=== PATIENT | female | born 1960 | race Native Hawaiian/Other Pacific Islander ===

== ENCOUNTER 2016-10-08 09:12 | Inpatient (IN) | payer MEDICAID, MEDICARE ==
[~2016-10-08] VITALS: Ht 154.9 cm; Wt 65.2 kg
[2016-10-08] VITALS (10 sets, daily range): BP systolic 143–167; BP diastolic 66–91; PULSE 74–91; RESP 18–36; O2SAT 96–99
[~2016-10-08 09:12] MED LIST: ASPI-973 PO; ATOR80TA PO; BIMA2.5D5 RIGHT_EYE; BISM262T15 PO; BRIM5DRO RIGHT_EYE; CARV25TA2 PO; CLOP75TA3 PO; DOCU-41 PO; FLUO20CA25 PO; GLPZ5T PO; INSU100V7 SUBQ; LISI-571 PO; ONDA-53 PO; POLY17PO6 PO; TIMO5DRO26 RIGHT_EYE; TRAM50TA2 PO
--- NOTE | 2016-10-08 09:32 | ED.REPORT ---
HPI-Dyspnea / Wheezing Date of Service Oct 08, 2016 ED Provider: Jean Paul Silveira MD 56 year old female with a history of KS, CAD with stents, CHF, ESRD on dialysis , and IDDM presents to the ER accompanied by her sister complaining of a month of acute on chronic shortness of breath, worsening markedly today. Associated symptoms include a sensation of "fluid in her lungs", "bloating", swelling, and cough. Patient denies fever, chills, or sense of infection. Last dialysis appointment was four days ago, and she is scheduled for dialysis today but states that she feels too ill to tolerate outpatient dialysis at this time. Nursing Notes Stated Complaint: DIFFICULTY BREATHING Chief Complaint: Respiratory Distress Nursing Notes Reviewed: Yes Allergies: Coded Allergies: No Known Allergies (Unverified Allergy, Unknown, 07/06/16) Scheduled Aspirin (Aspirin) 81 Mg Tablet 81 MG PO DAILY Atorvastatin (Lipitor) 80 Mg Tablet 80 MG PO DAILY Bimatoprost (Lumigan) 45 Drop/2.5 Ml Ophsoln 1 DROP RIGHT_EYE BID Brimonidine Tartrate/Timolol (Combigan Eye Drops) 5 Ml Drops 1 DROP RIGHT_EYE BID Carvedilol (Carvedilol) 25 Mg Tablet 25 MG PO BID Clopidogrel Bisulfate (Plavix) 75 Mg Tablet 75 MG PO DAILY Fluoxetine (Fluoxetine) 20 Mg Capsule 20 MG PO DAILY Glipizide (Glipizide) 5 Mg Tablet 2.5 MG PO DAILY Insulin Glargine (Lantus U100 Insulin Vial) 100 Unit/Ml Vial 15 UNIT SUBQ BID Lisinopril (Lisinopril) 5 Mg Tablet 5 MG PO BID Polyethylene Glycol 3350 (Miralax) 17 Gm Powd.pack 17 GM PO DAILY Hold if having loose stools or diarrhea Timolol (Betimol) 5 Ml Drops 1 DROP RIGHT_EYE BID Tramadol (Tramadol) 50 Mg Tablet 50 MG PO HS Scheduled PRN Bismuth Subsalicylate (Pepto-Bismol) 262 Mg Tab.chew 262 MG PO PRN PRN PRN For Indigestion Docusate Sodium (Colace) 100 Mg Capsule 100 MG PO DAILY PRN PRN For Constipation Ondansetron (Ondansetron) 4 Mg Tablet 4 MG PO Q 6 hours PRN PRN For Nausea General Time Seen by MD: 09:31 Chief Complaint Shortness of breath Hx Obtained From: Patient Arrived By: Walk-in Sudden in Onset?: No Onset Occurred: More than a week ago... (1 month) Symptom Duration: Constant Associated with: Reports: Leg swelling, Denies: Fever Context Related History: Reports: Congestive heart failure, Coronary artery disease Recent Healthcare: Recent doctor visit Similar Sx Previous: Yes Past Medical History Past Medical History Diabetes mellitus End-stage renal disease Hypertension CAD with cardiac stenting Congestive heart failure Cardiomyopathy Hyperlipidemia Hx of CVA Past Surgical History Cardiac stents x2 Family History Noncontributory Smoking History Never Smoker Social History Other Social History: Good social support, Local resident Ambulatory Status Independent Review of Systems Review of Systems Note: +Bloating Constitutional: Denies: Chills, Fever Respiratory: Reports: Dyspnea on exertion, Non-productive cough, Shortness of breath, Denies: Hemoptysis Musculoskeletal: Reports: Extremity swelling Complete sys rev & neg: except as marked. GI: Denies: Nausea, Vomiting Physical Exam Initial Vital Signs Vital Signs (First) Date Time Temp Pulse Resp B/P Pulse Ox O2 Delivery O2 Flow Rate FiO2 10/08/16 09:17 36.0 91 36 148/86 98 Room Air Initial VS: Reviewed Head / Eyes: Atraumatic, Normocephalic Extremities: Vascular intact, Neuro intact, No swelling, No tenderness Skin: Warm, Dry, No cyanosis Neurologic: Alert, Oriented, Nonfocal General/Constitutional: Awake, Alert, Well developed, Well nourished Neck: Atraumatic, Supple, No meningismus, Full range of motion, No swelling, Non-tender, No masses Respiratory / Chest: No rales, No rhonchi, No retractions Diminished Breath Sounds: Positive: Decreased bilateral Cardiovascular: Heart rate NL, Regular rhythm Heart Sounds / Murmur: Positive: Systolic murmur present.. (II/) Lower extremity edema to mid thighs, bilaterally. Interpretation & Diagnostics Lab Results Interpretation Result Diagram: 10/08/16 0945 10/08/16 0945 Test 10/08/16 09:45 White Blood Count 6.3th/mm3 (3.8-10.1) Red Blood Count 4.30mil/mm3 (3.90-5.20) Hemoglobin 12.0g/dL (12.0-15.6) Hematocrit 37.6% (35.0-46.0) Mean Corpuscular Volume 87.4fL (81-100) Mean Corpuscular Hemoglobin 27.9pg (27.0-35.0) Mean Corpuscular Hemoglobin Concent 31.9% (32.0-37.0) Red Cell Distribution Width 17.2% (12.3-15.4) Platelet Count 157bil/L (150-400) Neutrophils (%) (Auto) 78.6% (40-74) Lymphocytes (%) (Auto) 6.5% (14-46) Monocytes (%) (Auto) 10.9% (4-12) Eosinophils (%) (Auto) 3.5% (0-5) Basophils (%) (Auto) 0.3% (0-3) Prothrombin Time 10.9sec (8.1-12.5) Prothromb Time International Ratio 1.02ratio Sodium Level 139mEq/L (134-144) Potassium Level 5.2mEq/L (3.5-5.2) Chloride Level 105mEq/L (97-108) Carbon Dioxide Level 16mmol/L (18-29) Blood Urea Nitrogen 72mg/dL (6-24) Creatinine 5.37mg/dL (0.57-1.00) Estimat Glomerular Filtration Rate 12mL/min (>59) Glucose Level 91mg/dL (60-99) Calcium Level 7.9mg/dL (8.5-10.1) Total Bilirubin 1.1mg/dL (0.0-1.2) Aspartate Amino Transf (AST/SGOT) 43U/L (0-50) Alanine Aminotransferase (ALT/SGPT) 23U/L (0-32) Alkaline Phosphatase 583U/L (25-150) Troponin T 0.182ug/L (0.0-0.011) Pro-B-Type Natriuretic Peptide 10641sz/mL (0-287) Total Protein 7.4g/dL (6.4-8.4) Albumin 2.9g/dL (3.4-5.0) Hold Hartman Top Tube Received (Received) ECG Interpretation ECG Interpretation: Sinus rhythm, rate 87 Nonspecific intraventricular conduction delay Time: 10:20 Interpreted by: ED physician X-Ray Chest Interpretation Chest Xray Interpretation: IMPRESSION: Chronic retrocardiac and right medial lung base are unchanged, most likely atelectasis or pleural-parenchymal scarring. Superimposed acute process can be obscured. Dictated by: Oswaldo Mares M.D. on 10/08/2016 at 10:12 Approved by: Oswaldo Mares M.D. on 10/08/2016 at 10:17 View: Portable, 1 view Interpretation / Wet Read by: Interpret - Radiologist Re-Eval/Medical Decision Source of Hx: Old records Re-Evaluation/Progress : Time of Eval: 11:03 Re-Evaluation/Progress Note: Updated patien on the plan of care. Patient would like to be admitted to the hospital while she waits for her dialysis appointment. Consultation #1: Referral / Consult Name: Frank Julien MD Consulted With: Nephrology Call Returned at: 11:08 Note: Agrees to consult. Consultation #2: Referral / Consult Name: Lázaro Styles DO Consulted With: Hospitalist Call Returned at: 11:53 Noodle Catalyst Maker: Agrees with eval, Agrees with plan, Accepts admit Counseled Regarding: Diagnosis, Lab results, Need for admission Discharge & Departure Impression: Primary Impression: Fluid overload Hypervolemia type: unspecified Qualified Code: E87.70 - Fluid overload, unspecified Additional Impressions: Chronic renal disease, stage V Ascites Ascites type: other type Qualified Code: R18.8 - Other ascites Disposition: ADMITTED TO HOSPITAL Discharge Condition All VS Reviewed: Yes Condition: Stable Referrals: OTHER,PHYSICIAN (PCP) Mayito Gaines MD Attestation Portions of this note were transcribed by rEica Cordova. I, Dr. Silveira, personally performed the history, physical exam and medical decision-making; I reviewed and confirmed the accuracy of the information in the transcribed note. Signed by: Nay Rich, 10/08/2016 and 11:54 copies to: Mayito Gaines MD, Kirk H MD Oct 08, 2016 09:32 ERICA CORDOVA Oct 08, 2016 09:40
[2016-10-08 09:55] LABS: BASOPHILS % (AUTO) 0.3 % (0-3); EOSINOPHILS % (AUTO) 3.5 % (0-5); MONOCYTES % (AUTO) 10.9 % (4-12); Mean Corpuscular Hemoglobin 27.9 pg (27.0-35.0); Mean Corpuscular Volume 87.4 fL (81-100); NEUTROPHILS % (AUTO) 78.6 % (40-74); Platelet Count 157 bil/L (150-400)
[2016-10-08 10:08] LABS: INR 1.02 ratio
--- NOTE | 2016-10-08 10:18 | DRSVH ---
PROCEDURE: X-RAY CHEST ONE VIEW, PORTABLE ([id number]) INDICATIONS: dyspnea TECHNIQUE: One view of the chest was acquired. COMPARISON: [facility], CR, CHEST 1 VIEW, 11/10/2015, 14:59. [facility], CR, XR SAMANTHA ST 2VW, 07/07/2016, 8:20. [facility], CT, CT ABD PELVIS W CON, 07/10/2016, 17:14. [facility], CR, XR CHEST 1VW (PORTABLE), 07/10/2016, 12:16. FINDINGS: Surgical changes and devices: None. Lungs and pleura: Elevation of right hemidiaphragm. Chronic opacities in the retrocardiac region and right medial lung base are unchanged. Possible small right pleural effusion. No pneumothorax. Mediastinum: Mediastinal contours appear normal. Heart size is normal. Bones and chest wall: No suspicious bony lesions. Overlying soft tissues appear unremarkable. IMPRESSION: Chronic retrocardiac and right medial lung base are unchanged, most likely atelectasis or pleural-parenchymal scarring. Superimposed acute process can be obscured. Dictated by: Oswaldo Mares M.D. on 10/08/2016 at 10:12 Approved by: Oswaldo Mares M.D. on 10/08/2016 at 10:17
[2016-10-08 10:50] LABS: TROPONIN T 0.182 ug/L (0.0-0.011)
[2016-10-08] MEDS ORDERED: Alum-Mag Hydrox-Simeth 30 mL Suspension PO PRN (11:55)
[2016-10-08] MEDS ORDERED: Polyethylene Glycol (PEG) 17 Gm Powder PO PRN (11:55)
[2016-10-08] MEDS ORDERED: Ondansetron 2 mg/mL 2 mL Inj IVPUSH PRN (11:55)
--- NOTE | 2016-10-08 13:08 | DRSVH ---
PROCEDURE: US ABDOMEN INDICATIONS: abdominal distention TECHNIQUE: Real-time scanning was performed of the abdominal and retroperitoneal organs, with image documentatio n. COMPARISON: [facility], CT, CT ABD PELVIS W CON, 07/10/2016, 17:14. [facility], US, US ABDOMEN, 07/07/2016, 7:51. FINDINGS: Liver length: 17.09 cm Gallbladder Wall Thickness: n.a. CHD: 2.40 mm CBD: 6.70 mm Spleen length: 10.01 cm Right kidney length: 9.42 cm Left kidney length: 9.89 cm Aorta(Proximal): 1.64 cm Aorta(Mid): 1.18 cm Aorta(Distal): - RCIA: - LCIA: - Liver: Liver is normal in size and homogeneous in echotexture. Gallbladder: Surgically absent Biliary ducts: Intrahepatic bile ducts are non-dilated. Extrahepatic bile duct caliber is normal. Normal is 6-7 mm or less in diameter, or 10 mm or less post-cholecystectomy. Pancreas: Obscured by overlying bowel gas. Spleen: Spleen is normal in size and homogeneous in echotexture. Kidneys: Kidneys are normal in size and echotexture. No hydronephrosis or nephrolithiasis. No mendez d masses. Aorta: Visualized aorta is normal in caliber at less than 3 cm. Iliacs: Proximal common iliac arteries are obscured by overlying bowel gas. IVC: Intrahepatic inferior vena cava is patent. Miscellaneous: There is a small to moderate amount of free abdominal fluid in all 4 quadrants. IMPRESSION: 1. A small to moderate amount of free fluid in all 4 quadrants of the abdominal cavity. A cause for a scites is not identified. 2. Pancreas and iliac arteries not visualized due to overlying bowel gas. Dictated by: Oswaldo Mares M.D. on 10/08/2016 at 13:03 Approved by: Oswaldo Mares M.D. on 10/08/2016 at 13:07
[2016-10-08] MEDS ORDERED: FRSM80T PO (13:42)
--- NOTE | 2016-10-08 15:53 | PCM.HPMED ---
Subjective Date of Service Oct 08, 2016 Primary Provider: Admitting Physician: Lázaro Styles DO Primary Care Physician: Other,Physician Attending Physician: Lázaro Styles DO Chief Complaint: shortness of breath History of Present Illness: Tess is a pleasant 56-year-old female with history of CAD status post PCI, ischemic cardiomyopathy with EF of 40%, CHF, severe mitral regurg, type II diabetes, and end-stage renal disease on HD who presented to the ED for complaints of shortness of breath slowly worsening in the past 4 days. She is generally on a Saturday, Saturday, Saturday dialysis schedule but missed her dialysis on Saturday due to an outpatient surgical procedure for her diabetic retinopathy. She reports feeling increasingly short of breath and and states that her lungs are full water. She also complains of abdominal bloating and swelling, along with increasing pedal edema. She endorses a chronic cough which has not been any more productive for worse. She denies any chest pain, fevers, chills, headache, or dizziness. She reports that she does make urine and has not noticed any dysuria or urgency. She did not take her medications this morning. In the ED she was noted to be tachypneic but afebrile and saturating well on room air. She had a portable chest x-ray and EKG that did not show any acute changes. Her troponins were elevated at 0.182, but is comparable to previous troponins measured. Her creatinine was noted to be 5.37 with a BUN of 72. Her proBNP was 29,343. Her alkaline phosphatase was also elevated at 583. Review of Systems: 12 point review of systems negative except as stated in history of present illness Allergies Coded Allergies: No Known Allergies (Unverified Allergy, Unknown, 07/06/16) Home Medications Aspirin 81 mg Atorvastatin 80 mg Lumigan Pepto-Bismol when necessary Combigan Carvedilol 25 mg by mouth twice a day Plavix 75 mg by mouth daily Colace when necessary Fluoxetine 20 mg daily Furosemide 80 mg twice a day Glipizide 2-1/2 mg daily Lantus 15 units subcutaneous twice a day Lisinopril 5 mg by mouth twice a day Zofran when necessary Timolol drops Tramadol 50 mg daily at bedtime PMH 1. End-stage renal disease, on hemodialysis. Noncompliance. 2. 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 Hypertension with hypertensive nephrosclerosis. 4. Coronary artery disease s/p 2 drug eluting stents 5. Ischemic cardiomyopathy. Ejection fraction 40%. 6. Dyslipidemia. 7. CVA. 8. Depression. Surgical History 1. Status post left AV graft placement. 2. Status post cholecystectomy. 3. S/p balloon angioplasty for stenosis of AV fistula Family History Parents with cancer in later years, uncertain of which kind. Social History Hx Alcohol Use: No Hx Substance Use: No Hx Tobacco Use: No Smoking Status: Never Smoker Living Arrangement: with Family Exam Vital Signs Vital Sign - Last Date Time Temp Pulse Resp B/P Pulse Ox O2 Delivery O2 Flow Rate FiO2 10/08/16 14:22 77 10/08/16 13:06 36.7 22 152/89 99 Room Air Exam General: Well-developed female who appears in mild respiratory distress while lying at 30, speaking full sentences HEENT: Normocephalic, atraumatic, right pupil not reactive to light and chronically more dilated left, oropharynx nonerythematous, mucosa is mildly edematous Neck: Soft, nontender, trachea midline, JVD noted to angle of jaw CV: Regular rate and rhythm with rumbling systolic murmur noted on left lateral chest. Peripheral pulses intact and equal, thrill noted on left radial pulse Respiratory: Coarse breath sounds, moderate diffuse bilateral wheezing, crackles noted up to half of chest bilaterally, mild increase in respiratory effort Abdomen: Soft, mildly distended, nontender, no guarding, no rashes noted. fluid wave present, dullness to percussion, normoactive bowel sounds present MSK: Muscle strength grossly intact and equal, no swollen or tender joints Extremities: Severe pitting edema noted up to bilateral hips, no clubbing or cyanosis noted Neuro: Alert and oriented 3, grossly intact, no focal deficits, asymmetric Psych: Mildly flat affect, linear thought process, cooperative Lab and Diagnostics Result Diagram: 10/08/16 0945 10/08/16 0945 X-Rays, CTs and MRIs CXR 1view IMPRESSION: Chronic retrocardiac and right medial lung base are unchanged, most likely atelectasis or pleural-parenchymal scarring. Superimposed acute process can be obscured. 12-lead ECG NSR rates in thes 80s with nonspecific IVCD Additional Diagnostics: Abdominal U/S IMPRESSION: 1. A small to moderate amount of free fluid in all 4 quadrants of the abdominal cavity. A cause for ascites is not identified. 2. Pancreas and iliac arteries not visualized due to overlying bowel gas. Assessment & Plan 56-year-old female with history of CAD s/p PCI, ischemic cardiomyopathy with EF of 40%, CHF, severe mitral regurg, type II diabetes, and end-stage renal disease on HD who presented to the ED for complaints of shortness of breath slowly worsening in the past 4 days. #Likely acute on chronic CHF exacerbation, present on admission Patient has a history of CAD, cardiomyopathy with reduced ejection fraction, and also severe mitral regurg. Missing the episode of dialysis on Saturday is likely the cause for this acute exacerbation. There has been note of lack of compliance in the past also. Patient is scheduled for dialysis today We will plan to supplement diuresis with IV furosemide 80 mg twice a day We will continue to monitor I/Os and electrolytes closely. Replenish as needed Obtain daily standing weights Physical therapy for conditioning #Ischemic cardiomyopathy and CAD status post PCI, POA Patient's last echocardiogram was in April 2016. She reports that she has seen a improvement specialist down in [place] for possible replacement of her valve, which presumably is the mitral valve due to her severe regurg. She has not had any chest pain and reports that she has been compliant on her medications. We will plan to resume her home medications. We will place on telemetry for CV monitoring Plan to keep potassium above 4 and magnesium above 2 Elevated Troponin is likely due to poor clearance, will trend for further evaluation. Will obtain echocardiogram for evaluation #Ascites, POA Patient was noted to have ascites on physical examination. She had an abdominal ultrasound in the ED that did not show any obstruction and only a small to moderate amount of free fluid in all 4 quadrants. Of note the pancreas and iliac arteries were not visualized LFTs were within normal limits This may be due to her CHF and excess fluid state #End stage renal disease on hemodialysis, POA Patient reports dialysis on ,,. Nephrology is consulted and will be dialyzing patient today Continue patient's home medications, further management per nephrology #Type II diabetes with multiple complications, POA Patient has had long-standing diabetes with resultant neuropathy, retinopathy, renal, and cardiovascular disease We will hold home glipizide We will continue home Lantus and place on high-dose lispro correctional scale Hemoglobin A1c pending #Depression, POA We will continue home medications Tylenol prn pain/fever Zofran prn nausesa Restoril prn insomnia Ativan prn anxiety Bowel Regimen prn constipation CODE STATUS: Full code Admission status: Due to patient's medical complexity, risk of adverse effects, and decompensation, she will require at least 2 midnights for evaluation, treatment and stabilization. Pain Evaluation: Adequate Pain Control VTE Prophylaxis: Sub-Q Heparin (Unfractionated) Resuscitation Status: CPR: Attempt Resuscitation Time spent 55 minutes Attending Statement I have seen and evaluated patient in addition to directly supervising care provided by resident physician. I agree with above documentation. Elevated troponins in the setting of ESRD and CHF exacerbation without acute EKG changes much more likely representing cardiac strain and impaired clearance rather than ACS. Dialysis is paramount, FU study, echocardiogram to evaluate for possible underlying etiology contributing to this exacerbation also pending , though pt may have more simply have developed CHF given missed dialysis treatment and poor baseline cardiac function. Jace Russ DO Oct 08, 2016 15:05 Lázaro Styles DO Oct 09, 2016 06:08
[2016-10-08 16:43] LABS: Magnesium 2.4 mg/dL (1.6-2.6)
--- NOTE | 2016-10-08 17:29 | NUR ---
Admission Patient admitted to the floor from the ED at 1256. Admission questions and Med list accomplished. Vitals - t-36.7, bp-152/89, p-77, rr-22, 02-99 RA. Oriented patient to the room, place bed in lowest position and call light with in reach.
--- NOTE | 2016-10-08 17:32 | NUR ---
Transferred to dialysis. Patient transferred to dialysis at approx. 1400.
--- NOTE | 2016-10-08 17:33 | NUR ---
Med List Discrepancy Admit nurse discovered Med list from Sep. slightly different from meds presented to the primary RN to put in the med rec. Notified provider of the discrepancy and provider said he will look into next gen to try to reconcile the differences.
[2016-10-08] MEDS ORDERED: Glucose 40% Oral Gel 15 Gm Tube PO PRN (18:05)
--- NOTE | 2016-10-08 19:29 | NUR ---
Dialysis note: 2 1/2 hr tx. Net UF 2500. Accessed left looped graft with 15 g needles without difficulty, lidocaine used. Pt resting or sleeping throughout tx. RN held and then clamped for a total of 13 min. Secured with SS gauze and tape. Report given to floor RN Camille; pt returned to floor stable. Please see DTR for complete record of VS.
--- NOTE | 2016-10-08 19:54 | CONS ---
[address] [address] CONSULTATION REPORT PATIENT: DOMENICO CASTANEDA : 1960 MR#: [id number] ADMIT: 10/08/2016 JOB ID: [id number] DATE OF SERVICE: 10/08/2016 REQUESTING PHYSICIAN: Jean Paul Silveira MD REASON FOR CONSULTATION: Management of end-stage renal disease. CHIEF COMPLAINT: Shortness of breath and lower extremity swelling. PRESENT ILLNESS: This is a very pleasant, 75-year-old, Marshallese lady with significant past medical history of end-stage renal disease, on hemodialysis under the care of Dr. Gaines, type 2 diabetes with diabetic nephropathy, hypertension, ischemic cardiomyopathy, coronary artery disease status post stent placement x2, presented to the hospital due to shortness of breath and lower extremity swelling. The patient was recently admitted in June 2016 due to acute on chronic heart failure. She did have history of noncompliance. After she was discharged, she has been on hemodialysis on a regular basis every Saturday, Saturday and Saturday. Her last dialysis was on Saturday, October 05, 2016. She endorsed she has had worsening fluid retention over the past one month. She is complaining of lower extremity swelling, abdominal distention, facial swelling. She started having productive cough and chest congestion four days prior to the admission. She also has shortness of breath again over the past month also and got worse over the weekend. She decided to come to the hospital for further investigation. She stated that she was evaluated by a regional hr manager in one of the hospitals in [place]. She is not certain regarding further investigation. PAST MEDICAL HISTORY: 1. End-stage renal disease, on hemodialysis every Saturday, Saturday and Saturday. 2. Type 2 diabetes with diabetic nephropathy. 3. Hypertension with hypertensive nephrosclerosis. 4. Coronary artery disease status post stenting. 5. Ischemic cardiomyopathy. 6. History of CVA. 7. Dyslipidemia. 8. Depression. 9. Diabetic retinopathy. PAST SURGICAL HISTORY: 1. Status post cholecystectomy. 2. Status post left AV graft placement. 3. Focal high-grade stenosis at the graft anastomosis status post balloon angiography. SOCIAL HISTORY: Denies current use of alcohol, tobacco, or illicit drugs. FAMILY HISTORY: Noncontributory. ALLERGIES: No known drug allergies. REVIEW OF SYSTEMS: A 14 point review of system was performed. MEDICATIONS: 1. Aspirin. 2. Lipitor. 3. Carvedilol. 4. Plavix. 5. Colace. 6. Fluoxetine. 7. Glipizide. 8. Insulin glargine. 9. Lisinopril. 10. Zofran. 11. Tramadol. PHYSICAL EXAMINATION: Vitals: Temperature 36.7, pulse 76, respiratory rate 22, blood pressure 152/89, O2 sat 99% on room air. General appearance: Chronically ill-looking, in no acute distress. HEENT: No pallor. No icteric sclerae. Positive for JVD, puffy eyelids and face. No lymphadenopathy. No thyroid enlargement. Heart: Regular rhythm. Normal S1, S2. Systolic murmur noted. Lungs: Rales at the bases. Positive for expiratory wheezing. Occasional rhonchi noted. Abdomen: Soft. Moderate distention. Nontender. Fluid wave positive. No hepatosplenomegaly. Extremities: 2+ edema on the lower extremity. Abdominal sonogram showed [id number] amount of abdominal fluid in all four quadrants, liver is normal in size and homogeneous in echotexture status post cholecystectomy. Chest x-ray showed chronic retrocardiac and right media lung base unchanged, most likely atelectasis or pleural parenchymal scarring. Superimposed acute process can be obscured. LABORATORY: WBC 6.3, hemoglobin 12.0, platelets 157. Sodium 139, potassium 5.2, chloride 105, bicarb 16, BUN 72, creatinine 5.37, calcium 7.9, alkaline phos 583, troponin 0.182, ProBNP 29,343, albumin 2.9. Last cardiac cath done in April 2016 showed patent left anterior descending artery stent, diffuse coronary artery disease. Echocardiogram done in April 2016 showed ejection fraction 40%, severe hypokinesis of basal inferior wall, left atrium is severely dilated, severe mitral regurgitation, moderate tricuspid regurgitation. ASSESSMENT: 1. Severe fluid overload. 2. Acute on chronic systolic heart failure, ejection fraction 40%. 3. End-stage renal disease, on hemodialysis every Saturday, Saturday, and Saturday. 4. Severe mitral regurgitation and moderate tricuspid regurgitation. 5. Type 2 diabetes with diabetic nephropathy. 6. Hypertension with hypertensive nephrosclerosis. 7. Coronary artery disease status post stenting. 8. Dyslipidemia. 9. Cerebrovascular accident. 10. Renal osteodystrophy. Will resume dialysis today. Will start treatment for 4 hours, ultrafiltration as tolerated. Recommend abdominal paracentesis. Recommend to repeat echocardiogram. I will provided daily hemodialysis while she is in the hospital. Thank you for the consultation. We will monitor along with you. STEVEND
[2016-10-08] MEDS: Insulin LISPRO 300 Unit/3 mL Inj SUBQ SCH (22:00)
[2016-10-08] MEDS: Heparin 5,000 Unit/mL Inj SUBQ SCH ×2 (22:02→23:11)
[2016-10-08] MEDS: Brimonidine-Timolol 5 mL Ophthalmic Solution RIGHT_EYE SCH (22:03)
[2016-10-08] MEDS: Timolol 0.5% 5 mL Ophthalmic Solution RIGHT_EYE SCH (22:03)
[2016-10-08] MEDS: Furosemide 10 mg/mL 10 mL Inj IVPUSH SCH (22:03)
[2016-10-08] MEDS: Insulin GLARgine 100 Unit/mL Syringe SUBQ SCH (22:04)
[2016-10-09] VITALS (7 sets, daily range): BP systolic 135–152; BP diastolic 73–82; PULSE 70–80; RESP 16–18; O2SAT 96–98
--- NOTE | 2016-10-09 06:40 | NUR ---
Uneventful Night: Pt had an uneventful night, no c/o pain, ches tpain or SOB. Pt slept most of the night, pleasant and cooperative with care.
[2016-10-09 06:52] LABS: BASOPHILS % (AUTO) 0.4 % (0-3); EOSINOPHILS % (AUTO) 3.4 % (0-5); MONOCYTES % (AUTO) 13.8 % (4-12); Mean Corpuscular Hemoglobin 27.2 pg (27.0-35.0); Mean Corpuscular Volume 85.8 fL (81-100); NEUTROPHILS % (AUTO) 70.9 % (40-74); Platelet Count 152 bil/L (150-400)
[2016-10-09 07:27] LABS: Phosphorus 5.6 mg/dL (2.5-4.9)
--- NOTE | 2016-10-09 07:45 | NUR ---
Hypoglycemia Pts BG was 46. Pt c/o of light headedness. Notified charge nurse. Gave glass of juice and rechecked BG 10 minutes later and BG was 83. Held correctional coverage and ordered pts breakfast.
[2016-10-09] MEDS: Heparin 5,000 Unit/mL Inj SUBQ SCH ×2 (07:54→17:11)
[2016-10-09] MEDS: Insulin LISPRO 300 Unit/3 mL Inj SUBQ SCH ×4 (07:56→21:15)
[2016-10-09] MEDS: Insulin GLARgine 100 Unit/mL Syringe SUBQ SCH (07:56)
--- NOTE | 2016-10-09 08:48 | NUR ---
Evaluation completed. Please go to "Notes" then click on "Assessments and Notes" (bottom left corner of screen). Then select appropriate discipline tab on top of screen.
--- NOTE | 2016-10-09 09:00 | NUR ---
dialysis pt went to dialysis. All meds given accept lasix. pt left unit to MOC with no s/s of distress. 1230 pt returned to unit. No s/s of distress. Eating lunch
--- NOTE | 2016-10-09 09:42 | NUR ---
[facility] for dialysis: Patient arrived via bed to [facility] room 243-1 for ordered dialysis per electrical journeyman Becca. Patient on room air. Report received from primary RN. nuclear worker technician called and notified of patient's location.
--- NOTE | 2016-10-09 10:31 | PCM.PNMED ---
Subjective Date of Service Oct 09, 2016 Subjective Uneventful overnight, tolerated dialysis well yesterday. Had 2500ml ultrafiltrate removed. Patient was sleepy this morning but reports she slept well overnight. Still complaining of abd distension and some SOB. Denies any fevers, CP, or diarrhea. Exam Vital Signs Vital Sign - Last Date Time Temp Pulse Resp B/P Pulse Ox O2 Delivery O2 Flow Rate FiO2 10/09/16 05:02 37.0 74 16 135/73 98 Room Air Intake and Output 10/08/16 10/08/16 10/09/16 Cumulative From/Thru 15:00 23:00 07:00 10/08/16 09:17 - 10/09/16 05:46 Intake Total 375 ml 375 ml 750 ml Output Total 2500 ml 2500 ml Balance -2125 ml 375 ml -1750 ml Intake Oral 375 ml 375 ml 750 ml Output Urine Total 0 ml 0 ml Ultrafiltrate 2500 ml 2500 ml # Voids 1 1 # Bowel Movements 0 0 0 Exam General: Well-developed female who appears in mild respiratory distress while lying at 30, speaking full sentences HEENT: Normocephalic, atraumatic, right pupil not reactive to light and chronically more dilated left, oropharynx nonerythematous, mucosa is mildly edematous Neck: Soft, nontender, trachea midline, JVD noted to angle of jaw CV: Regular rate and rhythm with rumbling systolic murmur noted on left lateral chest. Peripheral pulses intact and equal, thrill noted on left radial pulse Respiratory: Coarse breath sounds, moderate diffuse bilateral wheezing, crackles noted up to half of chest bilaterally, mild increase in respiratory effort Abdomen: Soft, mildly distended, nontender, no guarding, no rashes noted. fluid wave present, dullness to percussion, normoactive bowel sounds present MSK: Muscle strength grossly intact and equal, no swollen or tender joints Extremities: Severe pitting edema noted up to bilateral hips, no clubbing or cyanosis noted Neuro: Alert and oriented 3, grossly intact, no focal deficits, asymmetric Psych: Mildly flat affect, linear thought process, cooperative IVs and Medications Medications Reviewed: Medications were reviewed in detail Lab and Diagnostics Result Diagram: 10/09/16 0620 10/09/16 0620 X-Rays, CTs and MRIs CXR 1view IMPRESSION: Chronic retrocardiac and right medial lung base are unchanged, most likely atelectasis or pleural-parenchymal scarring. Superimposed acute process can be obscured. 12-lead ECG NSR rates in thes 80s with nonspecific IVCD Additional Diagnostics Abdominal U/S IMPRESSION: 1. A small to moderate amount of free fluid in all 4 quadrants of the abdominal cavity. A cause for ascites is not identified. 2. Pancreas and iliac arteries not visualized due to overlying bowel gas. Assessment & Plan 56-year-old female with history of CAD s/p PCI, ischemic cardiomyopathy with EF of 40%, CHF, severe mitral regurg, type II diabetes, and end-stage renal disease on HD who presented to the ED for complaints of shortness of breath slowly worsening in the past 4 days. #Likely acute on chronic CHF exacerbation, present on admission Patient has a history of CAD, cardiomyopathy with reduced ejection fraction, and also severe mitral regurg. Missing the episode of dialysis on Saturday is likely the cause for this acute exacerbation. There has been note of lack of compliance in the past also. Patient is scheduled for dialysis today We will plan to supplement diuresis with IV furosemide 80 mg twice a day We will continue to monitor I/Os and electrolytes closely. Replenish as needed Obtain daily standing weights Physical therapy for conditioning #Ischemic cardiomyopathy and CAD status post PCI, POA Patient's last echocardiogram was in April 2016. She reports that she has seen a configuration specialist down in [place] for possible replacement of her valve, which presumably is the mitral valve due to her severe regurg. She has not had any chest pain and reports that she has been compliant on her medications. We will plan to resume her home medications. We will place on telemetry for CV monitoring Plan to keep potassium above 4 and magnesium above 2 Elevated Troponin is likely due to poor clearance, has been similar to previous values. Will obtain echocardiogram for evaluation of heart health. #Ascites, POA Patient was noted to have ascites on physical examination. She had an abdominal ultrasound in the ED that did not show any obstruction and only a small to moderate amount of free fluid in all 4 quadrants. Of note the pancreas and iliac arteries were not visualized LFTs were within normal limits Will obtain US Paracentesis today #End stage renal disease on hemodialysis, POA Patient reports dialysis on M,W,F. Nephrology is consulted and will be dialyzing patient today Continue patient's home medications, further management per nephrology -Daily dialysis while inpatient #Type II diabetes with multiple complications, POA Patient has had long-standing diabetes with resultant neuropathy, retinopathy, renal, and cardiovascular disease We will hold home glipizide We will continue home Lantus and place on high-dose lispro correctional scale Hemoglobin A1c 8.2 - likely high due to noncompliance. Was mildly hypoglycemic this morning, will plan to decrease Lantus. #Depression, POA We will continue home medications Tylenol prn pain/fever Zofran prn nausesa Restoril prn insomnia Ativan prn anxiety Bowel Regimen prn constipation Dispo: Will likely require 2-3 more days for dialysis and diuresis. Pain Evaluation: Adequate Pain Control VTE Prophylaxis: Sub-Q Heparin (Unfractionated) Resuscitation Status: CPR: Attempt Resuscitation Attending Statement The patient was seen and examined together with Dr. Russ on 10/09/2016 and I agree with the history, exam and plan as outlined in the note above. Jace Russ DO Oct 09, 2016 08:09 Yousuf Cortes MD Oct 10, 2016 09:03
--- NOTE | 2016-10-09 11:15 | PCM.PNNEPH ---
Subjective Date of Service Oct 09, 2016 Subjective Patient was seen during dialysis. She remains having shortness of breath, lower extremity swelling, increased abdominal girth. Dialysis was done yesterday, 2.5 L fluid removal. She reported that she missed dialysis on Saturday. Exam Vital Signs Vital Sign - Last Date Time Temp Pulse Resp B/P Pulse Ox O2 Delivery O2 Flow Rate FiO2 10/09/16 10:44 73 10/09/16 05:02 37.0 16 135/73 98 Room Air Intake and Output 10/08/16 10/08/16 10/09/16 Cumulative From/Thru 15:00 23:00 07:00 10/08/16 09:17 - 10/09/16 05:46 Intake Total 375 ml 375 ml 750 ml Output Total 2500 ml 2500 ml Balance -2125 ml 375 ml -1750 ml Intake Oral 375 ml 375 ml 750 ml Output Urine Total 0 ml 0 ml Ultrafiltrate 2500 ml 2500 ml # Voids 1 1 # Bowel Movements 0 0 0 Exam General appearance: Chronically ill-looking, in no acute distress. HEENT: No pallor. No icteric sclerae. Positive for JVD, puffy eyelids and face. No lymphadenopathy. No thyroid enlargement. Heart: Regular rhythm. Normal S1, S2. Systolic murmur noted. Lungs: Rales at the bases. No wheezing or rhonchi. Abdomen: Soft. Moderate distention. Nontender. Fluid wave positive. No hepatosplenomegaly. Extremities: 2+ edema on the lower extremity. Lab and Diagnostics Result Diagram: 10/09/16 0620 10/09/16 0620 X-Rays, CTs and MRIs CXR 1view IMPRESSION: Chronic retrocardiac and right medial lung base are unchanged, most likely atelectasis or pleural-parenchymal scarring. Superimposed acute process can be obscured. 12-lead ECG NSR rates in thes 80s with nonspecific IVCD Additional Diagnostics Abdominal U/S IMPRESSION: 1. A small to moderate amount of free fluid in all 4 quadrants of the abdominal cavity. A cause for ascites is not identified. 2. Pancreas and iliac arteries not visualized due to overlying bowel gas. Plan Impression ASSESSMENT: 1. Severe fluid overload Moderate ascites noted 2. Acute on chronic systolic heart failure, ejection fraction 40%. 3. End-stage renal disease, on hemodialysis every Saturday, Saturday, and Vikas. 4. Severe mitral regurgitation and moderate tricuspid regurgitation. 5. Type 2 diabetes with diabetic nephropathy. 6. Hypertension with hypertensive nephrosclerosis. 7. Coronary artery disease status post stenting. 8. Dyslipidemia. 9. Cerebrovascular accident. 10. Renal osteodystrophy Plan Recommend abdominal paracentesis. Recommend repeat 2-D echo. Patient will have another dialysis session in the morning. Frank Julien MD Oct 09, 2016 11:15
--- NOTE | 2016-10-09 12:37 | NUR ---
Dialysis note 3.5 hr HD tx. 3000ml net UF removed. 2 15 g needles to LL graft (arterial pinky). QB 400 per MD order. See DTR for complete vital sign data. Pt ate breakfast then slept comfortably thru tx without complaints/problems. Sureseals/clamps X 15 mins post tx. Report given and pt returned to floor stable.
[2016-10-09] MEDS: Brimonidine-Timolol 5 mL Ophthalmic Solution RIGHT_EYE SCH ×2 (13:28→21:04)
[2016-10-09] MEDS: Timolol 0.5% 5 mL Ophthalmic Solution RIGHT_EYE SCH ×2 (13:28→21:04)
[2016-10-09] MEDS: Furosemide 10 mg/mL 10 mL Inj IVPUSH SCH (13:29)
--- NOTE | 2016-10-09 15:54 | NUR ---
Social Work - Attempted Initial Assessment Data: Pt is a 56 y/o female who was admitted on 10/08/16 for volume overload and chronic kidney disease per H&P. Pt's insurance is Medicare and [facility] supplemental. Primary physician is out of area. EMR reviewed. Pt's readmission risk score is 5 - high. SW attempted initial assessment and the pt declined and said she needed to rest. Per PT note pt lives in a single story home with her daughter and currently ambulates with a 4WW and requires assistance with ADL's. PT is recommending HH at discharge if daughter is able to assist with mobility. If daughter is unable to assist they recommend SNF. SW will reattempt initial assessment tomorrow. SW will continue to follow. Assessment: Pt who resides at home with daughter and would benefit from HH or SNF. Plan: SW will reattempt initial assessment tomorrow. R/O HH or SNF. SW will continue to follow. CHRISSIE Beltrán
--- NOTE | 2016-10-09 16:36 | NUR ---
spiritual care: pt request introductory visit. pt very sleepy, introduced myself; will plan to follow
--- NOTE | 2016-10-09 16:58 | DRSVH ---
[facility] [address] [place] [address] Echocardiogram Report Name: DOMENICO CASTANEDA te: 10/09/2016 Height: 61 in Hospital Exam Location: [facility] Weight: 164 lb Gender: Female BSA: 1.7 m2 : 1960 Age: 56 yrs BP: 135/73 mmHg Reason For Study: Congestive Heart Failure Ordering Physician: Performed By: Lelia LEMAIST [facility] Interpretation Summary The left ventricle is mild-moderately dilated. Left ventricular systolic function is mild to moderately reduced. The ejection fraction is estimated to be 40-45%. There has been no significant change since the previous study. There is basal inferior and inferolaterl wall hypokinesis. Assessment of diastolic parameters suggests a pseudonormalization pattern, consistent with elevated filling pressures. The right ventricle is mildly dilated. The right ventricular systolic function is normal. The right ventricular systolic pressure is estimated at 50 mmHg assuming a right atrial pressure of 15 mm Hg. There is moderate to severe mitral regurgitation. There has been no significant change since the previous study. There is mild to moderate aortic regurgitation. Compared to the prior echo study, there has been an increase in the severity of aortic regurgitation. There is severe tricuspid regurgitation. Compared to the prior echo exam, there has been an increase in TR severity. Procedure: A two-dimensional transthoracic echocardiogram with color flow and Doppler was performed. The study quality was technically adequate. Comparison is made with the echocardiogram of 05/11/2016. The patient was in normal sinus rhythm during the exam. Left Ventricle: Left ventricular wall thickness is mildly increased. The left ventricle is mild-moderately dilated. Left ventricular systolic function is mild to moderately reduced. The ejection fraction is estimated to be 40- 45%. There has been no significant change since the previous study. There is basal inferior and inferolaterl wall hypokinesis. Assessment of diastolic parameters suggests a pseudonormalization pattern, consistent with elevated filling pressures. Right Ventricle: The right ventricle is mildly dilated. The right ventricular systolic function is normal. Atria: There is moderate biatrial enlargement. There is no Doppler evidence for an interatrial shunt. Mitral Valve: The mitral valve leaflets are moderately calcified. The anterior mitral leaflet tip is tethered. The mitral valve mean gradient is 2.8 mmHg. Flow reversal noted in pulmonary veins consistent with significant mitral regurgitation. There is moderate to severe mitral regurgitation. There has been no significant change since the previous study. Aortic Valve: The aortic valve is trileaflet. The aortic valve is moderately calcified. Leaflet mobility is minimally reduced. There is mild to moderate aortic regurgitation. Compared to the prior echo study, there has been an increase in the severity of aortic regurgitation. Tricuspid Valve: The tricuspid valve leaflets are thin and pliable. There is severe tricuspid regurgitation. Compared to the prior echo exam, there has been an increase in TR severity. Systolic flow reversal noted in hepatic vein. The right ventricular systolic pressure is estimated at 50 mmHg assuming a right atrial pressure of 15 mm Hg. Pulmonic Valve: The pulmonic valve is not well visualized. There is mild to moderate pulmonic regurgitation. Great Vessels: The aortic root is normal size. The ascending aorta is at the upper limits of normal in size. The aortic arch could not be visualized. The IVC is of normal diameter and collapses less than 50% with a sniff. This suggests a right atrial pressure of 8 mm Hg. Pericardium/ Pleura There is a trivial pericardial effusion noted. MMode/2D Measurements & Calculations LVIDd: 5.7 cm LA dimension: 3.9 cm RA long axis LVOT diam LVIDs: 4.3 cm FS: 24.1 % LA A2 area: 25.5 cm RA area AoV Opening EPSS: 0.96 cm LA A4 area: 25.6 cm IVSd: 1.1 cm LA length (vol): 6.7 cm: 23.4 cm Ao root diam LVPWd: 1.0 cm LA vol: 82.9 ml RA vol LA vol index : 75.4 ml Aortic Jxn RA : 43.4 mm2 asc Aorta IVC diam: 2.1 cm Diam: 3.3 cm LV colon. diameter/BSA LV sys. diameter/BSA RVD1 (basal) TAPSE: 2.0 cm (cm/m^2): 3.3 (cm/m^2): 2.5 Doppler Measurements & Calculations Ao V2 max MV E max alfa MV E/A: 1.1 TR max alfa : 164.7 cm/sec : 121.3 cm/sec Med Peak E' Alfa : 296.2 cm/sec Ao max PG MV A max alfa TR max PG : 10.8 mmHg : 113.5 cm/sec E/E' med: 25.1 : 35.3 mmHg Ao mean PG MV P1/2t: 66.5 msecLat Peak E' Alfa PA V2 max : 74.0 cm/sec LVOT Max Alfa MVA(VTI): 1.7 cm E/E' lat: 14.7 PA mean PG : 70.1 cm/sec MVA(traced) E/e' average: 19.9 MV A dur: 0.11 sec PA Accel Time TRIPP(I,D): 1.3 cm MR ERO: 0.13 cm2 : 0.10 sec sev ratio AI P1/2t : 396.4 msec AI dec slope : 280.2 cm/s2c MV V2 mean MV P1/2t max alfa Ao V2 mean LV V1 max PG : 79.5 cm/sec : 122.5 cm/sec MV mean PG MVA(P1/2t): 3.3 cm2Ao V2 VTI: 34.0 cm LV V1 VTI TRIPP(V,D): 1.4 cm2 : 13.4 cm MV V2 VTI: 26.5 cm MV dec time : 0.23 sec MR flow rate PA V2 mean TRIPP indexed to BSA : 69.1 cm3/sec : 48.6 cm/sec (cm^2/m^2): 0.76 MR PISA radius Reading Physician:ULICES
--- NOTE | 2016-10-09 17:04 | NUR ---
Spoke with primary RN to ask the Dr at rounds if CHF teaching is still appropriate for pt given she is on dialysis.
--- NOTE | 2016-10-09 17:50 | NUR ---
hold evening lantus 10/09/16 Pts BG has been up and down throughout shift 40s-80s. Per Dr Russ hold evening lantus. Pharmacy notified too
[2016-10-09] MEDS: Benzocaine-Menthol Lozenge 2/Pkg PO PRN (18:19)
[2016-10-09] MEDS: Furosemide 10 mg/mL 4 mL Inj IVPUSH SCH (21:05)
[2016-10-09] MEDS: guaiFENesin DM 100-10 mg/5 mL 118 mL Syrup PO PRN (21:37)
[2016-10-10] VITALS (8 sets, daily range): BP systolic 130–146; BP diastolic 70–80; PULSE 72–81; RESP 18–24; O2SAT 93–99
[2016-10-10] MEDS: Heparin 5,000 Unit/mL Inj SUBQ SCH ×3 (01:25→16:30)
--- NOTE | 2016-10-10 03:23 | NUR ---
Hypoglycemic: Pt BG at HS 107, no coverage given. At 0130 BG 48; pt appeared asymptomatic lying in bed, no complaints. RN gave pt snack of apple juice, gram crackers with peanut butter and pudding. Rechecked BG at 0205, 79. Rechecked again at 0310 BG 103. Pt may benefit from snack at HS. Pt had no complaints during the night, slept most of the night, pleasant and cooperative with care.
[2016-10-10 06:36] LABS: BASOPHILS % (AUTO) 0.2 % (0-3); EOSINOPHILS % (AUTO) 4.3 % (0-5); MONOCYTES % (AUTO) 13.5 % (4-12); Mean Corpuscular Hemoglobin 28.2 pg (27.0-35.0); Mean Corpuscular Volume 85.9 fL (81-100); Platelet Count 154 bil/L (150-400)
[2016-10-10 06:58] LABS: Magnesium 1.8 mg/dL (1.6-2.6); Phosphorus 4.6 mg/dL (2.5-4.9)
[2016-10-10] MEDS: Insulin LISPRO 300 Unit/3 mL Inj SUBQ SCH ×4 (08:00→20:23)
[2016-10-10] MEDS: Timolol 0.5% 5 mL Ophthalmic Solution RIGHT_EYE SCH ×2 (08:54→20:52)
[2016-10-10] MEDS: Pantoprazole 20 mg ER24 Tablet PO SCH (08:57)
[2016-10-10] MEDS: Furosemide 10 mg/mL 4 mL Inj IVPUSH SCH (08:59)
[2016-10-10] MEDS: Brimonidine-Timolol 5 mL Ophthalmic Solution RIGHT_EYE SCH ×2 (09:03→20:49)
--- NOTE | 2016-10-10 09:05 | NUR ---
RAMA signed CHRISSIE Adam
[2016-10-10] MEDS ORDERED: Albuterol-Ipratropium 3 mL Inhalation Solution NEB PRN (09:15)
--- NOTE | 2016-10-10 09:52 | NUR ---
DC from PT; ambulate w/Nsg Pt is discharged from further PT at this time and is encouraged to ambulate w/nsg w/FWW SBA/CGA prn 2-3x/day as pt tolerates.
--- NOTE | 2016-10-10 10:39 | NUR ---
Dialysis patient transferred to [facility] rm 244 for dialysis this am, report called to covering RN. patient denies pain/discomfort before transfer.
--- NOTE | 2016-10-10 10:56 | NUR ---
Social Work: Initial Assessment / Readiness for d/c Data: Pt is a 56 y/o female admitted for volume overload, chronic kidney disease. Pt's PCP is other physician, pt's insurance is Medicare with [facility] supp. EMR reviewed. Pt readmit score is 5. SOCIAL SERVICES DIRECTOR met with pt at bedside, role explained. Pt states that she lives in [place] with her daughter and niece. Her sister is available to help if needed after d/c. Pt states there are no stairs and she uses a cane or walker regularly. Pt states she does not drive, has has HH in the past but is unsure of which company, has hx at [facility] in [place] and has no LTC or VA benefits and is not a caregiver. Pt has dialysis every M//. SOCIAL SERVICES DIRECTOR explained PT recommendations for home with HH. HH choice list given. Pt states no preference. SOCIAL SERVICES DIRECTOR referred to vendor calendar, referred pt to [facility] for RN/PT/OT. Spoke with Emmanuel Ji, access given. stated in rounds pt possibly ready for d/c today after dialysis pending nephrology. SOCIAL SERVICES DIRECTOR will continue to follow. Assessment: Pt who is independent at baseline. Plan: Pt will d/c home via POV with family when medically stable, likely today or tomorrow. [facility] RN/PT/OT set up. SOCIAL SERVICES DIRECTOR will continue to follow. CHRISSIE Adam Addendum: 10/10/16 at 1101 by ROXANA LALA SS Amended: Links added.
--- NOTE | 2016-10-10 11:16 | PCM.PNNEPH ---
Subjective Date of Service Oct 10, 2016 Subjective She reported that she is doing a little bit better today. She still has some chest congestion. Persistent lower extremity swelling noted. Echocardiogram demonstrates worsening TR. Exam Vital Signs Vital Sign - Last Date Time Temp Pulse Resp B/P Pulse Ox O2 Delivery O2 Flow Rate FiO2 10/10/16 11:05 73 10/10/16 09:57 37.0 20 137/72 97 Room Air Intake and Output 10/09/16 10/09/16 10/10/16 Cumulative From/Thru 15:00 23:00 07:00 10/08/16 09:17 - 10/10/16 06:37 Intake Total 400 ml 450 ml 1600 ml Output Total 3000 ml 200 ml 5700 ml Balance -3000 ml 200 ml 450 ml -4100 ml Intake Oral 400 ml 450 ml 1600 ml Output Urine Total 200 ml 200 ml Ultrafiltrate 3000 ml 5500 ml # Voids 1 2 # Bowel Movements 1 1 2 Exam General appearance: Chronically ill-looking, in no acute distress. HEENT: No pallor. No icteric sclerae. Positive for JVD, puffy eyelids and face. No lymphadenopathy. No thyroid enlargement. Heart: Regular rhythm. Normal S1, S2. Systolic murmur noted. Lungs: Rales at the bases. No wheezing or rhonchi. Abdomen: Soft. Moderate distention. Nontender. Extremities: 2+ edema on the lower extremity. Lab and Diagnostics Result Diagram: 10/10/1661610/10/16616 X-Rays, CTs and MRIs CXR 1view IMPRESSION: Chronic retrocardiac and right medial lung base are unchanged, most likely atelectasis or pleural-parenchymal scarring. Superimposed acute process can be obscured. 12-lead ECG NSR rates in thes 80s with nonspecific IVCD Additional Diagnostics Abdominal U/S IMPRESSION: 1. A small to moderate amount of free fluid in all 4 quadrants of the abdominal cavity. A cause for ascites is not identified. 2. Pancreas and iliac arteries not visualized due to overlying bowel gas. Plan Impression 1. Severe fluid overload - Right-sided heart failure. moderate ascites noted 2. Acute on chronic systolic heart failure, ejection fraction 40%. 3. End-stage renal disease, on hemodialysis every Saturday, Saturday, and Saturday. 4. Mod-severe mitral regurgitation, severe tricuspid regurgitation, mild to mod aortic regurgitation.. 5. Type 2 diabetes with diabetic nephropathy. 6. Hypertension with hypertensive nephrosclerosis. 7. Coronary artery disease status post stenting. 8. Dyslipidemia. 9. Cerebrovascular accident. 10. Renal osteodystrophy Plan Patient will have ultrafiltration today. We will plan to remove fluid approximately 3 L. Next dialysis in the morning. Disposition: Within 24 hours. Frank Julien MD Oct 10, 2016 11:16
--- NOTE | 2016-10-10 13:30 | NUR ---
Dialysis note: 2 hrs PUF. 3000 ml net UF. Left lower arm graft. Pls see DTR for VS details. Qb 300. No heparin given. O2 @ 2L via NC on. Tolerated tx, slept at intervals. Graft needle sites clotted w/in 10 min. Report given to Cecy Max RN. Stable at time of transfer.
--- NOTE | 2016-10-10 13:40 | NUR ---
returned from HD received report post HD, pulled 3 liters off. patient returned to room 3014. denies pain or discomfort. BS was 97 at [facility] [place] [place]. heated up lunch for patient.
--- NOTE | 2016-10-10 14:11 | PCM.PNMED ---
Subjective Date of Service Oct 10, 2016 Subjective Slept through most of the night, did have low blood sugars yesterday afternoon, so HS Lantus dose was held. Still had low BG at night and was given snacks to bring up her BG. Was asymptomatic throughout. Had a planned paracentesis, but did not have enough fluid to tap. Doing slightly better this morning. Reports she still feels tired, but her breathing is somewhat improving. Has not noticed any fevers, CP, or PERKINS Exam Vital Signs Vital Sign - Last Date Time Temp Pulse Resp B/P Pulse Ox O2 Delivery O2 Flow Rate FiO2 10/10/16 04:12 36.8 75 18 137/78 94 Room Air Intake and Output 10/09/16 10/09/16 10/10/16 Cumulative From/Thru 14:59 22:59 06:59 10/08/16 09:17 - 10/10/16 06:37 Intake Total 400 ml 450 ml 1600 ml Output Total 3000 ml 200 ml 5700 ml Balance -3000 ml 200 ml 450 ml -4100 ml Intake Oral 400 ml 450 ml 1600 ml Output Urine Total 200 ml 200 ml Ultrafiltrate 3000 ml 5500 ml # Voids 1 2 # Bowel Movements 1 1 2 Exam General: Well-developed female who appears mildly lethargic while sitting upright in chair. HEENT: right pupil not reactive to light and chronically more dilated left, oropharynx nonerythematous CV: Regular rate and rhythm with rumbling systolic murmur noted on left lateral chest. Peripheral pulses intact and equal, thrill noted on left radial pulse Respiratory: Coarse breath sounds, mild end expiratory wheezing, mild bibasilar rales noted, normal resp effort Abdomen: Soft, mildly distended, nontender, no guarding, no rashes noted. normoactive bowel sounds. Decreased ascites compared to yesterday MSK: Muscle strength grossly intact and equal, no swollen or tender joints Extremities: Moderate pitting edema noted up to bilateral knees, no clubbing or cyanosis noted Neuro: Alert and oriented 3, grossly intact, no focal deficits, asymmetric Psych: Mildly flat affect, linear thought process, cooperative IVs and Medications Medications Reviewed: Medications were reviewed in detail Lab and Diagnostics Result Diagram: 10/10/1661610/10/16616 X-Rays, CTs and MRIs CXR 1view IMPRESSION: Chronic retrocardiac and right medial lung base are unchanged, most likely atelectasis or pleural-parenchymal scarring. Superimposed acute process can be obscured. 12-lead ECG NSR rates in thes 80s with nonspecific IVCD Additional Diagnostics Abdominal U/S IMPRESSION: 1. A small to moderate amount of free fluid in all 4 quadrants of the abdominal cavity. A cause for ascites is not identified. 2. Pancreas and iliac arteries not visualized due to overlying bowel gas. Assessment & Plan 56-year-old female with history of CAD s/p PCI, ischemic cardiomyopathy with EF of 40%, CHF, severe mitral regurg, type II diabetes, and end-stage renal disease on HD who presented to the ED for complaints of shortness of breath slowly worsening in the past 4 days. #Likely acute on chronic CHF exacerbation, present on admission Patient has a history of CAD, cardiomyopathy with reduced ejection fraction, and also severe mitral regurg. Missing the episode of dialysis on Saturday is likely the cause for this acute exacerbation. There has been note of lack of compliance in the past also. We will plan to supplement diuresis with IV furosemide 80 mg twice a day We will continue to monitor I/Os and electrolytes closely. Replenish as needed Obtain daily standing weights Physical therapy for conditioning -Continuing to improve with dialysis daily. Duoneb prn ordered for SOB and wheezing. #Ischemic cardiomyopathy and CAD status post PCI, POA Patient's last echocardiogram was in April 2016. She reports that she has seen a outbound sales specialist down in [place] for possible replacement of her valve, which presumably is the mitral valve due to her severe regurg. She has not had any chest pain and reports that she has been compliant on her medications. We will plan to resume her home medications. We will place on telemetry for CV monitoring Plan to keep potassium above 4 and magnesium above 2 Elevated Troponin is likely due to poor clearance, has been similar to previous values. Echocardiogram showed worsening regurg as noted above. #Ascites, POA Patient was noted to have ascites on physical examination. She had an abdominal ultrasound in the ED that did not show any obstruction and only a small to moderate amount of free fluid in all 4 quadrants. Of note the pancreas and iliac arteries were not visualized LFTs were within normal limits Not enough fluid for paracentesis. Continue to monitor. #End stage renal disease on hemodialysis, POA Patient reports dialysis on ,,. Nephrology is consulted and will be dialyzing patient today Continue patient's home medications, further management per nephrology -Daily dialysis while inpatient #Type II diabetes with multiple complications, POA Patient has had long-standing diabetes with resultant neuropathy, retinopathy, renal, and cardiovascular disease We will hold home glipizide We will continue home Lantus and place on high-dose lispro correctional scale Hemoglobin A1c 8.2 - likely high due to noncompliance. Was mildly hypoglycemic this morning, will plan to decrease Lantus. #Depression, POA We will continue home medications Tylenol prn pain/fever Zofran prn nausesa Restoril prn insomnia Ativan prn anxiety Bowel Regimen prn constipation Dispo: Will likely discharge tomorrow afternoon after dialysis if continues to improve Pain Evaluation: Adequate Pain Control VTE Prophylaxis: Sub-Q Heparin (Unfractionated) Resuscitation Status: CPR: Attempt Resuscitation Attending Statement The patient was seen and examined together with Dr. Russ on 10/10/2016 and I agree with the history, exam and plan as outlined in the note above. Jace Russ DO Oct 10, 2016 08:03 Yousuf Cortes MD Oct 11, 2016 09:17
[2016-10-10] MEDS: Benzocaine-Menthol Lozenge 2/Pkg PO PRN ×2 (14:56→20:52)
--- NOTE | 2016-10-10 18:08 | NUR ---
blood sugars patient's blood sugars have been stable today. 93 at breakfast, 97 at lunch, and 163 at dinner. long acting insulin has been discontinues. last night, per reports patient BS dropped into 40's. recommend evening snack to help with late night BS drop. patient denies any pain/discomfort today. does report feeling bloated. ate will with each meal. denies any other complaint during shift. continue to monitor.
[2016-10-10] MEDS: guaiFENesin DM 100-10 mg/5 mL 118 mL Syrup PO PRN (20:48)
[2016-10-10] MEDS ORDERED: Insulin GLARgine 100 Unit/mL Syringe SUBQ SCH (21:00)
[2016-10-11 00:26] VITALS: BP 126/69; PULSE 71; RESP 20; O2SAT 97
[2016-10-11] MEDS: Heparin 5,000 Unit/mL Inj SUBQ SCH ×3 (00:54→17:38)
[2016-10-11 04:46] VITALS: BP 137/76; PULSE 71; RESP 20; O2SAT 98
[2016-10-11 06:19] LABS: BASOPHILS % (AUTO) 0.7 % (0-3); EOSINOPHILS % (AUTO) 5.2 % (0-5); MONOCYTES % (AUTO) 14.8 % (4-12); Mean Corpuscular Hemoglobin 27.8 pg (27.0-35.0); Mean Corpuscular Volume 86.2 fL (81-100); NEUTROPHILS % (AUTO) 65.8 % (40-74); Platelet Count 166 bil/L (150-400)
[2016-10-11 06:43] LABS: Phosphorus 5.7 mg/dL (2.5-4.9)
[2016-10-11] MEDS: Insulin LISPRO 300 Unit/3 mL Inj SUBQ SCH ×4 (08:00→21:25)
[2016-10-11] MEDS: Timolol 0.5% 5 mL Ophthalmic Solution RIGHT_EYE SCH ×2 (08:02→20:29)
[2016-10-11] MEDS: Pantoprazole 20 mg ER24 Tablet PO SCH (08:03)
[2016-10-11] MEDS: Brimonidine-Timolol 5 mL Ophthalmic Solution RIGHT_EYE SCH ×2 (08:03→20:28)
[2016-10-11] MEDS: Benzocaine-Menthol Lozenge 2/Pkg PO PRN (08:10)
[2016-10-11 09:11] VITALS: BP 135/73; PULSE 75; RESP 18; O2SAT 95
--- NOTE | 2016-10-11 09:45 | NUR ---
Off unit-Dialysis Pt off unit for dialysis, transferred on stretcher by 2 aides. Pt denied pain. VSS. report given to [facility] Will reassess upon return to unit. Addendum: 10/11/16 at 1451 by RAMÓN HOPKINS RN Pt returned to unit around 1310. Denied pain. AM to be given now.
--- NOTE | 2016-10-11 09:53 | NUR ---
Pt arrived to [facility]: Pt arrived to [facility] for dialysis treatment. Report obtained form primary nurse. Pt appears stable at time of arrival. Addendum: 10/11/16 at 1328 by KENNY MANE RN Pt returned to unit after dialysis completed. Pt appears stable at time of transfer. Report given to primary nurse Radha Gomes RN.
[2016-10-11 09:58] VITALS: BP 123/73; PULSE 74
--- NOTE | 2016-10-11 10:59 | PCM.PNNEPH ---
Subjective Date of Service Oct 11, 2016 Subjective Patient is seen during hemodialysis. Her blood pressure is stable. She is feeling weak. Appetite is fair. Still complaining of chest congestion but slightly improved. Lower extremity swelling has gradually improved. Exam Vital Signs Vital Sign - Last Date Time Temp Pulse Resp B/P Pulse Ox O2 Delivery O2 Flow Rate FiO2 10/11/16 09:58 74 10/11/16 09:11 37.2 18 135/73 95 Room Air Intake and Output 10/10/16 10/10/16 10/11/16 Cumulative From/Thru 15:00 23:00 07:00 10/08/16 09:17 - 10/11/16 00:30 Intake Total 500 ml 2100 ml Output Total 3000 ml 475 ml 9175 ml Balance -3000 ml 25 ml -7075 ml Intake Oral 500 ml 2100 ml Output Urine Total 475 ml 675 ml Ultrafiltrate 3000 ml 8500 ml # Voids 2 # Bowel Movements 1 3 Exam General appearance: Chronically ill-looking, in no acute distress. HEENT: No pallor. No icteric sclerae. Positive for JVD, puffy eyelids and face. No lymphadenopathy. No thyroid enlargement. Heart: Regular rhythm. Normal S1, S2. Systolic murmur noted. Lungs: Rales at the bases. No wheezing or rhonchi. Abdomen: Soft. Moderate distention. Nontender. Extremities: 1+ edema on the lower extremity. Left AV graft with thrill. Lab and Diagnostics Result Diagram: 10/11/16 0550 10/11/16 0550 X-Rays, CTs and MRIs CXR 1view IMPRESSION: Chronic retrocardiac and right medial lung base are unchanged, most likely atelectasis or pleural-parenchymal scarring. Superimposed acute process can be obscured. 12-lead ECG NSR rates in thes 80s with nonspecific IVCD Additional Diagnostics Abdominal U/S IMPRESSION: 1. A small to moderate amount of free fluid in all 4 quadrants of the abdominal cavity. A cause for ascites is not identified. 2. Pancreas and iliac arteries not visualized due to overlying bowel gas. Plan Impression 1. Anasarca. 2. Acute on chronic systolic heart failure, ejection fraction 40%. 3. End-stage renal disease, on hemodialysis every Saturday, Saturday, and Saturday. 4. Mod-severe mitral regurgitation, severe tricuspid regurgitation, mild to mod aortic regurgitation.. 5. Type 2 diabetes with diabetic nephropathy. 6. Hypertension with hypertensive nephrosclerosis. 7. Coronary artery disease status post stenting. 8. Dyslipidemia. 9. Cerebrovascular accident. 10. Renal osteodystrophy Plan Per renal standpoint patient can be discharged home after hemodialysis today. Her next dialysis will be performed again tomorrow at her dialysis unit. Frank Julien MD Oct 11, 2016 10:59
--- NOTE | 2016-10-11 13:20 | NUR ---
Dialysis note: 3 hrs tx. 3000 ml net UF. Left lower arm graft. Pls see DTR for VS details. Qb 400. No heparin given. O2 @ 2L via NC on. Tolerated tx, slept at intervals. Graft needle sites clotted w/in 10 min. Report given to Sowmya Arias RN. Stable at time of transfer.
--- NOTE | 2016-10-11 15:17 | PCM.PNMED ---
Subjective Date of Service Oct 11, 2016 Subjective Tess Peterson is a 56-year-old female with history of CAD s/p PCI, ischemic cardiomyopathy with EF of 40%, CHF, severe mitral regurg, type II diabetes, and end-stage renal disease on HD who presented to the ED for complaints of shortness of breath slowly worsening in the past 4 days. Now under treatment for CHF exacerbation. Hospital day #4 Overnight: No acute events. Today: The patient states she feels back to her normal self and her breathing is back to baseline. She denies any discomfort, shortness of breath, nausea, vomiting or diarrhea. The remainder of the review of systems is negative except as noted above. Exam Vital Signs Vital Sign - Last Date Time Temp Pulse Resp B/P Pulse Ox O2 Delivery O2 Flow Rate FiO2 10/11/16 09:58 74 10/11/16 09:11 37.2 18 135/73 95 Room Air Intake and Output 10/10/16 10/10/16 10/11/16 Cumulative From/Thru 15:00 23:00 07:00 10/08/16 09:17 - 10/11/16 00:30 Intake Total 500 ml 2100 ml Output Total 3000 ml 475 ml 9175 ml Balance -3000 ml 25 ml -7075 ml Intake Oral 500 ml 2100 ml Output Urine Total 475 ml 675 ml Ultrafiltrate 3000 ml 8500 ml # Voids 2 # Bowel Movements 1 3 Exam General: Well-developed female in a hospital bed currently undergoing dialysis HEENT: right pupil not reactive to light and chronically more dilated left, oropharynx nonerythematous CV: Regular rate and rhythm with rumbling systolic murmur noted on left lateral chest. Peripheral pulses intact and equal, thrill noted on left radial pulse Respiratory: Coarse breath sounds, mild end expiratory wheezing, mild bibasilar rales noted, normal resp effort Abdomen: Soft, mildly distended, nontender, no guarding, no rashes noted. normoactive bowel sounds. Decreased ascites compared to yesterday MSK: Muscle strength grossly intact and equal, no swollen or tender joints Extremities: Moderate pitting edema noted up to bilateral knees, no clubbing or cyanosis noted Neuro: Alert and oriented 3, grossly intact, no focal deficits, asymmetric Psych: Mildly flat affect, linear thought process, cooperative IVs and Medications Medications Reviewed: Medications were reviewed in detail Lab and Diagnostics Result Diagram: 10/11/16 0550 10/11/16 0550 X-Rays, CTs and MRIs X-RAY CHEST ONE VIEW, PORTABLE IMPRESSION: Chronic retrocardiac and right medial lung base are unchanged, most likely atelectasis or pleural-parenchymal scarring. Superimposed acute process can be obscured. Dictated by: Oswaldo Mares M.D. on 10/08/2016 at 10:12 US ABDOMEN IMPRESSION: 1. A small to moderate amount of free fluid in all 4 quadrants of the abdominal cavity. A cause for ascites is not identified. 2. Pancreas and iliac arteries not visualized due to overlying bowel gas. Dictated by: Oswaldo Mares M.D. on 10/08/2016 at 13:03 12-lead ECG NSR rates in thes 80s with nonspecific IVCD Assessment & Plan Tess Peterson is a 56-year-old female with history of CAD s/p PCI, ischemic cardiomyopathy with EF of 40%, CHF, severe mitral regurg, type II diabetes, and end-stage renal disease on HD who presented to the ED for complaints of shortness of breath slowly worsening in the past 4 days. Now under treatment for CHF exacerbation. Hospital day #4 1. Acute on chronic CHF exacerbation, present on admission -Patient has a history of CAD, cardiomyopathy with reduced ejection fraction, and also severe mitral regurg. Missing the episode of dialysis on Saturday is likely the cause for this acute exacerbation. There has been note of lack of compliance in the past also. -We will plan to supplement diuresis with IV furosemide 80 mg twice a day -We will continue to monitor I/Os and electrolytes closely. Replenish as needed -Obtain daily standing weights -Physical therapy for conditioning -Continuing to improve with dialysis daily. Duoneb prn ordered for SOB and wheezing. -HD today as well 2. Ischemic cardiomyopathy and CAD status post PCI, present on admission -Patient's last echocardiogram was in April 2016. She reports that she has seen a desktop support specialist down in [place] for possible replacement of her valve, which presumably is the mitral valve due to her severe regurg. -She has not had any chest pain and reports that she has been compliant on her medications. -Resume her home medications. -We will place on telemetry for CV monitoring -Plan to keep potassium above 4 and magnesium above 2 -Elevated Troponin is likely due to poor clearance, has been similar to previous values. -Echocardiogram showed worsening regurg as noted above. 3. Ascites, present on admission -Patient was noted to have ascites on physical examination. -She had an abdominal ultrasound in the ED that did not show any obstruction and only a small to moderate amount of free fluid in all 4 quadrants. Of note the pancreas and iliac arteries were not visualized -LFTs were within normal limits -Not enough fluid for paracentesis. Continue to monitor. 4. End stage renal disease on hemodialysis, present on admission -Patient reports dialysis on ,,. -Nephrology is consulted and will be dialyzing patient today -Continue patient's home medications, further management per nephrology -Daily dialysis while inpatient 5. Type II diabetes with multiple complications, present on admission -Patient has had long-standing diabetes with resultant neuropathy, retinopathy, renal, and cardiovascular disease -We will hold home glipizide -We will continue home Lantus and place on high-dose lispro correctional scale -Hemoglobin A1c 8.2 - likely high due to noncompliance. -Was mildly hypoglycemic this morning, will plan to decrease Lantus. 6. Depression, present on admission -We will continue home medications Tylenol prn pain/fever Zofran prn nausesa Restoril prn insomnia Ativan prn anxiety Bowel Regimen prn constipation Dispo: Will likely discharge tomorrow. VTE Prophylaxis: Sub-Q Heparin (Unfractionated) VTE Mechanical Devices: Venous Foot Pump Resuscitation Status: CPR: Attempt Resuscitation Attending Statement The patient was seen and examined together with Dr. Chua on 10/11/2016 and I agree with the history, exam and plan as outlined in the note above. Tiffany Chua DO Oct 11, 2016 15:17 Yousuf Cortes MD Oct 12, 2016 11:26
[2016-10-11 15:33] VITALS: BP 153/78; PULSE 77; O2SAT 97
[2016-10-11 21:55] VITALS: BP 134/64; PULSE 77; RESP 18; O2SAT 94
[2016-10-12] MEDS: Heparin 5,000 Unit/mL Inj SUBQ SCH ×2 (02:09→07:45)
--- NOTE | 2016-10-12 03:55 | NUR ---
Uneventful night Patient denied pain with assessments. Slept through most of the night. Bed alarm on for safety, intentional rounding in place.
[2016-10-12 04:35] VITALS: PULSE 77; RESP 20; O2SAT 97
[2016-10-12 05:02] VITALS: BP 137/82; PULSE 71; RESP 18; O2SAT 96
[2016-10-12] MEDS: Insulin LISPRO 300 Unit/3 mL Inj SUBQ SCH (07:44)
[2016-10-12] MEDS: Benzocaine-Menthol Lozenge 2/Pkg PO PRN (07:45)
[2016-10-12] MEDS: Pantoprazole 20 mg ER24 Tablet PO SCH (07:49)
[2016-10-12] MEDS: Brimonidine-Timolol 5 mL Ophthalmic Solution RIGHT_EYE SCH (09:49)
[2016-10-12] MEDS: Timolol 0.5% 5 mL Ophthalmic Solution RIGHT_EYE SCH (09:49)
--- NOTE | 2016-10-12 09:57 | PCM.DIMED ---
Jace Russ DO 10/12/16 0957: Discharge Instructions Date of Service Oct 12, 2016 Dates of Hospitalization Oct 08, 2016 at 12:09 Discharge Diagnosis Discharge Diagnosis 1. Acute on chronic CHF exacerbation, improved 2. Ischemic cardiomyopathy and CAD status post PCI, stable 3. Ascites, present on admission- improved 4. End stage renal disease on hemodialysis, stable 5. Type II diabetes with multiple complications, uncontrolled 6. Depression, stable Medication Instructions Please continue taking your medications as instructed. Please decrease your Lantus as instructed. Please monitor your blood sugars 3 times per day Diet Low fat, Low Sodium Activity No restrictions Call your provider Fever or Chills, Shortness of breath, Chest pain, Vomitting, Excessive diarrhea , Weakness (unilateral) Patient Instructions You are being discharged home with home health services today. Please follow up with your primary care doctor within 1 week. [place] follow up with your director of strategy & mobile within 1 week. Please go to dialysis every week on Saturday, , and Sat. You cannot miss dialysis. Follow-up Provider: Tashia Leon PA-C Follow-up with PCP in: 1 week Yousuf Cortes MD 10/12/16 1127: Jace Russ DO Oct 12, 2016 09:57 Yousuf Cortes MD Oct 12, 2016 11:27
[2016-10-12] MEDS ORDERED: IPRA3AMP NEB (09:58)
--- NOTE | 2016-10-12 10:09 | NUR ---
Social Work: Readiness for d/c Data: Pt is on day 4 of hospitalization. EMR reviewed, states pt will d/c after dialysis today. F2F ready for [facility] to nut picker, access given. HAND FINISHER will continue to follow. Assessment: Pt who is independent at baseline, on dialysis. Plan: Pt will d/c home via POV today after dialysis with [facility], RN/PT/OT and dialysis. HAND FINISHER will notify [facility] when d/c orders are in and will continue to follow. CHRISSIE Adam
[2016-10-12 10:28] VITALS: BP 127/63; PULSE 72; RESP 18; O2SAT 95
[2016-10-12] MEDS ORDERED: BENZ-12 PO (10:36)
[2016-10-12] MEDS ORDERED: INSU100V7 SUBQ (10:36)
--- NOTE | 2016-10-12 10:57 | NUR ---
Social Work: Discharge Data: Pt is on day 4 of hospitalization. EMR reviewed, states pt will d/c after dialysis today. F2F ready for [facility] to vegetable picker, access given. [facility] informed. JEWEL HOLE CORNERER will continue to follow. Assessment: Pt who is independent at baseline, on dialysis. Plan: Pt will d/c home via POV today after dialysis with [facility], RN/PT/OT and dialysis. [facility] notified. No further d/c planning needs. CHRISSIE Adam
--- NOTE | 2016-10-12 11:20 | NUR ---
Discharge-after dialysis Pt transported to [facility] for dialysis at 1120 on stretcher by primary RN. Pt clothed in personal clothes. Report called to Maggi. Pt d/c from [facility] prior to leaving, IV d/c, teaching provided. 1 Rx sent to pts pharmacy. All personal belongings left with pt. Pt denied having questions. VSS.
--- NOTE | 2016-10-12 11:22 | PCM.PNNEPH ---
Subjective Date of Service Oct 12, 2016 Subjective There was no acute issues overnight. Patient has done hemodialysis for 4 consecutive days. Total output 13,100 ml. Total balance - 9,910 ml. Exam Vital Signs Vital Sign - Last Date Time Temp Pulse Resp B/P Pulse Ox O2 Delivery O2 Flow Rate FiO2 10/12/16 10:28 36.7 72 18 127/63 95 Room Air Intake and Output 10/11/16 10/11/16 10/12/16 Cumulative From/Thru 15:00 23:00 07:00 10/08/16 09:17 - 10/12/16 06:46 Intake Total 300 ml 240 ml 550 ml 3190 ml Output Total 3200 ml 200 ml 525 ml 37852 ml Balance -2900 ml 40 ml 25 ml -9910 ml Intake Oral 300 ml 240 ml 550 ml 3190 ml Output Urine Total 200 ml 200 ml 525 ml 1600 ml Ultrafiltrate 3000 ml 07747 ml # Voids 2 # Bowel Movements 2 0 5 Exam General appearance: Chronically ill-looking, in no acute distress. HEENT: No pallor. No icteric sclerae. Positive for JVD, No lymphadenopathy. No thyroid enlargement. Heart: Regular rhythm. Normal S1, S2. Systolic murmur noted. Lungs: Rales at the bases. Expiratory wheezing noted. Abdomen: Soft. mild distention. Nontender. Extremities: 1+ edema on the lower extremity. Left AV graft with thrill. Lab and Diagnostics Result Diagram: 10/11/16 0550 10/11/16 0550 X-Rays, CTs and MRIs X-RAY CHEST ONE VIEW, PORTABLE IMPRESSION: Chronic retrocardiac and right medial lung base are unchanged, most likely atelectasis or pleural-parenchymal scarring. Superimposed acute process can be obscured. Dictated by: Oswaldo Mares M.D. on 10/08/2016 at 10:12 US ABDOMEN IMPRESSION: 1. A small to moderate amount of free fluid in all 4 quadrants of the abdominal cavity. A cause for ascites is not identified. 2. Pancreas and iliac arteries not visualized due to overlying bowel gas. Dictated by: Oswaldo Mares M.D. on 10/08/2016 at 13:03 12-lead ECG NSR rates in thes 80s with nonspecific IVCD Plan Impression 1. Anasarca. Improving HD x 4. Total output 13,100 ml. Total balance - 9,910 ml. 2. Acute on chronic systolic heart failure, ejection fraction 40%. 3. End-stage renal disease, on hemodialysis every Saturday, Saturday, and Saturday. 4. Mod-severe mitral regurgitation, severe tricuspid regurgitation, mild to mod aortic regurgitation.. 5. Type 2 diabetes with diabetic nephropathy. 6. Hypertension with hypertensive nephrosclerosis. 7. Coronary artery disease status post stenting. 8. Dyslipidemia. 9. Cerebrovascular accident. 10. Renal osteodystrophy Plan Patient will receive hemodialysis again today for 3 hours, ultrafiltration 2-3 L as tolerated. Per renal standpoint patient can be discharged home after hemodialysis today. Frank Julien MD Oct 12, 2016 11:22
--- NOTE | 2016-10-12 11:24 | NUR ---
Pt arrived to [facility]: Pt arrived to [facility] for dialysis treatment. Report obtained form primary nurse Radha Gomes RN. Pt appears stable at time of arrival. Pt will be discharged from [facility] after dialysis completed. All discharge instructions and teaching completed from primary nurse. Pt has all of her personal belongings from unit. Pt's sister will berry picker pt at 1430. Addendum: 10/12/16 at 1513 by KENNY MANE RN Pt completed treatment and is waiting for sister to berry picker at ER entry. Pt appears stable at time of discharge.
[2016-10-12 11:37] VITALS: BP 135/73; PULSE 71
--- NOTE | 2016-10-12 15:10 | NUR ---
Dialysis note: 3 hrs tx. 3000 ml net UF. Left lower arm graft. Pls see DTR for VS details. Qb 400. No heparin given. O2 @ 2L via NC on. Tolerated tx, slept at intervals. Graft needle sites clotted w/in 10 min. Report given to Sowmya Arias RN.
--- NOTE | 2016-10-12 16:32 | PCM.DC.MED ---
Discharge Summary Date of Service Oct 12, 2016 Dates of Hospitalization Date of Hospital Admission Oct 08, 2016 at 12:09 Date of Discharge: Oct 12, 2016 Providers: Admitting Physician: Lázaro Styles DO Primary Care Physician: Other,Physician Attending Physician: Lázaro Styles DO Diagnosis at Time of Discharge Diagnosis at Time of Discharge 1. Acute on chronic CHF exacerbation, improved discharge weight 65.2 kg 2. Ischemic cardiomyopathy and CAD status post PCI, stable 3. Ascites, present on admission- improved 4. End stage renal disease on hemodialysis, stable 5. Type II diabetes with multiple complications, uncontrolled 6. Depression, stable Consultations Nephrology Procedures XRay, CTs & MRIs X-RAY CHEST ONE VIEW, PORTABLE IMPRESSION: Chronic retrocardiac and right medial lung base are unchanged, most likely atelectasis or pleural-parenchymal scarring. Superimposed acute process can be obscured. Dictated by: Oswaldo Mares M.D. on 10/08/2016 at 10:12 US ABDOMEN IMPRESSION: 1. A small to moderate amount of free fluid in all 4 quadrants of the abdominal cavity. A cause for ascites is not identified. 2. Pancreas and iliac arteries not visualized due to overlying bowel gas. Dictated by: Oswaldo Mares M.D. on 10/08/2016 at 13:03 ECG 12 Lead NSR rates in thes 80s with nonspecific IVCD Cardiac Echo Impression Interpretation Summary The left ventricle is mild-moderately dilated. Left ventricular systolic function is mild to moderately reduced. The ejection fraction is estimated to be 40-45%. There has been no significant change since the previous study. There is basal inferior and inferolaterl wall hypokinesis. Assessment of diastolic parameters suggests a pseudonormalization pattern, consistent with elevated filling pressures. The right ventricle is mildly dilated. The right ventricular systolic function is normal. The right ventricular systolic pressure is estimated at 50 mmHg assuming a right atrial pressure of 15 mm Hg. There is moderate to severe mitral regurgitation. There has been no significant change since the previous study. There is mild to moderate aortic regurgitation. Compared to the prior echo study, there has been an increase in the severity of aortic regurgitation. There is severe tricuspid regurgitation. Compared to the prior echo exam, there has been an increase in TR severity. Brief History Tess is a pleasant 56-year-old female with history of CAD status post PCI, ischemic cardiomyopathy with EF of 40%, CHF, severe mitral regurg, type II diabetes, and end-stage renal disease on HD who presented to the ED for complaints of shortness of breath slowly worsening in the past 4 days. She is generally on a Saturday, Saturday, Saturday dialysis schedule but missed her dialysis on Saturday due to an outpatient surgical procedure for her diabetic retinopathy. She reports feeling increasingly short of breath and and states that her lungs are full water. She also complains of abdominal bloating and swelling, along with increasing pedal edema. She endorses a chronic cough which has not been any more productive for worse. She denies any chest pain, fevers, chills, headache, or dizziness. She reports that she does make urine and has not noticed any dysuria or urgency. She did not take her medications this morning. In the ED she was noted to be tachypneic but afebrile and saturating well on room air. She had a portable chest x-ray and EKG that did not show any acute changes. Her troponins were elevated at 0.182, but is comparable to previous troponins measured. Her creatinine was noted to be 5.37 with a BUN of 72. Her proBNP was 29,343. Her alkaline phosphatase was also elevated at 583. Hospital Course Tess Peterson is a 56-year-old female with history of CAD s/p PCI, ischemic cardiomyopathy with EF of 40%, CHF, severe mitral regurg, type II diabetes, and end-stage renal disease on HD who presented to the ED for complaints of shortness of breath slowly worsening in the past 4 days. Patient was admitted for CHF treatment and hemodialysis. 1. Acute on chronic CHF exacerbation, present on admission - Improved -Patient has a history of CAD, cardiomyopathy with reduced ejection fraction, and also severe mitral regurg. There has been note of lack of compliance in the past. Her dialysis unit reports she has only gone once in the past two weeks. -She was diuresed with IV furosemide 80 mg twice a day -She had daily HD while inpatient to help remove extra fluids also. 2. Ischemic cardiomyopathy and CAD status post PCI, present on admission, stable -Patient's last echocardiogram was in April 2016. She reports that she has seen a branch service specialist down in [place] for possible replacement of her valve, which presumably is the mitral valve due to her severe regurg. -She has not had any chest pain and reports that she has been compliant on her medications. -Placed on telemetry for CV monitoring - stable throughout admission -Plan to keep potassium above 4 and magnesium above 2 -Elevated Troponin is likely due to poor clearance, has been similar to previous values. -Echocardiogram showed worsening regurg as noted above. 3. Ascites, present on admission, improved -Patient was noted to have ascites on physical examination. -She had an abdominal ultrasound in the ED that did not show any obstruction and only a small to moderate amount of free fluid in all 4 quadrants. Of note the pancreas and iliac arteries were not visualized -LFTs were within normal limits -Not enough fluid for paracentesis, but her ascites did improve with HD. 4. End stage renal disease on hemodialysis, present on admission, stable -Patient reports dialysis on ,,. -Nephrology was consulted -Daily dialysis while inpatient -Discharge weight was 65.2 kg 5. Type II diabetes with multiple complications, present on admission, uncontrolled -Patient has had long-standing diabetes with resultant neuropathy, retinopathy, renal, and cardiovascular disease -Held home glipizide and placed on 15 units of Lantus HS and placed on high- dose lispro correctional scale -Hemoglobin A1c 8.2 - likely high due to noncompliance. -Was mildly hypoglycemic multiple times during hospital stay. Lantus was decreased to just HS dosing on discharge. 6. Depression, present on admission -We will continue home medications Exam Vital Signs (Last) Date Time Temp Pulse Resp B/P Pulse Ox O2 Delivery O2 Flow Rate FiO2 10/12/16 11:37 71 10/12/16 10:28 36.7 18 127/63 95 Room Air Exam General: Well-developed female in a hospital bed currently undergoing dialysis HEENT: right pupil not reactive to light and chronically more dilated left, oropharynx nonerythematous CV: Regular rate and rhythm with rumbling systolic murmur noted on left lateral chest. Peripheral pulses intact and equal, thrill noted on left radial pulse Respiratory: Coarse breath sounds, mild end expiratory wheezing, mild bibasilar rales noted, normal resp effort Abdomen: Soft, mildly distended, nontender, no guarding, no rashes noted. normoactive bowel sounds. Decreased ascites compared to yesterday MSK: Muscle strength grossly intact and equal, no swollen or tender joints Extremities: Moderate pitting edema noted up to bilateral knees, no clubbing or cyanosis noted Neuro: Alert and oriented 3, grossly intact, no focal deficits, asymmetric Psych: Mildly flat affect, linear thought process, cooperative Test 10/08/16 09:45 10/10/16 06:17 10/11/16 05:50 Prothrombin Time 10.9sec (8.1-12.5) Prothromb Time International Ratio 1.02ratio Estimat Glomerular Filtration Rate 12mL/min (>59) Hemoglobin A1c 8.2% (4.8-5.6) Total Bilirubin 1.1mg/dL (0.0-1.2) Aspartate Amino Transf (AST/SGOT) 43U/L (0-50) Alanine Aminotransferase (ALT/SGPT) 23U/L (0-32) Alkaline Phosphatase 583U/L (25-150) Troponin T 0.182ug/L (0.0-0.011) Pro-B-Type Natriuretic Peptide 67343pn/mL (0-287) Total Protein 7.4g/dL (6.4-8.4) Thyroid Stimulating Hormone (TSH) 7.830uIU/mL (0.450-4.500) Free Thyroxine 1.09ng/dL (0.82-1.77) Hold Hartman Top Tube Received (Received) Magnesium Level 1.8mg/dL (1.6-2.6) White Blood Count 4.6th/mm3 (3.8-10.1) Red Blood Count 3.78mil/mm3 (3.90-5.20) Hemoglobin 10.5g/dL (12.0-15.6) Hematocrit 32.6% (35.0-46.0) Mean Corpuscular Volume 86.2fL (81-100) Mean Corpuscular Hemoglobin 27.8pg (27.0-35.0) Mean Corpuscular Hemoglobin Concent 32.2% (32.0-37.0) Red Cell Distribution Width 17.1% (12.3-15.4) Platelet Count 166bil/L (150-400) Neutrophils (%) (Auto) 65.8% (40-74) Lymphocytes (%) (Auto) 13.3% (14-46) Monocytes (%) (Auto) 14.8% (4-12) Eosinophils (%) (Auto) 5.2% (0-5) Basophils (%) (Auto) 0.7% (0-3) Sodium Level 137mEq/L (134-144) Potassium Level 5.0mEq/L (3.5-5.2) Chloride Level 98mEq/L (97-108) Carbon Dioxide Level 25mmol/L (18-29) Blood Urea Nitrogen 44mg/dL (6-24) Creatinine 4.41mg/dL (0.57-1.00) Glucose Level 100mg/dL (60-99) Calcium Level 7.5mg/dL (8.5-10.1) Phosphorus Level 5.7mg/dL (2.5-4.9) Albumin 2.5g/dL (3.4-5.0) Discharge Medications Discharge Medications Aspirin (Aspirin) 81 Mg Tablet 81 MG PO DAILY (Reported) Atorvastatin (Lipitor) 80 Mg Tablet 80 MG PO DAILY (Reported) Bimatoprost (Lumigan) 45 Drop/2.5 Ml Ophsoln 1 DROP RIGHT_EYE BID (Reported) Brimonidine Tartrate/Timolol (Combigan Eye Drops) 5 Ml Drops 1 DROP RIGHT_EYE BID (Reported) Carvedilol (Carvedilol) 25 Mg Tablet 25 MG PO BID Prescribed by: CHAD AMOS MD Clopidogrel Bisulfate (Plavix) 75 Mg Tablet 75 MG PO DAILY (Reported) Fluoxetine (Fluoxetine) 20 Mg Capsule 20 MG PO DAILY (Reported) Furosemide (Furosemide) 80 Mg Tab 80 MG PO BID (Reported) Glipizide (Glipizide) 5 Mg Tablet 2.5 MG PO DAILY (Reported) Insulin Glargine (Lantus U100 Insulin Vial) 100 Unit/Ml Vial 15 UNIT SUBQ HS Prescribed by: MALIK RUSS DO Lisinopril (Lisinopril) 5 Mg Tablet 5 MG PO BID Prescribed by: CHAD AMOS MD Polyethylene Glycol 3350 (Miralax) 17 Gm Powd.pack 17 GM PO DAILY Hold if having loose stools or diarrhea Prescribed by: CHAD AMOS MD Timolol (Betimol) 5 Ml Drops 1 DROP RIGHT_EYE BID (Reported) Tramadol (Tramadol) 50 Mg Tablet 50 MG PO HS (Reported) As needed Benzonatate (Tessalon Perle) 100 Mg Capsule 100 MG PO TID PRN PRN For Cough Prescribed by: MALIK RUSS DO Bismuth Subsalicylate (Pepto-Bismol) 262 Mg Tab.chew 262 MG PO PRN PRN PRN For Indigestion (Reported) Docusate Sodium (Colace) 100 Mg Capsule 100 MG PO DAILY PRN PRN For Constipation (Reported) Ipratropium/Albuterol Sulfate (Iprat-Albut 0.5-3(2.5) mg/3 mL Inhalant Soln) 3 Ml Ampul.neb 3 ML NEB Q6H PRN PRN For Shortness of Breath Prescribed by: MALIK RUSS DO Ondansetron (Ondansetron) 4 Mg Tablet 4 MG PO Q 6 hours PRN PRN For Nausea ( Reported) Additional med instructions Please continue taking your medications as instructed. Please decrease your Lantus as instructed. Please monitor your blood sugars 3 times per day Followup Plan Disposition: Home Discharge Diet: Low fat, Low Sodium Discharge Activity: No restrictions Patient Instructions You are being discharged home with home health services today. Please follow up with your primary care doctor within 1 week. Pleaidan follow up with your teasel setter within 1 week. Please go to dialysis every week on Saturday, , and Sat. You cannot miss dialysis. Follow-up Provider: Tashia Leon PA-C Follow-up with PCP in: 1 week Time spent 35 minutes Attending Statement The patient was seen and examined together with Dr. Russ on 10/12/2016 and I agree with the history, exam and plan as outlined in the note above. copies to: Tashia Leon PA-C, Hong D DO Oct 12, 2016 16:32 Yousuf Cortes MD Oct 13, 2016 11:46
--- NOTE | 2016-10-13 10:03 | NUR ---
CHF follow-up pt declines/refuses CHF follow-up call per CM note, DCD home with HH services; is not eligible for outpt chf clinic at this time nor is she interested
== END 2016-10-12 15:30 | disposition home or self-care (01) | DRG 291 ==
LOC: SED 09:12 → MPC 12:09 → MOC 10-12 13:39
PROVIDERS: ADMIT Family Medicine; ATTEND Family Medicine
PROC: 5A1D60Z (ICD-10-PCS; principal; 2016-10-08)
DX: I50.23 Acute on chronic systolic (congestive) heart failure (principal); N18.6 End stage renal disease; R18.8 Other ascites; I34.0 Nonrheumatic mitral (valve) insufficiency; I25.5 Ischemic cardiomyopathy; I25.10 Atherosclerotic heart disease of native coronary artery without angina pectoris; E11.40 Type 2 diabetes mellitus with diabetic neuropathy, unspecified; E11.65 Type 2 diabetes mellitus with hyperglycemia; E78.5 Hyperlipidemia, unspecified; E11.319 Type 2 diabetes mellitus with unspecified diabetic retinopathy without macular edema; I35.1 Nonrheumatic aortic (valve) insufficiency; E11.22 Type 2 diabetes mellitus with diabetic chronic kidney disease; Z95.5 Presence of coronary angioplasty implant and graft; Z86.73 Personal history of transient ischemic attack (TIA), and cerebral infarction without residual deficits; Z79.82 Long term (current) use of aspirin; Z99.2 Dependence on renal dialysis; Z91.14 Patient's other noncompliance with medication regimen; Z79.4 Long term (current) use of insulin

== ENCOUNTER 2016-11-06 00:13 | Day surgery (SDC) | payer MEDICAID, MEDICARE ==
[2016-11-06] VITALS (13 sets, daily range): BP systolic 127–166; BP diastolic 63–89; PULSE 76–88; RESP 16–27; O2SAT 93–99
[~2016-11-06] VITALS: Ht 154.9 cm; Wt 64.0 kg
[~2016-11-06 00:13] MED LIST changes: +BENZ-12 PO; +FRSM80T PO; +IPRA3AMP NEB
[2016-11-06 07:26] LABS: BASOPHILS % (AUTO) 0.5 % (0-3); EOSINOPHILS % (AUTO) 3.8 % (0-5); MONOCYTES % (AUTO) 10.7 % (4-12); Mean Corpuscular Hemoglobin 28.2 pg (27.0-35.0); Mean Corpuscular Volume 88.4 fL (81-100); NEUTROPHILS % (AUTO) 73.9 % (40-74); Platelet Count 165 bil/L (150-400)
[2016-11-06 07:40] LABS: INR 0.99 ratio
[2016-11-06] MEDS ORDERED: Heparin 5,000 Units/500 mL NS Premix IV ONE ×2 (07:59→08:40)
[2016-11-06] MEDS ORDERED: Heparin 1,000 Unit/mL 10 mL Inj ONE (07:59)
[2016-11-06] MEDS ORDERED: CeFAZolin 1 Gm/50 mL D5W Duplex Bag IV ONE (08:21)
[2016-11-06] MEDS ORDERED: CeFAZolin Inj 2 GM in IV Premix 1 EACH IV SCH (08:37)
[2016-11-06] MEDS ORDERED: fentaNYL-PF 50 mCg/mL 2 mL Inj ONE (08:40)
--- NOTE | 2016-11-06 11:40 | NUR ---
Dr Cervantes notified that I attempted to remove pursestring with profuse bleeding noted. Pursestring re engaged with cessation of bleeding.Fistula with positive bruit and thrill.Will reattempt at 12:30.
--- NOTE | 2016-11-06 13:20 | NUR ---
Left fistula without bleeding or hematoma.Discharge instructions reviewed with patient and sister. pt discharged ambulatory with her sister.
--- NOTE | 2016-11-06 13:51 | DRSVH ---
PROCEDURE: AV FISTULA INDICATIONS: ESRD COMPARISON: None. Technique: Fluoroscopy time: 2.1 minutes 1. Antegrade access of the venous outflow of the left upper extremity dialysis graft. 2. Fistulogram performed in stations the level of the SVC. 3. Balloon angioplasty of a focal high-grade stenosis at the graft/venous anastomosis. 4. Completion fistulogram. The indications, alternatives, benefits, risks, and complications of the procedure were explained to the patient.. Informed written consent was obtained and placed in the chart. The patient was jim t to the angiography suite, and conscious sedation was administered intravenously by correction staff, while continuous cardiorespiratory monitoring was performed. Maximum sterile barrier technique was employed per standard protocol, including hand hygiene, cap, ma sk, sterile gown and gloves, and 2% chlorhexidine. One percent lidocaine was used in the skin over th e area of interest. Using a micropuncture kit, the venous outflow was accessed in antegrade fashion. An 035 wire was advanced to the micropuncture sheath and the micropuncture sheath was exchanged for a short 6 Amharic sheath. Balloon angioplasty was performed for a focal high-grade stenosis at the dayne t/resighini vein anastomosis. This was first performed with a 4 mm x 16 mm high-pressure balloon and sub sequently with a 5 mm x 40 mm high-pressure balloon. Completion fistulogram was performed. Fistulogra m was also performed to the level of the SVC. Reflux fistulogram at the arteriovenous anastomosis was also performed. FINDINGS: Initial fistulogram demonstrates a focal high-grade stenosis at the anastomosis between th e dialysis graft and the resighini vein. Completion fistulogram demonstrates near-complete resolution of this narrowing. There are no other stenoses within the venous outflow or at the resighini artery/graft anastomosis. The graft itself is widely patent. IMPRESSION: 1. Balloon angioplasty of a focal high-grade stenosis at the anastomosis of the dialysis graft and na tive vein as described above. Dictated by: Dorita Cervantes M.D. on 11/06/2016 at 13:45 Approved by: Dorita Cervantes M.D. on 11/06/2016 at 13:50
== END 2016-11-06 23:59 | disposition home or self-care (01) ==
LOC: SOUO 00:13
PROVIDERS: ATTEND Radiology Vascular & Interventional Radiology
DX: T82.858A Stenosis of other vascular prosthetic devices, implants and grafts, initial encounter (principal); E11.22 Type 2 diabetes mellitus with diabetic chronic kidney disease; N18.6 End stage renal disease; N25.0 Renal osteodystrophy; Z99.2 Dependence on renal dialysis; D63.1 Anemia in chronic kidney disease; I25.10 Atherosclerotic heart disease of native coronary artery without angina pectoris; N18.9 Chronic kidney disease, unspecified; Z79.84 Long term (current) use of oral hypoglycemic drugs; Z79.4 Long term (current) use of insulin
CPT/HCPCS: 36415; 36902; 80048; 85025; 85610; 99152; 99153; C1725; C1769; C1894; J1644; J2250; J3010; Q9967

== ENCOUNTER 2016-12-09 20:21 | Inpatient (IN) | payer MEDICARE ==
[~2016-12-09] VITALS: Ht 154.9 cm; Wt 68.2 kg
[~2016-12-09 20:21] MED LIST changes: -BENZ-12 PO; -BIMA2.5D5 RIGHT_EYE; -BISM262T15 PO; -BRIM5DRO RIGHT_EYE; -DOCU-41 PO; -FLUO20CA25 PO; -IPRA3AMP NEB; -ONDA-53 PO; -POLY17PO6 PO; -TIMO5DRO26 RIGHT_EYE; -TRAM50TA2 PO
[2016-12-09 20:25] VITALS: BP 170/81; PULSE 87; RESP 20; O2SAT 100
--- NOTE | 2016-12-09 21:07 | ED.REPORT ---
HPI-Abd Pain F 40 and Over Date of Service December 09, 2016 ED Provider: Dr. Enriquez Pt is a 56 year old female with a history of kidney failure being treated with dialysis who presents to the ED with concerns for generalized weakness, lower extremity swelling and bloating. She reports that she was having diarrhea last week and so she missed her last dialysis appointment. She is now complaining of generalized weakness and over all not feeling well. She denies any chest pain, shortness of breath or any other complaints. Nursing Notes Stated Complaint: STOMACH BLOATED,SHORT OF BREATH Chief Complaint: Female Abdominal Pain Nursing Notes Reviewed: Yes Allergies: Coded Allergies: No Known Allergies (Unverified Allergy, Unknown, 12/09/16) Scheduled Aspirin (Aspirin) 81 Mg Tablet 81 MG PO DAILY Atorvastatin (Lipitor) 80 Mg Tablet 80 MG PO DAILY Carvedilol (Carvedilol) 25 Mg Tablet 25 MG PO BID Clopidogrel Bisulfate (Plavix) 75 Mg Tablet 75 MG PO DAILY Furosemide (Furosemide) 80 Mg Tab 80 MG PO BID Glipizide (Glipizide) 5 Mg Tablet 2.5 MG PO DAILY Insulin Glargine (Lantus U100 Insulin Vial) 100 Unit/Ml Vial 15 UNIT SUBQ HS Lisinopril (Lisinopril) 5 Mg Tablet 5 MG PO BID General Time Seen by MD: 21:06 Chief Complaint Abdominal pain Hx Obtained From: Patient Arrived By: Walk-in Sudden in Onset?: Yes Onset Occurred: 3 days ago Symptom Duration: Since onset Location: : Diffuse Quality: Painful Severity: Current: Mild Severity: Maximum: Moderate Similar Sx Previous: Yes Past Medical History Past Medical History Diabetes mellitus End-stage renal disease Hypertension CAD with cardiac stenting Congestive heart failure Cardiomyopathy Hyperlipidemia Hx of CVA Past Surgical History Cardiac stents x2 Family History Noncontributory Smoking History Never Smoker Social History Other Social History: Good social support, Local resident Ambulatory Status Independent Review of Systems Constitutional: Reports: Malaise, Weakness - generalized, Denies: Chills, Fever Respiratory: Denies: Non-productive cough, Shortness of breath, Wheezing Cardiovascular: Denies: Chest pain, Syncope GI: Reports: Abdominal pain, Diarrhea, Nausea, Denies: Constipation, Vomiting Female: Denies: Dysuria, Flank pain, Urinary frequency, Urinary urgency Musculoskeletal: Denies: Back pain, Neck pain Complete sys rev & neg: except as marked. Physical Exam Vital Signs Vital Signs (First) Date Time Temp Pulse Resp B/P Pulse Ox O2 Delivery O2 Flow Rate FiO2 12/09/16 20:25 36.7 87 20 170/81 100 Room Air Initial VS: Reviewed Head / Eyes: Atraumatic, Normocephalic, PERRL ENT: Mucous membranes moist, Conjunctiva normal, No scleral icterus Skin: Warm, Dry, No cyanosis Neurologic: Alert, Oriented, Nonfocal General/Constitutional: Awake, Alert Appearance / Presentation: Positive: Obese, Uncomfortable Globally weak Anasarca from below her breasts down to her feet Respiratory / Chest: Atraumatic, No respiratory distress Diffuse crackles heard throughout Cardiovascular: Heart rate NL, No gallop, No murmurs, No rubs Distant heart sounds Abdomen: Atraumatic, Non-tender Back: Atraumatic, Inspection NL Interpretation & Diagnostics Lab Results Interpretation Result Diagram: 12/09/16213412/09/162134 Test 12/09/16 21:35 12/09/16 22:19 White Blood Count 10.4th/mm3 (3.8-10.1) Red Blood Count 3.46mil/mm3 (3.90-5.20) Hemoglobin 10.0g/dL (12.0-15.6) Hematocrit 30.5% (35.0-46.0) Mean Corpuscular Volume 88fL (81-100) Mean Corpuscular Hemoglobin 28.9pg (27.0-35.0) Mean Corpuscular Hemoglobin Concent 32.8% (32.0-37.0) Red Cell Distribution Width 17.5% (12.3-15.4) Platelet Count 265bil/L (150-400) Neutrophils (%) (Auto) 83.4% (40-74) Lymphocytes (%) (Auto) 4.8% (14-46) Monocytes (%) (Auto) 10.1% (4-12) Eosinophils (%) (Auto) 1.5% (0-5) Basophils (%) (Auto) 0.2% (0-3) Sodium Level 137mEq/L (134-144) Potassium Level 5.2mEq/L (3.5-5.2) Chloride Level 99mEq/L (97-108) Carbon Dioxide Level 15mmol/L (18-29) Blood Urea Nitrogen 96mg/dL (6-24) Creatinine 6.90mg/dL (0.57-1.00) Estimat Glomerular Filtration Rate 9mL/min (>59) Glucose Level 23mg/dL (60-99) Calcium Level 7.4mg/dL (8.5-10.1) Total Bilirubin 0.5mg/dL (0.0-1.2) Aspartate Amino Transf (AST/SGOT) 79U/L (0-50) Alanine Aminotransferase (ALT/SGPT) 55U/L (0-32) Alkaline Phosphatase 527U/L (25-150) Troponin T 0.184ug/L (0.0-0.011) Pro-B-Type Natriuretic Peptide 73913nb/mL (0-287) Total Protein 7.8g/dL (6.4-8.4) Albumin 2.8g/dL (3.4-5.0) Hold Hartman Top Tube Received (Received) Lactic Acid Level 1.7mmol/L (0.4-2.0) Procalcitonin 0.12ng/mL (0.00-0.08) ECG Interpretation ECG Interpretation: SR - 87 Probably left atrial enlargemnt LVH Time: 21:17 Interpreted by: ED physician X-Ray Chest Interpretation Chest Xray Interpretation: IMPRESSION: 1. Bibasilar lung opacities which could represent scarring process versus recurrent pneumonia or atelectasis. Please correlate with clinical and laboratory data. 2. Cardiomegaly. Dictated by: Brenda Narayan MD, PhD on 12/09/2016 at 21:42 Interpretation / Wet Read by: Interpret - Radiologist Re-Eval/Medical Decision Med Decision/Clinical Course Patient presents with dyspnea, global weakness and anasarca. She skipped dialysis for about a week. She is also not been taking her insulin. She is found to have severe hypoglycemia which was treated with aliquots of IV dextrose. She has obvious anasarca. She has a litany of metabolic abnormalities. She also is developing pneumonia. She was resuscitated with careful IV fluids with dextrose. Broad spectrum antibiotics. She will be admitted to the PCU and have nephrology dialyzer. She will be admitted to the hospitalist service. Source of Hx: Old records Re-Evaluation/Progress : Time of Eval: 22:17 Re-Evaluation/Progress Note: Pt is rechecked and informed of her labs and imaging results and the plan to admit her at this time. She understands and agrees, all questions are addressed. Consultation #1: Referral / Consult Name: Tashia Ghosh Consulted With: Hospitalist Call Returned at: 22:52 Ship Fitter: Will see patient, Agrees with plan, Accepts admit Consultation #2: Referral / Consult Name: Frank Julien MD Consulted With: Nephrology Call Returned at: 22:44 Ship Fitter: Will see patient, Agrees with eval, Agrees with plan Counseled Regarding: Diagnosis, Lab results, Need for admission Discharge & Departure Primary Impression: Chronic renal disease, stage V Additional Impressions: Anasarca Hypoglycemia Pneumonia Pneumonia type: due to unspecified organism Laterality: bilateral Lung location: lower lobe of lung Qualified Code: J18.9 - Pneumonia, unspecified organism Disposition: ADMITTED TO HOSPITAL Discharge Condition All VS Reviewed: Yes Condition: Stable Referrals: OTHER,PHYSICIAN (PCP) Crit Care Except Billable Proc Time Spent: 30-74 minutes (60 minutes) Nay Attestation Portions of this note were transcribed by Zamzam Carrillo. I, Dr. Enriquez personally performed the history, physical exam and medical decision-making; I reviewed and confirmed the accuracy of the information in the transcribed note. Signed by: Nay Ruiz, 12/09/2016 [Time]. Neto Enriquez DO December 09, 2016 21:07 KATIE CARRILLO December 09, 2016 21:50
[2016-12-09] MEDS ORDERED: Dextrose 10% 250 ML in IV Bag 1 EACH IV ONE (21:45)
[2016-12-09] MEDS: Sodium Chloride LOK Flush 10 mL Syringe IVFLUSH SCH (21:45)
--- NOTE | 2016-12-09 21:45 | DRSVH ---
PROCEDURE: X-RAY CHEST ONE VIEW, PORTABLE ([id number]) INDICATIONS: dyspnea TECHNIQUE: One view of the chest was acquired. COMPARISON: [facility], CR, XR CHEST 1VW (PORTABLE), 10/08/2016, 9:49. FINDINGS: Surgical changes and devices: None. Lungs and pleura: No pleural effusions or pneumothorax. Opacities in the lung base stable compared t o prior examination. Elevated right hemidiaphragm is stable. Mediastinum: Mediastinal contours appear normal. Heart size is enlarged. Bones and chest wall: No suspicious bony lesions. Overlying soft tissues appear unremarkable. IMPRESSION: 1. Bibasilar lung opacities which could represent scarring process versus recurrent pneumonia or ate lectasis. Please correlate with clinical and laboratory data. 2. Cardiomegaly. Dictated by: Brenda Narayan MD, PhD on 12/09/2016 at 21:42 Approved by: Brenda Narayan MD, PhD on 12/09/2016 at 21:43
[2016-12-09 21:53] LABS: Mean Corpuscular Hemoglobin 28.9 pg (27.0-35.0); Mean Corpuscular Volume 88 fL (81-100); Platelet Count 265 bil/L (150-400)
[2016-12-09 21:54] LABS: BASOPHILS % (AUTO) 0.2 % (0-3); EOSINOPHILS % (AUTO) 1.5 % (0-5); MONOCYTES % (AUTO) 10.1 % (4-12); NEUTROPHILS % (AUTO) 83.4 % (40-74)
[2016-12-09 22:33] LABS: TROPONIN T 0.184 ug/L (0.0-0.011)
[2016-12-09 23:20] VITALS: BP 156/65; PULSE 86; RESP 18; O2SAT 98
[2016-12-09 23:45] VITALS: BP 156/65; PULSE 86; RESP 18; O2SAT 98
[2016-12-10] VITALS (12 sets, daily range): BP systolic 142–167; BP diastolic 53–100; PULSE 77–86; RESP 16–28; O2SAT 96–100
[2016-12-10] MEDS ORDERED: Polyethylene Glycol (PEG) 17 Gm Powder PO PRN (00:30)
[2016-12-10] MEDS ORDERED: Alum-Mag Hydrox-Simeth 30 mL Suspension PO PRN (00:30)
[2016-12-10] MEDS ORDERED: Ondansetron 2 mg/mL 2 mL Inj IVPUSH PRN (00:30)
[2016-12-10] MEDS ORDERED: Dextrose 10% 250 ML IV ONE ×2 (01:00→08:10)
[2016-12-10] MEDS: Heparin 5,000 Unit/mL Inj SUBQ SCH ×3 (01:32→17:33)
[2016-12-10] MEDS: Sodium Chloride LOK Flush 10 mL Syringe IVFLUSH SCH ×5 (01:33→16:29)
--- NOTE | 2016-12-10 02:01 | PCM.HPMED ---
Subjective Date of Service December 10, 2016 Primary Provider: Admitting Physician: Tashia Ghosh DO Primary Care Physician: Bryan Attending Physician: Tashia Ghosh DO Admit Status: From the Emergency Department, Remote Telemetry Chief Complaint: Abdominal pain with SOB History of Present Illness: Pt is a 56 year old female with a history significant for diabetes mellitus, CAD , CHF, ESRD on dialysis(M/W/F), who presents to the ED with concerns for generalized weakness, lower extremity swelling and bloating x3 days. She reports that she was having diarrhea all last week and missed all 3 of her dialysis appointment last week. Patient states the lower extremity swelling has significantly worsened in the past week. She is now complaining of generalized weakness and over all not feeling well. She endorses mild shortness of breath. Patient's nephrology is Dr. Gaines. She denies any chest pain, fevers, chills or any other complaints. Patient states the diarrhea has now resolved. Patient states she does not check her glucose blood glucose at home, and that her insulin was discontinued 1 month ago by her PCP, but continued to take her daily glipizide. Has only been taking her am meds. She has been having occasional nausea and shaking episodes since about 3 weeks ago, which patient attributes to episodes of hypoglycemia. In the ED vitals temperature 36.7 pulse 87 respiratory 20 blood pressure 170/81 O2 100% on room air. Labs significant for WBC 10.4, H&H 10.0/30.5, bicarbonate 15, BU and 96, creatinine 6.90, glucose 23. D10 was given in the ED. Dr. Joseph at nephrology was consulted. Patient to receive dialyses tomorrow. Patient admitted for further treatment and management. Review of Systems: Constitutional: Generalized weakness and swelling, denies fevers or chills Respiratory: Denies cough Cardiovascular: Denies chest pain GI: Endorses abdominal pain, Diarrhea, Nausea, Female: Denies: Dysuria, Flank pain, Urinary frequency, Urinary urgency Musculoskeletal: Denies: Back pain, Neck pain Complete sys rev & neg: except as marked. Comprehensive review of systems completed and negative otherwise stated above or in HPI. Allergies Coded Allergies: No Known Allergies (Unverified Allergy, Unknown, 12/09/16) Home Medications Aspirin (Aspirin) 81 Mg Tablet 81 MG PO DAILY Atorvastatin (Lipitor) 80 Mg Tablet 80 MG PO DAILY Carvedilol (Carvedilol) 25 Mg Tablet 25 MG PO BID Clopidogrel Bisulfate (Plavix) 75 Mg Tablet 75 MG PO DAILY Furosemide (Furosemide) 80 Mg Tab 80 MG PO BID Glipizide (Glipizide) 5 Mg Tablet 2.5 MG PO DAILY Insulin Glargine (Lantus U100 Insulin Vial) 100 Unit/Ml Vial 15 UNIT SUBQ HS Lisinopril (Lisinopril) 5 Mg Tablet 5 MG PO BID PMH Diabetes mellitus Diabetic retinopathy with blind right eye End-stage renal disease Hypertension CAD with cardiac stenting Congestive heart failure Cardiomyopathy Hyperlipidemia Hx of CVA Surgical History Cardiac stents x2 Family History Mother and father with diabetes type II both of heart attacks in their late 70s to early 80s Sister in the [facility] with diabetes Social History Hx Alcohol Use: No Hx Substance Use: No Hx Tobacco Use: No Smoking Status: Never Smoker Living Arrangement: with Family (lives sister in [place]) Exam Vital Signs Vital Sign - Last Date Time Temp Pulse Resp B/P Pulse Ox O2 Delivery O2 Flow Rate FiO2 12/10/16 00:06 82 12/09/16 23:45 36.9 18 156/65 98 Room Air Intake and Output 12/09/16 12/09/16 12/10/16 Cumulative From/Thru 15:00 23:00 07:00 12/09/16 20:25 - 12/09/16 21:45 Intake Total 250 ml 250 ml Balance 250 ml 250 ml Intake IV Total 250 ml 250 ml Exam GEN: Obese female lying in bed, alert, awake and oriented, in no acute distress , appears tired but cooperative HEENT: NC/AT, Right pupil not reactive to light, EOMI, sclera icteric, moist mucous membranes Neck: Supple, Non-tender, Full range of motion CV: Regular rhythm, distant heart sounds, radial and dorsal pulses intact and normal Resp: Diffuse crackles bilaterally, breath sounds equal bilaterally, diminished breath sounds, no respiratory distress Abd: distended, non-tender, no guarding or rebound, swollen Ext: 3+/moderate pitting edema to below knees, with mild swelling extending to lower hips, fistula on lower left arm Skin: Dusky skin, warm, dry and intact, no cyanosis, poor skin turgor Neuro: Alert and oriented 3, nonfocal Psych: normal mood and affect Lab and Diagnostics Result Diagram: 12/09/16213412/09/162134 X-Rays, CTs and MRIs Chest Xray Interpretation: IMPRESSION: 1. Bibasilar lung opacities which could represent scarring process versus recurrent pneumonia or atelectasis. Please correlate with clinical and laboratory data. 2. Cardiomegaly. Dictated by: Brenda Narayan MD, PhD on 12/09/2016 at 21:42 Interpretation / Wet Read by: Interpret - Radiologist 12-lead ECG ECG Interpretation: SR - 87 Probably left atrial enlargemnt LVH Time: :17 Interpreted by: ED physician Assessment & Plan Pt is a 56 year old female with a history significant for DM2, CAD, CHF, ESRD on dialysis, who presents to the ED with concerns for generalized weakness and swelling. She reports that she was having diarrhea last week and so she missed her last dialysis appointment. Patient was found to be severely hypoglycemic with glucose of 23, patient given D10 for this. Metabolic acidosis, present on admission. Severe. - Bicarbonate of 15, Anion gap of 26 corrected for albumin, Delta ratio 1.2 suggesting pure anionic gap acidosis, lactic acid 1.7, most likely due to chronic kidney failure - Patient missed her dialysis due to diarrhea, patient did have dialysis tomorrow Anasarca, present on admission. Acute. - Dialysis in a.m. Hypoglycemia, present on admission. Acute, now resolved - D10W given in ED 167 at recheck - Glipizide discontinued - Placed on low-dose correctional insulin protocol Elevated troponin, present on admission. - most likely due to ESRD, patient not complaining of any chest pain at this time, no acute ECG findings - will continue to trend Normocytic anemia, present on admission. - most likely due to anemia of chronic disease secondary to ESRD Pneumonia, present on admission. Acute. - CXR showed "Bibasilar lung opacities which could represent scarring process versus recurrent pneumonia or atelectasis.", Patient afebrile with only minimal elevation of WBC, will hold off antibiotics - Procalcitonin pending Chronic conditions: End-stage regional disease on dialysis (M/W/F) - Dialysis in a.m. as above - Renal diet Diabetes mellitus type II - Low-dose correctional insulin protocol - Continue home medications glipizide CAD with stent - Continue home dose carvedilol twice daily CHF BNP 30945 - Standing daily weights with strict I&O's - furosemide held Cardiomyopathy Hypertension - Continue home medication lisinopril Hyperlipidemia - Continue home med atorvastatin Hx of CVA - Continue Plavix and aspirin Acetaminophen-fever/headache/mild/moderate pain Antiemetics, as needed Bowel regimen, as needed. Patient status: Patient was admitted under inpatient status with expected length of stay greater than two midnights due to severity of presenting symptoms , risk of adverse event, and complexity of treatment plan. Pain Evaluation: Adequate Pain Control GI Prophylaxis: Not indicated VTE Prophylaxis: Sub-Q Heparin (Unfractionated) Resuscitation Status: CPR: Attempt Resuscitation Attending Statement The patient was seen and examined together with house staff on 12/09/2016 and I agree with the history, exam and plan as outlined in the note above. Fabi Martin DO December 10, 2016 00:30 Tashia Ghosh DO December 10, 2016 06:48
[2016-12-10] MEDS: Insulin LISPRO 300 Unit/3 mL Inj SUBQ SCH ×4 (07:51→22:00)
[2016-12-10] MEDS: Glucose 40% Oral Gel 15 Gm Tube PO PRN ×6 (07:56→14:39)
[2016-12-10 15:49] LABS: BASOPHILS % (AUTO) 0.2 % (0-3); EOSINOPHILS % (AUTO) 2.5 % (0-5); MONOCYTES % (AUTO) 10.5 % (4-12); Mean Corpuscular Hemoglobin 28.8 pg (27.0-35.0); Platelet Count 253 bil/L (150-400)
--- NOTE | 2016-12-10 17:41 | PCM.PNMED ---
Subjective Date of Service December 10, 2016 Subjective Tess Peterson is a 56 year old woman with a history significant for DM2, CAD, CHF, ESRD on dialysis, who presents to the ED with concerns for generalized weakness and swelling. She reports that she was having diarrhea last week and so she missed her last dialysis appointment. Patient was found to be severely hypoglycemic with glucose of 23, patient given D10 for this. Hospital day #1 Exam Vital Signs Vital Sign - Last Date Time Temp Pulse Resp B/P Pulse Ox O2 Delivery O2 Flow Rate FiO2 12/10/16 12:23 36.6 78 26 143/84 100 Room Air Intake and Output 12/09/16 12/09/16 12/10/16 Cumulative From/Thru 15:00 23:00 07:00 12/09/16 20:25 - 12/10/16 06:19 Intake Total 250 ml 441 ml 691 ml Output Total 75 ml 75 ml Balance 250 ml 366 ml 616 ml Intake Oral 200 ml 200 ml IV Total 250 ml 241 ml 491 ml Output Urine Total 75 ml 75 ml # Voids 1 1 Lab and Diagnostics Result Diagram: 12/09/16 2135 12/10/16 0235 X-Rays, CTs and MRIs Chest Xray Interpretation: IMPRESSION: 1. Bibasilar lung opacities which could represent scarring process versus recurrent pneumonia or atelectasis. Please correlate with clinical and laboratory data. 2. Cardiomegaly. Dictated by: Brenda Narayan MD, PhD on 12/09/2016 at 21:42 Interpretation / Wet Read by: Interpret - Radiologist 12-lead ECG ECG Interpretation: SR - 87 Probably left atrial enlargemnt LVH Time: 21:17 Interpreted by: ED physician Assessment & Plan Pt is a 56 year old female with a history significant for DM2, CAD, CHF, ESRD on dialysis, who presents to the ED with concerns for generalized weakness and swelling. She reports that she was having diarrhea last week and so she missed her last dialysis appointment. Patient was found to be severely hypoglycemic with glucose of 23, patient given D10 for this. Metabolic acidosis, present on admission. Severe. - Bicarbonate of 15, Anion gap of 26 corrected for albumin, Delta ratio 1.2 suggesting pure anionic gap acidosis, lactic acid 1.7, most likely due to chronic kidney failure - Patient missed her dialysis due to diarrhea, patient did have dialysis tomorrow Anasarca, present on admission. Acute. - Dialysis in a.m. Hypoglycemia, present on admission. Acute, now resolved - D10W given in ED 167 at recheck - Glipizide discontinued - Placed on low-dose correctional insulin protocol Elevated troponin, present on admission. - most likely due to ESRD, patient not complaining of any chest pain at this time, no acute ECG findings - will continue to trend Normocytic anemia, present on admission. - most likely due to anemia of chronic disease secondary to ESRD Pneumonia, present on admission. Acute. - CXR showed "Bibasilar lung opacities which could represent scarring process versus recurrent pneumonia or atelectasis.", Patient afebrile with only minimal elevation of WBC, will hold off antibiotics - Procalcitonin pending Chronic conditions: End-stage regional disease on dialysis (M/W/F) - Dialysis in a.m. as above - Renal diet Diabetes mellitus type II - Low-dose correctional insulin protocol - Continue home medications glipizide CAD with stent - Continue home dose carvedilol twice daily CHF BNP 72528 - Standing daily weights with strict I&O's - furosemide held Cardiomyopathy Hypertension - Continue home medication lisinopril Hyperlipidemia - Continue home med atorvastatin Hx of CVA - Continue Plavix and aspirin Acetaminophen-fever/headache/mild/moderate pain Antiemetics, as needed Bowel regimen, as needed. Patient status: Patient was admitted under inpatient status with expected length of stay greater than two midnights due to severity of presenting symptoms , risk of adverse event, and complexity of treatment plan. GI Prophylaxis: Not indicated VTE Prophylaxis: Sub-Q Heparin (Unfractionated) Resuscitation Status: CPR: Attempt Resuscitation Time spent 35 minutes Attending Statement I interviewed and examined the patient on rounds today. I agree with the assessment and plan as stated above. Tiffany Chua DO December 10, 2016 15:43 Cole Saba MD December 10, 2016 17:41
--- NOTE | 2016-12-10 18:57 | CONS ---
[address] [address] CONSULTATION REPORT PATIENT: DOMENICO CASTANEDA : 1960 MR#: [id number] ADMIT: 12/09/2016 JOB ID: [id number] DATE OF SERVICE: 12/10/2016 RENAL CONSULTATION: HISTORY: The patient is a very pleasant, 56-year-old, female who was admitted to [facility] for acute decompensated congestive heart failure, shortness of breath, and anasarca. She has a history of end-stage renal disease and renal consultation is being sought for further evaluation and management of her end-stage renal disease. She has a history of end-stage renal disease secondary to diabetes dating back to the summer. She normally dialyzes three days a week on Saturday, Saturday, and Saturday but only dialyzes for 3 hours at a time. She also has a history of intermittent compliance with treatments and with her medication. There is also a history of what sounds like tricuspid regurgitation or other valvular disease. She has been gaining fluid weight not only in her extremities but increasing abdominal girth. She missed an entire week of dialysis prior to coming into the hospital. She has been having some generalized weakness, nausea, vomiting, lethargy, orthopnea, cough which has not been productive of any sputum. She has not had any fever or chills. In the emergency department, she was stable and subsequently admitted for further evaluation. PAST MEDICAL HISTORY: Significant for end-stage renal disease secondary to diabetic renal disease, hypertension with hypertensive heart disease and hypertensive nephrosclerosis, coronary artery disease with cardiac stenting, congestive heart failure, ischemic cardiomyopathy, hyperlipidemia, stroke, and diabetic retinopathy with blindness in her right eye. There is also a strong history of noncompliance with medication, diet, and dialysis treatments. PAST SURGICAL HISTORY: Significant for placement of an AV graft in her left forearm and several cardiac stents. ALLERGIES: She is not allergic to any food or any medication. SOCIAL HISTORY: She denies use of alcohol, tobacco, or illicit drugs. She lives with her sister and dialyzes in [facility] dialysis unit. She is followed by an outside job placement counselor. FAMILY HISTORY: Strongly positive for diabetes in both parents and in a sister and a strong history of coronary artery disease in both her parents. MEDICATIONS: At time of admission include: 1. Atorvastatin. 2. Carvedilol. 3. Clopidogrel. 4. Insulin. 5. Zestril. REVIEW OF SYSTEMS: Is detailed above. Otherwise is negative for headache, visual problems, wheezing, nausea, vomiting, diarrhea, constipation, or skin rashes. PHYSICAL EXAMINATION: Revealed an obese, 56-year-old, female who was somewhat lethargic at time of my evaluation. Her blood pressure was 143/84 with a pulse rate of 66. HEENT examination is remarkable for pale sclerae. Neck is supple without adenopathy or thyromegaly, however, she did have considerable jugular venous distention at 90 degrees. Pulmonary examination was remarkable for diminished breath sounds and rales in both bases approximately [address] Heart was regular and rhythmical with a systolic ejection murmur. There was no S3 or S4 noted. Abdomen was distended and semi-tense. There was a distinct fluid wave noted and there were diminished bowel sounds noted. There was no tenderness, rebound or guarding. However, she did have evidence of hepatomegaly. Extremities showed moderate pitting edema up through her mid thigh region. Otherwise, there was no clubbing, cyanosis or half and half nails noted. Skin turgor was good and there was no evidence of any rashes. Chest x-ray showed cardiomegaly and some mild CHF. LABORATORY EXAMINATION: This morning, her white count was 10.4, hemoglobin was 10.0, hematocrit 30.5. Red cell indices, platelet count and differential were normal. Sodium is 136, potassium 5.4, chloride 101, bicarbonate 12, BUN and creatinine were 96 and 6.7. Her glucose this morning was 27 and this was addressed. Her AST is elevated at 89, ALT is elevated at 54, and alkaline phosphatase is markedly elevated at 474. Her albumin is low at 2.3. IMPRESSION: 1. Acute decompensated congestive heart failure with predominantly right-sided features. 2. Anasarca. 3. End-stage renal disease. 4. Diabetic nephropathy. 5. Hypertension with hypertensive heart disease and hypertensive nephrosclerosis and congestive heart failure. 6. Chronic noncompliance. 7. Metabolic acidosis. RECOMMENDATION: The patient is to be dialyzed today for 4 hours on a 2 potassium bath, 1200 of heparin at 500 an hour to be given. I will also run her on a 38 bicarb bath and try to take 2-4 kg as tolerated. I will also make arrangements for her to have an ultrafiltration treatment tomorrow and will probably dialyze her aggressively for the next several days. I would also like to get a large-volume paracentesis done. Most likely, she needs to have her dialysis time up to at least 4 hours. I have had long discussion with both the patient, her sister, and her [id number] about the risks of chronic noncompliance including . Total time was 1 hour and 10 minutes. Once again, I would like to thank you for allowing me to participate in the care of this most pleasant and challenging patient. I will be following her closely with you.
[2016-12-11] VITALS (8 sets, daily range): BP systolic 125–160; BP diastolic 65–79; PULSE 77–89; RESP 16–20; O2SAT 97–98
[2016-12-11] MEDS: Sodium Chloride LOK Flush 10 mL Syringe IVFLUSH SCH ×8 (00:30→19:55)
[2016-12-11] MEDS: Heparin 5,000 Unit/mL Inj SUBQ SCH ×4 (01:02→23:35)
[2016-12-11 07:39] LABS: BASOPHILS % (AUTO) 0.7 % (0-3); EOSINOPHILS % (AUTO) 3.7 % (0-5); MONOCYTES % (AUTO) 12.4 % (4-12); Mean Corpuscular Hemoglobin 28.8 pg (27.0-35.0); Mean Corpuscular Volume 89.2 fL (81-100); NEUTROPHILS % (AUTO) 70.1 % (40-74); Platelet Count 224 bil/L (150-400)
[2016-12-11] MEDS: Insulin LISPRO 300 Unit/3 mL Inj SUBQ SCH ×2 (08:00→12:00)
--- NOTE | 2016-12-11 13:32 | PCM.PNNEPH ---
Subjective Date of Service December 11, 2016 Subjective Patient is breathing a bit better today. He denies any headache, chest pain, or shortness of breath. Systolic blood pressure has ranged 130 170. Following her dialysis treatment today she is to have a large volume paracentesis done. Exam Vital Signs Vital Sign - Last Date Time Temp Pulse Resp B/P Pulse Ox O2 Delivery O2 Flow Rate FiO2 12/11/16 13:01 37.3 83 18 152/75 98 Room Air Intake and Output 12/10/16 12/10/16 12/11/16 Cumulative From/Thru 15:00 23:00 07:00 12/09/16 20:25 - 12/11/16 05:37 Intake Total 800 ml 400 ml 1891 ml Output Total 4000 ml 325 ml 450 ml 4850 ml Balance -4000 ml 475 ml -50 ml -2959 ml Intake Oral 800 ml 400 ml 1400 ml IV Total 491 ml Output Urine Total 325 ml 150 ml 550 ml Urine/Stool Mix 300 ml 300 ml Ultrafiltrate 4000 ml 4000 ml # Voids 1 # Bowel Movements 2 2 Exam Neck is supple without adenopathy or thyromegaly. She still has some jugular venous distention at about 60 elevation. Lungs show some bibasilar rales. Heart is regular and rhythmical with a soft systolic murmur. Abdomen is distended with a distinct fluid wave and is semi-formed. She continues to demonstrate hepatomegaly and hepatojugular reflux. Extremities show some mild pitting edema. Lab and Diagnostics Result Diagram: 12/11/16 0725 12/11/16 0725 X-Rays, CTs and MRIs Chest Xray Interpretation: IMPRESSION: 1. Bibasilar lung opacities which could represent scarring process versus recurrent pneumonia or atelectasis. Please correlate with clinical and laboratory data. 2. Cardiomegaly. Dictated by: Brenda Narayan MD, PhD on 12/09/2016 at 21:42 Interpretation / Wet Read by: Interpret - Radiologist 12-lead ECG ECG Interpretation: SR - 87 Probably left atrial enlargemnt LVH Time: 21:17 Interpreted by: ED physician Plan Impression Impression #1 acute decompensated congestive heart failure #2 end-stage renal disease #3 anasarca number for diabetic nephropathy #5 hypertension with hypertensive heart disease and hypertensive nephrosclerosis #6 noncompliance. Recommendation 1 patient is ultrafiltrating for 3 hours on a max dialyzer. We will go ahead and try to take 2-3 L of fluid off and she will undergo large volume paracentesis following dialysis. I will also make arrangements for her to have another treatment tomorrow. Andrew Stevens DO December 11, 2016 13:32
--- NOTE | 2016-12-11 16:13 | DRSVH ---
PROCEDURE: US ABDOMEN LIMITED WITH DOPPLER INDICATIONS: CHECK PORTAL VEIN FLOW/DIRECTION TECHNIQUE: Real-time focused scanning was performed of the abdomen, with image documentation. Color and pulse D oppler interrogation was also performed on the area of interest. COMPARISON: [facility], CT, CT ABD PELVIS W CON, 07/10/2016, 17:14. FINDINGS: The liver demonstrates coarse echotexture. Portal vein is patent and demonstrates hepatop edal flow. Hepatic veins also patent. IMPRESSION: 1. Hepatopedal flow for portal vein. 2. Coarse echotexture of liver. Dictated by: Oswaldo Mares M.D. on 12/11/2016 at 16:11 Approved by: Oswaldo Mares M.D. on 12/11/2016 at 16:12
--- NOTE | 2016-12-11 16:17 | DRSVH ---
PROCEDURE: US GUIDED PARACENTESIS, PRIMARY ([id number]) INDICATIONS: Acsites/CHF TECHNIQUE: The indications, alternatives, benefits, risks, and complications of the procedure were explained to the patient. Written informed consent was obtained and placed in the chart. The abdomen and pelvis were examined sonographically, and an appropriate site was chosen for paracentesis. The skin was pre pared and draped in the usual sterile fashion, and 1% lidocaine was infiltrated from the skin down th rough the peritoneal surface. A 19-gauge catheter-covered needle was then introduced into the perito torres space, the catheter was advanced and the needle was withdrawn, and thereafter peritoneal fluid w as withdrawn. The catheter was then removed and a dressing was applied. The fluid was discarded if the clinician did not order diagnostic testing of the fluid. The attending physician was present, an d personally performed the procedure. COMPARISON: None. FINDINGS: Access site: Midline pelvis Needle: One-Step centesis catheter with introducer needle. Fluid volume and description: 3.1 L of clear peritoneal fluid. Fluid sent for diagnostic testing: Therapeutic drainage. Medications: 1% lidocaine for local anaesthesia. Complications: None. IMPRESSION: Successful ultrasound-guided paracentesis. Dictated by: Puma MORENO Interpreted: Oswaldo Mares MD on 12/11/2016 at 16:16 Transcribed by: THAIS on 12/11/2016 at 16:17 Approved by: Oswaldo Mares M.D. on 12/11/2016 at 17:19
--- NOTE | 2016-12-11 17:13 | PCM.PNMED ---
Subjective Date of Service December 11, 2016 Subjective Tess Peterson is a 56 year old woman with past medical history significant for DM2 , CAD, CHF, ESRD on dialysis, who presented to the ED with concerns for generalized weakness and swelling. She reports that she was having diarrhea last week and so she missed her last dialysis appointment. Patient was found to be severely hypoglycemic with glucose of 23, patient given D10 for this. Plan her treatment for fluid overload. Hospital day #2 Overnight: No acute events noted Today: The patient appears in good spirits and is stating that she feels much better after her dialysis and her paracentesis today. She states that her breathing is significantly improved now that she has some fluid off. She denies any fevers, cough, nausea. The remainder review of systems is negative except as noted above. Exam Vital Signs Vital Sign - Last Date Time Temp Pulse Resp B/P Pulse Ox O2 Delivery O2 Flow Rate FiO2 12/11/16 13:01 37.3 83 18 152/75 98 Room Air Intake and Output 12/10/16 12/10/16 12/11/16 Cumulative From/Thru 15:00 23:00 07:00 12/09/16 20:25 - 12/11/16 05:37 Intake Total 800 ml 400 ml 1891 ml Output Total 4000 ml 325 ml 450 ml 4850 ml Balance -4000 ml 475 ml -50 ml -2959 ml Intake Oral 800 ml 400 ml 1400 ml IV Total 491 ml Output Urine Total 325 ml 150 ml 550 ml Urine/Stool Mix 300 ml 300 ml Ultrafiltrate 4000 ml 4000 ml # Voids 1 # Bowel Movements 2 2 Exam GEN: Obese female lying in bed, alert, awake and oriented, in no acute distress , in good spirits HEENT: NC/AT, PERRLA, EOMI, sclera icteric, moist mucous membranes Neck: Supple, Non-tender, Full range of motion CV: Regular rhythm, distant heart sounds, radial and dorsal pulses intact and normal. A grade 3 out of 5 holosystolic murmur appreciated Resp: Diffuse crackles bilaterally, diminished breath sounds, no respiratory distress Abd: Less distended than yesterday after the paracentesis, non-tender, no guarding or rebound, swollen Ext: 3+/moderate pitting edema to below knees, with mild swelling extending to lower hips, fistula on lower left arm Skin: Dusky skin, warm, dry and intact, no cyanosis, poor skin turgor Neuro: Alert and oriented 3, nonfocal Psych: normal mood and affect IVs and Medications Medications Reviewed: Medications were reviewed in detail Lab and Diagnostics Result Diagram: 12/11/1672412/11/16724 X-Rays, CTs and MRIs PROCEDURE: X-RAY CHEST ONE VIEW, PORTABLE IMPRESSION: 1. Bibasilar lung opacities which could represent scarring process versus recurrent pneumonia or atelectasis. Please correlate with clinical and laboratory data. 2. Cardiomegaly. Dictated by: Brenda Narayan MD, PhD on 12/09/2016 at 21:42 Assessment & Plan Tess Peterson is a 56 year old woman with past medical history significant for DM2 , CAD, CHF, ESRD on dialysis, who presented to the ED with concerns for generalized weakness and swelling. She reports that she was having diarrhea last week and so she missed her last dialysis appointment. Patient was found to be severely hypoglycemic with glucose of 23, patient given D10 for this. Plan her treatment for fluid overload. Hospital day #2 End-stage renal disease on hemodialysis M/W/F presenting with fluid overload secondary to missed dialysis -Nephrology consulted, to arrange dialysis. -Patient status post paracentesis with 3 L drained. -Metabolic acidosis secondary to ESRD. Elevated alkaline phosphatase present admission, active -Differential diagnosis includes biliary tree dysfunction or secondary or tertiary hyperparathyroidism -Will check phosphate level, PTH, D3 level, and GGT. Hypoglycemia in the setting of diabetes mellitus type II, present on admission. Resolved - Patient is on glipizide outpatient and continue to take it despite missing dialysis. Glipizide is known to have renal metabolites. - Hypoglycemia resolved after dialysis. - Continue to monitor Elevated troponin of uncertain significance, present on admission. -most likely due to ESRD, patient not complaining of any chest pain at this time , no acute ECG findings Normocytic anemia, likely multifactorial, present on admission, able -most likely due to anemia of chronic disease secondary to ESRD, however elevated RDW suggestive of iron deficiency component Pneumonia ruled out. -Chest x-ray concerning for atelectasis versus pneumonia. Patient has been afebrile with no medical WBCs. Procalcitonin was negative Chronic conditions: Coronary artery disease status post stent - Continue home dose carvedilol twice daily, Plavix, aspirin Heart failure with reduced EF, EF 40% - Standing daily weights with strict I&O's - Continue furosemide. HD per nephrology. Hypertension - Continue home medication lisinopril Hyperlipidemia - Continue home med atorvastatin Acetaminophen-fever/headache/mild/moderate pain Antiemetics, as needed Bowel regimen, as needed. Disposition: The patient will be in the hospital for 1-2 more days as she is evaluated and treated for the above conditions GI Prophylaxis: Not indicated VTE Prophylaxis: Sub-Q Heparin (Unfractionated) Resuscitation Status: CPR: Attempt Resuscitation Attending Statement I interviewed and examined the patient on rounds today. I agree with the assessment and plan as stated above. Patient needs further management of metabolic bone disease. Tiffany Chua DO December 11, 2016 15:14 Cole Saba MD December 11, 2016 17:15
[2016-12-12] VITALS (7 sets, daily range): BP systolic 129–165; BP diastolic 72–83; PULSE 73–83; RESP 16–18; O2SAT 94–98
[2016-12-12 03:42] LABS: BASOPHILS % (AUTO) 0.5 % (0-3); EOSINOPHILS % (AUTO) 3.8 % (0-5); MONOCYTES % (AUTO) 11.7 % (4-12); Mean Corpuscular Hemoglobin 29.4 pg (27.0-35.0); Mean Corpuscular Volume 90.4 fL (81-100); NEUTROPHILS % (AUTO) 67.2 % (40-74); Platelet Count 207 bil/L (150-400)
[2016-12-12] MEDS: Sodium Chloride LOK Flush 10 mL Syringe IVFLUSH SCH ×6 (08:30→20:02)
--- NOTE | 2016-12-12 10:13 | PCM.CHPCAR ---
Consult Subjective Date of service December 12, 2016 Date of admit December 09, 2016 at 23:36 Provider Requesting Consult Requesting Provider: Cole Saba MD Primary Care Physician Primary Care Physician: Nopcp Chief Complaint Shortness of breath, edema History of Present Illness 56yo Togol[place] female hx DM2, CAD, CHF, HTN, HLD, ESRD on dialysis, who presented with shortness of breath, generalized weakness and swelling. She had missed her last 3 dialysis appointments due to diarrhea. Admitted for acute on chronic systolic heart failure and severe hypoglycemia. She had initially complained of generalized weakness, nausea, vomiting, lethargy, orthopnea, and nonproductive cough. She denied fever or chills, syncope, palpitations, chest pain or discomfort. Today, she reports her shortness of breath and edema have mostly improved. She reports some continuing lightheadedness, orthopnea and fatigue with exertion, but reports these are improved since admission. She denies chest pain, palpitations, syncope, N/V/D, fevers, chills, or cough at this time. PROBLEM LIST # Acute on chronic systolic CHF exacerbation # Coronary artery disease s/p 2 drug eluting stents to the LAD on 10/03/15 # Type 2 Diabetes mellitus # ESRD on dialysis # Hypertension # Hyperlipidemia Review of Systems Review of Systems 10 - point review of systems was conductive and found to be negative except as described above. PMH Past Medical History Diabetes mellitus Diabetic retinopathy with blind right eye End-stage renal disease Hypertension CAD with cardiac stenting Congestive heart failure Cardiomyopathy Hyperlipidemia Hx of CVA Past Surgical History Cardiac stents x2 Bedside Blood Glucose: 112 Scheduled Atorvastatin (Lipitor) 80 Mg Tablet 80 MG PO DAILY (Reported) Carvedilol (Carvedilol) 25 Mg Tablet 25 MG PO BID Clopidogrel Bisulfate (Plavix) 75 Mg Tablet 75 MG PO DAILY (Reported) Furosemide (Furosemide) 80 Mg Tab 80 MG PO BID (Reported) Lisinopril (Lisinopril) 5 Mg Tablet 5 MG PO BID Discontinued Medications Aspirin (Aspirin) 81 Mg Tablet 81 MG PO DAILY (Reported) Glipizide (Glipizide) 5 Mg Tablet 2.5 MG PO DAILY (Reported) Insulin Glargine (Lantus U100 Insulin Vial) 100 Unit/Ml Vial 15 UNIT SUBQ HS Current Inpatient Medications Current Medications Atorvastatin Calcium 80 mg HS PO Last administered on 12/11/16t 19:53; Admin Dose 80 MG; Start 12/10/16 at 21:00 Allergies: Coded Allergies: No Known Allergies (Unverified Allergy, Unknown, 12/09/16) Family History Family History Mother and father with diabetes type II both of heart attacks in their late 70s to early 80s Sister in the [facility] with diabetes Social History Hx Alcohol Use: NoHx Substance Use: NoHx Tobacco Use: No Smoking Status: Never Smoker Living Arrangement: with Family (lives sister in [place]) Exam Vital Signs Vital Sign - Last Date Time Temp Pulse Resp B/P Pulse Ox O2 Delivery O2 Flow Rate FiO2 12/12/16 07:54 37.1 73 16 132/72 94 Room Air Intake and Output 12/11/16 12/11/16 12/12/16 Cumulative From/Thru 15:00 23:00 07:00 12/09/16 20:25 - 12/12/16 06:12 Intake Total 500 ml 600 ml 2991 ml Output Total 2000 ml 200 ml 100 ml 7150 ml Balance -2000 ml 300 ml 500 ml -4159 ml Intake Oral 500 ml 600 ml 2500 ml IV Total 491 ml Output Urine Total 200 ml 100 ml 850 ml Urine/Stool Mix 300 ml Ultrafiltrate 2000 ml 6000 ml # Voids 1 # Bowel Movements 1 3 Objective General appearance: No apparent distress, thin-appearing, pleasant, cooperative HEET: Normocephalic, atraumatic, no scleral icterus, mucous membranes moist Neck: Carotid murmur heard bilaterally. Supple, nontender. No JVD. Cardiovascular: RRR, normal S1 and normal S2, holosystolic 3/6 murmur heart at left sternal border, PMI nondisplaced, no JVD, minimal edema noted. Pulses normal in all extremities. Respiratory: Clear to auscultation bilaterally Abdomen: Soft, nontender, nondistended, + bowel sounds Neuro: Alert, no facial droop, tongue midline Psych: Appropriate affect Skin: No rashes on face, neck, and lower extremities Lab and Diagnostics Result Diagram: 12/12/16 0330 12/12/16 0330 X-Rays, CTs and MRIs CXR 12/09/16 1. Bibasilar lung opacities which could represent scarring process versus recurrent pneumonia or atelectasis. 2. Cardiomegaly. Additional Diagnostics: Echo 10/09/16: The left ventricle is mild-moderately dilated. Left ventricular systolic function is mild to moderately reduced. The ejection fraction is estimated to be 40-45%. There has been no significant change since the previous study. There is basal inferior and inferolateral wall hypokinesis. Assessment of diastolic parameters suggests a pseudonormalization pattern, consistent with elevated filling pressures. The right ventricle is mildly dilated. The right ventricular systolic function is normal. The right ventricular systolic pressure is estimated at 50 mmHg assuming a right atrial pressure of 15 mm Hg. There is moderate to severe mitral regurgitation. There has been no significant change since the previous study. There is mild to moderate aortic regurgitation. Compared to the prior echo study , there has been an increase in the severity of aortic regurgitation. There is severe tricuspid regurgitation. Compared to the prior echo exam, there has been an increase in TR severity. Cardiac cath 05/14/16 1. Patent left anterior descending artery stents. 2. Diffuse coronary artery disease, compatible with diabetes. These lesions are not amenable to percutaneous coronary intervention due to small vessel size. 3. LVEDP is 28 mmHg. Cardiac cath 10/03/15 LAD was diffusely diseased. Distal lesion and mid LAD lesion dilated with balloon. Distal and proximal lesions stented with Xience drug-coated stents (2 total). RCA noted to have <50% stenosis; no stent placed. Assessment & Plan Assessment 56yo [place]og[place] female hx DM2, CAD, CHF, HTN, HLD, ESRD on dialysis, who presented with shortness of breath, generalized weakness and swelling. Admitted for acute on chronic systolic heart failure secondary to missed dialysis and severe hypoglycemia. # Acute on chronic systolic CHF exacerbation: EF 40-45% on echo on 10/09/16, unchanged from Apr 2016. Likely secondary to severe mitral regurgitation vs cardiomyopathy from HTN or DM vs. ischemic cardiomyopathy. Her change in symptoms are likely secondary to missing dialysis. Her symptoms appear to be resolving at this time and her fluid status has mostly normalized. Recommend continuing current therapy at this time. - Daily standing weights, I/Os - Sodium restricted diet - Continue carvedilol 6.25 mg PO BID - Continue lisinopril 5 mg PO BID - Continue dialysis - F/U with Dr. Valdez (her normal civil estimator) and cardiology. # Coronary artery disease s/p 2 drug eluting stents to the LAD on 10/03/15 - Continue atorvastatin 80 mg daily - Continue clopidogrel 75 mg daily # Type 2 Diabetes mellitus: Pt presented initially with severe hypoglycemia, presumably related to glipizide. Resolved after treatment with D10 and dialysis. - Continue to monitor #Anemia: Appears to be normocytic anemia, likely related to ESRD. Possibly trending down. Recommend transfusing at Hb <8 given her symptomatic CHF. - Monitor CBC daily - Transfuse at Hb <8 # ESRD on dialysis: Pt currently receiving dialysis. - Continue dialysis per Nephrology. # Hypertension: Well controlled with lisinopril and carvedilol. BP 120s-130s. - Continue lisinopril and carvedilol # Hyperlipidemia - Continue atorvastatin 80 mg daily Thank you for the interesting consultation. Cardiology will sign off at this time. Patient should f/u with Dr. Valdez and cardiology for valvular disease. Pain Evaluation: Adequate Pain Control VTE Prophylaxis: Sub-Q Heparin (Unfractionated) Resuscitation Status: CPR: Attempt Resuscitation Attending Statement I saw, examined, and evaluated the patient with Dr. Nate Gonzales on 2016 and agree with the note as above along with my edits. Nate Gonzales December 12, 2016 10:13 Diane Woodall MD December 12, 2016 15:04 Hyperlipidemia - Continue home med atorvastatin Acetaminophen-fever/headache/mild/moderate pain Antiemetics, as needed Bowel regimen, as needed. Pain Evaluation: Adequate Pain Control VTE Prophylaxis: Sub-Q Heparin (Unfractionated) Resuscitation Status: CPR: Attempt Resuscitation Nate Gonzales December 12, 2016 10:13 Cardiac cath 10/03/15 LAD was diffusely diseased. Distal lesion and mid LAD lesion dilated with balloon. Distal and proximal lesions stented with Xience drug-coated stents (2 total). RCA noted to have <50% stenosis; no stent placed. Assessment & Plan Pain Evaluation: Adequate Pain Control VTE Prophylaxis: Sub-Q Heparin (Unfractionated) Resuscitation Status: CPR: Attempt Resuscitation Nate Gonzales December 12, 2016 10:13
--- NOTE | 2016-12-12 12:28 | PCM.PNMED ---
Subjective Date of Service December 12, 2016 Subjective Tess Peterson is a 56 year old woman with past medical history significant for DM2 , CAD, CHF, ESRD on dialysis, who presented to the ED with concerns for generalized weakness and swelling. She reports that she was having diarrhea last week and so she missed her last dialysis appointment. Patient was found to be severely hypoglycemic with glucose of 23, patient given D10 for this. Plan her treatment for fluid overload. Hospital day #3 Overnight: No acute events noted Today: The patient states that she feels well and her shortness of breath is significantly improved. She denies any abdominal pain but notes that her abdomen is mildly bloated. She denies any fevers, cough, nausea. The remainder review of systems is negative except as noted above. Exam Vital Signs Vital Sign - Last Date Time Temp Pulse Resp B/P Pulse Ox O2 Delivery O2 Flow Rate FiO2 12/12/16 07:54 37.1 73 16 132/72 94 Room Air Intake and Output 12/11/16 12/11/16 12/12/16 Cumulative From/Thru 15:00 23:00 07:00 12/09/16 20:25 - 12/12/16 06:12 Intake Total 500 ml 600 ml 2991 ml Output Total 2000 ml 200 ml 100 ml 7150 ml Balance -2000 ml 300 ml 500 ml -4159 ml Intake Oral 500 ml 600 ml 2500 ml IV Total 491 ml Output Urine Total 200 ml 100 ml 850 ml Urine/Stool Mix 300 ml Ultrafiltrate 2000 ml 6000 ml # Voids 1 # Bowel Movements 1 3 Exam GEN: Obese female lying in bed, alert, awake and oriented, in no acute distress , in good spirits HEENT: NC/AT, PERRLA, EOMI, sclera icteric, moist mucous membranes Neck: Supple, Non-tender, Full range of motion CV: Regular rhythm, distant heart sounds, radial and dorsal pulses intact and normal. A grade 3 out of 5 holosystolic murmur appreciated Resp: Diffuse crackles bilaterally, diminished breath sounds, no respiratory distress Abd: Less distended than yesterday after the paracentesis, non-tender, no guarding or rebound, swollen Ext: mild pitting edema to below knees, with mild swelling extending to lower hips, fistula on lower left arm Skin: Dusky skin, warm, dry and intact, no cyanosis, poor skin turgor Neuro: Alert and oriented 3, nonfocal Psych: normal mood and affect IVs and Medications Medications Reviewed: Medications were reviewed in detail Lab and Diagnostics Result Diagram: 12/12/1632912/12/16329 X-Rays, CTs and MRIs PROCEDURE: X-RAY CHEST ONE VIEW, PORTABLE IMPRESSION: 1. Bibasilar lung opacities which could represent scarring process versus recurrent pneumonia or atelectasis. Please correlate with clinical and laboratory data. 2. Cardiomegaly. Dictated by: Brenda Narayan MD, PhD on 12/09/2016 at 21:42 US ABDOMEN LIMITED WITH DOPPLER IMPRESSION: 1. Hepatopedal flow for portal vein. 2. Coarse echotexture of liver. Dictated by: Oswaldo Mares M.D. on 12/11/2016 at 16:11 Assessment & Plan Tess Peterson is a 56 year old woman with past medical history significant for DM2 , CAD, CHF, ESRD on dialysis, who presented to the ED with concerns for generalized weakness and swelling. She reports that she was having diarrhea last week and so she missed her last dialysis appointment. Patient was found to be severely hypoglycemic with glucose of 23, patient given D10 for this. Plan her treatment for fluid overload. Hospital day #2 End-stage renal disease on hemodialysis M/W/F presenting with fluid overload secondary to missed dialysis, present on admission, stable -Nephrology consulted, to arrange dialysis. -Patient status post paracentesis with 3 L drained. -Metabolic acidosis secondary to ESRD. Elevated LFTs in the setting of fatty liver, present on admission, improving -Abdominal Doppler showing hepatopedal flow, which indicates the patient does not have portal hypertension. Patient did have a CT in 2016 that noted fatty liver. -GGT is elevated suggesting liver pathology. Upon review of her chart she has never had any elevation of her bilirubin and she is status post cholecystectomy. -Query if this is an unusual presentation of fatty liver disease or even KABA. -Will order AMA and REBECCA with reflex. -The patient will likely benefit from outpatient liver work up. Hypoglycemia in the setting of diabetes mellitus type II, present on admission. Resolved - Patient is on glipizide outpatient and continue to take it despite missing dialysis. Glipizide is known to have renal metabolites. - Hypoglycemia resolved after dialysis. - Continue to monitor Elevated troponin of uncertain significance, present on admission. -most likely due to ESRD, patient not complaining of any chest pain at this time , no acute ECG findings Normocytic anemia, likely multifactorial, present on admission, able -most likely due to anemia of chronic disease secondary to ESRD, however elevated RDW suggestive of iron deficiency component Pneumonia ruled out. -Chest x-ray concerning for atelectasis versus pneumonia. Patient has been afebrile with no medical WBCs. Procalcitonin was negative Chronic conditions: Coronary artery disease status post stent - Continue home dose carvedilol twice daily, Plavix, aspirin Heart failure with reduced EF, EF 40% - Standing daily weights with strict I&O's - Continue furosemide. HD per nephrology. - Cardiology consultation Hypertension - Continue home medication lisinopril Hyperlipidemia - Continue home med atorvastatin Acetaminophen-fever/headache/mild/moderate pain Antiemetics, as needed Bowel regimen, as needed. Disposition: The patient will be in the hospital for 1-2 more days as she is evaluated and treated for the above conditions GI Prophylaxis: Not indicated VTE Prophylaxis: Sub-Q Heparin (Unfractionated) Resuscitation Status: CPR: Attempt Resuscitation Attending Statement I interviewed and examined the patient on rounds today. I agree with the assessment and plan as stated above. Tiffany Chua DO December 12, 2016 11:06 Cole Saba MD December 12, 2016 16:07
--- NOTE | 2016-12-12 14:14 | PCM.PNNEPH ---
Subjective Date of Service December 12, 2016 Subjective The patient's breathing is considerably better. A paracentesis was done yesterday and 3.1 L of fluid was obtained. Her ultrasound showed diffuse granular appearance of the liver which is most likely due to cardiac cirrhosis with secondary portal hypertension from this. Her GGT is markedly elevated at 523. Awaiting further cardiology evaluation. Otherwise she is breathing considerably easier. There is no headache, chest pain, orthopnea. Exam Vital Signs Vital Sign - Last Date Time Temp Pulse Resp B/P Pulse Ox O2 Delivery O2 Flow Rate FiO2 12/12/16 14:03 36.9 83 18 156/74 96 Room Air Intake and Output 12/11/16 12/11/16 12/12/16 Cumulative From/Thru 15:00 23:00 07:00 12/09/16 20:25 - 12/12/16 06:12 Intake Total 500 ml 600 ml 2991 ml Output Total 2000 ml 200 ml 100 ml 7150 ml Balance -2000 ml 300 ml 500 ml -4159 ml Intake Oral 500 ml 600 ml 2500 ml IV Total 491 ml Output Urine Total 200 ml 100 ml 850 ml Urine/Stool Mix 300 ml Ultrafiltrate 2000 ml 6000 ml # Voids 1 # Bowel Movements 1 3 Exam HEENT examination is remarkable for pale sclera. Neck is supple without adenopathy, thyromegaly, however she still has jugular venous distention. Lungs are clear to auscultation. Heart is regular with systolic ejection murmur noted. Abdomen is soft and persist however her abdomen is much less tense.There is still evidence of significant hepatomegaly and hepatojugular reflux once again is noted. Extremities and 20 evidence of any clubbing, cyanosis, or edema. Skin turgor is good. Lab and Diagnostics Result Diagram: 12/12/16 0330 12/12/16 0330 X-Rays, CTs and MRIs PROCEDURE: X-RAY CHEST ONE VIEW, PORTABLE IMPRESSION: 1. Bibasilar lung opacities which could represent scarring process versus recurrent pneumonia or atelectasis. Please correlate with clinical and laboratory data. 2. Cardiomegaly. Dictated by: Brenda Narayan MD, PhD on 12/09/2016 at 21:42 US ABDOMEN LIMITED WITH DOPPLER IMPRESSION: 1. Hepatopedal flow for portal vein. 2. Coarse echotexture of liver. Dictated by: Oswaldo Mares M.D. on 12/11/2016 at 16:11 Plan Impression Impression #1 end-stage renal disease #2 acute decompensated right-sided congestive heart failure #3 multi-cardiac valvular dysfunction with significant mitral and tricuspid regurgitation. #4 cardiac cirrhosis Recommendations #1 patient's patient is to be dialyzed today for 4 hours on a 2 potassium bath, heparin 500 will try to take 1-2 L of fluid off. I would also strongly suggested further evaluation of her elevated GGT and recommend a & microsomia and anti-mitochondrial antibodies. Also noted to be cardiac evaluation for possibly valvular surgery. Andrew Stevens DO December 12, 2016 14:13
[2016-12-12] MEDS: Heparin 5,000 Unit/mL Inj SUBQ SCH ×3 (15:05→23:35)
[2016-12-13] VITALS (9 sets, daily range): BP systolic 121–160; BP diastolic 60–90; PULSE 74–80; RESP 14–18; O2SAT 95–99
[2016-12-13 05:28] LABS: BASOPHILS % (AUTO) 0.5 % (0-3); EOSINOPHILS % (AUTO) 3.5 % (0-5); MONOCYTES % (AUTO) 9.5 % (4-12); Mean Corpuscular Hemoglobin 28.8 pg (27.0-35.0); Mean Corpuscular Volume 87.3 fL (81-100); NEUTROPHILS % (AUTO) 70.1 % (40-74); Platelet Count 213 bil/L (150-400)
[2016-12-13] MEDS: Sodium Chloride LOK Flush 10 mL Syringe IVFLUSH SCH ×4 (08:30→16:38)
[2016-12-13] MEDS: Heparin 5,000 Unit/mL Inj SUBQ SCH ×2 (08:30→16:30)
--- NOTE | 2016-12-13 12:00 | PCM.CHPMED ---
Subjective Date of Service: December 13, 2016 Provider requesting consult: Tiffany Chua DO Primary Physician: Admitting Physician: Tashia Ghosh DO Primary Care Physician: Nopcp Attending Physician: Tashia Ghosh DO Chief Complaint: Chief Complaint: Abdominal pain and shortness of breath History of Present Illness: 56 year old female history of diabetes, CAD, CHF, ESRD on dialysis, who presented to the emergency department due to weakness and increase in abdominal girth and lower extremity swelling. Patient states that last week she had diarrhea and was unable to attend dialysis throughout the entire week with resultant lower externally swelling of the development of generalized weakness. She also states that this time she developed shortness of breath likely related to the increase in ascitic fluid. She denies ongoing right upper quadrant abdominal pain, chest pain, dizziness, diarrhea, trouble urinating, fever, or chills. Patient states that she was recently seen at [facility] with cardiology who said that her ascites was due to cardiac failure. She states that she has never had such significant ascites has never had a paracentesis. Patient presented with an initial leukocytosis has resolved as well as labs consistent with CHF and ESRD. Patient also had mild elevation transaminases as well as a very elevated alkaline phosphatase 527. Follow-up GGT was also very elevated at 523. Abdominal ultrasound showed appropriate hepatopedal flow of the portal vein without thrombosis, coarse echotexture of the liver. GI was consulted for the elevated ALP and elevated GGT. The only records available from Dr. Mcgee who performed an EGD on the patient in June 2016. At this time the patient's had mildly elevated alkaline phosphatase and on EGD there is no evidence/etiology for this elevation. Recommendations were made at that time that the patient undergo a CT scan of the abdomen and pelvis with contrast as well as an MRCP, even though she did not have noticeable ductal dilation on ultrasound. Additional recommendations included mesenteric Doppler as well as there. Proton pump inhibitors. Review of Systems: See history of present illness PMH Past Medical History Diabetes mellitus Diabetic retinopathy with blind right eye End-stage renal disease Hypertension CAD with cardiac stenting Congestive heart failure Cardiomyopathy Hyperlipidemia Hx of CVA Bedside Blood Glucose: 122 Surgical History Cardiac stents x2 Home Medications Aspirin (Aspirin) 81 Mg Tablet 81 MG PO DAILY Atorvastatin (Lipitor) 80 Mg Tablet 80 MG PO DAILY Carvedilol (Carvedilol) 25 Mg Tablet 25 MG PO BID Clopidogrel Bisulfate (Plavix) 75 Mg Tablet 75 MG PO DAILY Furosemide (Furosemide) 80 Mg Tab 80 MG PO BID Glipizide (Glipizide) 5 Mg Tablet 2.5 MG PO DAILY Insulin Glargine (Lantus U100 Insulin Vial) 100 Unit/Ml Vial 15 UNIT SUBQ HS Lisinopril (Lisinopril) 5 Mg Tablet 5 MG PO BID Allergies: Coded Allergies: No Known Allergies (Unverified Allergy, Unknown, 12/09/16) Family History Family History No history of colon, gastric, esophageal, or pancreatic cancer Social History Hx Alcohol Use: NoHx Substance Use: NoHx Tobacco Use: No Smoking Status: Never Smoker Living Arrangement: with Family (lives sister in [place]) Exam Vital Signs Vital Sign - Last Date Time Temp Pulse Resp B/P Pulse Ox O2 Delivery O2 Flow Rate FiO2 12/13/16 07:44 36.8 75 14 133/71 97 Room Air Intake and Output 12/12/16 12/12/16 12/13/16 Cumulative From/Thru 15:00 23:00 07:00 12/09/16 20:25 - 12/13/16 05:58 Intake Total 337 ml 500 ml 3828 ml Output Total 2000 ml 600 ml 9750 ml Balance -2000 ml -263 ml 500 ml -5922 ml Intake Oral 337 ml 500 ml 3337 ml IV Total 491 ml Output Urine Total 600 ml 1450 ml Urine/Stool Mix 300 ml Ultrafiltrate 2000 ml 8000 ml # Voids 4 5 # Bowel Movements 0 3 General: Alert, Oriented X3, Cooperative, No Acute Distress Mouth: Mucous Membr Moist/[place] Chest & Lungs: Chest Wall Normal, Clear to auscultation & percussion Cardiovascular: Exam Unremarkable, Regular Rate/Rhythm Abdomen: Non-tender, Distended, Normoactive bowel tones, Other (fluid wave present, moderate to large amount of ascites) Extremities: No cyanosis/clubbing/edma bilat Skin: Other (no rashes) Neurological: Grossly Neurologically Intact Lab and Diagnostics Result Diagram: 12/13/16 0500 12/13/16 0500 Assessment & Plan Assessment Assessment 56-year-old female with numerous comorbidities including diabetes and end-stage renal disease on HD who presented due to acute onset of increased abdominal girth related to ascites. Patient underwent paracentesis but does not appear that labs were obtained and is being reported that there is no additional fluid for evaluation. However this did provide relief to the patient. This ascites is likely multifactorial - cardiac and renal. Failure to have recent hemodialysis and possibly has some component of CHF as well. Several liver showed a coarse texture that questionable for cirrhosis with hepatopedal flow and no mention of portal hypertension is unlikely appendicitis is caused by liver congestion. The patient's GGT and chronic alkaline phosphatase elevations extremely interesting. Without a history of biliary obstruction, cholelithiasis or choledocholithiasis, cholecystitis, or pancreatitis is worrisome that this patient was an unidentified hepatic infiltrative disease versus PBC as these levels are both too high to be adequately explained by renal failure or hyperparathyroidism alone. It is noted that this patient has not undergone MRCP and currently currently do not see any viral hepatitis antibodies or celiac antibodies return from lab. Plan -Repeat diagnostic paracentesis with full laboratory workup; will need SAAG to categorize etiology of ascites -Viral hepatitis panel -Celiac antibodies including IgA TTGA -REBECCA negative; await antimitochondrial antibodies, anti-raul ab -MRCP -Avoid hepatotoxic medications -Highly recommend transjugular liver biopsy by interventional radiology; will need to stop heparin -Thank you for allowing us to participate the care of this most interesting patient; we will continue to follow along with you. Problems: Pain Evaluation: Adequate Pain Control GI Prophylaxis: Not indicated VTE Prophylaxis: Sub-Q Heparin (Unfractionated) Resuscitation Status: CPR: Attempt Resuscitation Attending Statement agree with assessment and plan above All Ashley DO December 13, 2016 12:00 Michael Barrera MD December 13, 2016 12:26
[2016-12-13 12:35] LABS: INR 0.98 ratio
--- NOTE | 2016-12-13 12:49 | PCM.PNMED ---
Subjective Date of Service December 13, 2016 Subjective Tess Peterson is a 56 year old woman with past medical history significant for DM2 , CAD, CHF, ESRD on dialysis, who presented to the ED with concerns for generalized weakness and swelling due to several metastatic dialysis appointments. Currently under treatment for fluid overload and ascites and elevated alkaline phosphatase. Hospital day #4 Overnight: No acute events noted Today: The patient states that she is feeling well. She does not have any concerns at this time. She has noted that her abdomen is a little bit more distended than yesterday. She denies any fevers, cough, nausea. The remainder review of systems is negative except as noted above. Exam Vital Signs Vital Sign - Last Date Time Temp Pulse Resp B/P Pulse Ox O2 Delivery O2 Flow Rate FiO2 12/13/16 11:57 36.8 75 16 157/76 97 Room Air Intake and Output 12/12/16 12/12/16 12/13/16 Cumulative From/Thru 15:00 23:00 07:00 12/09/16 20:25 - 12/13/16 05:58 Intake Total 337 ml 500 ml 3828 ml Output Total 2000 ml 600 ml 9750 ml Balance -2000 ml -263 ml 500 ml -5922 ml Intake Oral 337 ml 500 ml 3337 ml IV Total 491 ml Output Urine Total 600 ml 1450 ml Urine/Stool Mix 300 ml Ultrafiltrate 2000 ml 8000 ml # Voids 4 5 # Bowel Movements 0 3 Exam GEN: Obese female lying in bed, alert, awake and oriented, in no acute distress , in good spirits HEENT: NC/AT, PERRLA, EOMI, sclera icteric, moist mucous membranes Neck: Supple, Non-tender, Full range of motion CV: Regular rhythm, distant heart sounds, radial and dorsal pulses intact and normal. A grade 3 out of 5 holosystolic murmur appreciated Resp: Diffuse crackles bilaterally, diminished breath sounds, no respiratory distress Abd: distended, non-tender, no guarding or rebound, swollen Ext: mild pitting edema to below knees, with mild swelling extending to lower hips, fistula on lower left arm Skin: Dusky skin, warm, dry and intact, no cyanosis, poor skin turgor Neuro: Alert and oriented 3, nonfocal Psych: normal mood and affect Lab and Diagnostics Result Diagram: 12/13/16 0500 12/13/16 0500 X-Rays, CTs and MRIs PROCEDURE: X-RAY CHEST ONE VIEW, PORTABLE IMPRESSION: 1. Bibasilar lung opacities which could represent scarring process versus recurrent pneumonia or atelectasis. Please correlate with clinical and laboratory data. 2. Cardiomegaly. Dictated by: Brenda Narayan MD, PhD on 12/09/2016 at 21:42 US ABDOMEN LIMITED WITH DOPPLER IMPRESSION: 1. Hepatopedal flow for portal vein. 2. Coarse echotexture of liver. Dictated by: Oswaldo Mares M.D. on 12/11/2016 at 16:11 Assessment & Plan Tess Peterson is a 56 year old woman with past medical history significant for DM2 , CAD, CHF, ESRD on dialysis, who presented to the ED with concerns for generalized weakness and swelling due to several metastatic dialysis appointments. Vision is currently under treatment for fluid overload and ascites and elevated alkaline phosphatase. Hospital day #4 Elevated LFTs in the setting of fatty liver with recurrent multifactorial ascites, present on admission, improving -Patient's ascites can be due to her renal disease, cardiac disease or possibly liver disease. Or more likely combination of all 3. -Abdominal Doppler showing hepatopedal flow, which suggests the patient does not have portal hypertension. Patient did have a CT in 2016 that noted fatty liver. -GGT is elevated suggesting liver pathology. Upon review of her chart she has never had any elevation of her bilirubin and she is status post cholecystectomy. -Query if this is an unusual presentation of fatty liver disease or even KABA. -REBECCA negative -AMA pending -Gastroenterology service is consulted. We appreciate their time and expertise. -GI recommendations include: MRCP, diagnostic paracentesis, hepatitis panel, celiac antibodies, transjugular liver biopsy End-stage renal disease on hemodialysis M/W/F presenting with fluid overload secondary to missed dialysis, present on admission, stable -Nephrology consulted, to arrange dialysis. -Patient status post paracentesis with 3 L drained. -Metabolic acidosis secondary to ESRD. Hypoglycemia in the setting of diabetes mellitus type II, present on admission. Resolved - Patient is on glipizide outpatient and continue to take it despite missing dialysis. Glipizide is known to have renal metabolites. - Hypoglycemia resolved after dialysis. - Continue to monitor Elevated troponin of uncertain significance, present on admission. -most likely due to ESRD, patient not complaining of any chest pain at this time , no acute ECG findings Normocytic anemia, likely multifactorial, present on admission, able -most likely due to anemia of chronic disease secondary to ESRD, however elevated RDW suggestive of iron deficiency component Pneumonia ruled out. -Chest x-ray concerning for atelectasis versus pneumonia. Patient has been afebrile with no medical WBCs. Procalcitonin was negative Chronic conditions: Coronary artery disease status post stent - Continue home dose carvedilol twice daily, Plavix, aspirin Heart failure with reduced EF, EF 40% - Standing daily weights with strict I&O's - Continue furosemide. HD per nephrology. - Cardiology consultation Hypertension - Continue home medication lisinopril Hyperlipidemia - Continue home med atorvastatin Acetaminophen-fever/headache/mild/moderate pain Antiemetics, as needed Bowel regimen, as needed. Disposition: The patient will be in the hospital for 1-2 more days as she is evaluated and treated for the above conditions GI Prophylaxis: Not indicated VTE Prophylaxis: Sub-Q Heparin (Unfractionated) Resuscitation Status: CPR: Attempt Resuscitation Attending Statement I interviewed and examined the patient on rounds today. I agree with the assessment and plan as stated above. Tiffany Chua DO December 13, 2016 12:34 Cole Saba MD December 14, 2016 18:06
--- NOTE | 2016-12-13 13:54 | DRSVH ---
PROCEDURE: MR ABDOMEN MRCP INDICATIONS: PBC/obstruction TECHNIQUE: Coronal HASTE through the abdomen, axial 2-D FLASH in- and [id number], and breath-hold T2 FSE with fat saturation through the biliary system and pancreas. Oblique coronal and axial thin-slice HASTE, radial thick-slab HASTE centered on the extrahepatic bile ducts. Intravenous secretin: Not requested. COMPARISON: [facility], CT, CT ABD PELVIS W CON, 07/10/2016, 17:14. [facility], US, US ABD LTD DOPPLER, 12/11/2016, 15:07. FINDINGS: Image quality: There is motion artifact limiting evaluation. Pancreas and biliary system: The gallbladder surgically absent. The common bile duct is at the upper limits of normal in caliber measuring up to 7 mm distally, likely related to prior cholecystectomy. No discrete filling defects identified to suggest common duct stones. Pancreatic duct is normal in caliber. There are 2 small cystic foci within the pancreatic body and tail measuring up to 6 mm like ly representing small side branch IPMNs. Other solid organs: There is diffuse signal dropout in the liver on in-phase images as well as hypoi ntense signal on T2. Findings are suggestive of a diffuse infiltrative process such as hemosiderosis . No adrenal nodules. The spleen is normal in size. There is heterogeneous signal in the spleen on T1 and diffuse hypointense signal on T2. Findings may reflect secondary hemochromatosis. Kidneys d emonstrate no hydronephrosis. Nodes and vessels: No retroperitoneal or mesenteric adenopathy by size criteria. Aorta and inferior vena cava are normal in size. Bowel and peritoneum: Visualized bowel loops are normal in caliber. There is a vzhjo-ml-auaduyqg miguel ángel unt of ascites within the abdomen. Lung bases: There is a small size right pleural effusion. Heart size is enlarged. Bones and soft tissues: No ventral hernias. Bone marrow is of normal overall signal. IMPRESSION: 1. No definite biliary ductal dilatation or filling defects to suggest choledocholithiasis. 2. 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 3. Small to moderate amount of ascites and small right pleural effusion. 4. Diffuse hypointense signal in the liver and spleen suggesting possible secondary hemochromatosis. Recommend correlation with clinical history for possible prior transfusions. Dictated by: Sathish Graahm M.D. on 12/13/2016 at 12:28 Approved by: Sathihs Graham M.D. on 12/13/2016 at 12:53
--- NOTE | 2016-12-13 15:21 | PCM.PNNEPH ---
Subjective Date of Service December 13, 2016 Subjective Patient appears to be reaccumulating fluid in her abdomen. She was seen by cardiology. She denies any headache, chest pain, or resting dyspnea. There is no nausea or vomiting. This morning her hemoglobin is 8.6, sodium 136, potassium 4.2, chloride 98, bicarbonate 25, BUN and creatinine are 29 and 2.93 respectively. Exam Vital Signs Vital Sign - Last Date Time Temp Pulse Resp B/P Pulse Ox O2 Delivery O2 Flow Rate FiO2 12/13/16 11:57 36.8 75 16 157/76 97 Room Air Intake and Output 12/12/16 12/12/16 12/13/16 Cumulative From/Thru 15:00 23:00 07:00 12/09/16 20:25 - 12/13/16 05:58 Intake Total 337 ml 500 ml 3828 ml Output Total 2000 ml 600 ml 9750 ml Balance -2000 ml -263 ml 500 ml -5922 ml Intake Oral 337 ml 500 ml 3337 ml IV Total 491 ml Output Urine Total 600 ml 1450 ml Urine/Stool Mix 300 ml Ultrafiltrate 2000 ml 8000 ml # Voids 4 5 # Bowel Movements 0 3 Exam HEENT examination is remarkable for pale sclera. Heart was regular and rhythmical with a soft systolic murmur. Abdomen soft with a moderate amount fluid noted. Abdomen is nontender sports or any tenderness, rebound, or guarding. She still has persistent hepatomegaly. She is not sure evidence of any clubbing, cyanosis, or edema. Skin turgor is good. Lab and Diagnostics Result Diagram: 12/13/16 0500 12/13/16 0500 X-Rays, CTs and MRIs PROCEDURE: X-RAY CHEST ONE VIEW, PORTABLE IMPRESSION: 1. Bibasilar lung opacities which could represent scarring process versus recurrent pneumonia or atelectasis. Please correlate with clinical and laboratory data. 2. Cardiomegaly. Dictated by: Brenda Narayan MD, PhD on 12/09/2016 at 21:42 US ABDOMEN LIMITED WITH DOPPLER IMPRESSION: 1. Hepatopedal flow for portal vein. 2. Coarse echotexture of liver. Dictated by: Oswaldo Mares M.D. on 12/11/2016 at 16:11 Plan Impression Impression #1 end-stage renal disease dialysis dependent #2 acute decompensated congestive heart failure secondary to multi-valvular cardiac disease number cardiac cirrhosis number for recurrent ascites Recommendation #1 I discussed the case with the hospitalist and there is plan to repeat a paracentesis only for therapeutic and also diagnostic. Recommendations for her dialysis in the morning. Andrew Stevens DO December 13, 2016 15:21
--- NOTE | 2016-12-13 16:10 | DRSVH ---
PROCEDURE: US GUIDED PARACENTESIS, PRIMARY ([id number]) INDICATIONS: diagnostic TECHNIQUE: The indications, alternatives, benefits, risks, and complications of the procedure were explained to the patient. Written informed consent was obtained and placed in the chart. The abdomen and pelvis were examined sonographically, and an appropriate site was chosen for paracentesis. The skin was pre pared and draped in the usual sterile fashion, and 1% lidocaine was infiltrated from the skin down th rough the peritoneal surface. A 19-gauge catheter-covered needle was then introduced into the perito torres space, the catheter was advanced and the needle was withdrawn, and thereafter peritoneal fluid w as withdrawn. The catheter was then removed and a dressing was applied. The fluid was discarded if the clinician did not order diagnostic testing of the fluid. COMPARISON: [facility], , US GUIDED PARACENTESIS, 12/11/2016, 8:25. FINDINGS: Access site: Midline pelvis Needle: One-Step centesis catheter with introducer needle. Fluid volume and description: 180 cc of bloody tinged cloudy peritoneal fluid. Fluid sent for diagnostic testing: Fluid sent for cytology, multiple chemistry panels and therapeuti c drainage. Medications: 1% lidocaine for local anaesthesia. Complications: None. IMPRESSION: Successful ultrasound-guided paracentesis. Dictated by: Puma MORENO Interpreted: Adriano Bryan MD on 12/13/2016 at 16:09 Transcribed by: HIGINIO on 12/13/2016 at 16:10 Approved by: Gibson Bryan M.D. on 12/13/2016 at 17:06
[2016-12-13 19:59] LABS: BFWBC 1370 /mm3
[2016-12-13 20:00] LABS: MONOCYTES,BODY FLUID 36 %; OTHER CELLS,BODY FLUID 10
[2016-12-14] MEDS: Sodium Chloride LOK Flush 10 mL Syringe IVFLUSH SCH ×6 (00:30→15:53)
[2016-12-14] MEDS: Heparin 5,000 Unit/mL Inj SUBQ SCH ×3 (01:50→15:53)
[2016-12-14 03:28] VITALS: BP 136/76; PULSE 81; RESP 18; O2SAT 96
[2016-12-14 05:29] VITALS: PULSE 76
[2016-12-14 07:12] LABS: Hepatitis A Antibody IgM Negative (Negative); Hepatitis B Core Antibody IgM Negative (Negative)
[2016-12-14 08:00] VITALS: PULSE 77
[2016-12-14 08:32] VITALS: BP 134/84; PULSE 78; RESP 16; O2SAT 100
[2016-12-14 09:22] VITALS: BP 155/84; PULSE 80
--- NOTE | 2016-12-14 10:42 | PCM.PNNEPH ---
Subjective Date of Service December 14, 2016 Subjective Patient underwent a second paracentesis yesterday and appears consolable blood salts and the peritoneal fluid. She also underwent an MRCP this morning and those results of also been reviewed. Her REBECCA and height anti-smooth muscle and antimitochondrial antibodies were all negative. Exam Vital Signs Vital Sign - Last Date Time Temp Pulse Resp B/P Pulse Ox O2 Delivery O2 Flow Rate FiO2 12/14/16 08:32 36.9 78 16 134/84 100 Room Air Intake and Output 12/13/16 12/13/16 12/14/16 Cumulative From/Thru 15:00 23:00 07:00 12/09/16 20:25 - 12/14/16 05:58 Intake Total 420 ml 200 ml 4448 ml Output Total 350 ml 500 ml 67986 ml Balance 70 ml -300 ml -6152 ml Intake Oral 420 ml 200 ml 3957 ml IV Total 491 ml Output Urine Total 350 ml 500 ml 2300 ml Urine/Stool Mix 300 ml Ultrafiltrate 8000 ml # Voids 1 6 # Bowel Movements 1 4 Exam Neck is supple without adenopathy, thyromegaly, or jugular venous distention. Lungs are clear to auscultation. Heart is regular and rhythmical with a soft systolic murmur. Abdomen is soft with some fluid noted however this is considerably loss and is non-tense. Extremities do not show any evidence of any clubbing, cyanosis, or edema. Skin turgor is good. Lab and Diagnostics Result Diagram: 12/13/16 0500 12/13/16 0500 X-Rays, CTs and MRIs PROCEDURE: X-RAY CHEST ONE VIEW, PORTABLE IMPRESSION: 1. Bibasilar lung opacities which could represent scarring process versus recurrent pneumonia or atelectasis. Please correlate with clinical and laboratory data. 2. Cardiomegaly. Dictated by: Brenda Narayan MD, PhD on 12/09/2016 at 21:42 US ABDOMEN LIMITED WITH DOPPLER IMPRESSION: 1. Hepatopedal flow for portal vein. 2. Coarse echotexture of liver. Dictated by: Oswaldo Mares M.D. on 12/11/2016 at 16:11 Plan Impression Impression #1 end-stage renal disease dialysis dependent #2 acute decompensated congestive heart failure which is improved #3 anasarca which is resolved number for diabetic nephropathy #5 hypertension with hypertensive heart disease and hypertensive nephrosclerosis Recommendations #1 the patient dialyzed today for cough for A MAX dialyzer, 3 potassium bath, 450 blood flow, heparin bolus and 500/h and we will attempt to take 1-2.5 L of fluid as tolerated. Andrew Stevens DO December 14, 2016 10:42
--- NOTE | 2016-12-14 13:28 | PCM.PNMED ---
Subjective Date of Service December 14, 2016 Subjective GI progress note Yesterday , patient underwent MRCP which infiltrative processes in the liver consistent with hemachromatosis, as well as identification of 2 small cystic lesions in the pancreas. Paracentesis was also performed with a SAAG less than 1.1. Exam Vital Signs Vital Sign - Last Date Time Temp Pulse Resp B/P Pulse Ox O2 Delivery O2 Flow Rate FiO2 12/14/16 08:32 36.9 78 16 134/84 100 Room Air Intake and Output 12/13/16 12/13/16 12/14/16 Cumulative From/Thru 15:00 23:00 07:00 12/09/16 20:25 - 12/14/16 05:58 Intake Total 420 ml 200 ml 4448 ml Output Total 350 ml 500 ml 69838 ml Balance 70 ml -300 ml -6152 ml Intake Oral 420 ml 200 ml 3957 ml IV Total 491 ml Output Urine Total 350 ml 500 ml 2300 ml Urine/Stool Mix 300 ml Ultrafiltrate 8000 ml # Voids 1 6 # Bowel Movements 1 4 Exam General: Alert, Oriented X3, Cooperative, No Acute Distress Mouth: Mucous Membr Moist/[place] Chest & Lungs: Chest Wall Normal, Clear to auscultation & percussion Cardiovascular: Exam Unremarkable, Regular Rate/Rhythm Abdomen: Non-tender, Distended, Normoactive bowel tones, ascites decreased from yesterday Extremities: No cyanosis/clubbing/edma bilat Neurological: Grossly Neurologically Intact IVs and Medications Medications Reviewed: Medications were reviewed in detail Lab and Diagnostics Result Diagram: 12/13/16 0500 12/13/16 0500 X-Rays, CTs and MRIs PROCEDURE: X-RAY CHEST ONE VIEW, PORTABLE IMPRESSION: 1. Bibasilar lung opacities which could represent scarring process versus recurrent pneumonia or atelectasis. Please correlate with clinical and laboratory data. 2. Cardiomegaly. Dictated by: Brenda Narayan MD, PhD on 12/09/2016 at 21:42 US ABDOMEN LIMITED WITH DOPPLER IMPRESSION: 1. Hepatopedal flow for portal vein. 2. Coarse echotexture of liver. Dictated by: Oswaldo Mares M.D. on 12/11/2016 at 16:11 Assessment & Plan Assessment 56-year-old female with numerous comorbidities including diabetes and end-stage renal disease on HD who presented due to acute onset of increased abdominal girth related to ascites. Patient's paracentesis yesterday revealed an SAAG of less than 1.1, consistent with a renal cause for the patient's ascites. The paracentesis also showed quite a bit of blood. Await afb from ascites fluid. MRCP yesterday was very suggestive of hemachromatosis, oriented very recent infiltrative hepatic disease. Discussed this case with interventional radiology and they prefer to do a transcutaneous biopsy and would require that the heparin would need to be turned off for at least a half hour prior to the procedure. Of note patient is also on Plavix which she would need to continue to take. As this is not an emergency, they stated that the patient could have this done as an outpatient as well. The rest of the workup from yesterday is still pending or has come back negative and is in the chart. Plan -Recommend patient have liver biopsy as outpatient -Avoid hepatotoxic medications - await celiac panel - await afp and cytology from ascites. - outpatient mrcp in 1 year to f/u side branch IPMN - follow up in gi clinic in 2-4 weeks for additional evaluation in the GI clinic. we will sign off GI Prophylaxis: Not indicated VTE Prophylaxis: Sub-Q Heparin (Unfractionated) Resuscitation Status: CPR: Attempt Resuscitation All Ashley DO December 14, 2016 10:54 Michael Barrera MD December 14, 2016 14:22
[2016-12-14] MEDS ORDERED: CARV6.252 PO (13:44)
--- NOTE | 2016-12-14 13:51 | PCM.DIMED ---
Tiffany Chua DO 12/14/16 1351: Discharge Instructions Date of Service December 14, 2016 Dates of Hospitalization December 09, 2016 at 23:36 Discharge Diagnosis Discharge Diagnosis Elevated LFTs in the setting of fatty liver with recurrent multifactorial ascites, present on admission, improving End-stage renal disease on hemodialysis M/W/F presenting with fluid overload secondary to missed dialysis, present on admission, stable Hypoglycemia in the setting of diabetes mellitus type II, present on admission. Resolved Elevated troponin of uncertain significance, present on admission. Normocytic anemia, likely multifactorial, present on admission, able Pneumonia ruled out. Chronic conditions: Coronary artery disease status post stent Heart failure with reduced EF, EF 40% Hypertension Hyperlipidemia Medication Instructions Additional med instructions Your carvedilol dose was reduced. Diet Discharge Diet: Renal Diet Activity Discharge Activity: Limited until seen by PCP Call your provider Call your provider for: Shortness of breath, Bleeding Patient Instructions Patient Instructions Please follow up with your PCP in about one week. Please follow up with the real estate asset manager in 2-4 weeks. You will need a transjugular liver biopsy done. Please follow up with your consulting software engineer, Dr. Valdez regarding your heart disease and regarding your heart valve problems. Follow-up Provider: Tashia Leon PA-C Follow-up with PCP in: 1 week Provider: Michael Barrera MD Follow-up in: 3 weeks Additional Information Patient is stable for discharge due to stable vital signs and improved fluid status. Cole Saba MD 12/14/16 1807: Discharge Instructions Attending's Statement I interviewed and examined the patient on rounds today. I agree with the assessment and plan as stated above. Tiffany Chua DO December 14, 2016 13:51 Cole Saba MD December 14, 2016 18:07
[2016-12-14 15:48] VITALS: BP 160/81; PULSE 82; RESP 18; O2SAT 100
--- NOTE | 2016-12-14 18:18 | PCM.DC.MED ---
Discharge Summary Date of Service December 14, 2016 Dates of Hospitalization Date of Hospital Admission December 09, 2016 at 23:36 Date of Discharge: December 14, 2016 Providers: Admitting Physician: Tashia Ghosh DO Primary Care Physician: Nopcp Attending Physician: Tashia Ghosh DO Diagnosis at Time of Discharge Diagnosis at Time of Discharge Elevated LFTs in the setting of fatty liver with recurrent multifactorial ascites, present on admission, improving End-stage renal disease on hemodialysis M/W/F presenting with fluid overload secondary to missed dialysis, present on admission, stable Hypoglycemia in the setting of diabetes mellitus type II, present on admission. Resolved Elevated troponin of uncertain significance, present on admission. Normocytic anemia, likely multifactorial, present on admission, able Pneumonia ruled out. Chronic conditions: Coronary artery disease status post stent Heart failure with reduced EF, EF 40% Hypertension Hyperlipidemia Consultations Nephrology Gastroenterology Cardiology Procedures XRay, CTs & MRIs PROCEDURE: X-RAY CHEST ONE VIEW, PORTABLE IMPRESSION: 1. Bibasilar lung opacities which could represent scarring process versus recurrent pneumonia or atelectasis. Please correlate with clinical and laboratory data. 2. Cardiomegaly. Dictated by: Brenda Narayan MD, PhD on 12/09/2016 at 21:42 US ABDOMEN LIMITED WITH DOPPLER IMPRESSION: 1. Hepatopedal flow for portal vein. 2. Coarse echotexture of liver. Dictated by: Oswaldo Mares M.D. on 12/11/2016 at 16:11 MR ABDOMEN MRCP IMPRESSION: 1. No definite biliary ductal dilatation or filling defects to suggest choledocholithiasis. 2. 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 3. Small to moderate amount of ascites and small right pleural effusion. 4. Diffuse hypointense signal in the liver and spleen suggesting possible secondary hemochromatosis. Recommend correlation with clinical history for possible prior transfusions. Dictated by: Sathish Graham M.D. on 12/13/2016 at 12:[address] Martin's H&P: "56 year old female history of diabetes, CAD, CHF, ESRD on dialysis, who presented to the emergency department due to weakness and increase in abdominal girth and lower extremity swelling. Patient states that last week she had diarrhea and was unable to attend dialysis throughout the entire week with resultant lower externally swelling of the development of generalized weakness. She also states that this time she developed shortness of breath likely related to the increase in ascitic fluid. She denies ongoing right upper quadrant abdominal pain, chest pain, dizziness, diarrhea, trouble urinating, fever, or chills. Patient states that she was recently seen at [facility] with cardiology who said that her ascites was due to cardiac failure. She states that she has never had such significant ascites has never had a paracentesis. Patient presented with an initial leukocytosis has resolved as well as labs consistent with CHF and ESRD. Patient also had mild elevation transaminases as well as a very elevated alkaline phosphatase 527. Follow-up GGT was also very elevated at 523. Abdominal ultrasound showed appropriate hepatopedal flow of the portal vein without thrombosis, coarse echotexture of the liver. GI was consulted for the elevated ALP and elevated GGT. The only records available from Dr. Mcgee who performed an EGD on the patient in June 2016. At this time the patient's had mildly elevated alkaline phosphatase and on EGD there is no evidence/etiology for this elevation. Recommendations were made at that time that the patient undergo a CT scan of the abdomen and pelvis with contrast as well as an MRCP, even though she did not have noticeable ductal dilation on ultrasound. Additional recommendations included mesenteric Doppler as well as there. Proton pump inhibitors. " Hospital Course Tess Peterson is a 56 year old woman with past medical history significant for DM2 , CAD, CHF, ESRD on dialysis, who presented to the ED with concerns for generalized weakness and swelling due to several metastatic dialysis appointments. Vision is currently under treatment for fluid overload and ascites and elevated alkaline phosphatase. Hospital day #4 Elevated LFTs in the setting of fatty liver with recurrent multifactorial ascites, present on admission, improving -Patient's ascites is likely due to renal disease given the SAAG -Abdominal Doppler showing hepatopedal flow, which suggests the patient does not have portal hypertension. Patient did have a CT in 2016 that noted fatty liver. -GGT is elevated suggesting liver pathology. Upon review of her chart she has never had any elevation of her bilirubin and she is status post cholecystectomy. -MRCP reveals questionable hemochromatosis -REBECCA negative -AMA negative -Gastroenterology service consulted. Patient will need to follow-up outpatient to review complete results of testing and for transjugular liver biopsy End-stage renal disease on hemodialysis M/W/F presenting with fluid overload secondary to missed dialysis, present on admission, stable -Nephrology consulted -Patient status post paracentesis with 3 L drained. -Metabolic acidosis secondary to ESRD. Hypoglycemia in the setting of diabetes mellitus type II, present on admission. Resolved - Patient is on glipizide outpatient and continue to take it despite missing dialysis. Glipizide is known to have renal metabolites. - Hypoglycemia resolved after dialysis. - Continued to monitor Elevated troponin of uncertain significance, present on admission. -most likely due to ESRD, patient not complaining of any chest pain at this time , no acute ECG findings Normocytic anemia, likely multifactorial, present on admission, able -most likely due to anemia of chronic disease secondary to ESRD, however elevated RDW suggestive of iron deficiency component Pneumonia ruled out. -Chest x-ray concerning for atelectasis versus pneumonia. Patient has been afebrile with no medical WBCs. Procalcitonin was negative Chronic conditions: Coronary artery disease status post stent - Continued home dose carvedilol twice daily, Plavix, aspirin Heart failure with reduced EF, EF 40% - Standing daily weights with strict I&O's - Continued furosemide. HD per nephrology. - Cardiology consulted. No changes made. Patient will need to follow-up with her outpatient pattern illustrator Hypertension - Continued home medication lisinopril Hyperlipidemia - Continued home med atorvastatin The patient was deemed stable for discharge due to stable vital signs, resolution of fluid overload, and evaluation by multiple specialty services which did not feel that the patient needed to be worked up on an inpatient basis for her lab abnormalities. She will however need to have good outpatient follow-up this was leading to her and she expressed understanding. Exam Vital Signs (Last) Date Time Temp Pulse Resp B/P Pulse Ox O2 Delivery O2 Flow Rate FiO2 12/14/16 15:48 36.9 82 18 160/81 100 Room Air Exam GEN: Obese female lying in bed, alert, awake and oriented, in no acute distress , in good spirits HEENT: NC/AT, PERRLA, EOMI, sclera icteric, moist mucous membranes Neck: Supple, Non-tender, Full range of motion CV: Regular rhythm, distant heart sounds, radial and dorsal pulses intact and normal. A grade 3 out of 5 holosystolic murmur appreciated Resp: Diffuse crackles bilaterally, diminished breath sounds, no respiratory distress Abd: distended, non-tender, no guarding or rebound, swollen Ext: mild pitting edema to below knees, with mild swelling extending to lower hips, fistula on lower left arm Skin: Dusky skin, warm, dry and intact, no cyanosis, poor skin turgor Neuro: Alert and oriented 3, nonfocal Psych: normal mood and affect Test 12/09/16 21:35 12/09/16 22:19 12/10/16 02:35 12/10/16 12:03 Pro-B-Type Natriuretic Peptide 56943ej/mL (0-287) Hold Hartman Top Tube Received (Received) Lactic Acid Level 1.7mmol/L (0.4-2.0) Procalcitonin 0.12ng/mL (0.00-0.08) Troponin T 0.153ug/L (0.0-0.011) Activated Partial Thromboplast Time 35.9sec (22.8-33.0) Test 12/11/16 07:25 12/11/16 15:42 12/12/16 03:30 12/13/16 05:00 Parathyroid Hormone (Intact) 281pg/mL (15-65) Gamma Glutamyl Transpeptidase 523IU/L (0-60) Phosphorus Level 7.0mg/dL (2.5-4.9) Magnesium Level 2.0mg/dL (1.6-2.6) Anti-Nuclear Antibody Screen Negative (Negative) Mitochondrial/Smooth Musc Ab Titer 9.1Units (0.0-20.0) White Blood Count 7.5th/mm3 (3.8-10.1) Red Blood Count 2.99mil/mm3 (3.90-5.20) Hemoglobin 8.6g/dL (12.0-15.6) Hematocrit 26.1% (35.0-46.0) Mean Corpuscular Volume 87.3fL (81-100) Mean Corpuscular Hemoglobin 28.8pg (27.0-35.0) Mean Corpuscular Hemoglobin Concent 33.0% (32.0-37.0) Red Cell Distribution Width 17.2% (12.3-15.4) Platelet Count 213bil/L (150-400) Neutrophils (%) (Auto) 70.1% (40-74) Lymphocytes (%) (Auto) 16.3% (14-46) Monocytes (%) (Auto) 9.5% (4-12) Eosinophils (%) (Auto) 3.5% (0-5) Basophils (%) (Auto) 0.5% (0-3) Sodium Level 136mEq/L (134-144) Potassium Level 4.2mEq/L (3.5-5.2) Chloride Level 98mEq/L (97-108) Carbon Dioxide Level 25mmol/L (18-29) Blood Urea Nitrogen 29mg/dL (6-24) Creatinine 2.93mg/dL (0.57-1.00) Estimat Glomerular Filtration Rate 24mL/min (>59) Glucose Level 163mg/dL (60-99) Calcium Level 7.7mg/dL (8.5-10.1) Total Bilirubin 0.7mg/dL (0.0-1.2) Aspartate Amino Transf (AST/SGOT) 44U/L (0-50) Alanine Aminotransferase (ALT/SGPT) 49U/L (0-32) Alkaline Phosphatase 460U/L (25-150) Total Protein 6.5g/dL (6.4-8.4) Albumin 2.3g/dL (3.4-5.0) Test 12/13/16 12:15 12/13/16 12:32 12/13/16 16:01 Prothrombin Time 10.5sec (8.1-12.5) Prothromb Time International Ratio 0.98ratio Hepatitis A IgM Antibody Negative (Negative) Hepatitis B Surface Antigen Negative (Negative) Hepatitis B Core IgM Antibody Negative (Negative) Hepatitis C Antibody 0.1s/co ratio (0.0-0.9) Hepatitis C Comment Comment (.) Body Fluid Source Peritoneal fluid Body Fluid Color Red (Clear) Body Fluid Appearance Cloudy Body Fluid WBC 1370/mm3 Body Fluid RBC 165594/mm3 Body Fluid Polynuclear WBCs 38% Body Fluid Lymphocytes 27% Body Fluid Monocytes 36% Body Fluid Eosinophils 0% Body Fluid Basophils 0% Body Fluid Albumin 1.9g/dL (.) Body Fluid Total Bilirubin 0.6mg/dL Body Fluid Lactate Dehydrogenase 208U/L Body Fluid Amylase 164U/L Peritoneal Fluid Glucose 225mg/dL Discharge Medications Discharge Medications Atorvastatin (Lipitor) 80 Mg Tablet 80 MG PO DAILY (Reported) Carvedilol (Carvedilol) 6.25 Mg Tablet 6.25 MG PO BID Prescribed by: CATHRYN CHUA DO Clopidogrel Bisulfate (Plavix) 75 Mg Tablet 75 MG PO DAILY (Reported) Furosemide (Furosemide) 80 Mg Tab 80 MG PO BID (Reported) Lisinopril (Lisinopril) 5 Mg Tablet 5 MG PO BID Prescribed by: CHAD AMOS MD Additional med instructions Your carvedilol dose was reduced. Followup Plan Discharge Diet: Renal Diet Discharge Activity: Limited until seen by PCP Patient Instructions Please follow up with your PCP in about one week. Please follow up with the storage architect in 2-4 weeks. You will need a transjugular liver biopsy done. Please follow up with your pattern illustrator, Dr. Valdez regarding your heart disease and regarding your heart valve problems. Follow-up Provider: Tashia Leon PA-C Follow-up with PCP in: 1 week Provider: Michael Barrera MD Follow-up in: 3 weeks Time spent 45 minutes Attending Statement I interviewed and examined the patient on rounds today. I agree with the assessment and plan as stated above. Cathryn Chua DO December 14, 2016 18:18 Cole Saba MD December 15, 2016 07:21
--- NOTE | 2016-12-18 15:14 | PATH ---
SURGICAL PATHOLOGY Attending Physician:See Additional MD CASE STATUS: Signed Out PATIENT NAME: DOMENICO CASTANEDA PID: [id number] : 1960 DATE COLLECTED:12/13/2016 00:00 SPECIMEN: Paracentesis CLINICAL HISTORY: Paracentesis No ICD-10 code given FINAL DIAGNOSIS: ASCITES FLUID: NEGATIVE FOR MALIGNANT CELLS. MESOTHELIAL CELLS, LYMPHOCYTES, AND NEUTROPHILS ARE PRESENT. ICD10 R18.8 GROSS DESCRIPTION: Received fresh on 12/14/2016 is approximately 90 cc of cloudy hemorrhagic fluid. Prepared are one cell block, one cytospin, and one ThinPrep slides. hk MICRO DESCRIPTION: See diagnosis. ICD-9 CODES: CPT CODES: 1: 15918, 32467, 06584 Electronically Signed Out Marco A Ramsay MD [facility] [address], [place] [address] Technical component performed at [facility], [facility] [address], [place], [address]
== END 2016-12-14 19:06 | disposition home or self-care (01) | DRG 291 ==
LOC: SED 20:21 → PCC 23:36
PROVIDERS: ADMIT Internal Medicine; ATTEND Internal Medicine
PROC: 5A1D60Z (ICD-10-PCS; 2016-12-10)
PROC: 0W9G3ZZ Drainage of Peritoneal Cavity, Percutaneous Approach (ICD-10-PCS; principal; 2016-12-11)
PROC: 0W9G3ZX Drainage of Peritoneal Cavity, Percutaneous Approach, Diagnostic (ICD-10-PCS; 2016-12-13)
DX: I13.2 Hypertensive heart and chronic kidney disease with heart failure and with stage 5 chronic kidney disease, or end stage renal disease (principal); N18.6 End stage renal disease; I50.23 Acute on chronic systolic (congestive) heart failure; R18.8 Other ascites; E87.2 Acidosis; K76.0 Fatty (change of) liver, not elsewhere classified; E11.649 Type 2 diabetes mellitus with hypoglycemia without coma; D63.1 Anemia in chronic kidney disease; I25.10 Atherosclerotic heart disease of native coronary artery without angina pectoris; E78.5 Hyperlipidemia, unspecified; Z99.2 Dependence on renal dialysis; E11.319 Type 2 diabetes mellitus with unspecified diabetic retinopathy without macular edema; Z86.73 Personal history of transient ischemic attack (TIA), and cerebral infarction without residual deficits; E11.22 Type 2 diabetes mellitus with diabetic chronic kidney disease

== ENCOUNTER 2017-02-07 00:10 | Inpatient (IN) | payer MEDICARE ==
[~2017-02-07] VITALS: Ht 154.9 cm; Wt 64.0 kg
[2017-02-07] VITALS (19 sets, daily range): BP systolic 130–170; BP diastolic 60–87; PULSE 69–79; RESP 12–28; O2SAT 95–100
[~2017-02-07 00:10] MED LIST changes: +CARV12.52 PO; -CARV25TA2 PO; +DOCU-41 PO; +FLUO20CA25 PO; +HYDR-3939 PO; +ISOS30TA4 PO
[2017-02-07 08:35] LABS: BASOPHILS % (AUTO) 0.6 % (0-3); EOSINOPHILS % (AUTO) 3.3 % (0-5); INR 1.01 ratio; MONOCYTES % (AUTO) 9.5 % (4-12); Mean Corpuscular Hemoglobin 30.3 pg (27.0-35.0); Mean Corpuscular Volume 94.5 fL (81-100); NEUTROPHILS % (AUTO) 73.4 % (40-74); Platelet Count 219 bil/L (150-400)
[2017-02-07] MEDS ORDERED: Heparin 10,000 Unit/1,000 mL NS Premix IV ONE (11:37)
[2017-02-07] MEDS ORDERED: fentaNYL-PF 50 mCg/mL 2 mL Inj ONE (11:50)
--- NOTE | 2017-02-07 12:40 | NUR ---
POST PROCEDURE NOTE RETURNED FROM RESEARCH CHEF. SEE FLOW SHEET
--- NOTE | 2017-02-07 14:06 | NUR ---
Liver tissue obtained in lab rep and there is no requistion order for specifically what kind of tests are to be obtained on this sample.After many conversations with Joslyn and Celeste at Dr Barrera's/Renetta Li's office about this I was told that these kind of samples are sent to pathology and that is what I should do.There was great confusion as to what kind of procedure was done today.Dr barrera's office staff seemed to be under the impression that a paracentesis was done today.I restated that patient's percutaneous liver biopsy was cancelled 2 weeks ago because of moderate ascites and that in the interim patient has more pronounced ascites, she is uncomfortable and will need to be drained soon, concerned for her that she does not see Dr Barrera until Saturday. I told them that we have liver tissue from biopsy done via jugular vein.Dr Barrera will now try to order a paracentesis for today.
--- NOTE | 2017-02-07 15:25 | DRSVH ---
PROCEDURE: 1. Transjugular liver biopsy. 2. Conscious sedation x48 minutes. INDICATIONS: Elevated liver function tests. Ascites. COMPARISON: Located Within [facility], MR, MR ABD WO CON, 01/04/2017, 7:15. TECHNIQUE: Informed, written consent from the patient was obtained prior to the procedure. Patient wa s brought to the angiography suite, and conscious sedation was administered intravenously by detention staff, while continuous cardiorespiratory monitoring was performed. Maximal sterile barrier t echnique, hand hygiene, skin preparation, and sterile ultrasound technique (if ultrasound was utilize d) was followed. A mask, sterile gown, sterile gloves, a large sterile sheet, hand hygiene, and 2% ch lorhexidine or iodine was utilized for skin antisepsis. The right neck was prepped and draped sterile ly, and the skin and subcutaneous tissues overlying the right internal jugular vein were infused with lidocaine. The right internal jugular vein was accessed antegrade with a micropuncture set. A 5 Fren ch angled catheter was used to select the right hepatic vein, which was injected for selective right hepatic venography. The transjugular liver biopsy set was advanced into the right hepatic vein, was d irected anteriorly, and 2 biopsy specimens were obtained. Biopsy set was then removed and pressure wa s applied for hemostasis. FLUOROSCOPY TIME: 10.8 minutes FINDINGS: Prior to biopsy specimen acquisition, the biopsy set is within the right hepatic vein. IMPRESSION: 1. Transjugular biopsy of the liver as described above. Dictated by: Ramiro Rodríguez M.D. on 02/07/2017 at 15:20 Approved by: Ramiro Rodríguez M.D. on 02/07/2017 at 15:23
--- NOTE | 2017-02-07 16:10 | NUR ---
Dr Rodríguez informed of patient's decrease in hct from this am, drop of 4.[address]/KUB ordered.
--- NOTE | 2017-02-07 16:36 | NUR ---
Returned from CT, Dr Rodríguez informed.Dr Adan who will be doing paracentesis, spokw ith Dr Rodríguez briefly and aware that Ct neede to be completed prior to proceeding with paracentesis.
--- NOTE | 2017-02-07 16:45 | DRSVH ---
PROCEDURE: CT KUB ([id number]) INDICATIONS: POST LIVER BIOPSY TECHNIQUE: Noncontrast 5 mm thick sections acquired from the diaphragms to the symphysis. 5 mm thick coronal an d sagittal reformats were then performed. For radiation dose reduction, the following was used: aut omated exposure control, adjustment of mA and/or kV according to patient size. COMPARISON: [facility], CT, CT ABD PELVIS W CON, 07/10/2016, 17:14. FINDINGS: Image quality: Excellent. Lung bases: Moderate right pleural effusion. Mild bibasilar atelectasis. Heart size is normal. Urinary system: Both kidneys are normal in size. No kidney stones. No hydronephrosis or perinephri c fat stranding. Both ureters appear non-dilated throughout their expected courses. Bladder wall th ickness is normal; no calcified bladder stones. Other solid organs: Liver and spleen are normal in size. Gallbladder is surgically absent. Pancrea s is normal in contours. No adrenal nodules. Peritoneum and bowel: Unenhanced bowel loops demonstrate normal wall thickness and caliber. There is a small to moderate amount of ascites, with Hounsfield units similar to the ascites seen on the exam ination dated 07.10.16. Nodes and vessels: No retroperitoneal or mesenteric adenopathy by size criteria. Aorta and inferior vena cava are normal in caliber. Abdominal wall: No ventral hernias. Pelvis: No free pelvic fluid. No inguinal hernias or adenopathy. Bones: No suspicious bony lesions. No vertebral body compression fractures. IMPRESSION: 1. Ascites. No evidence of acute hemorrhage. 2. Right pleural effusion. Dictated by: Ramiro Rodríguez M.D. on 02/07/2017 at 16:36 Approved by: Ramiro Rodríguez M.D. on 02/07/2017 at 16:43
[2017-02-07] MEDS ORDERED: Ondansetron 2 mg/mL 2 mL Inj IVPUSH PRN (17:50)
[2017-02-07] MEDS ORDERED: Alum-Mag Hydrox-Simeth 30 mL Suspension PO PRN (17:50)
[2017-02-07] MEDS ORDERED: Polyethylene Glycol (PEG) 17 Gm Powder PO PRN (17:50)
--- NOTE | 2017-02-07 18:37 | NUR ---
LILY ASSUMED CARE OF PT AT 1645. DR PATIÑO EVALUATED PT AND CALLED HOSPITALIST FOR ADMISSION. ULTRASOUND HERE AND PARACENTESIS WAS ACCOMPLISHED. 1900ML WAS OBTAINED AND DR SU REMOVED CATHETER AND BAND AID APPLIED TO ABDOMEN. RIGHT IJ BAND AID DRY AND INTACT FROM LIVER BX EARLIER TODAY REPORT CALLED TO FABIOLA Max RN AND PT AND HER NURSING CARE WERE TRANSFERRED TO ROOM 1006 AT 1820.
--- NOTE | 2017-02-07 18:43 | PCM.HPMED ---
Subjective Date of Service Feb 07, 2017 Primary Provider: Admitting Physician: Primary Care Physician: Nopcp Attending Physician: Renetta Li PA-C Chief Complaint: Decreased hematocrit status post liver biopsy History of Present Illness: Tess Peterson is a 56-year-old woman with past medical history significant for diabetes mellitus, coronary artery disease, systolic congestive heart failure, ESRD on hemodialysis Saturday, who presented to [facility] today for a scheduled transjugular liver biopsy. Patient has a history with recurrent multi-factorial ascites, fatty liver disease, who was noted to have elevated LFTs specifically alkaline phosphatase. During her prior hospitalization patient had an MRI of her abdomen to evaluate her liver which showed 2 small cystic lesions in the pancreas and diffuse hypodense signal in the liver and the spleen suggestive of secondary hemachromatosis. Patient's alkaline phosphatase was very elevated at 527. GGT was also elevated at 523. Abdominal ultrasound with Doppler showed normal hepatopedal flow without thrombosis hepatitis A, B, and C were all normal. The patient underwent a liver biopsy today and was noted to have a mild decrease in her hematocrit. Patient was somewhat symptomatic in that she felt some abdominal distention and discomfort and thus was asked to be admitted for observation. The patient is well known to this provider and she does usually complain of some abdominal distention and discomfort due to ascites. When I asked the patient states that this is quite similar to her usual discomfort. She denies any fevers, chills, palpitations, shortness of breath. Her vital signs in LILY were stable. Patient also underwent an ultrasound- guided paracentesis to alleviate the discomfort and had about 2 L drained. Review of Systems: A comprehensive review of systems was performed and is negative except as noted above in history of present illness Allergies Coded Allergies: No Known Allergies (Unverified Allergy, Unknown, 12/09/16) Home Medications Atorvastatin (Lipitor) 80 Mg Tablet 80 MG PO DAILY (Reported) Carvedilol (Carvedilol) 6.25 Mg Tablet 6.25 MG PO BID Clopidogrel Bisulfate (Plavix) 75 Mg Tablet 75 MG PO DAILY (Reported) Furosemide (Furosemide) 80 Mg Tab 80 MG PO BID (Reported) Lisinopril (Lisinopril) 5 Mg Tablet 5 MG PO BID PMH Diabetes mellitus Diabetic retinopathy with blind right eye End-stage renal disease Hypertension CAD with cardiac stenting Congestive heart failure Cardiomyopathy Hyperlipidemia Hx of CVA Surgical History Cardiac stents x2 Family History Mother and father with diabetes type II both of heart attacks in their late 70s to early 80s Sister in the [facility] with diabetes Social History Hx Alcohol Use: No Hx Substance Use: No Hx Tobacco Use: No Smoking Status: Never Smoker Exam Vital Signs Vital Sign - Last Date Time Temp Pulse Resp B/P Pulse Ox O2 Delivery O2 Flow Rate FiO2 02/07/17 16:47 73 24 153/74 100 Room Air 02/07/17 08:09 36.9 Exam General: No acute distress, well-developed, well-nourished, appropriately interactive. Chronically ill-appearing. HEENT: Normocephalic, atraumatic. External ears without defect. Pupils equal, round, and reactive to light and accommodation. Anicteric sclerae, moist conjunctivae, and no lid lag. Oropharynx free of erythema and cobble stoning with moist mucosa. Neck: Supple with full range of motion. No jugular venous distension. No lymphadenopathy or thyromegaly. Dressing on right IJ which appears clean, dry, intact and without any blood. Cardiovascular: Regular rate and rhythm with no murmurs, rubs, or gallops appreciated Pulmonary: Clear to auscultation bilaterally with no crackles, wheezes, or rhonchi. Normal respiratory effort with no use of accessory muscles. Abdomen: Bowel tones present. Soft, nontender, moderately distended. No hepatosplenomegaly or masses appreciated. Extremities: No clubbing, cyanosis, or lymphadenopathy appreciated. Mild bilateral nonpitting ankle edema. Skin: Normal temperature, turgor, and texture; no rash, ulcers, or subcutaneous nodules appreciated. Neurological: Cranial nerves grossly intact. Normal muscle strength, tone, and bulk. Reflexes, coordination, and sensory function within normal limits. No known gait impairment. Psychiatric: Normal mood and affect. Alert and oriented to person, place, and time. Lab and Diagnostics Result Diagram: 02/07/17 1538 02/07/17 0800 X-Rays, CTs and MRIs PROCEDURE: 1. Transjugular liver biopsy. TECHNIQUE: Informed, written consent from the patient was obtained prior to the procedure. Patient was brought to the angiography suite, and conscious sedation was administered intravenously by long term staff, while continuous cardiorespiratory monitoring was performed. Maximal sterile barrier technique, hand hygiene, skin preparation, and sterile ultrasound technique (if ultrasound was utilized) was followed. A mask, sterile gown, sterile gloves, a large sterile sheet, hand hygiene, and 2% chlorhexidine or iodine was utilized for skin antisepsis. The right neck was prepped and draped sterilely, and the skin and subcutaneous tissues overlying the right internal jugular vein were infused with lidocaine. The right internal jugular vein was accessed antegrade with a micropuncture set. A 5 Rwandan angled catheter was used to select the right hepatic vein, which was injected for selective right hepatic venography. The transjugular liver biopsy set was advanced into the right hepatic vein, was directed anteriorly, and 2 biopsy specimens were obtained. Biopsy set was then removed and pressure was applied for hemostasis. Dictated by: Ramiro Rodríguez M.D. on 02/07/2017 at 15:20 CT KUB IMPRESSION: 1. Ascites. No evidence of acute hemorrhage. 2. Right pleural effusion. Dictated by: Ramiro Rodríguez M.D. on 02/07/2017 at 16:36 Assessment & Plan Tess Peterson is a 56-year-old woman with past medical history significant for diabetes mellitus, coronary artery disease, systolic congestive heart failure, ESRD on hemodialysis Saturday, who presented to [facility] today for a scheduled transjugular liver biopsy. Patient has a history with recurrent multi-factorial ascites, fatty liver disease, who was noted to have elevated LFTs specifically alkaline phosphatase. Elevated LFTs in the setting of fatty liver with recurrent multifactorial ascites with MRI appearance suggestive of secondary hemochromatosis status post transjugular liver biopsy with associated decreased hematocrit, present on admission, active -Patient will be observed until tomorrow -We will monitor her H&H End-stage renal disease on hemodialysis M/W/F, present on admission, stable -Nephrology consulted and will arrange dialysis on her normal day. Normocytic anemia, likely multifactorial, present on admission, active -most likely due to anemia of chronic disease secondary to ESRD, however elevated RDW suggestive of iron deficiency component -Concern for possible decrease due to bleeding from biopsy although this is unlikely, will monitor H&H as above. Chronic conditions: Coronary artery disease status post stent - Continued home dose carvedilol twice daily, aspirin -Patient's Plavix has been held due to liver biopsy. We will continue to hold today. Heart failure with reduced EF, EF 40% - Standing daily weights with strict I&O's - Continued furosemide. HD per nephrology. Hypertension - Continued home medication lisinopril Hyperlipidemia - Continued home med atorvastatin CODE STATUS: Full code Patient is admitted under observation status with expected length of stay less than 2 midnights due to severity of presenting symptoms, risk of adverse event, and complexity of treatment plan. VTE Prophylaxis: Sub-Q Heparin (Unfractionated) Resuscitation Status: CPR: Attempt Resuscitation Attending Statement Plan discussed. Agree with the assessment and plan. Tiffany Chua DO Feb 07, 2017 17:58 Roman Aj MD Feb 08, 2017 07:09
[2017-02-08] VITALS: BP 142/74; PULSE 72; RESP 17; O2SAT 94
[2017-02-08 05:51] LABS: BASOPHILS % (AUTO) 0.3 % (0-3); EOSINOPHILS % (AUTO) 3.3 % (0-5); MONOCYTES % (AUTO) 9.6 % (4-12); Mean Corpuscular Volume 93.6 fL (81-100); NEUTROPHILS % (AUTO) 74.6 % (40-74); Platelet Count 189 bil/L (150-400)
[2017-02-08 06:30] VITALS: BP 131/72; PULSE 66; RESP 16; O2SAT 98
--- NOTE | 2017-02-08 07:41 | PCM.PNMED ---
Subjective Date of Service Feb 08, 2017 Subjective Patient seen and examined. Just woke up, no complaints at this point. Vitals stable. Exam Vital Signs Vital Sign - Last Date Time Temp Pulse Resp B/P Pulse Ox O2 Delivery O2 Flow Rate FiO2 02/08/17 06:30 36.4 66 16 131/72 98 Room Air Intake and Output 02/07/17 02/07/17 02/08/17 Cumulative From/Thru 15:00 23:00 07:00 02/07/17 08:09 - 02/08/17 06:30 Intake Total 270 ml 1320 ml 1590 ml Output Total 150 ml 150 ml Balance 270 ml 1170 ml 1440 ml Intake Oral 120 ml 1320 ml 1440 ml IV Total 150 ml 150 ml Output Urine Total 150 ml 150 ml # Voids 1 1 # Bowel Movements 0 0 Exam General: No acute distress, well-developed, well-nourished, appropriately interactive. Chronically ill-appearing. Neck: Supple with full range of motion. No jugular venous distension. No lymphadenopathy or thyromegaly. Dressing on right IJ which appears clean, dry, intact and without any blood. Cardiovascular: Regular rate and rhythm with no murmurs, rubs, or gallops appreciated Pulmonary: Clear to auscultation bilaterally with no crackles, wheezes, or rhonchi. Normal respiratory effort with no use of accessory muscles. Abdomen: Bowel tones present. Soft, nontender, moderately distended. No hepatosplenomegaly or masses appreciated. Extremities: No clubbing, cyanosis, or lymphadenopathy appreciated. Mild bilateral nonpitting ankle edema. Lab and Diagnostics Result Diagram: 02/08/1729 02/08/1729 X-Rays, CTs and MRIs PROCEDURE: 1. Transjugular liver biopsy. TECHNIQUE: Informed, written consent from the patient was obtained prior to the procedure. Patient was brought to the angiography suite, and conscious sedation was administered intravenously by [facility] staff, while continuous cardiorespiratory monitoring was performed. Maximal sterile barrier technique, hand hygiene, skin preparation, and sterile ultrasound technique (if ultrasound was utilized) was followed. A mask, sterile gown, sterile gloves, a large sterile sheet, hand hygiene, and 2% chlorhexidine or iodine was utilized for skin antisepsis. The right neck was prepped and draped sterilely, and the skin and subcutaneous tissues overlying the right internal jugular vein were infused with lidocaine. The right internal jugular vein was accessed antegrade with a micropuncture set. A 5 Welsh angled catheter was used to select the right hepatic vein, which was injected for selective right hepatic venography. The transjugular liver biopsy set was advanced into the right hepatic vein, was directed anteriorly, and 2 biopsy specimens were obtained. Biopsy set was then removed and pressure was applied for hemostasis. Dictated by: Ramiro Rodríguez M.D. on 02/07/2017 at 15:20 CT KUB IMPRESSION: 1. Ascites. No evidence of acute hemorrhage. 2. Right pleural effusion. Dictated by: Ramiro Rodríguez M.D. on 02/07/2017 at 16:36 Assessment & Plan Tess Peterson is a 56-year-old woman with past medical history significant for diabetes mellitus, coronary artery disease, systolic congestive heart failure, ESRD on hemodialysis Saturday, who presented to [facility] today for a scheduled transjugular liver biopsy. Patient has a history with recurrent multi-factorial ascites, fatty liver disease, who was noted to have elevated LFTs specifically alkaline phosphatase. Elevated LFTs in the setting of fatty liver with recurrent multifactorial ascites with MRI appearance suggestive of secondary hemochromatosis status post transjugular liver biopsy with associated decreased hematocrit, present on admission, active -Hgb 9.6 today, basline hgb based on past records seem to range from 8 to 10, likely 2/2 ESRD - No signs of active bleeding - will monitor H&H End-stage renal disease on hemodialysis M/W/F, present on admission, stable -Nephrology consulted and will arrange dialysis on her normal day. Normocytic anemia, likely multifactorial, present on admission, active -most likely due to anemia of chronic disease secondary to ESRD, however elevated RDW suggestive of iron deficiency component Chronic conditions: Coronary artery disease status post stent - Continued home dose carvedilol twice daily, aspirin -Patient's Plavix has been held due to liver biopsy. We will continue to hold today. Heart failure with reduced EF, EF 40% - Standing daily weights with strict I&O's - Continued furosemide. HD per nephrology. Hypertension - Continued home medication lisinopril Hyperlipidemia - Continued home med atorvastatin CODE STATUS: Full code Patient is admitted under observation status with expected length of stay less than 2 midnights due to severity of presenting symptoms, risk of adverse event, and complexity of treatment plan. VTE Prophylaxis: SCDs VTE Mechanical Devices: Intermittant Pneumatic CD Resuscitation Status: CPR: Attempt Resuscitation Time spent 35 mins Roman Aj MD Feb 08, 2017 07:41
--- NOTE | 2017-02-08 07:43 | NUR ---
Observation Patient has been resting most of shift. Patient had a critical creatinine of 6.57 this morning. Patient has no complaints of pain. A&Ox3. Patient has fistula on left side, so BP should be taken on left. Care continues
[2017-02-08 09:26] VITALS: BP 152/76; PULSE 80
[2017-02-08 09:54] VITALS: BP 150/76; PULSE 70; RESP 18; O2SAT 97
[2017-02-08] MEDS ORDERED: Glucose 40% Oral Gel 15 Gm Tube PO PRN (10:05)
[2017-02-08] MEDS ORDERED: Dextrose 10% 250 ML IV PRN (10:15)
--- NOTE | 2017-02-08 10:52 | DRSVH ---
PROCEDURE: US GUIDED PARACENTESIS, PRIMARY ([id number]) INDICATIONS: ASCITES OF LIVER TECHNIQUE: The indications, alternatives, benefits, risks, and complications of the procedure were explained to the patient. Written informed consent was obtained and placed in the chart. The abdomen and pelvis were examined sonographically, and an appropriate site was chosen for paracentesis. The skin was pre pared and draped in the usual sterile fashion, and 1% lidocaine was infiltrated from the skin down th rough the peritoneal surface. A 19-gauge catheter-covered needle was then introduced into the perito torres space, the catheter was advanced and the needle was withdrawn, and thereafter peritoneal fluid w as withdrawn. The catheter was then removed and a dressing was applied. The fluid was discarded if the clinician did not order diagnostic testing of the fluid. COMPARISON: [facility], [place], 01/25/2017, 8:37. FINDINGS: Access site: Right lower quadrant Needle: One-Step centesis catheter with introducer needle. Fluid volume and description: 1900 cc of dark yellow fluid. Fluid sent for diagnostic testing: No Medications: 1% lidocaine for local anaesthesia. Complications: None. IMPRESSION: Successful ultrasound-guided paracentesis. Dictated by: Willian Adan M.D. on 02/08/2017 at 10:49 Approved by: Willian Adan M.D. on 02/08/2017 at 10:50
--- NOTE | 2017-02-08 11:49 | NUR ---
Case Management- IMM explained and signed by patient. Copy given to patient. Original placed in chart. Kalpana MARCOS/ JAGDEEP
--- NOTE | 2017-02-08 14:38 | NUR ---
Off unit Pt off unit to dialysis in bed. No c/o pain, only abdominal distention. VSS, DANA, A&O x 3. Report to Sofy in MOC.
[2017-02-08 14:41] VITALS: BP 153/79; PULSE 67
--- NOTE | 2017-02-08 15:01 | NUR ---
Social Work: Attempted Initial Assessment/Multi-Disciplinary Rounds DAP: SW attempted to see pt for initial assessment - pt not in room - getting dialyzed at [facility] at this time. Per rounds, states that pt received a biopsy yesterday and hemoglobin is stable. Blood sugar reported to be 261. Pt likely to discharge tomorrow pending blood sugar and biopsy results. does not anticipate any discharge needs. KUSHAL will continue to follow. CHRISSIE Rubin
--- NOTE | 2017-02-08 15:17 | NUR ---
pt arrived to [facility] for DIALYSIS at 1430 via bed report received from primary RN ([facility]) pt alert, oriented, denies complaints at this time call light in reach; slice plug cutter operator at bedside; will cont to monitor Addendum: 02/08/17 at 1856 by KENNY MANE RN Pt completed treatment and may return to [facility] room 1016. Report given to Santosh Hinton RN. Pt stable at time of transfer back to [facility].
--- NOTE | 2017-02-08 15:28 | CONS ---
[address] [address] CONSULTATION REPORT PATIENT: DOMENICO CASTANEDA : 1960 MR#: [id number] ADMIT: 02/07/2017 JOB ID: [id number] DATE OF SERVICE: 02/08/2017 NEPHROLOGY CONSULTATION: REQUESTING PHYSICIAN: Dr. Aj. REASON FOR CONSULTATION: Management of end-stage renal disease. CHIEF COMPLAINT: Observation after liver biopsy. PRESENT ILLNESS: This is a 56-year-old, Pakistani lady with significant past medical history of end-stage renal disease, on hemodialysis every Saturday, Saturday and Saturday, longstanding type 2 diabetes, hypertension, coronary artery disease and systolic heart failure who presented to the hospital for observation after liver biopsy. The patient underwent a liver biopsy yesterday, as well as abdominal paracentesis with 1.9 L of fluid removed. Her hematocrit slightly decreased after the biopsy from 35.8 to 31.3. Today, her hemoglobin was 9.4 and hematocrit was 29.3. The patient reports no history of chest pain. No shortness of breath. She has some abdominal discomfort but no obvious abdominal pain. Renal was consulted to continue dialysis while she was in the hospital. She is the patient of Dr. Flynn Gaines. She is being dialyzed every Saturday, Saturday and Saturday. PAST MEDICAL HISTORY: 1. End-stage renal disease, on hemodialysis every Saturday, Saturday and Saturday. 2. Recurrent ascites. 3. Fatty liver. 4. 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 5. 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 6. Hypertension. 7. Coronary artery disease, status post stenting. 8. Heart failure with reduced ejection fraction. 9. Dyslipidemia. 10. CVA. 11. Anemia of chronic kidney disease. 12. Renal osteodystrophy. PAST SURGICAL HISTORY: 1. Status post cholecystectomy. 2. Status post left AV graft placement. 3. Focal high-grade stenosis at the graft anastomosis, status post balloon angiography. 4. Status post abdominal paracentesis. SOCIAL HISTORY: Denies current use of alcohol, tobacco, or illicit drugs. FAMILY: Noncontributory. ALLERGIES: No known drug allergies. REVIEW OF SYSTEMS: A 14-point review of systems was performed. MEDICATIONS: Aspirin, Lipitor, carvedilol, Plavix, Colace, furosemide, hydralazine, lisinopril. PHYSICAL EXAMINATION: Vitals: Temperature 36.7, pulse 70, respiratory rate 18, blood pressure 150/76. General appearance: Awake, alert, oriented x3, in no acute distress. HEENT: No pallor. No jaundice. No JVD. No lymphadenopathy. No thyroid enlargement. Heart: Regular rhythm. Normal S1, S2. Soft systolic murmur noted. Lungs: Clear to auscultation bilaterally. No wheezing. No rhonchi. No crackles. Abdomen: Soft. Mild distention. Nontender, nondistended. Extremities: No significant edema. Skin: Darkened brown-colored skin. LABORATORY: WBC 6.1, hemoglobin 9.4, platelets 189. Sodium 135, potassium 6.0, chloride 100, bicarb 18, BUN 77, creatinine 6.57. ASSESSMENT: 1. End-stage renal disease, on hemodialysis every Saturday, Saturday and Saturday. 2. Underlying disease of fatty liver disease complicated by ascites, being ruled out secondary hemochromatosis, status post liver biopsy. 3. Type 2 diabetes with renal manifestation. 4. Hypertension with hypertensive nephrosclerosis. 5. Heart failure with reduced ejection fraction. 6. Coronary artery disease, status post stenting. PLAN: 1. Per renal standpoint, the patient will receive dialysis today 4 hours with a 2 potassium bath. Ultrafiltration 1-2 L as tolerated. The patient will continue on her current antihypertensive medications. Disposition as per Primary team. 2. Repeat hemoglobin after hemodialysis.
--- NOTE | 2017-02-08 17:39 | NUR ---
spiritual care: routine prayer with pt as she expressed overwhelm. pt agreeable for eucharistic visitors from [facility]
--- NOTE | 2017-02-08 19:00 | NUR ---
Dialysis note: 4 hrs tx 3000 ml net UF LLA graft, accessed w/ no problems Pls see DTR for VS details Qb 390-400 Heparin prime given O2 @ 2L via NC on during tx Tolerated tx, slept at intervals Graft needle sites clotted w/in 10 min Stable condition at end of tx Report given to Sowmya GANNON
[2017-02-08 19:19] VITALS: BP 168/73; PULSE 77; RESP 16; O2SAT 94
--- NOTE | 2017-02-08 19:20 | NUR ---
Back on unit Pt back from dialysis at 191. Report from el teacher. Pt BP elevated at 168/73, hx of hypertension. Pt tucked into bed, given dinner and new water. No c/o pain, only abdominal distention. Bed in low, call light in reach.
[2017-02-09 06:00] VITALS: BP 143/81; PULSE 70; RESP 16; O2SAT 98
--- NOTE | 2017-02-09 06:15 | NUR ---
Pain/Activity Pt c/o general pain 8/10 and requested PRN morphine. 1mg given. Pt sleeping. Up to BR independently. Biopsy site at neck has bandaid applied, CDI. Bandaid applied to paracentesis site is CDI. Pt had dialysis and VSS upon return. Bruit/thrill present to fistula in left FA. Pt given dose of morphine early this AM for c/o pain 8/10, on reassessment Pt states feeling much better. Call light in reach. Care continues.
[2017-02-09 06:25] LABS: BASOPHILS % (AUTO) 0.5 % (0-3); EOSINOPHILS % (AUTO) 3.5 % (0-5); MONOCYTES % (AUTO) 10.5 % (4-12); Mean Corpuscular Hemoglobin 29.8 pg (27.0-35.0); Mean Corpuscular Volume 93.2 fL (81-100); NEUTROPHILS % (AUTO) 74.3 % (40-74); Platelet Count 188 bil/L (150-400)
[2017-02-09] MEDS ORDERED: Simethicone 40 mg/0.6 mL 30 mL Oral Solution PO PRN (08:05)
--- NOTE | 2017-02-09 08:06 | PCM.PNMED ---
Subjective Date of Service Feb 09, 2017 Subjective Patient seen and examined today. No complaints. Vitals stable. Exam Vital Signs Vital Sign - Last Date Time Temp Pulse Resp B/P Pulse Ox O2 Delivery O2 Flow Rate FiO2 02/09/17 06:00 36.3 70 16 143/81 98 Room Air Intake and Output 02/08/17 02/08/17 02/09/17 Cumulative From/Thru 15:00 23:00 07:00 02/07/17 08:09 - 02/09/17 06:00 Intake Total 1200 ml 2790 ml Output Total 3000 ml 470 ml 750 ml 4370 ml Balance -3000 ml -470 ml 450 ml -1580 ml Intake Oral 1200 ml 2640 ml IV Total 150 ml Output Urine Total 470 ml 750 ml 1370 ml Ultrafiltrate 3000 ml 3000 ml # Voids 3 4 # Bowel Movements 0 0 Exam General: No acute distress, well-developed, well-nourished, appropriately interactive. Chronically ill-appearing. Neck: Supple with full range of motion. No jugular venous distension. No lymphadenopathy or thyromegaly. Dressing on right IJ which appears clean, dry, intact and without any blood. Cardiovascular: Regular rate and rhythm with no murmurs, rubs, or gallops appreciated Pulmonary: Clear to auscultation bilaterally with no crackles, wheezes, or rhonchi. Normal respiratory effort with no use of accessory muscles. Abdomen: Bowel tones present. Soft, nontender, moderately distended. No hepatosplenomegaly or masses appreciated. Extremities: No clubbing, cyanosis, or lymphadenopathy appreciated. Mild bilateral nonpitting ankle edema. Lab and Diagnostics Result Diagram: 02/09/17 0533 02/08/17 0529 X-Rays, CTs and MRIs PROCEDURE: 1. Transjugular liver biopsy. TECHNIQUE: Informed, written consent from the patient was obtained prior to the procedure. Patient was brought to the angiography suite, and conscious sedation was administered intravenously by intermediate staff, while continuous cardiorespiratory monitoring was performed. Maximal sterile barrier technique, hand hygiene, skin preparation, and sterile ultrasound technique (if ultrasound was utilized) was followed. A mask, sterile gown, sterile gloves, a large sterile sheet, hand hygiene, and 2% chlorhexidine or iodine was utilized for skin antisepsis. The right neck was prepped and draped sterilely, and the skin and subcutaneous tissues overlying the right internal jugular vein were infused with lidocaine. The right internal jugular vein was accessed antegrade with a micropuncture set. A 5 Azeri angled catheter was used to select the right hepatic vein, which was injected for selective right hepatic venography. The transjugular liver biopsy set was advanced into the right hepatic vein, was directed anteriorly, and 2 biopsy specimens were obtained. Biopsy set was then removed and pressure was applied for hemostasis. Dictated by: Ramiro Rodríguez M.D. on 02/07/2017 at 15:20 CT KUB IMPRESSION: 1. Ascites. No evidence of acute hemorrhage. 2. Right pleural effusion. Dictated by: Ramiro Rodríguez M.D. on 02/07/2017 at 16:36 Assessment & Plan Tess Peterson is a 56-year-old woman with past medical history significant for diabetes mellitus, coronary artery disease, systolic congestive heart failure, ESRD on hemodialysis Saturday, who presented to [facility] today for a scheduled transjugular liver biopsy. Patient has a history with recurrent multi-factorial ascites, fatty liver disease, who was noted to have elevated LFTs specifically alkaline phosphatase. Elevated LFTs in the setting of fatty liver with recurrent multifactorial ascites with MRI appearance suggestive of secondary hemochromatosis status post transjugular liver biopsy with associated decreased hematocrit, present on admission, active -Hgb 9.2 today, basline hgb based on past records seem to range from 8 to 10, likely 2/2 ESRD - No signs of active bleeding End-stage renal disease on hemodialysis M/W/F, present on admission, stable -Nephrology consulted and will arrange dialysis on her normal day. Normocytic anemia, likely multifactorial, present on admission, active -most likely due to anemia of chronic disease secondary to ESRD, however elevated RDW suggestive of iron deficiency component Chronic conditions: Coronary artery disease status post stent - Continued home dose carvedilol twice daily, aspirin -Patient's Plavix has been held due to liver biopsy. We will continue to hold today. Heart failure with reduced EF, EF 40% - Standing daily weights with strict I&O's - Continued furosemide. HD per nephrology. Hypertension - Continued home medication lisinopril Hyperlipidemia - Continued home med atorvastatin CODE STATUS: Full code Patient is admitted under observation status with expected length of stay less than 2 midnights due to severity of presenting symptoms, risk of adverse event, and complexity of treatment plan. VTE Prophylaxis: SCDs VTE Mechanical Devices: Intermittant Pneumatic CD Resuscitation Status: CPR: Attempt Resuscitation Time spent 35 mins Roman Aj MD Feb 09, 2017 08:06
[2017-02-09 09:00] VITALS: BP 141/65; PULSE 72; RESP 18; O2SAT 94
--- NOTE | 2017-02-09 11:44 | NUR ---
Social Work- Initial Assessment/Readiness for Discharge/Multidisciplinary Rounds Data: See attached initial assessment for additional information. Pt is a 56 year old female admitted for perihepatic fluid per H&P. Pt discussed in rounds, pt is likely to discharge today. Pt's PCP is All Mueller MD (not Sabrina). Pt's insurance is [employer]. Pt's NOK is sister Becca Koroma, . Pt's readmit risk score is 4. SW met with pt at bedside regarding discharge plan, SW role explained. Pt alert and oriented x3. Pt's capacity for self care assessed. Pt resides in [place] with her sister where she is independent [facility] ADLs and self-care. Pt has HH and SNF history but could not recall the names. Pt receives dialysis M// at [facility]. [place] and [place] not drive. Pt confirmed that she will discharge home with her sister to transport via POV. Requested the RN contact her sister when she is ready for D/C. RN notified. Pt has no DPOA and declined paperwork but requested that her sister be the DPOA if needed. Pt provided with phone number and plan on whiteboard, also the discharge planning checklist given at bedside. No discharge needs identified. SW will continue to follow. Assessment: Pt who is independent at baseline. Plan: Pt confirmed that she will discharge home with her sister to transport via POV. No discharge needs identified. SW will continue to follow. CHRISSIE aRmos Addendum: 02/09/17 at 1148 by DELANO CHAN Amended: Links added.
[2017-02-09 13:41] VITALS: BP 160/74; PULSE 76; RESP 16; O2SAT 98
--- NOTE | 2017-02-09 14:34 | PCM.PNNEPH ---
Subjective Date of Service Feb 09, 2017 Subjective c/o abd girth. Hb 11.5 > 9.2 today. Repeat Hb pending. HD yesterday without complication. Exam Vital Signs Vital Sign - Last Date Time Temp Pulse Resp B/P Pulse Ox O2 Delivery O2 Flow Rate FiO2 02/09/17 13:41 36.8 76 16 160/74 98 Room Air Intake and Output 02/08/17 02/08/17 02/09/17 Cumulative From/Thru 15:00 23:00 07:00 02/07/17 08:09 - 02/09/17 06:00 Intake Total 1200 ml 2790 ml Output Total 3000 ml 470 ml 750 ml 4370 ml Balance -3000 ml -470 ml 450 ml -1580 ml Intake Oral 1200 ml 2640 ml IV Total 150 ml Output Urine Total 470 ml 750 ml 1370 ml Ultrafiltrate 3000 ml 3000 ml # Voids 3 4 # Bowel Movements 0 0 Exam General appearance: Awake, alert, oriented x3, in no acute distress. HEENT: No pallor. No jaundice. No JVD. No lymphadenopathy. No thyroid enlargement. Heart: Regular rhythm. Normal S1, S2. Soft systolic murmur noted. Lungs: Clear to auscultation bilaterally. No wheezing. No rhonchi. No crackles. Abdomen: Soft. Mild distention. Nontender, nondistended. Extremities: No significant edema. Skin: Darkened brown-colored skin. AVF with good thrill and bruits. Lab and Diagnostics Result Diagram: 02/09/17 0533 02/08/17 0529 X-Rays, CTs and MRIs PROCEDURE: 1. Transjugular liver biopsy. TECHNIQUE: Informed, written consent from the patient was obtained prior to the procedure. Patient was brought to the angiography suite, and conscious sedation was administered intravenously by intermediate staff, while continuous cardiorespiratory monitoring was performed. Maximal sterile barrier technique, hand hygiene, skin preparation, and sterile ultrasound technique (if ultrasound was utilized) was followed. A mask, sterile gown, sterile gloves, a large sterile sheet, hand hygiene, and 2% chlorhexidine or iodine was utilized for skin antisepsis. The right neck was prepped and draped sterilely, and the skin and subcutaneous tissues overlying the right internal jugular vein were infused with lidocaine. The right internal jugular vein was accessed antegrade with a micropuncture set. A 5 Swedish angled catheter was used to select the right hepatic vein, which was injected for selective right hepatic venography. The transjugular liver biopsy set was advanced into the right hepatic vein, was directed anteriorly, and 2 biopsy specimens were obtained. Biopsy set was then removed and pressure was applied for hemostasis. Dictated by: Ramiro Rodríguez M.D. on 02/07/2017 at 15:20 CT KUB IMPRESSION: 1. Ascites. No evidence of acute hemorrhage. 2. Right pleural effusion. Dictated by: Ramiro Rodríguez M.D. on 02/07/2017 at 16:36 Plan Impression 1. End-stage renal disease, on hemodialysis every Saturday, Saturday and Saturday. 2. Underlying disease of fatty liver disease complicated by ascites, being ruled out secondary hemochromatosis, status post liver biopsy. 3. Type 2 diabetes with renal manifestation. 4. Hypertension with hypertensive nephrosclerosis. 5. Heart failure with reduced ejection fraction. 6. Coronary artery disease, status post stenting. PLAN: 1. Next HD on Saturday. 2. If Hb stable, can be d/c'd home. Frank Julien MD Feb 09, 2017 14:34
--- NOTE | 2017-02-09 14:55 | PCM.DIMED ---
Discharge Instructions Date of Service Feb 09, 2017 Dates of Hospitalization Feb 07, 2017 at 17:18 Discharge Diagnosis Discharge Diagnosis Anemia post procedure Diet Discharge Diet: Renal Diet Call your provider Call your provider for: Fever or Chills, Shortness of breath, Weakness ( unilateral) Patient Instructions Follow-up plan Please follow up as scheduled last time at discharge Please follow up with your engraver letter, Dr. Valdez regarding your heart disease and regarding your heart valve problems.. Follow-up Provider: Tashia Leon PA-C Follow-up with PCP in: 1 week Provider: Michael Barrera MD Follow-up in: 1 week Roman Aj MD Feb 09, 2017 14:55
--- NOTE | 2017-02-09 14:58 | PCM.DC.MED ---
Discharge Summary Date of Service Feb 09, 2017 Dates of Hospitalization Date of Hospital Admission Feb 07, 2017 at 17:18 Date of Discharge: Feb 09, 2017 Providers: Admitting Physician: Roman Aj MD Primary Care Physician: Bryan Attending Physician: Roman Aj MD Diagnosis at Time of Discharge Diagnosis at Time of Discharge Anemia post procedure Procedures XRay, CTs & MRIs PROCEDURE: 1. Transjugular liver biopsy. TECHNIQUE: Informed, written consent from the patient was obtained prior to the procedure. Patient was brought to the angiography suite, and conscious sedation was administered intravenously by longterm staff, while continuous cardiorespiratory monitoring was performed. Maximal sterile barrier technique, hand hygiene, skin preparation, and sterile ultrasound technique (if ultrasound was utilized) was followed. A mask, sterile gown, sterile gloves, a large sterile sheet, hand hygiene, and 2% chlorhexidine or iodine was utilized for skin antisepsis. The right neck was prepped and draped sterilely, and the skin and subcutaneous tissues overlying the right internal jugular vein were infused with lidocaine. The right internal jugular vein was accessed antegrade with a micropuncture set. A 5 [place] Islander angled catheter was used to select the right hepatic vein, which was injected for selective right hepatic venography. The transjugular liver biopsy set was advanced into the right hepatic vein, was directed anteriorly, and 2 biopsy specimens were obtained. Biopsy set was then removed and pressure was applied for hemostasis. Dictated by: Ramiro Rodríguez M.D. on 02/07/2017 at 15:20 CT KUB IMPRESSION: 1. Ascites. No evidence of acute hemorrhage. 2. Right pleural effusion. Dictated by: Ramiro Rodríguez M.D. on 02/07/2017 at 16:36 Brief History Tess Peterson is a 56-year-old woman with past medical history significant for diabetes mellitus, coronary artery disease, systolic congestive heart failure, ESRD on hemodialysis Saturday, who presented to [facility] today for a scheduled transjugular liver biopsy. Patient has a history with recurrent multi-factorial ascites, fatty liver disease, who was noted to have elevated LFTs specifically alkaline phosphatase. During her prior hospitalization patient had an MRI of her abdomen to evaluate her liver which showed 2 small cystic lesions in the pancreas and diffuse hypodense signal in the liver and the spleen suggestive of secondary hemachromatosis. Patient's alkaline phosphatase was very elevated at 527. GGT was also elevated at 523. Abdominal ultrasound with Doppler showed normal hepatopedal flow without thrombosis hepatitis A, B, and C were all normal. The patient underwent a liver biopsy today and was noted to have a mild decrease in her hematocrit. Patient was somewhat symptomatic in that she felt some abdominal distention and discomfort and thus was asked to be admitted for observation. The patient is well known to this provider and she does usually complain of some abdominal distention and discomfort due to ascites. When I asked the patient states that this is quite similar to her usual discomfort. She denies any fevers, chills, palpitations, shortness of breath. Her vital signs in LILY were stable. Patient also underwent an ultrasound- guided paracentesis to alleviate the discomfort and had about 2 L drained. Hospital Course Tess Peterson is a 56-year-old woman with past medical history significant for diabetes mellitus, coronary artery disease, systolic congestive heart failure, ESRD on hemodialysis Saturday, who presented to [facility] today for a scheduled transjugular liver biopsy. Patient has a history with recurrent multi-factorial ascites, fatty liver disease, who was noted to have elevated LFTs specifically alkaline phosphatase. Elevated LFTs in the setting of fatty liver with recurrent multifactorial ascites with MRI appearance suggestive of secondary hemochromatosis status post transjugular liver biopsy with associated decreased hematocrit, present on admission, active -Hgb 9.2>10.1 today, basline hgb based on past records seem to range from 8 to 10, likely 2/2 ESRD - No signs of active bleeding End-stage renal disease on hemodialysis M/W/F, present on admission, stable -Nephrology consulted and will arrange dialysis on her normal day. Normocytic anemia, likely multifactorial, present on admission, active -most likely due to anemia of chronic disease secondary to ESRD, however elevated RDW suggestive of iron deficiency component Chronic conditions: Coronary artery disease status post stent - Continued home dose carvedilol twice daily, aspirin -Patient's Plavix has been held due to liver biopsy. - will continue outpatient, no signs of bleeding Heart failure with reduced EF, EF 40% - Standing daily weights with strict I&O's - Continued furosemide. HD per nephrology. Hypertension - Continued home medication lisinopril Hyperlipidemia - Continued home med atorvastatin CODE STATUS: Full code Exam Vital Signs (Last) Date Time Temp Pulse Resp B/P Pulse Ox O2 Delivery O2 Flow Rate FiO2 02/09/17 13:41 36.8 76 16 160/74 98 Room Air Test 02/07/17 08:00 02/08/17 05:29 02/09/17 05:33 02/09/17 14:16 Prothrombin Time 10.8sec (8.1-12.5) Prothromb Time International Ratio 1.01ratio Sodium Level 135mEq/L (134-144) Potassium Level 6.0mEq/L (3.5-5.2) Chloride Level 100mEq/L (97-108) Carbon Dioxide Level 18mmol/L (18-29) Blood Urea Nitrogen 77mg/dL (6-24) Creatinine 6.57mg/dL (0.57-1.00) Estimat Glomerular Filtration Rate 9mL/min (>59) Glucose Level 261mg/dL (60-99) Calcium Level 8.0mg/dL (8.5-10.1) White Blood Count 6.3th/mm3 (3.8-10.1) Red Blood Count 3.09mil/mm3 (3.90-5.20) Mean Corpuscular Volume 93.2fL (81-100) Mean Corpuscular Hemoglobin 29.8pg (27.0-35.0) Mean Corpuscular Hemoglobin Concent 31.9% (32.0-37.0) Red Cell Distribution Width 15.2% (12.3-15.4) Platelet Count 188bil/L (150-400) Neutrophils (%) (Auto) 74.3% (40-74) Lymphocytes (%) (Auto) 10.9% (14-46) Monocytes (%) (Auto) 10.5% (4-12) Eosinophils (%) (Auto) 3.5% (0-5) Basophils (%) (Auto) 0.5% (0-3) Hemoglobin 10.1g/dL (12.0-15.6) Hematocrit 31.7% (35.0-46.0) Discharge Medications Discharge Medications Aspirin (Aspirin) 81 Mg Tablet 81 MG PO DAILY (Reported) Atorvastatin (Lipitor) 80 Mg Tablet 80 MG PO DAILY (Reported) Carvedilol (Carvedilol) 12.5 Mg Tablet 18.75 MG PO BID (Reported) Clopidogrel Bisulfate (Plavix) 75 Mg Tablet 75 MG PO DAILY (Reported) Furosemide (Furosemide) 80 Mg Tab 80 MG PO BID (Reported) Hydralazine (Hydralazine) 25 Mg Tablet 25 MG PO BID (Reported) Lisinopril (Lisinopril) 5 Mg Tablet 5 MG PO BID Prescribed by: CHAD AMOS MD As needed Docusate Sodium (Colace) 100 Mg Capsule 100 MG PO DAILY PRN PRN For Constipation (Reported) Followup Plan Follow-up plan Please follow up as scheduled last time at discharge Please follow up with your shoulder pad molder, Dr. Valdez regarding your heart disease and regarding your heart valve problems.. Discharge Diet: Renal Diet Follow-up Provider: Tashia Leon PA-C Follow-up with PCP in: 1 week Provider: Michael Barrera MD Follow-up in: 1 week Time spent 35 mins Roman Aj MD Feb 09, 2017 14:58
--- NOTE | 2017-02-09 15:57 | NUR ---
Blood glucose Spoke with hospitalist prior to pt's discharge regarding her elevated BG. BG was 261 on 02/08. Today after pt ate lunch, she asked me to check her BG, as she was feeling hot and "sweaty." BG was 221. No orders for insulin, glipizide, and no sliding scale on pt's EMAR. Informed hospitalist and he will order insulin. He told me to check pt's BG and hour later and hold pt's discharge to make sure her BG is okay.
[2017-02-09] MEDS ORDERED: Glucose 40% Oral Gel 15 Gm Tube PO PRN (16:00)
[2017-02-09] MEDS ORDERED: Insulin LISPRO 300 Unit/3 mL Inj SUBQ SCH (17:30)
--- NOTE | 2017-02-09 17:56 | NUR ---
Discharge Pt discharged to home with family via private vehicle at 1750 hrs. PIV removed intact. Pain controlled although pt c/o headache just before leaving and asked for morphine. Advised pt that the morphine was ordered IV and she no longer had IV access, so I could not give her that. Advised pt that I did not have orders for any oral pain medication. Pt acknowledged that it was okay. Instructed pt on discharge and follow up. Pt's sister said an appointment was already set up for next week. No new medications were ordered. Pt did not have any further questions.
--- NOTE | 2017-02-11 14:34 | PATH ---
SURGICAL PATHOLOGY Attending Physician:Michael Barrera MD CASE STATUS: Signed Out PATIENT NAME: DOMENICO CASTANEDA PID: [id number] : 1960 DATE COLLECTED:02/07/2017 22:51 SPECIMEN: Liver, Needle Biopsy CLINICAL HISTORY: 1). LIVER JOSTIN FINAL DIAGNOSIS: 1.LIVER, TRANSJUGULAR NEEDLE CORE BIOPSY: LIVER PARENCHYMA WITH PERICENTRAL SINUSOIDAL DILATATION; SEE COMMENT. 3+/4 IRON DEPOSITION, PREDOMINATELY WITHIN KUPFFER CELLS, ON IRON STAIN. ICD10 R18.8 NOTE: Sections are of liver parenchyma with focal mild lymphocyte predominant portal inflammation. There is no significant bile duct injury. The lobular parenchyma shows pericentral sinusoidal dilatation. There is no significant steatosis or lobular inflammation. There is no significant fibrosis on trichrome stain. There are no large intrahepatocytic globules of alpha-1 anti-trypsin deficiency on a PAS stain with diastase. Overall, these findings are suggestive of venous outflow obstruction consistent with the clinical history of heart failure. The finding of increased Kupffer cell iron is consistent with transfusion-related iron overload in the appropriate clinical setting. GROSS DESCRIPTION: Received in formalin, labeled with the patient's name and "liver towel" are three fragments of cylindrical tissue, each with a diameter of 0.1 cm and ranging from 0.3 cm to 1.2 cm at the longest and 1.5 cm at the greatest. All fragments are totally submitted in one cassette. ([id number]) MICRO DESCRIPTION: See diagnosis. ICD-9 CODES: CPT CODES: 1: 34415, 21042, 16700, 78527 Electronically Signed Out Humza Lozano MD, Ph.D. [facility] [address], [place] [address] Technical component performed at [facility], [address], [place], [address]
== END 2017-02-09 17:50 | disposition home or self-care (01) | DRG 420 ==
LOC: SOUO 00:10 → OSC 17:18 → SOUO 17:18 → OBSVTOIN 17:18
PROVIDERS: ADMIT Internal Medicine; ATTEND Internal Medicine
PROC: 0FB04ZX Excision of Liver, Percutaneous Endoscopic Approach, Diagnostic (ICD-10-PCS; principal; 2017-02-07)
PROC: 0W9G3ZX Drainage of Peritoneal Cavity, Percutaneous Approach, Diagnostic (ICD-10-PCS; 2017-02-08)
PROC: 5A1D00Z (ICD-10-PCS; 2017-02-08)
DX: K76.0 Fatty (change of) liver, not elsewhere classified (principal); N18.6 End stage renal disease; R18.8 Other ascites; I50.22 Chronic systolic (congestive) heart failure; I12.0 Hypertensive chronic kidney disease with stage 5 chronic kidney disease or end stage renal disease; E83.118 Other hemochromatosis; D63.1 Anemia in chronic kidney disease; I25.10 Atherosclerotic heart disease of native coronary artery without angina pectoris; E78.5 Hyperlipidemia, unspecified; E83.119 Hemochromatosis, unspecified; E11.319 Type 2 diabetes mellitus with unspecified diabetic retinopathy without macular edema; E11.21 Type 2 diabetes mellitus with diabetic nephropathy; E11.40 Type 2 diabetes mellitus with diabetic neuropathy, unspecified; Z90.49 Acquired absence of other specified parts of digestive tract; Z86.73 Personal history of transient ischemic attack (TIA), and cerebral infarction without residual deficits; Z99.2 Dependence on renal dialysis; Z79.82 Long term (current) use of aspirin

== ENCOUNTER 2017-02-19 11:33 | Inpatient (IN) | payer MEDICARE, MEDICAID ==
[~2017-02-19] VITALS: Ht 154.9 cm; Wt 55.9 kg
[2017-02-19] VITALS (10 sets, daily range): BP systolic 113–159; BP diastolic 52–71; PULSE 53–79; RESP 16–29; O2SAT 94–100
[~2017-02-19 11:33] MED LIST changes: -FLUO20CA25 PO; -GLPZ5T PO; -INSU100V7 SUBQ; -ISOS30TA4 PO
[2017-02-19] MEDS ORDERED: SPIR100T3 PO (12:22)
--- NOTE | 2017-02-19 12:28 | ED.REPORT ---
HPI-Abd Pain F 40 and Over Date of Service Feb 19, 2017 ED Provider: Rita Bernard MD Pt is a 56 year old female with a hx of kidney and liver issues, CHF, CAD, HTN, and DM presenting to the ED complaining of SOB secondary to abdominal swelling. She last saw her geophysical party chief last month and had a paracentesis 3 weeks ago. Denies any pain, nausea, vomiting or fever. She states that she missed dialysis yesterday. Nursing Notes Stated Complaint: WEAK,SHORT OF BREATH Chief Complaint: Female Abdominal Pain Nursing Notes Reviewed: Yes Allergies: Coded Allergies: No Known Allergies (Verified Allergy, Unknown, 02/19/17) Scheduled Carvedilol (Carvedilol) 12.5 Mg Tablet 18.75 MG PO BID Furosemide (Furosemide) 80 Mg Tab 80 MG PO BID Lisinopril (Lisinopril) 5 Mg Tablet 5 MG PO BID Miscellaneous Medications Spironolactone (Spironolactone) 100 Mg Tablet General Time Seen by MD: 12:24 Chief Complaint Other (Abdominal distention) Hx Obtained From: Patient Arrived By: Walk-in Sudden in Onset?: No Onset Occurred: Onset unknown Symptom Duration: Since onset Severity: Current: No pain currently Severity: Maximum: No pain Recent Healthcare: No recent hospitalization, Recent doctor visit, Previous surgery Similar Sx Previous: Yes Past Medical History Past Medical History Diabetes mellitus End-stage renal disease Hypertension CAD with cardiac stenting Congestive heart failure Cardiomyopathy Hyperlipidemia Hx of CVA Past Surgical History Cardiac stents x2 Family History Noncontributory Smoking History Never Smoker Social History Other Social History: Good social support, Local resident Ambulatory Status Independent Review of Systems Reports abdominal pain Constitutional: Denies: Fever Respiratory: Reports: Shortness of breath Cardiovascular: Denies: Chest pain GI: Denies: Abdominal pain, Nausea, Vomiting Female: Denies: Dysuria Complete sys rev & neg: except as marked. Physical Exam Vital Signs Vital Signs (First) Date Time Temp Pulse Resp B/P Pulse Ox O2 Delivery O2 Flow Rate FiO2 02/19/17 11:38 36.6 64 16 132/71 100 Room Air 02/19/17 14:44 2 Initial VS: Reviewed, Vital signs normal Head / Eyes: Atraumatic, Normocephalic, PERRL Skin: Warm, Dry, No cyanosis Neurologic: Alert, Oriented, Nonfocal Psychiatric: Mood/affect normal, Behavior normal, Normal thought content General/Constitutional: Awake, Alert Respiratory / Chest: Breath sounds NL, Breath sounds = bilat, No respiratory distress, No rales, No rhonchi, No wheezing, No stridor Cardiovascular: Heart rate NL, Regular rhythm, Heart sounds NL, Peripheral circulation NL Abdomen: Atraumatic, Non-tender Ascites Back: Atraumatic, Inspection NL ENT: Atraumatic, Airway patent Tongue dry Lower Extremity / Pelvis / MS: Atraumatic, Neurologic intact, Vascular intact Trace edema Interpretation & Diagnostics Lab Results Interpretation Result Diagram: 02/19/17 1305 02/19/17 1305 Test 02/19/17 13:05 White Blood Count 7.8th/mm3 (3.8-10.1) Red Blood Count 3.32mil/mm3 (3.90-5.20) Hemoglobin 9.9g/dL (12.0-15.6) Hematocrit 30.0% (35.0-46.0) Mean Corpuscular Volume 90.4fL (81-100) Mean Corpuscular Hemoglobin 29.8pg (27.0-35.0) Mean Corpuscular Hemoglobin Concent 33.0% (32.0-37.0) Red Cell Distribution Width 15.2% (12.3-15.4) Platelet Count 254bil/L (150-400) Neutrophils (%) (Auto) 83.7% (40-74) Lymphocytes (%) (Auto) 6.4% (14-46) Monocytes (%) (Auto) 8.0% (4-12) Eosinophils (%) (Auto) 1.3% (0-5) Basophils (%) (Auto) 0.3% (0-3) Prothrombin Time 11.2sec (8.1-12.5) Prothromb Time International Ratio 1.05ratio Activated Partial Thromboplast Time 30.1sec (22.8-33.0) Sodium Level 134mEq/L (134-144) Potassium Level 7.7mEq/L (3.5-5.2) Chloride Level 96mEq/L (97-108) Carbon Dioxide Level 17mmol/L (18-29) Blood Urea Nitrogen 101mg/dL (6-24) Creatinine 8.73mg/dL (0.57-1.00) Estimat Glomerular Filtration Rate 7mL/min (>59) Glucose Level 128mg/dL (60-99) Calcium Level 7.8mg/dL (8.5-10.1) Magnesium Level 2.5mg/dL (1.6-2.6) Total Bilirubin 1.0mg/dL (0.0-1.2) Aspartate Amino Transf (AST/SGOT) 24U/L (0-50) Alanine Aminotransferase (ALT/SGPT) 34U/L (0-32) Alkaline Phosphatase 343U/L (25-150) Total Protein 7.0g/dL (6.4-8.4) Albumin 3.0g/dL (3.4-5.0) ECG Interpretation ECG Interpretation: Sinus arrhythmia. Probable left atrial enlargement. Nonspecific IVCD with LAD. Time: 14:12 Interpreted by: ED physician Abnormal Rate: 50 (55) X-Ray Chest Interpretation Chest Xray Interpretation: IMPRESSION: Left lower lobe consolidative opacity and possible small left pleural effusion which appears to be new since the prior CT dated 02/07/17. Small right pleural effusion with adjacent atelectasis, grossly unchanged. Dictated by: Ranjith Fox M.D. on 02/19/2017 at 13:56 View: Portable, 1 view Interpretation / Wet Read by: Interpret - Radiologist Re-Eval/Medical Decision Med Decision/Clinical Course The patient claims of the abdominal distention and shortness of breath she missed her dialysis yesterday. She does have some ascites but she may have her symptoms related congestive heart failure. The patient has hyperkalemia needs dialysis. I spoke with Dr. Stevens who saw the patient and they will dialyze her as soon as she gets up to the floor. The patient did not have concerning EKG changes. Once IV access was obtained she received insulin and D50, we did not have sodium bicarbonate to give her. The patient had paracentesis and approximately a liter was removed. Re-Evaluation/Progress : Time of Eval: 15:32 Patient Status: Condition improved Re-Evaluation/Progress Note: Discussed plan for admission. Pt understands and agrees. Consultation #1: Referral / Consult Name: Andrew Stevens DO Consulted With: Nephrology Call Returned at: 14:11 Note: We will admit her and he will arrange for her dialysis. Consultation #2: Referral / Consult Name: Stan Rangel MD Consulted With: Hospitalist Call Returned at: 15:30 Motor Carrier Inspector: Will see patient, Agrees with plan, Accepts admit Counseled Regarding: Diagnosis, Lab results, Need for admission Discharge & Departure Primary Impression: Ascites Ascites type: other type Qualified Code: R18.8 - Other ascites Disposition: ADMITTED TO HOSPITAL Discharge Condition All VS Reviewed: Yes Condition: Improved Referrals: NOPCP (PCP) Scribe Attestation Portions of this note were transcribed by Justina Connors. I, Dr. Bernard personally performed the history, physical exam and medical decision-making; I reviewed and confirmed the accuracy of the information in the transcribed note. Signed by : Nay Fernandez, 02/19/2017. Rita Bernard MD Feb 19, 2017 12:28 JUSTINA CONNORS Feb 19, 2017 12:33
[2017-02-19 13:14] LABS: BASOPHILS % (AUTO) 0.3 % (0-3); EOSINOPHILS % (AUTO) 1.3 % (0-5); Mean Corpuscular Hemoglobin 29.8 pg (27.0-35.0); Mean Corpuscular Volume 90.4 fL (81-100); NEUTROPHILS % (AUTO) 83.7 % (40-74); Platelet Count 254 bil/L (150-400)
[2017-02-19 13:35] LABS: INR 1.05 ratio
[2017-02-19 13:44] LABS: Magnesium 2.5 mg/dL (1.6-2.6)
--- NOTE | 2017-02-19 14:03 | DRSVH ---
PROCEDURE: X-RAY CHEST ONE VIEW, PORTABLE ([id number]) INDICATIONS: sob TECHNIQUE: One view of the chest was acquired. COMPARISON: [facility], CT, CT KUB, 02/07/2017, 16:08. [facility], CR, XR CH EST 1VW (PORTABLE), 12/09/2016, 21:14. FINDINGS: Surgical changes and devices: None. Lungs and pleura: Small right pleural effusion which is probably unchanged since prior CT dated . There is small left pleural effusion with adjacent consolidated opacity in the left lower lobe wh ich is probably new since the prior CT. No pneumothorax. Mediastinum: Mediastinal contours appear normal. Heart size is normal. Bones and chest wall: No suspicious bony lesions. Overlying soft tissues appear unremarkable. IMPRESSION: Left lower lobe consolidative opacity and possible small left pleural effusion which appears to be ne w since the prior CT dated 02/07/17. Small right pleural effusion with adjacent atelectasis, grossly unchanged. Dictated by: Ranjith Fox M.D. on 02/19/2017 at 13:56 Approved by: Ranjith Fox M.D. on 02/19/2017 at 14:01
[2017-02-19] MEDS ORDERED: Albuterol 2.5 mg/3 mL Inhalation Solution NEB ONE (14:20)
--- NOTE | 2017-02-19 15:21 | CONS ---
[address] [address] CONSULTATION REPORT PATIENT: DOMENICO CASTANEDA : 1960 MR#: [id number] ADMIT: 02/19/2017 JOB ID: [id number] DATE OF SERVICE: HISTORY: The patient is a 56-year-old, [place] female, who was admitted to [facility] for acute shortness of breath, weakness, and increasing abdominal girth. She has a history of end-stage renal disease, and renal consultation is sought for further evaluation and management of her chronic kidney disease and dialysis. She is well known to our service from multiple previous consultations. She has a history of end-stage renal disease and has been on dialysis for about a year. She normally dialyzes three days a week on Saturday, Saturday, and Saturday but has a history of chronic noncompliance. She states she missed her treatment yesterday because she was not feeling well and because of increasing abdominal girth today and shortness of breath she came to the emergency department. In the emergency department, her BUN was well over 100 and her potassium was 7.7. She has a history of valvular heart disease, and according to the patient, is scheduled to have valve surgery tomorrow at the [facility]. Obviously, in light of her current emergent medical condition, this will not be able to be completed. She states that she has had increasing abdominal girth, shortness of breath, dyspnea at rest with minimal exertion, increasing lower extremity edema, orthopnea, but no chest pain. She also has had an intermittent cough and nausea and decreased oral intake. She denies any fever, chills, difficulty with urination or rashes. PAST MEDICAL HISTORY: Significant for end-stage renal disease secondary to diabetic renal disease along with hypertension and hypertensive heart disease and hypertensive nephrosclerosis. There is also a history of valvular heart disease and chronic biventricular congestive heart failure. She also has a history of ischemic cardiomyopathy, diabetic retinopathy, stroke, hyperlipidemia, and as noted above, a longstanding history of noncompliance with diet, medication, and dialysis. PAST SURGICAL HISTORY: Significant for several cardiac stents and a left forearm AV fistula. She is not allergic to any food or any medication. SOCIAL HISTORY: She denies use of alcohol, tobacco, or illicit drugs. She lives and dialyzes in [place] and is followed by an outside merchandise displayer. FAMILY HISTORY: Remarkable for diabetes and coronary artery disease in both her parents. MEDICATIONS: At time of admission includes carvedilol, clopidogrel, atorvastatin, insulin, and Zestril. REVIEW OF SYSTEMS: Detailed above. Otherwise, it is noncontributory. PHYSICAL EXAMINATION: Revealed a mildly obese, 56-year-old, white female, who was alert and oriented x3, with some mild to moderate respiratory distress. She had evidence of conversational dyspnea and was using accessory muscles of respiration. Her blood pressure was 118/52 with a pulse of 56. HEENT examination is remarkable for pale sclerae. Cornea, conjunctivae, pupils, and extraocular muscles were unremarkable. Neck is supple without adenopathy or thyromegaly. However, there was moderate jugular venous distention at 90 degrees elevation. Lungs showed bibasilar rales about penitentiary up. Heart sounds were somewhat distant but a murmur was noted. I did not appreciate an extra sound. Abdomen is markedly distended and tense with diminished bowel sounds. There was a free fluid wave noted; however, no caput medusa was noted. There was no tenderness, rebound, guarding, masses. I could not assess hepatomegaly due to the fluid. Extremities showed some mild pitting edema in both distal lower extremities. Half and half nails were noted. Skin turgor was good and there is no evidence of any rashes. LABORATORY EXAMINATION: Her hemoglobin was 9.9, hematocrit 30.0. Red cell indices, platelet count were normal. Differential showed 84 segs. Her PT is 11.2, INR is 105. Her sodium is 134, potassium 7.7, chloride of 97, bicarbonate 17, BUN and creatinine were 101 and 8.73. Her alkaline phosphatase is elevated at 343 and albumin is 3.0. IMPRESSION: 1. Acute decompensated biventricular congestive heart failure. 2. End-stage renal disease. 3. Diabetic nephropathy. 4. Hypertension with hypertensive heart disease and hypertensive nephrosclerosis with congestive heart failure. 5. Noncompliance. RECOMMENDATION: She is to be dialyzed today for 4 hours on a standard dialyzer, 2 potassium bath, 1000 of heparin and 400 per hour, 450 blood flow and 600 dialysate flow, and we will take 3-4 L of fluid off. Most likely, will arrange for her to be dialyzed once again tomorrow Once again, I would like to thank you for allowing me to participate in the care of this most pleasant and interesting patient. I will be following her closely with you.
[2017-02-19] MEDS ORDERED: Polyethylene Glycol (PEG) 17 Gm Powder PO PRN (15:35)
[2017-02-19] MEDS ORDERED: Ondansetron 2 mg/mL 2 mL Inj IVPUSH PRN (15:35)
[2017-02-19] MEDS ORDERED: Alum-Mag Hydrox-Simeth 30 mL Suspension PO PRN (15:35)
[2017-02-19] MEDS ORDERED: Insulin Human REGular-Omnicell 100 Unit/mL SUBQ ONE (15:40)
[2017-02-19] MEDS ORDERED: Sodium Bicarb 8.4% (10 mEq) 1 mEq/mL 10 mL Syringe IVPUSH ONE (15:40)
--- NOTE | 2017-02-19 16:20 | NUR ---
Arrived to room 238-1. Pt arrived via stretcher, transferred to bed and directly taken to room 244-1 for dialysis. New orders for D50/regular insulin, spoke to day habilitation specialist who was in process of accessing and stated not to give. Will review with .
--- NOTE | 2017-02-19 16:56 | PCM.HPMED ---
Subjective Date of Service Feb 19, 2017 Primary Provider: Admitting Physician: Stan Rangel MD Primary Care Physician: All Mueller MD Attending Physician: Stan Rangel MD Admit Status: From the Emergency Department, Full Admit, Admit to Red Team Chief Complaint: Diarrhea/2 days Generalized weakness/1 day History of Present Illness: 56-year-old lady with past medical history of ESRD on HD ,CHF, CAD, HTN, DM, chronic liver disease status post biopsy 3 weeks ago presented to ED with dyspnea,generalized weakness and diarrhea of 2 days. she states she had watery diarrhea which started 3 days ago and resolving now. She felt generalized weakness and thoght she may be dehydrated and did not need dialysis and missed regular HD yesterday .She continued to have generalized weakness and dyspnea which prompted ED visit. She has been on HD for the last 1 year,ESRD due to DM She has been having abdominal swelling/ascites and underwent liver biopsy . She doesnot know about results yet and not available on [facility] ED course : HR 53,tachypnea RR 26,otherwise vitals unremarkable labs no leukocytosis,K 7.7,BUN 101,Cr 8.73,AP 343 EKG no peaked t wave CXR Left lower lobe consolidative opacity and possible new small left pleural effusion,right small effusion unchanged regular insulin ,dextrose and calcium gluconate given,patient went for emergency dialysis therapeutic paracentesis of 1.2 L done in ED Review of Systems: Comprehensive review of systems performed, pertinent positives and negatives included in history of present illness Allergies Coded Allergies: No Known Allergies (Verified Allergy, Unknown, 02/19/17) Home Medications Carvedilol (Carvedilol) 6.25 Mg PO BID Furosemide (Furosemide) 80 Mg Tab 80 MG PO BID Lisinopril (Lisinopril) 5 Mg Tablet 5 MG PO BID Spironolactone (Spironolactone) 100 Mg Tablet in am PMH Diabetes mellitus Diabetic retinopathy with blind right eye End-stage renal disease Hypertension CAD with cardiac stenting Congestive heart failure Cardiomyopathy Hyperlipidemia Hx of CVA Surgical History Cardiac stents x2 Cholecystectomy Family History per EMR Mother and father with diabetes type II both of heart attacks in their late 70s to early 80s Sister in the [facility] with diabetes Social History Hx Alcohol Use: No Hx Substance Use: No Hx Tobacco Use: No Smoking Status: Never Smoker Exam Vital Signs Vital Sign - Last Date Time Temp Pulse Resp B/P Pulse Ox O2 Delivery O2 Flow Rate FiO2 02/19/17 16:51 66 02/19/17 16:08 36.6 27 115/71 100 Room Air 02/19/17 15:16 2 Exam Gen. patient is lying comfortably in hospital bed HEENT: Head is normocephalic atraumatic, Pupils equal and reactive, extraocular movements intact, Lungs clear to auscultation bilaterally Heart regular rate and rhythm without murmurs gallops or rubs Abdomen soft nontender without hepatosplenomegaly,distended with ascites Extremities pulses are present dorsalis pedis posterior tibialis and radial.LUE AVF Psych alert and oriented to person place and time Neuro cranial nerves II through XII are grossly intact Lymph: There is no lymphadenopathy appreciated in the cervical supra infraclavicular regions : no drake Lab and Diagnostics Result Diagram: 02/19/17 1305 02/19/17 1305 X-Rays, CTs and MRIs PROCEDURE: X-RAY CHEST ONE VIEW, PORTABLE ([id number]) INDICATIONS: sob IMPRESSION: Left lower lobe consolidative opacity and possible small left pleural effusion which appears to be new since the prior CT dated 02/07/17. Small right pleural effusion with adjacent atelectasis, grossly unchanged. Dictated by: Ranjith Fox M.D. on 02/19/2017 at 13:56 Assessment & Plan # hyperkalemia ,poa,acute -due to missed HD -regular insulin ,dextrose and calcium gluconate given, -patient having emergency dialysis now # fluid overload,acute,poa -tacypnea/ascites/new and worsening pleural effusion -due to missed HD -mx as above # Recurrent Ascites/Elevated LFTs in the setting of fatty liver with recurrent multifactorial ascites, present on admission, improving -s/p recent liver biopsy ,will call for results in am -will consider GI consult to see if they have liver bx results # End-stage renal disease on hemodialysis M/W/F presenting with fluid overload and hyperkalemia secondary to missed dialysis, present on admission, stable -Nephrology consulted # anemia of ESRD -mx per nephrology # history of Coronary artery disease status post stent - Continued home dose carvedilol twice daily -plavix and ASA has been oh hold due to bleeding following liver biopsy .will clarify with GI and cardio in am # Heart failure with reduced EF, EF 40% - Standing daily weights with strict I&O's - Continued furosemide. HD per nephrology. dvt ppx SCD full code inpatient copies to: All Mueller MD, Melaku MD Feb 19, 2017 16:56 Normocytic anemia, likely multifactorial, present on admission, able -most likely due to anemia of chronic disease secondary to ESRD, however elevated RDW suggestive of iron deficiency component Pneumonia ruled out. -Chest x-ray concerning for atelectasis versus pneumonia. Patient has been afebrile with no medical WBCs. Procalcitonin was negative Chronic conditions: Coronary artery disease status post stent - Continued home dose carvedilol twice daily, Plavix, aspirin Heart failure with reduced EF, EF 40% - Standing daily weights with strict I&O's - Continued furosemide. HD per nephrology. Stan Rangel MD Feb 19, 2017 16:56
--- NOTE | 2017-02-19 17:09 | DRSVH ---
PROCEDURE: US GUIDED PARACENTESIS, PRIMARY ([id number]) INDICATIONS: ascites and SOB TECHNIQUE: The indications, alternatives, benefits, risks, and complications of the procedure were explained to the patient. Written informed consent was obtained and placed in the chart. The abdomen and pelvis were examined sonographically, and an appropriate site was chosen for paracentesis. The skin was pre pared and draped in the usual sterile fashion, and 1% lidocaine was infiltrated from the skin down th rough the peritoneal surface. A 19-gauge catheter-covered needle was then introduced into the perito torres space, the catheter was advanced and the needle was withdrawn, and thereafter peritoneal fluid w as withdrawn. The catheter was then removed and a dressing was applied. The fluid was discarded if the clinician did not order diagnostic testing of the fluid. The attending physician was present, an d personally performed the procedure. COMPARISON: [facility], US, US GUIDED PARACENTESIS, 02/07/2017, 15:56. FINDINGS: Access site: Midline pelvis Needle: One-Step centesis catheter with introducer needle. Fluid volume and description: 1.2 L clear peritoneal fluid. Fluid sent for diagnostic testing: Fluid sent for cytology and therapeutic drainage. Medications: 1% lidocaine for local anaesthesia. Complications: None. IMPRESSION: Successful ultrasound-guided paracentesis. Dictated by: Puma MORENO Interpreted: Todd Grant MD on 02/19/2017 at 16:55 Approved by: Todd Grant M.D. on 02/19/2017 at 17:07
[2017-02-19] MEDS ORDERED: CARV6.252 PO (17:52)
[2017-02-19] MEDS ORDERED: ATOR80TA77 PO (17:52)
[2017-02-19] MEDS ORDERED: FURO40TA4 PO (17:52)
[2017-02-19] MEDS ORDERED: GLPZ5T PO (17:52)
--- NOTE | 2017-02-19 18:34 | NUR ---
High BP Dr Rangel notified of BP 200/92 in dialysis. Reports will place orders.
--- NOTE | 2017-02-19 20:45 | NUR ---
Dialysis note: 4 hrs tx 3700 ml net UF LLA graft, accessed w/ no problems Pls see DTR for VS details Qb 370-400 Heparin given O2 @ 2L via NC on during tx Slept at intervals BS 73, pt ate 100% of her dinner Last hr of tx, pt c/p of cramping, UF turned off Post tx, graft needle sites clotted w/in 10 min Stable condition at end of tx Report given to Phillip GANNON
[2017-02-20] VITALS (8 sets, daily range): BP systolic 130–170; BP diastolic 62–69; PULSE 71–82; RESP 17–18; O2SAT 95–98
--- NOTE | 2017-02-20 03:47 | NUR ---
Pain Received pt. from dialysis approx 2100, alert and verbally responsive, c/o PERKINS, given prn tylenol, effective. Given snacks at 0100 upon pt. request, tolerating p.o well, Vitals stable, afebrile, call light in reach at all times, will continue to monitor.
[2017-02-20 07:16] LABS: BASOPHILS % (AUTO) 0.5 % (0-3); EOSINOPHILS % (AUTO) 3.7 % (0-5); MONOCYTES % (AUTO) 13.6 % (4-12); Mean Corpuscular Hemoglobin 29.8 pg (27.0-35.0); Mean Corpuscular Volume 91.3 fL (81-100); NEUTROPHILS % (AUTO) 69.8 % (40-74); Platelet Count 264 bil/L (150-400)
--- NOTE | 2017-02-20 09:48 | NUR ---
Dialysis 0840 Pt sleeping this am. No c/o when woken up to take to dialysis 244-1 in bed.
--- NOTE | 2017-02-20 13:22 | PCM.PNNEPH ---
Subjective Date of Service Feb 20, 2017 Subjective Patient is feeling much better today following dialysis and paracentesis. She denies any headache, chest pain, or shortness of breath. Exam Vital Signs Vital Sign - Last Date Time Temp Pulse Resp B/P Pulse Ox O2 Delivery O2 Flow Rate FiO2 02/20/17 10:34 71 02/20/17 06:09 36.8 17 145/68 98 Room Air 2.00 Intake and Output 02/19/17 02/19/17 02/20/17 Cumulative From/Thru 15:00 23:00 07:00 02/19/17 11:38 - 02/20/17 06:09 Intake Total 340 ml 340 ml Output Total 1100 ml 3700 ml 4800 ml Balance -1100 ml -3700 ml 340 ml -4460 ml Intake Oral 340 ml 340 ml Output Ultrafiltrate 3700 ml 3700 ml Other 1100 ml 1100 ml # Voids 2 2 Exam Neck is supple without adenopathy or thyromegaly. There is jugular venous distention at 75 elevation. Lungs showed some bibasilar rales. Heart was regular and rhythmical with a soft systolic murmur. Abdomen is soft without tenderness rebound guarding masses however there is some small amount of fluid accumulation of hepatomegaly is noted. Extremities showed some moderate pitting edema throughout both distal lower extremities. Lab and Diagnostics Result Diagram: 02/20/1761702/20/17617 X-Rays, CTs and MRIs PROCEDURE: X-RAY CHEST ONE VIEW, PORTABLE ([id number]) INDICATIONS: sob IMPRESSION: Left lower lobe consolidative opacity and possible small left pleural effusion which appears to be new since the prior CT dated 02/07/17. Small right pleural effusion with adjacent atelectasis, grossly unchanged. Dictated by: Ranjith Fox M.D. on 02/19/2017 at 13:56 Plan Impression Impression #1 biventricular congestive heart failure #2 end-stage renal disease dialysis dependent #3 noncompliance number for diabetic nephropathy #5 hypertension with hypertensive heart disease and hypertensive nephrosclerosis with congestive heart failure. Recommendations #1 patient to be dialyzed today for 4 hours on a standard dialyzer, 2 potassium bath, also heparin and 400/h, 400 blood flow is 600 dialysate flow will try to take between 3 and 4 L as tolerated. I will schedule her to have an ultrafiltration treatment in the morning. Andrew Stevens DO Feb 20, 2017 13:22
--- NOTE | 2017-02-20 13:45 | NUR ---
Dialysis note: 4 hrs tx 3000 ml net UF LLA graft, accessed w/ no problems Pls see DTR for VS details Qb 370-415 Heparin given O2 @ 2L via NC on during tx Slept at intervals BS 84 ate snack during tx Senior Living in the tx, pt c/p of cramping, UF turned off PRN Post tx, graft needle sites clotted w/in 10 min Stable condition at end of tx Report given to Kitty GANNON
--- NOTE | 2017-02-20 15:11 | PCM.PNMED ---
Subjective Date of Service Feb 20, 2017 Subjective Generalized weakness improving. Diarrhea resolved. Hyperkalemia corrected. Exam Vital Signs Vital Sign - Last Date Time Temp Pulse Resp B/P Pulse Ox O2 Delivery O2 Flow Rate FiO2 02/20/17 10:34 71 02/20/17 06:09 36.8 17 145/68 98 Room Air 2.00 Intake and Output 02/19/17 02/19/17 02/20/17 Cumulative From/Thru 15:00 23:00 07:00 02/19/17 11:38 - 02/20/17 06:09 Intake Total 340 ml 340 ml Output Total 1100 ml 3700 ml 4800 ml Balance -1100 ml -3700 ml 340 ml -4460 ml Intake Oral 340 ml 340 ml Output Ultrafiltrate 3700 ml 3700 ml Other 1100 ml 1100 ml # Voids 2 2 Exam Gen. patient is lying comfortably in hospital bed HEENT: Head is normocephalic atraumatic, Pupils equal and reactive, extraocular movements intact, Lungs clear to auscultation bilaterally Heart regular rate and rhythm without murmurs gallops or rubs Abdomen soft nontender without hepatosplenomegaly,distended with ascites Extremities pulses are present dorsalis pedis posterior tibialis and radial.LUE AVF Psych alert and oriented to person place and time Neuro cranial nerves II through XII are grossly intact Lymph: There is no lymphadenopathy appreciated in the cervical supra infraclavicular regions : no drake IVs and Medications Medications Reviewed: Medications were reviewed in detail Lab and Diagnostics Result Diagram: 02/20/1761702/20/17617 X-Rays, CTs and MRIs PROCEDURE: X-RAY CHEST ONE VIEW, PORTABLE ([id number]) INDICATIONS: sob IMPRESSION: Left lower lobe consolidative opacity and possible small left pleural effusion which appears to be new since the prior CT dated 02/07/17. Small right pleural effusion with adjacent atelectasis, grossly unchanged. Dictated by: Ranjith Fox M.D. on 02/19/2017 at 13:56 Additional Diagnostics DATE COLLECTED:02/07/2017 22:51 SPECIMEN: Liver, Needle Biopsy CLINICAL HISTORY: 1). LIVER JOSTIN FINAL DIAGNOSIS: 1.LIVER, TRANSJUGULAR NEEDLE CORE BIOPSY: LIVER PARENCHYMA WITH PERICENTRAL SINUSOIDAL DILATATION; SEE COMMENT. 3+/4 IRON DEPOSITION, PREDOMINATELY WITHIN KUPFFER CELLS, ON IRON STAIN. ICD10 R18.8 NOTE: Sections are of liver parenchyma with focal mild lymphocyte predominant portal inflammation. There is no significant bile duct injury. The lobular parenchyma shows pericentral sinusoidal dilatation. There is no significant steatosis or lobular inflammation. There is no significant fibrosis on trichrome stain. There are no large intrahepatocytic globules of alpha-1 anti-trypsin deficiency on a PAS stain with diastase. Overall, these findings are suggestive of venous outflow obstruction consistent with the clinical history of heart failure. The finding of increased Kupffer cell iron is consistent with transfusion-related iron overload in the appropriate clinical setting. GROSS DESCRIPTION: Received in formalin, labeled with the patient's name and "liver towel" are three fragments of cylindrical tissue, each with a diameter of 0.1 cm and ranging from 0.3 cm to 1.2 cm at the longest and 1.5 cm at the greatest. All fragments are totally submitted in one cassette. (:[id number]) MICRO DESCRIPTION: See diagnosis. ICD-9 CODES: CPT CODES: 1: 12510, 56614, 91896, 39308 Electronically Signed Out Humza Lozano MD, Ph.D. [facility] Pathology [facility]., [address], [place] [address] Technical component performed at [facility], [facility] [address], [place], [address] Assessment & Plan # hyperkalemia ,poa, resolved -due to missed HD -regular insulin ,dextrose and calcium gluconate given initially -patient had emergency dialysis 02/19,HD again today. # fluid overload,acute,poa -tacypnea/ascites/new and worsening pleural effusion -due to missed HD -mx as above # Recurrent Ascites/Elevated LFTs due to congestion liver disease and transfusion iron overload , present on admission, improving -MRI showed possible hemochromatosis. S/p recent liver biopsy , biopsy shows pericentral sinusoidal dilatation. There is no significant steatosis or lobular inflammation . suggestive of venous outflow obstruction consistent with the clinical history of heart failure. The finding of increased Kupffer cell iron is consistent with transfusion-related iron overload in the appropriate clinical setting. - Discussed with her cash processor Dr. Barrera . based on SAAG and bx ascites not due to liver disease. Most likely due to ESRD and CHF -Resumed home Plavix which has been on hold since liver biopsy # End-stage renal disease on hemodialysis M/W/F presenting with fluid overload and hyperkalemia secondary to missed dialysis, present on admission, stable -Nephrology consulted # anemia of ESRD -mx per nephrology # history of Coronary artery disease status post stent - Continued home dose carvedilol twice daily -plavix has been oh hold due to liver biopsy .resumed today after discussing with GI # Heart failure with reduced EF, EF 40% - Standing daily weights with strict I&O's - Continued furosemide. HD per nephrology. dvt ppx SCD full code inpatient Possible discharge tomorrow Stan Rangel MD Feb 20, 2017 15:11
--- NOTE | 2017-02-20 15:14 | NUR ---
Social Work- Initial Assessment/Readiness for Discharge/Multidisciplinary Rounds Data: See attached initial assessment for additional information. Pt is a 56 year old female admitted for hyperkalemia, renal failure per H&P. Pt discussed in rounds, pt is likely to discharge tomorrow. Pt is dialyzing during this admission. Pt has been missing dialysis, resulting in her admission. Pt's PCP is All Mueller MD. Pt's insurance is [facility]. Pt's NOK is sister Becca Koroma, . Pt's readmit risk score is 4. SW met with pt at bedside regarding discharge plan, SW role explained. Pt alert and oriented x3. Pt's capacity for self care assessed. Pt resides in [place] with her sister where she is independent wt ADLs and self-care. Pt states that her sister is available for assistance if needed. Pt has HH and SNF history but could not recall the names. Pt receives dialysis M/W/F at [facility]. [place] and does not drive. Pt confirmed that she will discharge home with her sister to transport via POV. T/C to sister Becca regarding discharge plan. Becca confirmed that pt will discharge home and remain at home with her. Pt's sister declined any concerns related to pt or pt's home situation. Pt's sister provided with MEDICAL STAFF DIRECTOR contact information. Pt explained that she has been missing dialysis because she hasn't been feeling well and has had some diarrhea, which has been making her not want to leave the house to go to dialysis. Pt denied any transportation concerns and pt's sister confirmed that she is able to take her to dialysis. Pt has no DPOA and declined paperwork. Pt provided with phone number and plan on whiteboard, also the discharge planning checklist given at bedside. No discharge needs identified. SW will continue to follow, R/O HH services. Assessment: Pt who is independent at baseline. Plan: Pt confirmed that she will discharge home with her sister to transport via POV. No discharge needs identified, SW to R/O HH services. SW will continue to follow. CHRISSIE Ramos Addendum: 02/20/17 at 1521 by DELANO CHAN SS Amended: Links added.
--- NOTE | 2017-02-20 17:07 | NUR ---
Dialysis/leg cramping Pt returned to room from dialysis at 1345. c/o leg cramping, tylenol given. Per Stefanie, clinical exercise physiologist, pulled off 3 liters VSS.
--- NOTE | 2017-02-20 18:06 | NUR ---
Blood sugar Dr Rangel notified of BS 189. does not want sliding scale coverage at this time. Continue to monitor.
--- NOTE | 2017-02-20 21:41 | NUR ---
PAIN Pt c/o continuous ache pain in legs. Pt reports this is her normal at home, usually takes 1000mg Tylenol for this pain at home. Pt reports the 650mg Tylenol she is receiving here is not helping with the pain much. Gave 650mg Tylenol, see Emar for times. At reassessment, pt said "It's okay." RN asked if pt wanted RN to contact night hospitalist for more Tylenol, pt said "not right now." Will continue to assess for pain.
[2017-02-21 01:06] VITALS: BP 143/75; PULSE 69; RESP 18; O2SAT 99
[2017-02-21 04:57] VITALS: BP 143/74; PULSE 77; RESP 18; O2SAT 96
[2017-02-21 08:00] VITALS: PULSE 73
[2017-02-21 08:55] VITALS: BP 147/78; PULSE 73
--- NOTE | 2017-02-21 09:09 | NUR ---
Dialysis/meds Patient on dialysis treatment around 8:45 am, report given to Mag GANNON. Will give all am meds post dialysis per Mag. Will continue with care. Addendum: 02/21/17 at 1123 by ALTAF HUNT RN Spoke with Becca - person that will transport patient home. Will update for the plan, she wanted to be contacted once discharge is finalized. .
--- NOTE | 2017-02-21 12:08 | PCM.PNNEPH ---
Subjective Date of Service Feb 21, 2017 Subjective Patient offers no new complaints. She denies any headache chest pain or shortness of breath. Exam Vital Signs Vital Sign - Last Date Time Temp Pulse Resp B/P Pulse Ox O2 Delivery O2 Flow Rate FiO2 02/21/17 04:57 36.9 77 18 143/74 96 Room Air 02/20/17 06:09 2.00 Intake and Output 02/20/17 02/20/17 02/21/17 Cumulative From/Thru 15:00 23:00 07:00 02/19/17 11:38 - 02/21/17 04:58 Intake Total 500 ml 680 ml 1520 ml Output Total 3000 ml 150 ml 7950 ml Balance -3000 ml 350 ml 680 ml -6430 ml Intake Oral 500 ml 680 ml 1520 ml Output Urine Total 150 ml 150 ml Ultrafiltrate 3000 ml 6700 ml Other 1100 ml # Voids 1 3 # Bowel Movements 0 0 Exam Neck is supple without adenopathy or thyromegaly there is some mild jugular venous distention at 45. Lungs showed better expansion with a few bibasilar rales. Heart was regular and rhythmic. Abdomen is soft but there is increasing nontender. Noted. Extremities showed considerable less edema. Lab and Diagnostics Result Diagram: 02/20/1761702/20/17617 X-Rays, CTs and MRIs PROCEDURE: X-RAY CHEST ONE VIEW, PORTABLE ([id number]) INDICATIONS: sob IMPRESSION: Left lower lobe consolidative opacity and possible small left pleural effusion which appears to be new since the prior CT dated 02/07/17. Small right pleural effusion with adjacent atelectasis, grossly unchanged. Dictated by: Ranjith Fox M.D. on 02/19/2017 at 13:56 Additional Diagnostics DATE COLLECTED:02/07/2017 22:51 SPECIMEN: Liver, Needle Biopsy CLINICAL HISTORY: 1). LIVER JOSTIN FINAL DIAGNOSIS: 1.LIVER, TRANSJUGULAR NEEDLE CORE BIOPSY: LIVER PARENCHYMA WITH PERICENTRAL SINUSOIDAL DILATATION; SEE COMMENT. 3+/4 IRON DEPOSITION, PREDOMINATELY WITHIN KUPFFER CELLS, ON IRON STAIN. ICD10 R18.8 NOTE: Sections are of liver parenchyma with focal mild lymphocyte predominant portal inflammation. There is no significant bile duct injury. The lobular parenchyma shows pericentral sinusoidal dilatation. There is no significant steatosis or lobular inflammation. There is no significant fibrosis on trichrome stain. There are no large intrahepatocytic globules of alpha-1 anti-trypsin deficiency on a PAS stain with diastase. Overall, these findings are suggestive of venous outflow obstruction consistent with the clinical history of heart failure. The finding of increased Kupffer cell iron is consistent with transfusion-related iron overload in the appropriate clinical setting. GROSS DESCRIPTION: Received in formalin, labeled with the patient's name and "liver towel" are three fragments of cylindrical tissue, each with a diameter of 0.1 cm and ranging from 0.3 cm to 1.2 cm at the longest and 1.5 cm at the greatest. All fragments are totally submitted in one cassette. (:cmc10 [id number]) MICRO DESCRIPTION: See diagnosis. ICD-9 CODES: CPT CODES: 1: 53052, 85277, 43484, 53995 Electronically Signed Out Humza Lozano MD, Ph.D. [facility] Pathology [facility]., [address], [place] [address] Technical component performed at [facility], [facility] [address], [place], [address] Plan Impression Impression #1 end-stage renal disease dialysis dependent #2 acute decompensated congestive heart failure #3 noncompliance number for recurrent ascites secondary to CHF Recommendations #1 the patient is undergoing an isolated ultrafiltration today for 3-1/2 hours on a standard dialyzer, 400 blood flow to 600 dialysate flow, thousand and 5 pertinent for 100/h and once again will try to go for 3-4 L. Most likely she can be discharged tomorrow after her dialysis treatment. I would strongly urge a low volume paracentesis prior to discharge. Andrew Stveens DO Feb 21, 2017 12:08
--- NOTE | 2017-02-21 12:56 | PCM.PNMED ---
Subjective Date of Service Feb 21, 2017 Subjective Generalized weakness continues to improve. Diarrhea resolved. Continues to have abdominal distention Exam Vital Signs Vital Sign - Last Date Time Temp Pulse Resp B/P Pulse Ox O2 Delivery O2 Flow Rate FiO2 02/21/17 04:57 36.9 77 18 143/74 96 Room Air 02/20/17 06:09 2.00 Intake and Output 02/20/17 02/20/17 02/21/17 Cumulative From/Thru 15:00 23:00 07:00 02/19/17 11:38 - 02/21/17 04:58 Intake Total 500 ml 680 ml 1520 ml Output Total 3000 ml 150 ml 7950 ml Balance -3000 ml 350 ml 680 ml -6430 ml Intake Oral 500 ml 680 ml 1520 ml Output Urine Total 150 ml 150 ml Ultrafiltrate 3000 ml 6700 ml Other 1100 ml # Voids 1 3 # Bowel Movements 0 0 Exam Gen. patient is lying comfortably in hospital bed HEENT: Head is normocephalic atraumatic, Pupils equal and reactive, extraocular movements intact, Lungs clear to auscultation bilaterally Heart regular rate and rhythm without murmurs gallops or rubs Abdomen soft nontender without hepatosplenomegaly,distended with ascites Extremities pulses are present dorsalis pedis posterior tibialis and radial.LUE AVF Psych alert and oriented to person place and time Neuro cranial nerves II through XII are grossly intact Lymph: There is no lymphadenopathy appreciated in the cervical supra infraclavicular regions : no drake IVs and Medications Medications Reviewed: Medications were reviewed in detail Lab and Diagnostics Result Diagram: 02/20/1718 02/20/1718 X-Rays, CTs and MRIs PROCEDURE: X-RAY CHEST ONE VIEW, PORTABLE ([id number]) INDICATIONS: sob IMPRESSION: Left lower lobe consolidative opacity and possible small left pleural effusion which appears to be new since the prior CT dated 02/07/17. Small right pleural effusion with adjacent atelectasis, grossly unchanged. Dictated by: Ranjith Fox M.D. on 02/19/2017 at 13:56 Additional Diagnostics DATE COLLECTED:02/07/2017 22:51 SPECIMEN: Liver, Needle Biopsy CLINICAL HISTORY: 1). LIVER JOSTIN FINAL DIAGNOSIS: 1.LIVER, TRANSJUGULAR NEEDLE CORE BIOPSY: LIVER PARENCHYMA WITH PERICENTRAL SINUSOIDAL DILATATION; SEE COMMENT. 3+/4 IRON DEPOSITION, PREDOMINATELY WITHIN KUPFFER CELLS, ON IRON STAIN. ICD10 R18.8 NOTE: Sections are of liver parenchyma with focal mild lymphocyte predominant portal inflammation. There is no significant bile duct injury. The lobular parenchyma shows pericentral sinusoidal dilatation. There is no significant steatosis or lobular inflammation. There is no significant fibrosis on trichrome stain. There are no large intrahepatocytic globules of alpha-1 anti-trypsin deficiency on a PAS stain with diastase. Overall, these findings are suggestive of venous outflow obstruction consistent with the clinical history of heart failure. The finding of increased Kupffer cell iron is consistent with transfusion-related iron overload in the appropriate clinical setting. GROSS DESCRIPTION: Received in formalin, labeled with the patient's name and "liver towel" are three fragments of cylindrical tissue, each with a diameter of 0.1 cm and ranging from 0.3 cm to 1.2 cm at the longest and 1.5 cm at the greatest. All fragments are totally submitted in one cassette. (:[id number]) MICRO DESCRIPTION: See diagnosis. ICD-9 CODES: CPT CODES: 1: 49048, 09383, 50080, 98254 Electronically Signed Out Humza Lozano MD, Ph.D. [facility] Pathology [facility]., [address], [place] [address] Technical component performed at [facility], [facility] [address], [place], [address] Assessment & Plan # hyperkalemia ,poa, resolved -due to missed HD -regular insulin ,dextrose and calcium gluconate given initially -patient had emergency dialysis 02/19,HD again 02/20,02/21 #Acute on chronic systolic CHF/fluid overload,acute,poa -tacypnea/ascites/new and worsening pleural effusion -EF 40% -due to missed HD -mx as above # Recurrent Ascites/Elevated LFTs due to congestion liver disease and transfusion iron overload , present on admission, improving -MRI showed possible hemochromatosis. S/p recent liver biopsy , biopsy shows pericentral sinusoidal dilatation. There is no significant steatosis or lobular inflammation . suggestive of venous outflow obstruction consistent with the clinical history of heart failure. The finding of increased Kupffer cell iron is consistent with transfusion-related iron overload in the appropriate clinical setting. - Discussed with her road mender Dr. Barrera . based on SAAG and bx ascites not due to liver disease. Most likely due to ESRD and CHF -Resumed home Plavix which has been on hold since liver biopsy -Repeat therapeutics paracentesis tomorrow per Dr. Stevens # End-stage renal disease on hemodialysis M/W/F presenting with fluid overload and hyperkalemia secondary to missed dialysis, present on admission, stable -Nephrology on board # anemia of ESRD -mx per nephrology # history of Coronary artery disease status post stent - Continued home dose carvedilol twice daily -plavix was on hold due to liver biopsy .resumed 02/20 after discussing with GI dvt ppx SCD full code inpatient Possible discharge tomorrow Stan Rangel MD Feb 21, 2017 12:56
[2017-02-21] MEDS ORDERED: oxyCODONE-Acetamin 5-325 mg Tablet PO PRN (13:05)
--- NOTE | 2017-02-21 13:24 | NUR ---
Hemodialysis note: 4hr PUF tx completed. 3L removed, cramped off and on during last hour of tx. SBP > 150 during tx. Graft cannulated w/o issues, T&B present at end of tx. Transferred back to [facility] after tx via bed
--- NOTE | 2017-02-21 14:57 | PATH ---
SURGICAL PATHOLOGY Attending Physician:Todd Grant M.D. CASE STATUS: Signed Out PATIENT NAME: DOMENICO CASTANEDA PID: [id number] : 1960 DATE COLLECTED:02/19/2017 00:00 SPECIMEN: Peritoneal Fluid CLINICAL HISTORY: Peritoneal Fluid ICD-10 code not given FINAL DIAGNOSIS: PERITONEAL FLUID CYTOLOGY: NEGATIVE FOR MALIGNANT CELLS. ICD10 R18.8 GROSS DESCRIPTION: Received fresh on 02/20/2017 is approximately 105 cc of clear yellow fluid. Prepared are one cell block and one Cytospin slide. Vo ICD-9 CODES: CPT CODES: 1: 93906, 12149 Electronically Signed Out Belinda Lopez MD [facility] Pathology [facility]., [address], [place] [address] Technical component performed at [facility], [facility] [address], [place], [address]
--- NOTE | 2017-02-21 15:59 | NUR ---
Social Work- Readiness for D/C/Multidisciplinary Rounds Data: EMR Reviewed. Pt is on day 2 of hospitalization. Pt discussed in multidisciplinary rounds, pt will likely d/c tomorrow after paracentesis. SW discussed HH services at d/c. MD does not feel that this is medically necessary. Pt to d/c home with her sister to transport via POV. No d/c needs identified. SW will continue to follow. Assessment: Chronic dialysis patient who is independent at baseline. Plan: Pt to d/c home with her sister to transport via POV. No d/c needs identified. SW will continue to follow. CHRISSIE Ramos
[2017-02-21 16:00] VITALS: BP 137/68; PULSE 73; RESP 18; O2SAT 98
[2017-02-21] MEDS: HYDROcodone-APAP 5-325 mg Tablet PO PRN (21:01)
[2017-02-21 21:13] VITALS: BP 173/90; PULSE 79; RESP 18; O2SAT 95
[2017-02-22] VITALS (7 sets, daily range): BP systolic 96–140; BP diastolic 68–78; PULSE 65–70; RESP 12–18; O2SAT 98–100
--- NOTE | 2017-02-22 02:37 | NUR ---
SLEEPING Pt reported having trouble sleeping last night. RN offered percocet at HS to help sleep. Pt reported percocet making her sick in the past. Paged Dr. Ghosh for melatonin order and a different pain medication. [place] and melatonin ordered, gave to pt. Upon reassessment, pt sleeping. Later, pt put summer sessions director light to help her adjust in bed. RN and FACILITY SALES AND ADMIN repositioned bed, side rail put up for pt to have controls over bed. Pt appears to be sleeping after this. Easily awoken for vital sign check. Hourly rounding.
[2017-02-22 09:07] LABS: BASOPHILS % (AUTO) 0.3 % (0-3); EOSINOPHILS % (AUTO) 4.4 % (0-5); MONOCYTES % (AUTO) 9.3 % (4-12); Mean Corpuscular Hemoglobin 30.1 pg (27.0-35.0); Mean Corpuscular Volume 92.1 fL (81-100); NEUTROPHILS % (AUTO) 71.5 % (40-74); Platelet Count 295 bil/L (150-400)
--- NOTE | 2017-02-22 10:17 | NUR ---
PT delivered to Outpatient dialysis unit at 0815 and ETA return time of 1200. PT blood sugar of 82 before breakfast and 120 after breakfast. Addendum: 02/22/17 at 1019 by ELIANA SAMAYOA Medications/Procedures PT delivered to Outpatient dialysis unit at 0815 and ETA return time of 1200. PT blood sugar of 82 before breakfast and 120 after breakfast.
--- NOTE | 2017-02-22 11:28 | PCM.PNNEPH ---
Subjective Date of Service Feb 22, 2017 Subjective Patient continues to do well and scheduled for discharged. She offers no new complaints and is resting comfortably. Her morning potassium is 5.5. Exam Vital Signs Vital Sign - Last Date Time Temp Pulse Resp B/P Pulse Ox O2 Delivery O2 Flow Rate FiO2 02/22/17 08:00 69 02/22/17 05:56 37.1 18 140/71 100 Room Air 02/20/17 06:09 2.00 Intake and Output 02/21/17 02/21/17 02/22/17 Cumulative From/Thru 15:00 23:00 07:00 02/19/17 11:38 - 02/22/17 05:57 Intake Total 742 ml 230 ml 2492 ml Output Total 3100 ml 500 ml 250 ml 75987 ml Balance -3100 ml 242 ml -20 ml -9308 ml Intake Oral 742 ml 200 ml 2462 ml IV Total 30 ml 30 ml Output Urine Total 500 ml 250 ml 900 ml Ultrafiltrate 3100 ml 9800 ml Other 1100 ml # Voids 3 # Bowel Movements 0 Exam Is supple without adenopathy, thyromegaly, or jugular venous distention. Lungs are clear to auscultation. Heart is regular and rhythmical with a soft systolic murmur. Abdomen is soft without any tenderness rebound or guarding there is a free fluid wave which is non-tense. Extremities do not show any evidence of any clubbing cyanosis or edema. Lab and Diagnostics Result Diagram: 02/22/17 0845 02/22/17 0845 X-Rays, CTs and MRIs PROCEDURE: X-RAY CHEST ONE VIEW, PORTABLE ([id number]) INDICATIONS: sob IMPRESSION: Left lower lobe consolidative opacity and possible small left pleural effusion which appears to be new since the prior CT dated 02/07/17. Small right pleural effusion with adjacent atelectasis, grossly unchanged. Dictated by: Ranjith Fox M.D. on 02/19/2017 at 13:56 Additional Diagnostics DATE COLLECTED:02/07/2017 22:51 SPECIMEN: Liver, Needle Biopsy CLINICAL HISTORY: 1). LIVER JOSTIN FINAL DIAGNOSIS: 1.LIVER, TRANSJUGULAR NEEDLE CORE BIOPSY: LIVER PARENCHYMA WITH PERICENTRAL SINUSOIDAL DILATATION; SEE COMMENT. 3+/4 IRON DEPOSITION, PREDOMINATELY WITHIN KUPFFER CELLS, ON IRON STAIN. ICD10 R18.8 NOTE: Sections are of liver parenchyma with focal mild lymphocyte predominant portal inflammation. There is no significant bile duct injury. The lobular parenchyma shows pericentral sinusoidal dilatation. There is no significant steatosis or lobular inflammation. There is no significant fibrosis on trichrome stain. There are no large intrahepatocytic globules of alpha-1 anti-trypsin deficiency on a PAS stain with diastase. Overall, these findings are suggestive of venous outflow obstruction consistent with the clinical history of heart failure. The finding of increased Kupffer cell iron is consistent with transfusion-related iron overload in the appropriate clinical setting. GROSS DESCRIPTION: Received in formalin, labeled with the patient's name and "liver towel" are three fragments of cylindrical tissue, each with a diameter of 0.1 cm and ranging from 0.3 cm to 1.2 cm at the longest and 1.5 cm at the greatest. All fragments are totally submitted in one cassette. (:[id number]) MICRO DESCRIPTION: See diagnosis. ICD-9 CODES: CPT CODES: 1: 51698, 25090, 17361, 20730 Electronically Signed Out Humza Lozano MD, Ph.D. [facility] Pathology [facility] [address], [place] [address] Technical component performed at [facility], [facility] [address], [place], [address] Plan Impression Impression #1 end-stage renal disease dialysis dependent #2 acute decompensated biventricular congestive heart failure in part secondary to noncompliance with dialysis Recommendations #1 the patient's patient dialyzed today for 3-1/2 hours on a 3 potassium bath, standard dialyzer, 35 bicarbonate, 36-1/2 Celsius dialysate 400 blood flow, 600 dialysate flow, also heparin and 400/h and we will try to take 3 L as possible. Once her dialysis is completed she can be discharged. Andrew Stevens DO Feb 22, 2017 11:28
[2017-02-22] MEDS: HYDROcodone-APAP 5-325 mg Tablet PO PRN (11:45)
--- NOTE | 2017-02-22 12:32 | NUR ---
Dialysis note: 3 1/2 hr tx Net UF 1950 left looped graft x 2 - 15 g needles QB 400 - 380 Cramped last 10 min of tx Clamped x 15 min, secured with SS, gauze, tape Report given to primary RN, Bob Please see DTR for complete record of VS
--- NOTE | 2017-02-22 12:38 | NUR ---
Social Work: Readiness for Discharge/Multidisciplinary Rounds D: EMR Reviewed. Pt is on day 3 of hospitalization. Pt discussed in multidisciplinary rounds, pt likely to discharge today after paracentesis. SW Pt discussed in multidisciplinary rounds, no SW needs identified, no MD orders received. Pt to discharge home with her sister to transport via POV. SW will continue to follow. A: Chronic dialysis patient who is independent at baseline. P: Pt likely to discharge home today with her sister to transport via POV. No SW needs identified, no MD orders received. SW will continue to follow. CHRISSIE Rubin
--- NOTE | 2017-02-22 12:49 | NUR ---
Case Management: ANDREWS and Medicare Part D pamphlet delivered and explained to patient. Signed original placed in chart. Copy left at bedside. Nayely Young RN Addendum: 02/22/17 at 1252 by NAYELY YOUNG CM Disregard charted on wrong patient.
--- NOTE | 2017-02-22 13:59 | NUR ---
Completed Dialysis / Primary Care Note Pt returned to room 238-2 at 1245, A&Ox4, ate 75% of her meal and received medications. Tele reports sinus 73 [id number]. She is resting by the window.
--- NOTE | 2017-02-22 15:07 | PCM.DIMED ---
Discharge Instructions Date of Service Feb 22, 2017 Dates of Hospitalization Feb 19, 2017 at 15:38 Discharge Diagnosis Discharge Diagnosis # hyperkalemia ,poa, resolved -due to missed HD #Acute on chronic systolic CHF/fluid overload,acute,poa # Recurrent Ascites/Elevated LFTs due to congestion liver disease , present on admission, improving # End-stage renal disease on hemodialysis M/W/F # anemia of ESRD # history of Coronary artery disease status post stent Diet Discharge Diet: Renal Diet Activity Discharge Activity: Limited until seen by PCP Call your provider Call your provider for: Fever or Chills, Shortness of breath, Bleeding, Chest pain, Vomitting, Excessive diarrhea, Weakness (unilateral) Patient Instructions Patient Instructions You were hospitalized due to hyperkalemia and acute on chronic systolic CHF/ fluid overload due to missed hemodialysis. You underwent dialysis and symptoms resolved. Please do not miss dialysis even if you do not feel well unless advised by your marketing analytics analyst.You also underwent therapeutic paracentesis/fluid removal from abdomen. Recent liver Biopsy result is negative for cirrhosis. Abdominal fluid/ascites seems to come from heart failure and kidney failure.You are restarted on Plavix Follow-up Provider: Tashia Leon PA-C Follow-up with PCP in: 3 weeks Follow-up in: 1 week (follow up with marketing analytics analyst in 2-3 days ) Stan Rangel MD Feb 22, 2017 15:07
[2017-02-22] MEDS ORDERED: CLOP75TA28 PO (15:08)
--- NOTE | 2017-02-22 15:21 | NUR ---
Social Work: Discharge D: EMR Reviewed. Pt is on day 3 of hospitalization. Pt discussed in multidisciplinary rounds, pt to discharge today after paracentesis. SW Pt discussed in multidisciplinary rounds, no SW needs identified, no MD orders received. Pt to discharge home with her sister to transport via POV. SW will continue to follow. A: Chronic dialysis patient who is independent at baseline. P: Pt to discharge home today with her sister to transport via POV. No SW needs identified, no MD orders received. CHRISSIE Rubin
--- NOTE | 2017-02-22 16:50 | DRSVH ---
PROCEDURE: US ABDOMEN, LIMITED ([id number]) INDICATIONS: ASCITES TECHNIQUE: Real-time focused scanning was performed of the abdomen, with image documentation. COMPARISON: [facility], , US GUIDED PARACENTESIS, 02/19/2017, 14:28. [facility], US, ABDOMEN LTD, 01/25/2017, 8:37. FINDINGS: Trace ascites within the left lower quadrant otherwise no additional ascites is present wit hin the 4 quadrants of the abdomen. IMPRESSION: Trace ascites. Dictated by: Puma Chery Mikayla Interpreted: Todd Grant MD on 02/22/2017 at 15:29 Approved by: Todd Grant M.D. on 02/22/2017 at 16:48
--- NOTE | 2017-02-22 19:00 | NUR ---
Discharge Patient discharge to home accompanied by family member. Discharge notes, instructions and prescription given and well understood. All belongings taken home with her.
--- NOTE | 2017-02-22 19:41 | PCM.DC.MED ---
Discharge Summary Date of Service Feb 22, 2017 Dates of Hospitalization Date of Hospital Admission Feb 19, 2017 at 15:38 Date of Discharge: Feb 22, 2017 Providers: Admitting Physician: Stan Chino MD Primary Care Physician: All Mueller MD Attending Physician: Stan Chino MD Diagnosis at Time of Discharge Diagnosis at Time of Discharge # hyperkalemia ,poa, resolved -due to missed HD #Acute on chronic systolic CHF/fluid overload,acute,poa # Recurrent Ascites/Elevated LFTs due to congestion liver disease , present on admission, improving # End-stage renal disease on hemodialysis M/W/F # anemia of ESRD # history of Coronary artery disease status post stent Consultations nephrology Dr Stevens Procedures XRay, CTs & MRIs PROCEDURE: X-RAY CHEST ONE VIEW, PORTABLE ([id number]) INDICATIONS: sob IMPRESSION: Left lower lobe consolidative opacity and possible small left pleural effusion which appears to be new since the prior CT dated 02/07/17. Small right pleural effusion with adjacent atelectasis, grossly unchanged. Dictated by: Ranjith Fox M.D. on 02/19/2017 at 13:56 Other Diagnostics DATE COLLECTED:02/07/2017 22:51 SPECIMEN: Liver, Needle Biopsy CLINICAL HISTORY: 1). LIVER JOSTIN FINAL DIAGNOSIS: 1.LIVER, TRANSJUGULAR NEEDLE CORE BIOPSY: LIVER PARENCHYMA WITH PERICENTRAL SINUSOIDAL DILATATION; SEE COMMENT. 3+/4 IRON DEPOSITION, PREDOMINATELY WITHIN KUPFFER CELLS, ON IRON STAIN. ICD10 R18.8 NOTE: Sections are of liver parenchyma with focal mild lymphocyte predominant portal inflammation. There is no significant bile duct injury. The lobular parenchyma shows pericentral sinusoidal dilatation. There is no significant steatosis or lobular inflammation. There is no significant fibrosis on trichrome stain. There are no large intrahepatocytic globules of alpha-1 anti-trypsin deficiency on a PAS stain with diastase. Overall, these findings are suggestive of venous outflow obstruction consistent with the clinical history of heart failure. The finding of increased Kupffer cell iron is consistent with transfusion-related iron overload in the appropriate clinical setting. GROSS DESCRIPTION: Received in formalin, labeled with the patient's name and "liver towel" are three fragments of cylindrical tissue, each with a diameter of 0.1 cm and ranging from 0.3 cm to 1.2 cm at the longest and 1.5 cm at the greatest. All fragments are totally submitted in one cassette. (:[id number]) MICRO DESCRIPTION: See diagnosis. ICD-9 CODES: CPT CODES: 1: 39001, 49064, 85232, 34513 Electronically Signed Out Humza Lozano MD, Ph.D. [facility] Pathology [facility] [address], [place] [address] Technical component performed at [facility], [address], [place], [address] Brief History per HPI 56-year-old lady with past medical history of ESRD on HD ,CHF, CAD, HTN, DM, chronic liver disease status post biopsy 3 weeks ago presented to ED with dyspnea,generalized weakness and diarrhea of 2 days. she states she had watery diarrhea which started 3 days ago and resolving now. She felt generalized weakness and thoght she may be dehydrated and did not need dialysis and missed regular HD yesterday .She continued to have generalized weakness and dyspnea which prompted ED visit. She has been on HD for the last 1 year,ESRD due to DM She has been having abdominal swelling/ascites and underwent liver biopsy . She doesnot know about results yet and not available on [facility] ED course : HR 53,tachypnea RR 26,otherwise vitals unremarkable labs no leukocytosis,K 7.7,BUN 101,Cr 8.73,AP 343 EKG no peaked t wave CXR Left lower lobe consolidative opacity and possible new small left pleural effusion,right small effusion unchanged regular insulin ,dextrose and calcium gluconate given,patient went for emergency dialysis therapeutic paracentesis of 1.2 L done in ED Hospital Course # hyperkalemia ,poa, resolved -due to missed HD -regular insulin ,dextrose and calcium gluconate given initially -patient had emergency dialysis 02/19,HD again 02/20,02/21,02/22 #Acute on chronic systolic CHF/fluid overload,acute,poa -tacypnea/ascites/new and worsening pleural effusion -EF 40% -due to missed HD -mx as above # Recurrent Ascites/Elevated LFTs due to congestion liver disease and transfusion iron overload , present on admission, improving -MRI showed possible hemochromatosis. S/p recent liver biopsy , biopsy shows pericentral sinusoidal dilatation. There is no significant steatosis or lobular inflammation . suggestive of venous outflow obstruction consistent with the clinical history of heart failure. The finding of increased Kupffer cell iron is consistent with transfusion-related iron overload in the appropriate clinical setting. - Discussed with her car checker Dr. Barrera . based on SAAG and bx ascites not due to liver disease. Most likely due to ESRD and CHF -Resumed home Plavix which has been on hold since liver biopsy -Repeat therapeutics paracentesis recomended by Dr. Stevens but no much fluid on repeat US and deferred # End-stage renal disease on hemodialysis M/W/F presenting with fluid overload and hyperkalemia secondary to missed dialysis, present on admission, stable -advised patient not to miss HD even if not feeling well # anemia of ESRD -mx per nephrology # history of Coronary artery disease status post stent - Continued home dose carvedilol twice daily -plavix was on hold due to liver biopsy .resumed 02/20 after discussing with GI dvt ppx SCD full code inpatient discharge home Exam Vital Signs (Last) Date Time Temp Pulse Resp B/P Pulse Ox O2 Delivery O2 Flow Rate FiO2 02/22/17 13:41 36.8 65 12 96/78 Room Air 02/22/17 05:56 100 02/20/17 06:09 2.00 Exam Gen. patient is lying comfortably in hospital bed HEENT: Head is normocephalic atraumatic, Pupils equal and reactive, extraocular movements intact, Lungs clear to auscultation bilaterally Heart regular rate and rhythm without murmurs gallops or rubs Abdomen soft nontender without hepatosplenomegaly,distended with ascites Extremities pulses are present dorsalis pedis posterior tibialis and radial.LUE AVF Psych alert and oriented to person place and time Neuro cranial nerves II through XII are grossly intact Lymph: There is no lymphadenopathy appreciated in the cervical supra infraclavicular regions : no drake Test 02/19/17 13:05 02/22/17 08:45 Prothrombin Time 11.2sec (8.1-12.5) Prothromb Time International Ratio 1.05ratio Activated Partial Thromboplast Time 30.1sec (22.8-33.0) Magnesium Level 2.5mg/dL (1.6-2.6) White Blood Count 9.2th/mm3 (3.8-10.1) Red Blood Count 3.56mil/mm3 (3.90-5.20) Hemoglobin 10.7g/dL (12.0-15.6) Hematocrit 32.8% (35.0-46.0) Mean Corpuscular Volume 92.1fL (81-100) Mean Corpuscular Hemoglobin 30.1pg (27.0-35.0) Mean Corpuscular Hemoglobin Concent 32.6% (32.0-37.0) Red Cell Distribution Width 15.8% (12.3-15.4) Platelet Count 295bil/L (150-400) Neutrophils (%) (Auto) 71.5% (40-74) Lymphocytes (%) (Auto) 14.4% (14-46) Monocytes (%) (Auto) 9.3% (4-12) Eosinophils (%) (Auto) 4.4% (0-5) Basophils (%) (Auto) 0.3% (0-3) Sodium Level 136mEq/L (134-144) Potassium Level 5.5mEq/L (3.5-5.2) Chloride Level 95mEq/L (97-108) Carbon Dioxide Level 23mmol/L (18-29) Blood Urea Nitrogen 37mg/dL (6-24) Creatinine 5.49mg/dL (0.57-1.00) Estimat Glomerular Filtration Rate 11mL/min (>59) Glucose Level 89mg/dL (60-99) Calcium Level 7.5mg/dL (8.5-10.1) Total Bilirubin 0.6mg/dL (0.0-1.2) Aspartate Amino Transf (AST/SGOT) 16U/L (0-50) Alanine Aminotransferase (ALT/SGPT) 20U/L (0-32) Alkaline Phosphatase 322U/L (25-150) Total Protein 7.0g/dL (6.4-8.4) Albumin 3.0g/dL (3.4-5.0) Discharge Medications Discharge Medications Atorvastatin Calcium (Atorvastatin Calcium) 80 Mg Tablet 80 MG PO HS (Reported) Carvedilol (Carvedilol) 6.25 Mg Tablet 6.25 MG PO BID (Reported) Clopidogrel (Clopidogrel) 75 Mg Tablet 75 MG PO DAILY Prescribed by: STAN CHINO MD Furosemide (Furosemide) 80 Mg Tab 80 MG PO BID (Reported) Furosemide (Furosemide) 40 Mg Tablet 40 MG PO QAM (Reported) Lisinopril (Lisinopril) 5 Mg Tablet 5 MG PO BID Prescribed by: CHAD AMOS MD Spironolactone (Spironolactone) 100 Mg Tablet 200 MG PO QAM (Reported) As needed Glipizide (Glipizide) 5 Mg Tablet 2.5 MG PO DAILY PRN PRN hyperglycemia ( Reported) Followup Plan Disposition: home Discharge Diet: Renal Diet Discharge Activity: Limited until seen by PCP Patient Instructions You were hospitalized due to hyperkalemia and acute on chronic systolic CHF/ fluid overload due to missed hemodialysis. You underwent dialysis and symptoms resolved. Please do not miss dialysis even if you do not feel well unless advised by your industrial workers.You also underwent therapeutic paracentesis/fluid removal from abdomen. Recent liver Biopsy result is negative for cirrhosis. Abdominal fluid/ascites seems to come from heart failure and kidney failure.You are restarted on Plavix Follow-up Provider: Tashia Leon PA-C Follow-up with PCP in: 3 weeks Follow-up in: 1 week (follow up with industrial workers in 2-3 days ) Time spent > 35 minutes copies to: Tashia Leon PA-C, Melaku MD Feb 22, 2017 19:41
== END 2017-02-22 19:00 | disposition home or self-care (01) | DRG 640 ==
LOC: SED 11:35 → MOC 15:38
PROVIDERS: ADMIT Internal Medicine; ATTEND Internal Medicine
PROC: 0W9G3ZX Drainage of Peritoneal Cavity, Percutaneous Approach, Diagnostic (ICD-10-PCS; principal; 2017-02-19)
PROC: 5A1D60Z (ICD-10-PCS; 2017-02-19)
DX: E87.5 Hyperkalemia (principal); N18.6 End stage renal disease; I50.23 Acute on chronic systolic (congestive) heart failure; J90 Pleural effusion, not elsewhere classified; R18.8 Other ascites; I13.0 Hypertensive heart and chronic kidney disease with heart failure and stage 1 through stage 4 chronic kidney disease, or unspecified chronic kidney disease; I12.0 Hypertensive chronic kidney disease with stage 5 chronic kidney disease or end stage renal disease; E87.70 Fluid overload, unspecified; E11.21 Type 2 diabetes mellitus with diabetic nephropathy; I25.5 Ischemic cardiomyopathy; E11.319 Type 2 diabetes mellitus with unspecified diabetic retinopathy without macular edema; I25.10 Atherosclerotic heart disease of native coronary artery without angina pectoris; E78.5 Hyperlipidemia, unspecified; E11.22 Type 2 diabetes mellitus with diabetic chronic kidney disease; D63.1 Anemia in chronic kidney disease; Z79.4 Long term (current) use of insulin; Z99.2 Dependence on renal dialysis; Z91.15 Patient's noncompliance with renal dialysis

== ENCOUNTER 2017-03-13 14:57 | Inpatient (IN) | payer MEDICARE, MEDICAID ==
[2017-03-13] VITALS (8 sets, daily range): BP systolic 138–155; BP diastolic 3–79; PULSE 51–64; RESP 15–22; O2SAT 98–100
[~2017-03-13] VITALS: Ht 154.9 cm; Wt 57.8 kg
[~2017-03-13 14:57] MED LIST changes: -ASPI-973 PO; -ATOR80TA PO; +ATOR80TA77 PO; -CARV12.52 PO; +CARV6.252 PO; +CLOP75TA28 PO; -CLOP75TA3 PO; -DOCU-41 PO; +FURO40TA4 PO; +GLPZ5T PO; -HYDR-3939 PO; +SPIR100T3 PO
--- NOTE | 2017-03-13 15:34 | ED.REPORT ---
HPI-General Illness Date of Service Mar 13, 2017 ED Provider: Heri Bonilla MD Pt is a 56 y/o female with a history of end stage renal disease, CHF, hypertension, hyperlipidemia, UTI, and DM who presents to the ED c/o intermittent episodes of diarrhea onset one week ago. Additional symptoms include generalized weakness, intermittent SOB now resolved, and bilateral lower leg edema with "sharp pain" in legs. She denies fever, chills, nausea, vomiting, constipation, or cough. Pt has missed her last two dialysis treatments due to her diarrhea and weakness. She sees Dr. Olmos in [place] for dialysis. She denies taking any antibiotics. Nursing Notes Chief Complaint: Female Abdominal Pain Nursing Notes Reviewed: Yes Allergies: Coded Allergies: No Known Allergies (Verified Allergy, Unknown, 03/13/17) Scheduled Atorvastatin Calcium (Atorvastatin Calcium) 80 Mg Tablet 80 MG PO HS Carvedilol (Carvedilol) 6.25 Mg Tablet 6.25 MG PO BID Clopidogrel (Clopidogrel) 75 Mg Tablet 75 MG PO DAILY Furosemide (Furosemide) 40 Mg Tablet 40 MG PO BID Lisinopril (Lisinopril) 5 Mg Tablet 5 MG PO BID Spironolactone (Spironolactone) 100 Mg Tablet 200 MG PO QAM Scheduled PRN Glipizide (Glipizide) 5 Mg Tablet 2.5 MG PO DAILY PRN PRN hyperglycemia General Time Seen by MD: 15:34 Chief Complaint Diarrhea Hx Obtained From: Patient, Other family... Arrived By: Walk-in Sudden in Onset?: No Onset Occurred: 1 week ago Symptom Duration: Intermittent Quality: Painful, Sharp Severity: Current: Mild Severity: Maximum: Moderate Recent Healthcare: Recent doctor visit, Recent hospitalization Similar Sx Previous: No Past Medical History Past Medical History Notes: Dr. Olmos in [place] for dialysis Past Medical History Diabetes mellitus End-stage renal disease Hypertension CAD with cardiac stenting Congestive heart failure Cardiomyopathy Hyperlipidemia Hx of CVA UTI Past Surgical History Cardiac stents x2 Family History Noncontributory Smoking History Never Smoker Social History Other Social History: Good social support, Local resident Ambulatory Status Independent Review of Systems Full Review of Systems Constitutional: Denies: Chills, Fever Respiratory: Reports: Shortness of breath (intermittent, since resolved ), Denies: Non-productive cough, Prod cough, clear GI: Reports: Diarrhea, Denies: Constipation, Nausea, Vomiting Musculoskeletal: Reports: Extremity pain (sharp pain in leg), Extremity swelling (bilateral lower leg) Neurologic: Reports: Weakness Complete sys rev & neg: except as marked. Physical Exam Vital Signs Vital Signs Date Time Temp Pulse Resp B/P Pulse Ox O2 Delivery O2 Flow Rate FiO2 03/13/17 16:59 52 22 138/65 100 Room Air 03/13/17 14:59 36.9 51 15 141/67 99 Room Air Initial VS: Reviewed Neck: Supple, Full range of motion Extremities: Vascular intact, Neuro intact, No swelling, No tenderness Skin: Warm, Dry, No cyanosis Neurologic: Alert, Oriented, Nonfocal Psychiatric: Mood/affect normal, Behavior normal, Normal thought content General/Constitutional: Awake, Alert Respiratory / Chest: Atraumatic, Breath sounds NL, Breath sounds = bilat, No respiratory distress Cardiovascular: Heart rate NL, Regular rhythm, Heart sounds NL Heart Sounds / Murmur: Positive: Systolic murmur present.. (V/ - left upper sternal border) Abdomen: Soft, Non-tender, BS normoactive Interpretation & Diagnostics Lab Results Interpretation Result Diagram: 03/13/17 1550 03/13/175 Test 03/13/17 15:50 White Blood Count 7.3th/mm3 (3.8-10.1) Red Blood Count 3.40mil/mm3 (3.90-5.20) Hemoglobin 10.3g/dL (12.0-15.6) Hematocrit 31.5% (35.0-46.0) Mean Corpuscular Volume 92.6fL (81-100) Mean Corpuscular Hemoglobin 30.3pg (27.0-35.0) Mean Corpuscular Hemoglobin Concent 32.7% (32.0-37.0) Red Cell Distribution Width 16.3% (12.3-15.4) Platelet Count 169bil/L (150-400) Neutrophils (%) (Auto) 78.2% (40-74) Lymphocytes (%) (Auto) 9.2% (14-46) Monocytes (%) (Auto) 9.9% (4-12) Eosinophils (%) (Auto) 2.3% (0-5) Basophils (%) (Auto) 0.3% (0-3) Sodium Level 132mEq/L (134-144) Chloride Level 94mEq/L (97-108) Carbon Dioxide Level 16mmol/L (18-29) Blood Urea Nitrogen 89mg/dL (6-24) Creatinine 7.88mg/dL (0.57-1.00) Estimat Glomerular Filtration Rate 8mL/min (>59) Glucose Level 228mg/dL (60-99) Calcium Level 8.1mg/dL (8.5-10.1) Magnesium Level 2.8mg/dL (1.6-2.6) Total Bilirubin 0.6mg/dL (0.0-1.2) Aspartate Amino Transf (AST/SGOT) 23U/L (0-50) Alanine Aminotransferase (ALT/SGPT) 22U/L (0-32) Alkaline Phosphatase 260U/L (25-150) Total Protein 7.8g/dL (6.4-8.4) Albumin 3.5g/dL (3.4-5.0) Hold Hartman Top Tube Received (Received) ECG Interpretation ECG Interpretation: Sinus arrhythemia, rate 53 LVH no specific IVCD No peaked Q waves Time: 15:54 Interpreted by: ED physician X-Ray Chest Interpretation Chest Xray Interpretation: IMPRESSION: 1. Small right-sided pleural effusion. 2. Bibasilar lung opacities compatible atelectasis versus pneumonia. Dictated by: Brenda Narayan MD, PhD on 03/13/2017 at 17:32 Approved by: Brenda Narayan MD, PhD on 03/13/2017 at 17:33 View: Portable, 1 view Interpretation / Wet Read by: Interpret - Radiologist Re-Eval/Medical Decision Med Decision/Clinical Course 56-year-old female with end-stage renal disease with missed dialysis. As report of diarrhea and generalized weakness, no recent antibiotic treatment is identified, stool studies were ordered, was given gentle hydration in the emergency department. She was hypokalemic we consulted nephrology they asked us to start Kayexalate and advised against other acute therapies for hyperkalemia. I note that she did not have any EKG changes. We admitted to the hospitalist service with nephrology consultation. The patient was advised to get again that she should not miss dialysis. Source of Hx: Old records Time of Eval: 16:24 Re-Evaluation/Progress Note: Patient rechecked. Discussed plan for admission. Patient understands and agrees with plan. All questions addressed at this time. Consultation #1: Referral / Consult Name: Anrdew Stevens DO Consulted With: Nephrology Call Returned at: 16:33 Gang Investigator: Agrees with eval, Agrees with plan Note: Discussed patient's case with audit machine operator, Dr. Stevens. Consultation #2: Referral / Consult Name: Arina Hartley MD Consulted With: Hospitalist Call Returned at: 17:05 Gang Investigator: Will see patient, Agrees with plan, Accepts admit Note: Discussed pt's case with hospitalist, Dr. Hartley. She accepts admission. Counseled Regarding: Diagnosis, Lab results, Need for admission Discharge & Departure Primary Impression: Hyperkalemia Additional Impression: Diarrhea Diarrhea type: unspecified type Qualified Code: R19.7 - Diarrhea, unspecified Disposition: ADMITTED TO HOSPITAL Discharge Condition All VS Reviewed: Yes Condition: Stable Scribe Attestation Portions of this note were transcribed by Saira Taylor. I, Dr. Lake, personally performed the history, physical exam and medical decision-making; I reviewed and confirmed the accuracy of the information in the transcribed note. Heri Lake MD Mar 13, 2017 15:34 Saira Taylor Mar 13, 2017 15:38
[2017-03-13] MEDS ORDERED: Ondansetron 2 mg/mL 2 mL Inj IV PRN (15:35)
[2017-03-13 15:58] LABS: BASOPHILS % (AUTO) 0.3 % (0-3); EOSINOPHILS % (AUTO) 2.3 % (0-5); MONOCYTES % (AUTO) 9.9 % (4-12); Mean Corpuscular Hemoglobin 30.3 pg (27.0-35.0); Mean Corpuscular Volume 92.6 fL (81-100); NEUTROPHILS % (AUTO) 78.2 % (40-74); Platelet Count 169 bil/L (150-400)
[2017-03-13 16:14] LABS: Magnesium 2.8 mg/dL (1.6-2.6)
[2017-03-13] MEDS ORDERED: Alum-Mag Hydrox-Simeth 30 mL Suspension PO PRN (17:20)
[2017-03-13] MEDS ORDERED: Polyethylene Glycol (PEG) 17 Gm Powder PO PRN (17:20)
[2017-03-13] MEDS ORDERED: Ondansetron 2 mg/mL 2 mL Inj IVPUSH PRN (17:20)
--- NOTE | 2017-03-13 17:35 | DRSVH ---
PROCEDURE: X-RAY CHEST ONE VIEW, PORTABLE ([id number]) INDICATIONS: missed dialysis TECHNIQUE: One view of the chest was acquired. COMPARISON: [facility], CR, XR CHEST 1VW (PORTABLE), 02/19/2017, 13:04. FINDINGS: Surgical changes and devices: None. Lungs and pleura: Small right-sided pleural fluid collection is stable compared to prior examination . Patchy opacity in the right lung base and focal opacity in the left lung base are stable compared to prior examination. Mediastinum: Mediastinal contours appear normal. Heart size is enlarged Bones and chest wall: No suspicious bony lesions. Overlying soft tissues appear unremarkable. IMPRESSION: 1. Small right-sided pleural effusion. 2. Bibasilar lung opacities compatible atelectasis versus pneumonia. Dictated by: Brenda Narayan MD, PhD on 03/13/2017 at 17:32 Approved by: Brenda Narayan MD, PhD on 03/13/2017 at 17:33
--- NOTE | 2017-03-13 17:41 | PCM.HPMED ---
Subjective Date of Service Mar 13, 2017 Primary Provider: Admitting Physician: Arina Hartley MD Primary Care Physician: Michael Barrera MD Attending Physician: Arina Hartley MD Admit Status: From the Emergency Department, Admit to Yellow Team Chief Complaint: Hyperkalemia, Diarrhea History of Present Illness: Ms. Peterson is a 56-year-old female past medical history of ESRD on HD Saturday, CHF, hypertension, diabetes mellitus, CAD, recurrent ascites presents to the ED secondary to diarrhea 1 week, shortness of breath, bilateral lower leg edema with pain in both legs. She has recent admissions for similar symptoms. Patient lives with daughter who is not sick. States the diarrhea has been on and off for one week. Multiple times a day. Denies blood or mucus and diarrhea. Denies any other sick contacts. Denies fever or chills , shortness of breath, chest pain and headache. Does state some blurry vision. Denies abdominal pain though does state abdominal fullness stating that it feels similar to previous episodes of abdominal ascites. In the ED patient was given 30 g oral Kayexalate. Review of Systems: A comprehensive review of systems was conducted with the patient and found to be negative except as above in the history of present illness. Allergies Coded Allergies: No Known Allergies (Verified Allergy, Unknown, 03/13/17) Home Medications Atorvastatin Calcium (Atorvastatin Calcium) 80 Mg Tablet 80 MG PO HS Carvedilol (Carvedilol) 6.25 Mg Tablet 6.25 MG PO BID Clopidogrel (Clopidogrel) 75 Mg Tablet 75 MG PO DAILY Furosemide (Furosemide) 40 Mg Tablet 40 MG PO BID Lisinopril (Lisinopril) 5 Mg Tablet 5 MG PO BID Spironolactone (Spironolactone) 100 Mg Tablet 200 MG PO QAM Scheduled PRN Glipizide (Glipizide) 5 Mg Tablet 2.5 MG PO DAILY PRN PRN hyperglycemia PMH Diabetes mellitus Diabetic retinopathy with blind right eye End-stage renal disease Hypertension CAD with cardiac stenting Congestive heart failure Cardiomyopathy Hyperlipidemia Hx of CVA Surgical History Cardiac stents x2 Cholecystectomy Family History per EMR Mother and father with diabetes type II both of heart attacks in their late 70s to early 80s Sister in the [facility] with diabetes Social History Hx Alcohol Use: No Hx Substance Use: No Hx Tobacco Use: No Smoking Status: Never Smoker Living Arrangement: with Family Exam Vital Signs Vital Sign - Last Date Time Temp Pulse Resp B/P Pulse Ox O2 Delivery O2 Flow Rate FiO2 03/13/17 16:59 52 22 138/65 100 Room Air 03/13/17 14:59 36.9 Exam General: Awake and alert sitting up in ER [facility] in no acute distress, HEENT: Normocephalic, atraumatic. External ears without defect. Pupils equal, round, and reactive to light and accommodation. Scleral icterus, moist conjunctivae, and no lid lag. Oropharynx free of erythema and cobble stoning with moist mucosa. Neck: Supple with full range of motion. No jugular venous distension. No bruits. Cardiovascular: Regular rate and rhythm, soft systolic murmur heard best left sternal border Pulmonary: Clear to auscultation bilaterally with no crackles, wheezes, or rhonchi. Normal respiratory effort with no use of accessory muscles. Abdomen: Distended abdomen Soft, nontender. Extremities: Mild lower extremity edema to pretibial area. Skin: Normal temperature, turgor, and texture Neurological: Cranial nerves grossly intact. Psychiatric: Normal mood and affect. Alert and oriented to person, place, and time. Lab and Diagnostics Result Diagram: 03/13/17 1550 03/13/17 1550 X-Rays, CTs and MRIs . X-RAY CHEST ONE VIEW, PORTABLE IMPRESSION: 1. Small right-sided pleural effusion. 2. Bibasilar lung opacities compatible atelectasis versus pneumonia. Dictated by: Brenda Narayan MD, PhD on 03/13/2017 Assessment & Plan Ms. Peterson is a 56-year-old woman with PMH significant for ESRD on HD MWF, DM, CAD , systolic congestive heart failure admitted for hyperkalemia and diarrhea. Hyperkalemia, present on admission, ongoing -Most likely secondary to missed hemodialysis -Potassium 6.8 -Nephrology consult by ED physician, recommendations appreciated -Kayexalate 30 g oral suspension given in ED -2 g IV calcium gluconate -Albuterol -10 units Insulin and D50 -Dialysis tomorrow -Normal saline 50 mL per hour -Held lisinopril & spironolactone End-stage renal disease on hemodialysis M/W/F L present on admission. Ongoing -Nephrology consulted, dialysis scheduled for tomorrow Diarrhea, present on admission. Ongoing -Appropriate cultures and serologies pending -IV fluids as above Heart failure with reduced EF, EF 40%, present on admission. Ongoing -Standing daily weights with strict I&O's -Continued furosemide. -Continued carvedilol, aware of hyperkalemic side effect -HD per nephrology Coronary artery disease, present on admission. Ongoing -Continue home atorvastatin -Continue home Plavix Hypertension, present on admission. Ongoing - Hold home medications lisinopril, prolactinoma Hyperlipidemia, present on admission. Ongoing - Continued home med atorvastatin Diabetes mellitus, present on admission. Ongoing -Hold home glipizide -Correction scale Ascites, present on admission. Ongoing -Abdominal ultrasound ordered for the morning Patient Status: Patient was admitted under inpatient status with expected length of stay greater than two midnights due to severity of presenting symptoms , risk of adverse event, and complexity of treatment plan. Pain Evaluation: Adequate Pain Control GI Prophylaxis: H2 alejandra VTE Prophylaxis: Sub-Q Heparin (Unfractionated) Resuscitation Status: CPR: Attempt Resuscitation Time spent 60 minutes Attending Statement Patient has been seen and examined by myself with medical researcher and agree with above history, physical, assessment and plan. BRODY PHILIP DO Mar 13, 2017 17:41 Arina Hartley MD Mar 14, 2017 06:51
[2017-03-13] MEDS ORDERED: SODIUM CHLORIDE 0.9% IV ONE (17:55)
[2017-03-13] MEDS ORDERED: CALCIUM GLUCO IV ONE (17:55)
[2017-03-13] MEDS ORDERED: Albuterol 2.5 mg/3 mL Inhalation Solution NEB ONE (17:55)
[2017-03-13] MEDS ORDERED: Dextrose 10% 250 ML IV ONE (18:10)
[2017-03-13] MEDS: 0.9% Sodium Chloride 1,000 ML IV SCH (18:10)
[2017-03-13] MEDS ORDERED: Insulin Human REGular-Omnicell 100 Unit/mL SUBQ ONE (18:15)
[2017-03-13] MEDS ORDERED: Dextrose 10% 250 ML IV PRN (18:55)
--- NOTE | 2017-03-13 19:22 | NUR ---
Report 1758 - Received report from Klarissa GANNON in the ED. The room wasn't clean yet. Housekeeping was called. 1850 - Report given to Jens GANNON on PCC. The patient had not arrived yet.
--- NOTE | 2017-03-13 20:24 | DRSVH ---
PROCEDURE: US ABDOMEN, LIMITED ([id number]) INDICATIONS: possible ascites TECHNIQUE: Real-time focused scanning was performed of the abdomen, with image documentation. COMPARISON: None. FINDINGS: No free fluid identified. IMPRESSION: No ascites identified. Dictated by: Brenda Narayan MD, PhD on 03/13/2017 at 20:22 Approved by: Brenda Narayan MD, PhD on 03/13/2017 at 20:22
[2017-03-13] MEDS: Insulin LISPRO 300 Unit/3 mL Inj SUBQ SCH (21:58)
[2017-03-13] MEDS: Glucose 40% Oral Gel 15 Gm Tube PO PRN ×3 (21:59→22:31)
[2017-03-13] MEDS: Heparin 5,000 Unit/mL Inj SUBQ SCH (23:48)
[2017-03-14] VITALS (8 sets, daily range): BP systolic 138–182; BP diastolic 70–89; PULSE 59–74; RESP 15–22; O2SAT 94–99
--- NOTE | 2017-03-14 03:50 | NUR ---
Tele/LAbs/Diarrhea Arrived in room from ED , NS @ 50, Room Air, having Diarrhea, also Kayexalate causing loose stool , NS @ 50, Room air, A&O x3 using call light appropriately. Blood sugar @ 2200 , 51, gave Glucose 40% x 2 , glucose after 1st Glucose 69, second post glucose reading 125. Tele: SR 66
[2017-03-14 04:12] LABS: BASOPHILS % (AUTO) 0.3 % (0-3); MONOCYTES % (AUTO) 7.4 % (4-12); Mean Corpuscular Hemoglobin 30.4 pg (27.0-35.0); Mean Corpuscular Volume 91.7 fL (81-100); NEUTROPHILS % (AUTO) 81.6 % (40-74); Platelet Count 171 bil/L (150-400)
[2017-03-14 04:33] LABS: Magnesium 2.8 mg/dL (1.6-2.6)
[2017-03-14] MEDS: Insulin LISPRO 300 Unit/3 mL Inj SUBQ SCH ×4 (08:00→21:41)
[2017-03-14] MEDS: Heparin 5,000 Unit/mL Inj SUBQ SCH ×2 (08:24→17:02)
--- NOTE | 2017-03-14 09:10 | NUR ---
Pt arrived to [facility]: Pt arrived to [facility] for dialysis. Pt appears stable at time of transfer. Report given by Mansoor Ramon RN. Rundown App aware of temporary room change. Addendum: 03/14/17 at 1420 by KENNY MANE RN Pt completed treatment and may return back to [facility]. Report called to Mansoor Ramon RN by both insurance underwriter sales and dialysis nurse. Rundown App aware of room change.
--- NOTE | 2017-03-14 09:50 | CONS ---
[address] [address] CONSULTATION REPORT PATIENT: DOMENICO CASTANEDA : 1960 MR#: [id number] ADMIT: 03/13/2017 JOB ID: [id number] DATE OF SERVICE: 03/14/2017 HISTORY OF PRESENT ILLNESS: The patient is a 56-year-old, who was admitted to [facility] for hyperkalemia and severe metabolic acidosis. She has a history of end-stage renal disease and renal consultation is being sought for further evaluation and management of her end-stage renal disease. I am quite familiar with The patient from multiple previous admissions. She has a history of end-stage renal disease secondary to diabetic nephropathy and hypertension with hypertensive heart disease and hypertensive nephrosclerosis. She has a history of chronic noncompliance and has had a number of admissions here secondary to her noncompliance. She was recently here several weeks ago after missing dialysis for a week and had to be dialyzed for a number of days in a row of to get her back to her baseline fluid status. I was contacted by Dr. Lake from the Emergency Department and discussed the case with him along with Dr. Hartley the hospitalist. At time of admission in the Emergency Deparment her potassium was 6.8. Her bicarbonate was 12. She states that she missed dialysis on Saturday and yesterday secondary to ongoing diarrhea. She denies any recent antibiotics, fever, chills, nausea, vomiting, melena, or hematochezia. She has not traveled and has not had any sick contacts. Furthermore, she denies any headache, chest pain, or shortness of breath. Although she denies any lower extremity edema she states that both lower extremities are aching and somewhat weak. PAST MEDICAL HISTORY: 1. Remarkable for diabetic renal disease, retinopathy, and neuropathy. 2. There is also a history of hypertension with hypertensive heart disease and hypertensive nephrosclerosis. 3. End-stage renal disease. 4. Congestive heart failure. 5. Cardiomyopathy. 6. Prior stroke. 7. Hyperlipidemia. 8. Tricuspid valvular disease for which she is scheduled to have a procedure in [place] next month. 9. She has also had a history of coronary artery disease and has had several stents placed. PAST SURGICAL HISTORY: Remarkable for cholecystectomy, multiple AV access surgeries and placement of several cardiac stents. ALLERGIES: She is not allergic to any food or any medication. SOCIAL HISTORY: She denies use of alcohol, tobacco, or illicit drugs and lives with her family. As noted above she has chronic noncompliance with both her medical treatment and her dialysis treatments. REVIEW OF SYSTEMS: As detailed above. Otherwise is noncontributory. FAMILY HISTORY: Noncontributory. MEDICATIONS: At time of admission include: 1. Atorvastatin. 2. Carvedilol. 3. Clopidogrel. 4. Furosemide. 5. Lisinopril. 6. Spironolactone. PHYSICAL EXAMINATION: Revealed a mildly obese, 56-year-old, who was alert and oriented x3 and in no distress at time of my evaluation. Her blood pressure was 138/76 with a pulse rate of 68. HEENT examination is remarkable for mild conjunctival injection and pale sclerae. Cornea, pupils, and extraocular muscles were unremarkable. Neck is supple without adenopathy or thyromegaly. She does have some mild jugular venous distention at 75 degrees elevation. Lungs were clear to auscultation. Heart is regular and rhythmical with a soft systolic murmur. Abdomen is soft and distended with a free fluid wave noted, however this was nontense. There was some mild hepatomegaly with mild hepatojugular reflux. Otherwise, there was no tenderness, rebound, guarding, or masses noted. Extremities did not show any evidence of any clubbing, cyanosis, or edema. Skin turgor is good. LABORATORY EXAMINATION: Her white count was 7.3, hemoglobin was 10.2, hematocrit 30.8. Sodium was 137. Potassium 5.9, chloride of 99, bicarbonate 15. BUN and creatinine were 85 and 7.82. Her glucose is 147 and magnesium was 2.8. IMPRESSION: 1. End-stage renal disease-dialysis dependent. 2. Noncompliance. 3. Hyperkalemia. 4. Metabolic acidosis. 5. Diabetic nephropathy. 6. Hypertension with hypertensive heart disease and hypertensive nephrosclerosis. RECOMMENDATION: The patient is to be dialyzed today for four hours on a standard dialyzer, we will dialyze her for two hours on a 2 potassium and two hours on a 3 potassium bath, 38 bicarb, 400 blood flow, and 600 dialysate flow. We will also give her 1200 of heparin at 300 an hour. I would also like to try to take 2-4 L as tolerated. I would also recommend doing a stool analysis for C. diff. Most likely we will be dialyzing her once again tomorrow. Once again, I would like to thank you for allowing me to participate in the care of this most pleasant and interesting patient. I will be following her closely with you.
--- NOTE | 2017-03-14 13:06 | NUR ---
Social Work: Initial Assessment Data: See initial assessment. Patient is a 56 year old female who was admitted on 03/13/17 for hyperkalemia & diarrhea per H&P. Patient's insurance is Medicare and [facility] Supp. PCP is Dr. Michael Barrera. EMR reviewed. SW met with patient to discuss discharge planning. SW role explained. Patient is alert & oriented x3. Patient resides at home with her sister Becca. Home is 1 story with 6 steps at the entrance. Patient states that she uses a cane for ambulation and is I with ADLs. Patient states that she has a vehicle but relies on her sister Becca for transportation. Patient considers her main support system to include her sister, daughter, niece, and nephew. Patient denies having a DPOA and denies having AD. Patient declined information on either. Patient denies having VA benefits or termite inspector care insurance. Patient states that she receives dialysis at [facility] on MWF at 1300. Patient states that she does not have problems with transportation to/from dialysis because her sister Becca transports her. Patient states that often times she has sickness and/or diarrhea and doesn't feel well enough to go to dialysis so she stays home. Patient states that she has been told by MD that she needs to go to dialysis even when she doesn't feel well. Upon discharge, patient's sister Becca will transport her back home. SW provided a discharge planning checklist booklet to patient and encouraged her to call with any questions. Phone number provided. Patient's family will assist with providing transportation at discharge. SW will continue to follow. Assessment: Patient will discharge home. Plan: Patient to likely discharge home when medically stable. No anticipated discharge needs at this time. KUSHAL will continue to follow for needs. CHRISSIE Middleton Addendum: 03/14/17 at 1320 by AVI JASMINE Amended: Links added.
--- NOTE | 2017-03-14 14:17 | NUR ---
Dialysis Note Total treatment time 4.0 hours net removed 2700ml Cannulated L AVG with 15 gauge needle without difficulty, bruit/thrill present, site benign treatment started, pt stable, vitals stable. first 2 hours of treatment on 2K, last 2 hours of treatment on 3K pt tolerated treatment well treatment was d/c'd 4 minutes early due to cramping, blood returned. clamps x 10 minutes per stick, bleeding stopped, gauze and tape applied. bruit/thrill present BP elevated post treatment, Dr. Stevens notified, orders given for labetolol 100mg pt x 1 dose and schedule dialysis tomorrow called report to Taras Ramon and notified of new orders pt returned to unit in stable condition See DTR for complete VS record
--- NOTE | 2017-03-14 15:38 | PCM.PNMED ---
Subjective Date of Service Mar 14, 2017 Subjective Ms. Peterson is a 56-year-old woman with PMH significant for ESRD on HD MWF, DM, CAD , systolic congestive heart failure admitted for hyperkalemia and diarrhea. She received hemodialysis today 4 hours. Removal of 2.7 L UF. Still complains of bilateral lower extremity pain, not relieved with Tylenol. Other than that she has no specific complaints feels well but somnolent post dialysis. Exam Vital Signs Vital Sign - Last Date Time Temp Pulse Resp B/P Pulse Ox O2 Delivery O2 Flow Rate FiO2 03/14/17 14:37 37.6 74 18 182/89 95 Room Air Intake and Output 03/13/17 03/13/17 03/14/17 Cumulative From/Thru 15:00 23:00 07:00 03/13/17 14:59 - 03/14/17 06:33 Intake Total 1229 ml 1229 ml Output Total 300 ml 300 ml Balance 929 ml 929 ml Intake Oral 715 ml 715 ml IV Total 514 ml 514 ml Output Urine Total 300 ml 300 ml # Bowel Movements 5 5 Exam General: Awake and alert lying in hospital bed in no acute distress. Appropriately interactive though somnolent. HEENT: Normocephalic, atraumatic. External ears without defect. Pupils equal, round, and reactive to light and accommodation. Moist mucosa. Neck: Supple with full range of motion. No jugular venous distension. Cardiovascular: Regular rate and rhythm, soft systolic murmur heard best left sternal border Pulmonary: Clear to auscultation bilaterally with no crackles, wheezes, or rhonchi. Normal respiratory effort with no use of accessory muscles. Abdomen: Distended abdomen Soft, nontender. Extremities: Mild lower extremity edema to pretibial area. Left fistula intact , good thrill palpated. Skin: Normal temperature, turgor, and texture Neurological: Cranial nerves grossly intact. Psychiatric: Normal mood and affect. Alert and oriented to person, place, and time. IVs and Medications Medications Reviewed: Medications were reviewed in detail Lab and Diagnostics Result Diagram: 03/14/1740403/14/17404 X-Rays, CTs and MRIs . X-RAY CHEST ONE VIEW, PORTABLE IMPRESSION: 1. Small right-sided pleural effusion. 2. Bibasilar lung opacities compatible atelectasis versus pneumonia. Dictated by: Brenda Narayan MD, PhD on 03/13/2017 US ABDOMEN, LIMITED IMPRESSION: No ascites identified. Dictated by: Brenda Narayan MD, PhD on 03/13/2017 Assessment & Plan Ms. Peterson is a 56-year-old woman with PMH significant for ESRD on HD MWF, DM, CAD , systolic congestive heart failure admitted for hyperkalemia and diarrhea. Hyperkalemia, present on admission, ongoing -Most likely secondary to missed hemodialysis -Potassium 6.8 on admission, continues downward trend -Nephrology following patient, recommendations and treatment plan direction appreciated -Kayexalate given in ED -Calcium gluconate, albuterol insulin given overnight -Dialysis today -Normal saline 50 mL per hour -Held lisinopril & spironolactone -Continue to monitor End-stage renal disease on hemodialysis M/W/F L present on admission. Ongoing -Nephrology following recommendations and treatment plan direction appreciated -HD today 2.7 L UF taken off, repeat tomorrow Diarrhea, present on admission. Ongoing -Appropriate cultures and serologies pending -IV fluids as above Metabolic acidosis, present on admission. Ongoing -Bicarbonate given throughout last night -Hemodialysis as above -Continue to monitor Diabetic neuropathy, present on admission. Ongoing -Tylenol when necessary Heart failure with reduced EF, EF 40%, present on admission. Ongoing -Standing daily weights with strict I&O's -Continued furosemide. -Continued carvedilol, aware of hyperkalemic side effect -HD per nephrology Coronary artery disease, present on admission. Ongoing -Continue home atorvastatin -Continue home Plavix Hypertension, present on admission. Ongoing - Hold home medications lisinopril, spironolactone - Continue carvedilol, furosemide - Labetalol per nephrology Hyperlipidemia, present on admission. Ongoing - Continued home med atorvastatin Diabetes mellitus, present on admission. Ongoing -Hold home glipizide -Correction scale Possible Ascites, present on admission. Stable -Patient reports abdominal fullness similar to that of previous episodes of ascites -Abdominal ultrasound showed no evidence of ascites -Continue to monitor Patient Status: Patient will remain in Patient Status, scheduled for hemodialysis tomorrow. Dissipated discharge 1-2 days. GI Prophylaxis: H2 alejandra VTE Prophylaxis: Sub-Q Heparin (Unfractionated) Resuscitation Status: CPR: Attempt Resuscitation Time spent 30 minutes Attending Statement Patient has been seen and examined by myself with medical planner and agree with above history, physical, assessment and plan. BRODY PHILIP DO Mar 14, 2017 15:38 Arina Hartley MD Mar 14, 2017 16:08
[2017-03-14] MEDS: 0.9% Sodium Chloride 1,000 ML IV SCH (15:56)
--- NOTE | 2017-03-14 18:04 | NUR ---
Pt transferring to lower level of care after receiving HD today. Last K lab was 5.9 and next lab is currently pending. HD planned for tomorrow morning. Report given to JAGDEEP Vázquez at 1810.
--- NOTE | 2017-03-14 19:01 | NUR ---
Transfer of Care: Received report from Saira Willoughby RN. Arrived to room at approx 1840. Alert & oriented. C/O PERKINS, received Tylenol 650mg 2 hrs prior to this assessment. Bed in low and locked position, call light within reach. Encouraged to call with assistance to BR.
[2017-03-15] VITALS (7 sets, daily range): BP systolic 136–163; BP diastolic 64–78; PULSE 58–70; RESP 16–20; O2SAT 92–95
[2017-03-15] MEDS: Heparin 5,000 Unit/mL Inj SUBQ SCH ×3 (00:30→16:39)
[2017-03-15 06:26] LABS: BASOPHILS % (AUTO) 0.9 % (0-3); EOSINOPHILS % (AUTO) 5.5 % (0-5); MONOCYTES % (AUTO) 12.6 % (4-12); Mean Corpuscular Hemoglobin 30.2 pg (27.0-35.0); Mean Corpuscular Volume 92.9 fL (81-100); NEUTROPHILS % (AUTO) 58.9 % (40-74); Platelet Count 179 bil/L (150-400)
[2017-03-15 06:56] LABS: Magnesium 1.9 mg/dL (1.6-2.6); Phosphorus 5.8 mg/dL (2.5-4.9)
--- NOTE | 2017-03-15 07:03 | NUR ---
Uneventful Night: Pt rested through the night with no complaints of cardiac pain or discomfort. Denies SOB, n/v. Alert and oriented. Bed locked, low position. Call light within reach, using appropriately. Frequent rounding in place. Pleasant and cooperative with care.
[2017-03-15] MEDS: Insulin LISPRO 300 Unit/3 mL Inj SUBQ SCH ×4 (08:00→22:00)
[2017-03-15] MEDS: 0.9% Sodium Chloride 1,000 ML IV SCH ×2 (08:30→20:11)
--- NOTE | 2017-03-15 13:33 | PCM.PNNEPH ---
Subjective Date of Service Mar 15, 2017 Subjective Patient is slowly continuing to improve. Her breathing is better and her because she is not breathless. Her blood pressures have ranged between 100 sodium 160. This morning her sodium is 140 potassium 4.1, chloride 101, bicarbonate 26, BUN and creatinine were 34 and 4.38. Exam Vital Signs Vital Sign - Last Date Time Temp Pulse Resp B/P Pulse Ox O2 Delivery O2 Flow Rate FiO2 03/15/17 10:04 60 03/15/17 05:53 36.7 20 136/64 92 Room Air Intake and Output 03/14/17 03/14/17 03/15/17 Cumulative From/Thru 15:00 23:00 07:00 03/13/17 14:59 - 03/15/17 06:57 Intake Total 550 ml 100 ml 1879 ml Output Total 2700 ml 220 ml 3220 ml Balance -2700 ml 330 ml 100 ml -1341 ml Intake Oral 400 ml 100 ml 1215 ml IV Total 150 ml 664 ml Output Urine Total 220 ml 520 ml Ultrafiltrate 2700 ml 2700 ml # Voids 4 2 6 # Bowel Movements 0 0 5 Exam Lungs are clear to auscultation. Heart was regular and rhythmical. Systolic murmur. Abdomen is soft without any tenderness rebound guarding masses or hepatosplenomegaly. Extremities show any evidence of any edema. Lab and Diagnostics Result Diagram: 03/15/17 0532 03/15/17 0532 X-Rays, CTs and MRIs . X-RAY CHEST ONE VIEW, PORTABLE IMPRESSION: 1. Small right-sided pleural effusion. 2. Bibasilar lung opacities compatible atelectasis versus pneumonia. Dictated by: Brenda Narayan MD, PhD on 03/13/2017 US ABDOMEN, LIMITED IMPRESSION: No ascites identified. Dictated by: Brenda Narayan MD, PhD on 03/13/2017 Plan Impression Impression #1 end-stage renal disease dialysis dependent #2 chronic noncompliance with dialysis treatments and medication #3 hyperkalemia which is resolving number for her metabolic acidosis which is resolving #5 diabetic nephropathy #6 hypertension with hypertensive heart disease and hypertensive nephrosclerosis. Recommendations #1 patient who dialyzes 4 hours on a standard dialyzer, 3 potassium bath, 400 blood flow to 600 dialysate flow, 137 sodium, 38 bicarbonate, 1200 of heparin bolus and 400 per hour, dialysate temperature 36.5 and will take 2-3 L of fluid off. From my point of view she can be discharged whenever the primary team okays it. Andrew Stevens DO Mar 15, 2017 13:33
--- NOTE | 2017-03-15 14:23 | NUR ---
Pt returned to unit: Pt completed treatment and may return to [facility]. Report given to primary nurse by dialysis nurse. management technician aware of transfer.
--- NOTE | 2017-03-15 14:26 | NUR ---
Dialysis note: 4 hr tx Net UF 3000 Left UA fistula x 2- 15g needles QB 400 Pt slept or rested through most of tx. She did eat lunch. 1230 BG 100. Blood returned, site held by RNElsa, x 10 min. Thrill noted and site secured with gauze and tape. Report given to primary RNCatarino, and pt returned to floor stable. Please see DTR for complete record of VS
--- NOTE | 2017-03-15 14:44 | NUR ---
return from dialysis pt is transported back from dialysis in [facility] bed by [facility] RN and [facility] [employer]. pt was in dialysis for approximately 4 hours and had 3L of fluid removed. Blood glucose before lunch was 100, BP was 169/73. pt is now resting in her room, asks for a glass of water and a glass of apple juice.
--- NOTE | 2017-03-15 16:51 | PCM.PNMED ---
Subjective Date of Service Mar 15, 2017 Subjective Complains of generalized malaise and weakness. No further diarrhea today Exam Vital Signs Vital Sign - Last Date Time Temp Pulse Resp B/P Pulse Ox O2 Delivery O2 Flow Rate FiO2 03/15/17 15:38 37.0 67 18 160/70 94 Room Air Intake and Output 03/14/17 03/14/17 03/15/17 Cumulative From/Thru 15:00 23:00 07:00 03/13/17 14:59 - 03/15/17 06:57 Intake Total 550 ml 100 ml 1879 ml Output Total 2700 ml 220 ml 3220 ml Balance -2700 ml 330 ml 100 ml -1341 ml Intake Oral 400 ml 100 ml 1215 ml IV Total 150 ml 664 ml Output Urine Total 220 ml 520 ml Ultrafiltrate 2700 ml 2700 ml # Voids 4 2 6 # Bowel Movements 0 0 5 General: Alert, Cooperative, No Acute Distress Head: Normal Eyes: Scleral Anicteric Nose: Mucous Membr Moist/[place] Mouth: Mucous Membr Moist/[place] Neck: Supple Chest & Lungs: Chest Wall Normal, Clear to auscultation & percussion Cardiovascular: Regular Rate/Rhythm Abdomen: Non-tender, Non-distended, Normoactive bowel tones, Soft Extremities: No cyanosis/clubbing/edma bilat Neurological: Grossly Neurologically Intact, Normal Speech IVs and Medications Medications Reviewed: Medications were reviewed in detail Lab and Diagnostics Result Diagram: 03/15/17 0532 03/15/17 0532 X-Rays, CTs and MRIs . X-RAY CHEST ONE VIEW, PORTABLE IMPRESSION: 1. Small right-sided pleural effusion. 2. Bibasilar lung opacities compatible atelectasis versus pneumonia. Dictated by: Brenda Narayan MD, PhD on 03/13/2017 US ABDOMEN, LIMITED IMPRESSION: No ascites identified. Dictated by: Brenda Narayan MD, PhD on 03/13/2017 Assessment & Plan 56-year-old woman with PMH significant for ESRD on HD MWF, DM, CAD, systolic congestive heart failure admitted for hyperkalemia and diarrhea. # Acute Hyperkalemia, present on admission. Improved - Most likely secondary to missed hemodialysis - Potassium 6.8 on admission - Kayexalate given in ED - Calcium gluconate, albuterol insulin given overnight - Continue with dialysis per nephrology # End-stage renal disease on hemodialysis M/W/F L present on admission. Ongoing - Appreciate Nephrology consult. Will followup with recs. - HD today # Acute Diarrhea, present on admission. Resolved - Check cultures and serologies if reoccur # Acute Metabolic acidosis, present on admission. Improved - Bicarbonate given earlier - Hemodialysis as above # Chronic diabetic neuropathy, present on admission. Ongoing - Continue with supportive care # Chronic heart failure with reduced EF, EF 40%, present on admission. Ongoing - Standing daily weights with strict I&O's - Continued furosemide. - Continued carvedilol, aware of hyperkalemic side effect - HD per nephrology # Coronary artery disease, present on admission. Stable - Continue home atorvastatin - Continue home Plavix # Hypertension, present on admission. Ongoing - Resume home medications lisinopril, spironolactone - Continue carvedilol, furosemide # Hyperlipidemia, present on admission. Stable - Continued home med atorvastatin # Diabetes mellitus, present on admission. Stable. - Hold home glipizide - Correction scale # Possible Ascites, present on admission. - Abdominal ultrasound showed no evidence of ascites - Continue to monitor Dispo: 1-2 days GI Prophylaxis: H2 alejandra VTE Prophylaxis: Sub-Q Heparin (Unfractionated) Resuscitation Status: CPR: Attempt Resuscitation Maico Calero Mar 15, 2017 16:51 Maico Calero Mar 15, 2017 16:51
[2017-03-16] VITALS (8 sets, daily range): BP systolic 141–173; BP diastolic 69–82; PULSE 61–75; RESP 16–22; O2SAT 93–97
[2017-03-16] MEDS: Heparin 5,000 Unit/mL Inj SUBQ SCH ×3 (00:55→17:51)
--- NOTE | 2017-03-16 03:01 | NUR ---
Uneventful Night Pt drowsy after returning to unit after dialysis. Pt reports this is baseline..Rested through the night with no complaints of pain or discomfort. Denies SOB or n/v. Up to bathroom with SBA and FWW. Call light within reach, using appropriately. Frequent rounding in place. Pleasant and cooperative with care.
[2017-03-16] MEDS: Insulin LISPRO 300 Unit/3 mL Inj SUBQ SCH ×4 (08:00→22:00)
--- NOTE | 2017-03-16 10:28 | NUR ---
Evaluation completed. Please go to "Notes" then click on "Assessments and Notes" (bottom left corner of screen). Then select appropriate discipline tab on top of screen.
[2017-03-16] MEDS: 0.9% Sodium Chloride 1,000 ML IV SCH (15:34)
--- NOTE | 2017-03-16 16:11 | PCM.PNMED ---
Subjective Date of Service Mar 16, 2017 Subjective Complains of generalized malaise and weakness. No further diarrhea today Exam Vital Signs Vital Sign - Last Date Time Temp Pulse Resp B/P Pulse Ox O2 Delivery O2 Flow Rate FiO2 03/16/17 12:55 37.0 65 22 158/75 97 Room Air Intake and Output 03/15/17 03/15/17 03/16/17 Cumulative From/Thru 15:00 23:00 07:00 03/13/17 14:59 - 03/16/17 06:12 Intake Total 796 ml 400 ml 473 ml 3548 ml Output Total 3000 ml 200 ml 400 ml 6820 ml Balance -2204 ml 200 ml 73 ml -3272 ml Intake Oral 400 ml 473 ml 2088 ml IV Total 796 ml 1460 ml Output Urine Total 200 ml 400 ml 1120 ml Ultrafiltrate 3000 ml 5700 ml # Voids 6 # Bowel Movements 5 Exam General: Alert, Cooperative, No Acute Distress Head: Normal Eyes: Scleral Anicteric Nose: Mucous Membr Moist/[place] Mouth: Mucous Membr Moist/[place] Neck: Supple Chest & Lungs: Chest Wall Normal, Clear to auscultation bilat Cardiovascular: Regular Rate/Rhythm Abdomen: Non-tender, Non-distended, Normoactive bowel tones, Soft Extremities: No cyanosis/clubbing/edema bilat Neurological: Grossly Neurologically Intact, Normal Speech IVs and Medications Medications Reviewed: Medications were reviewed in detail Lab and Diagnostics Result Diagram: 03/15/17 0532 03/15/17 0532 X-Rays, CTs and MRIs . X-RAY CHEST ONE VIEW, PORTABLE IMPRESSION: 1. Small right-sided pleural effusion. 2. Bibasilar lung opacities compatible atelectasis versus pneumonia. Dictated by: Brenda Narayan MD, PhD on 03/13/2017 US ABDOMEN, LIMITED IMPRESSION: No ascites identified. Dictated by: Brenda Narayna MD, PhD on 03/13/2017 Assessment & Plan 56-year-old woman with PMH significant for ESRD on HD MWF, DM, CAD, systolic congestive heart failure admitted for hyperkalemia and diarrhea. # Acute Hyperkalemia, present on admission. Improved - Most likely secondary to missed hemodialysis - Potassium 6.8 on admission - Kayexalate given in ED - Calcium gluconate, albuterol insulin given overnight - Continue with dialysis per nephrology # End-stage renal disease on hemodialysis M/W/F L present on admission. Ongoing - Appreciate Nephrology consult. Will followup with recs. - HD today # Acute Diarrhea, present on admission. Resolved - Check cultures and serologies if reoccur # Acute Metabolic acidosis, present on admission. Improved - Bicarbonate given earlier - Hemodialysis as above # Chronic diabetic neuropathy, present on admission. Ongoing - Continue with supportive care # Chronic heart failure with reduced EF, EF 40%, present on admission. Ongoing - Standing daily weights with strict I&O's - Continued furosemide. - Continued carvedilol, aware of hyperkalemic side effect - HD per nephrology # Coronary artery disease, present on admission. Stable - Continue home atorvastatin - Continue home Plavix # Hypertension, present on admission. Ongoing - Resume home medications lisinopril, spironolactone - Continue carvedilol, furosemide # Hyperlipidemia, present on admission. Stable - Continued home med atorvastatin # Diabetes mellitus, present on admission. Stable. - Hold home glipizide - Correction scale # Possible Ascites, present on admission. - Abdominal ultrasound showed no evidence of ascites - Continue to monitor Dispo: Likely SNF in am GI Prophylaxis: H2 alejandra VTE Prophylaxis: Sub-Q Heparin (Unfractionated) Resuscitation Status: CPR: Attempt Resuscitation Maico Calero Mar 16, 2017 16:11
--- NOTE | 2017-03-16 16:13 | NUR ---
Social Work: Readiness for Discharge/RAMA Data: EMR reviewed. Patient is on day 3 of hospitalization for hyperkalemia & diarrhea per H&P. Patient discussed in morning rounds. MD placed an order for PT to evaluate patient. PT has made the recommendation of SNF for rehab. SW requested a SNF order from MD in order to speak with patient. MD has placed SNF order. SW met with patient to discuss SNF options. Patient's nephew was at bedside. SW role explained. SW provide patient and nephew with SNF choice list. Patient has selected [facility]. SW called SNF and spoke with Ruthie Bertrand regarding patient. Ruthie confirmed that a female bed was available and requested patient information to be faxed to [phone]. SW has faxed over information packet. Patient has been deemed medically stable to discharge to SNF today per MD. Ruthie informed SW that patient's information will be reviewed by nurses this afternoon. SW will be called in the AM for an update. MD has communication information from SNF to MD and to patient. MD and patient are in agreement. During visit, patient also signed RAMA. SW will continue to follow for additional needs. Assessment: Patient will discharge SNF for STR. Plan: Patient has selected [facility] for STR. Paperwork has been faxed to SNF for review. SW will receive a call tomorrow morning regarding an update. SW will continue to follow. CHRISSIE Middleton
[2017-03-17] VITALS (9 sets, daily range): BP systolic 147–171; BP diastolic 69–81; PULSE 66–79; RESP 18–22; O2SAT 96
[2017-03-17] MEDS: Heparin 5,000 Unit/mL Inj SUBQ SCH ×3 (00:46→16:45)
--- NOTE | 2017-03-17 06:08 | NUR ---
sleepy tonight Arouses to voice, states she just feels tired. Denies pain / nausea. Resting quietly, no acute change.
[2017-03-17] MEDS: Insulin LISPRO 300 Unit/3 mL Inj SUBQ SCH ×4 (08:28→22:12)
--- NOTE | 2017-03-17 09:58 | NUR ---
Social Work- Update Note KUSHAL spoke with Yunior, admissions at [facility], regarding pt's discharge. Yunior confirms receipt of information, is speaking with her RN and will call FISH ICER back. Informed Yunior that pt is medically ready for d/c, contact information provided. Danielle Mc MSW
--- NOTE | 2017-03-17 12:09 | PCM.PNNEPH ---
Subjective Date of Service Mar 17, 2017 Subjective The patient's condition is stable. Apparently she is pending placement prior to discharge. She denies any new headache, chest pain, or breathing issue. Exam Vital Signs Vital Sign - Last Date Time Temp Pulse Resp B/P Pulse Ox O2 Delivery O2 Flow Rate FiO2 03/17/17 10:38 75 03/17/17 09:59 37.1 18 147/69 96 Room Air Intake and Output 03/16/17 03/16/17 03/17/17 Cumulative From/Thru 15:00 23:00 07:00 03/13/17 14:59 - 03/17/17 06:04 Intake Total 1767 ml 473 ml 5788 ml Output Total 1300 ml 300 ml 8420 ml Balance 467 ml 173 ml -2632 ml Intake Oral 436 ml 473 ml 2997 ml IV Total 1331 ml 2791 ml Output Urine Total 1300 ml 300 ml 2720 ml Ultrafiltrate 5700 ml # Voids 6 # Bowel Movements 0 5 Exam Neck his neck is supple without adenopathy, thyromegaly, or return of venous distention. Lungs are clear to auscultation. Heart is regular and rhythmical with a soft systolic murmur. Abdomen is slightly distended with a free fluid noted. There is no tenderness rebound or tenseness. Extremities show any evidence of any clubbing cyanosis or edema. Lab and Diagnostics Result Diagram: 03/15/17 0532 03/17/17 0530 X-Rays, CTs and MRIs . X-RAY CHEST ONE VIEW, PORTABLE IMPRESSION: 1. Small right-sided pleural effusion. 2. Bibasilar lung opacities compatible atelectasis versus pneumonia. Dictated by: Brenda Narayan MD, PhD on 03/13/2017 US ABDOMEN, LIMITED IMPRESSION: No ascites identified. Dictated by: Brenda Narayan MD, PhD on 03/13/2017 Plan Impression Impression #1 end-stage renal disease dialysis dependent with noncompliance #2 hyperkalemia which is resolved #3 diabetic nephropathy #4 retention with hypertensive heart disease and hypertensive nephrosclerosis. Recommendations #1 make arrangements for her dialysis in the morning pending discharge. Andrew Stevens DO Mar 17, 2017 12:09
--- NOTE | 2017-03-17 12:24 | NUR ---
Social Work- Readiness for Discharge Data: EMR reviewed. Pt is on day 4 of hospitalization. Pt discussed in rounds, pt is medically stable to d/c today. SW placed call to [facility] regarding discharge. Magaly at [facility] is willing to accept pt but is unwilling to accept pt today due to a high number of admits. SW reiterated that pt is medically stable. Magaly is agreeable to accepting pt tomorrow prior to dialysis. [facility] does not provide transportation from [facility] to [facility]. SW met with pt at bedside regarding d/c plan, transportation. Pt is agreeable to discharge to [facility] tomorrow and reports that her sister will take her to the facility from the hospital. Magaly at [facility] requests that pt discharge from [facility] and go straight to dialysis at 1300 tomorrow at [facility], then [facility] will picker and packer pt from dialysis and admit her. SW spoke with pt regarding this at bedside, pt requested that [employer] call her sister Becca. T/C to Becca [phone], left message explaining d/c plan. RN and MD updated regarding d/c plan as well. Admit orders requested to be completed by 11 am tomorrow. Paperwork in chart and PASRR has been faxed and is in folder. KUSHAL will continue to follow. Assessment: Pt for whom SNF is medically necessary Plan: Pt to d/c at 11:30 am tomorrow with her sister to transport via POV to dialysis at [facility], appt at 1 pm. After dialysis, [facility] (or pt's sister can take her to [facility] after dialysis). Left message for pt's sister regarding d/c plan. RN, MD, and UR RN aware of d/c plan. Paperwork in chart, PASRR completed, faxed, and in folder. KUSHAL will continue to follow. CHRISSIE Ramos
--- NOTE | 2017-03-17 17:13 | PCM.PNMED ---
Subjective Date of Service Mar 17, 2017 Subjective Continues to complaint of generalized malaise and weakness. No further diarrhea Exam Vital Signs Vital Sign - Last Date Time Temp Pulse Resp B/P Pulse Ox O2 Delivery O2 Flow Rate FiO2 03/17/17 16:16 36.6 76 18 166/77 96 Room Air Intake and Output 03/16/17 03/16/17 03/17/17 Cumulative From/Thru 15:00 23:00 07:00 03/13/17 14:59 - 03/17/17 06:04 Intake Total 1767 ml 473 ml 5788 ml Output Total 1300 ml 300 ml 8420 ml Balance 467 ml 173 ml -2632 ml Intake Oral 436 ml 473 ml 2997 ml IV Total 1331 ml 2791 ml Output Urine Total 1300 ml 300 ml 2720 ml Ultrafiltrate 5700 ml # Voids 6 # Bowel Movements 0 5 Exam General: Alert, Cooperative, No Acute Distress Head: Normal Eyes: Scleral Anicteric Nose: Mucous Membr Moist/[place] Mouth: Mucous Membr Moist/[place] Neck: Supple Chest & Lungs: Chest Wall Normal, Clear to auscultation bilat Cardiovascular: Regular Rate/Rhythm Abdomen: Non-tender, Non-distended, Normoactive bowel tones, Soft Extremities: No cyanosis/clubbing/edema bilat Neurological: Grossly Neurologically Intact, Normal Speech IVs and Medications Medications Reviewed: Medications were reviewed in detail Lab and Diagnostics Result Diagram: 03/15/17 0532 03/17/17 0530 X-Rays, CTs and MRIs . X-RAY CHEST ONE VIEW, PORTABLE IMPRESSION: 1. Small right-sided pleural effusion. 2. Bibasilar lung opacities compatible atelectasis versus pneumonia. Dictated by: Brenda Narayan MD, PhD on 03/13/2017 US ABDOMEN, LIMITED IMPRESSION: No ascites identified. Dictated by: Brenda Narayan MD, PhD on 03/13/2017 Assessment & Plan 56-year-old woman with PMH significant for ESRD on HD MWF, DM, CAD, systolic congestive heart failure admitted for hyperkalemia and diarrhea. # Acute Hyperkalemia, present on admission. Improved - Most likely secondary to missed hemodialysis - Potassium 6.8 on admission - Kayexalate given in ED - Calcium gluconate, albuterol insulin given overnight - Continue with dialysis per nephrology # End-stage renal disease on hemodialysis M/W/F L present on admission. Ongoing - Appreciate Nephrology consult. Will followup with recs. - HD today # Acute Diarrhea, present on admission. Resolved - Check cultures and serologies if reoccur # Acute Metabolic acidosis, present on admission. Improved - Bicarbonate given earlier - Hemodialysis as above # Chronic diabetic neuropathy, present on admission. Ongoing - Continue with supportive care # Chronic heart failure with reduced EF, EF 40%, present on admission. Ongoing - Standing daily weights with strict I&O's - Continued furosemide. - Continued carvedilol, aware of hyperkalemic side effect - HD per nephrology # Coronary artery disease, present on admission. Stable - Continue home atorvastatin - Continue home Plavix # Hypertension, present on admission. Ongoing - Resume home medications lisinopril, spironolactone - Continue carvedilol, furosemide # Hyperlipidemia, present on admission. Stable - Continued home med atorvastatin # Diabetes mellitus, present on admission. Stable. - Hold home glipizide - Correction scale # Possible Ascites, present on admission. - Abdominal ultrasound showed no evidence of ascites - Continue to monitor Dispo: Likely SNF in am GI Prophylaxis: H2 alejandra VTE Prophylaxis: Sub-Q Heparin (Unfractionated) Resuscitation Status: CPR: Attempt Resuscitation Maico Calero Mar 17, 2017 17:13
--- NOTE | 2017-03-17 22:12 | NUR ---
Insulin double checked 1unit by mark de dios RN
[2017-03-18] VITALS (8 sets, daily range): BP systolic 125–179; BP diastolic 68–80; PULSE 67–85; RESP 17–20; O2SAT 94–96
[2017-03-18] MEDS: Heparin 5,000 Unit/mL Inj SUBQ SCH ×3 (00:33→16:51)
--- NOTE | 2017-03-18 06:01 | NUR ---
NOC PT has slept the entire 12 hours of this shift. PT very lethargic. OPens eyes to light touch, but only calls when pt needs to use the bathroom. Denies any pain. L wrist area noted to be a little swollen below fistula site. Fistula intact upon palpation,but pt encouraged to elevate wrist on pillow. Area was also tender to touch. WIll continue to monitor this. PT has audible murmur noted. Mild crackles heard in anterior right mid-lobe. No cough noted. Abdomen is slightly distended due to ascites,but pt reports that "this is good." BG was 223 at 2200 and 149 at recheck at 0300. Skin is very dry and flaky. Tele has been in SR in 70's. PT is planned for d/c today to [facility] at 1100. PT will go to [facility] [address].
[2017-03-18] MEDS: Insulin LISPRO 300 Unit/3 mL Inj SUBQ SCH ×4 (08:00→22:00)
--- NOTE | 2017-03-18 08:30 | PCM.DIMED ---
Discharge Instructions Date of Service Mar 18, 2017 Dates of Hospitalization Mar 13, 2017 at 17:13 Discharge Diagnosis Discharge Diagnosis # Acute Hyperkalemia, present on admission. Resolved - Most likely secondary to missed hemodialysis # End-stage renal disease on hemodialysis M/W/F, present on admission. Ongoing # Acute Diarrhea, present on admission. Resolved # Acute Metabolic acidosis, present on admission. Improved # Chronic diabetic neuropathy, present on admission. Ongoing # Chronic heart failure with reduced EF of 40%, present on admission. Ongoing # Coronary artery disease, present on admission. Stable # Hypertension, present on admission. Ongoing # Hyperlipidemia, present on admission. Stable # Diabetes mellitus, present on admission. Stable. Diet Discharge Diet: Heart Healthy, Diabetic, Renal Diet Activity Discharge Activity: Other (as tolerated and per physical therapy) Patient Instructions Follow-up plan 1. Followup with hemodialysis clinic and with your director biostatistics as previously planned and scheduled. 2. Followup with primary care provider in 4-10 days Follow-up Provider: Mayito Gaines MD, Masoud Mar 18, 2017 08:30
--- NOTE | 2017-03-18 08:35 | PCM.DC.MED ---
Discharge Summary Date of Service Mar 18, 2017 Dates of Hospitalization Date of Hospital Admission Mar 13, 2017 at 17:13 Date of Discharge: Mar 18, 2017 Providers: Admitting Physician: Arina Hartley MD Primary Care Physician: Michael Barrera MD Attending Physician: Maico Amos Diagnosis at Time of Discharge Diagnosis at Time of Discharge # Acute Hyperkalemia, present on admission. Resolved - Most likely secondary to missed hemodialysis # End-stage renal disease on hemodialysis M/W/F, present on admission. Ongoing # Acute Diarrhea, present on admission. Resolved # Acute Metabolic acidosis, present on admission. Improved # Chronic diabetic neuropathy, present on admission. Ongoing # Chronic heart failure with reduced EF of 40%, present on admission. Ongoing # Coronary artery disease, present on admission. Stable # Hypertension, present on admission. Ongoing # Hyperlipidemia, present on admission. Stable # Diabetes mellitus, present on admission. Stable. Consultations 1. Nephrology (Dr. Stevens) Procedures XRay, CTs & MRIs X-RAY CHEST ONE VIEW, PORTABLE IMPRESSION: 1. Small right-sided pleural effusion. 2. Bibasilar lung opacities compatible atelectasis versus pneumonia. Dictated by: Brenda Narayan MD, PhD on 03/13/2017 US ABDOMEN, LIMITED IMPRESSION: No ascites identified. Dictated by: Brenda Narayan MD, PhD on 03/13/2017 Brief History As noted in H&P by Dr. Starks: Ms. Peterson is a 56-year-old female past medical history of ESRD on HD Saturday, CHF, hypertension, diabetes mellitus, CAD, recurrent ascites presents to the ED secondary to diarrhea 1 week, shortness of breath, bilateral lower leg edema with pain in both legs. She has recent admissions for similar symptoms. Patient lives with daughter who is not sick. States the diarrhea has been on and off for one week. Multiple times a day. Denies blood or mucus and diarrhea. Denies any other sick contacts. Denies fever or chills , shortness of breath, chest pain and headache. Does state some blurry vision. Denies abdominal pain though does state abdominal fullness stating that it feels similar to previous episodes of abdominal ascites. In the ED patient was given 30 g oral Kayexalate. Hospital Course # Acute Hyperkalemia, present on admission. Resolved - Most likely secondary to missed hemodialysis - Potassium 6.8 on admission - Kayexalate given in ED - Calcium gluconate, albuterol insulin given overnight - Continued with dialysis per nephrology # End-stage renal disease on hemodialysis M/W/F present on admission. Ongoing - Appreciate Nephrology consult. - Due for HD again today. # Acute Diarrhea, present on admission. Resolved before able to get any samples # Acute Metabolic acidosis, present on admission. Improved - Bicarbonate given earlier - Hemodialysis as above # Chronic diabetic neuropathy, present on admission. Ongoing - Continued with supportive care # Chronic heart failure with reduced EF, EF 40%, present on admission. Ongoing - Standing daily weights with strict I&O's - Continued furosemide. - Continued carvedilol - HD per nephrology # Coronary artery disease, present on admission. Stable - Continued home atorvastatin - Continued home Plavix # Hypertension, present on admission. Ongoing - Resumed home medications lisinopril, spironolactone - Continued carvedilol, furosemide # Hyperlipidemia, present on admission. Stable - Continued home med atorvastatin # Diabetes mellitus, present on admission. Stable. - Held home glipizide during the hospital. Will resume on discharge - Correction scale # Possible Ascites, present on admission. - Abdominal ultrasound showed no evidence of ascites by day of discharge continues to report and complain of generalized weakness. Was seen by PT who recommended SNF. Patient denies any pain, nausea, or vomiting. No SOB or diarrhea. Exam Vital Signs (Last) Date Time Temp Pulse Resp B/P Pulse Ox O2 Delivery O2 Flow Rate FiO2 03/18/17 04:31 37.2 83 20 145/68 94 Room Air Exam General: Alert, Cooperative, No Acute Distress Head: Normal Eyes: Scleral Anicteric Nose: Mucous Membr Moist/[place] Mouth: Mucous Membr Moist/[place] Neck: Supple Chest & Lungs: Chest Wall Normal, Clear to auscultation bilat Cardiovascular: Regular Rate/Rhythm Abdomen: Non-tender, Non-distended, Normoactive bowel tones, Soft Extremities: No cyanosis/clubbing/edema bilat Neurological: Grossly Neurologically Intact, Normal Speech Test 03/13/17 15:50 03/14/17 04:05 03/15/17 05:32 03/17/17 05:30 Hold Hartman Top Tube Received (Received) Hemoglobin A1c 7.8% (4.8-5.6) Lactic Acid Level 1.3mmol/L (0.4-2.0) White Blood Count 5.6th/mm3 (3.8-10.1) Red Blood Count 3.24mil/mm3 (3.90-5.20) Hemoglobin 9.8g/dL (12.0-15.6) Hematocrit 30.1% (35.0-46.0) Mean Corpuscular Volume 92.9fL (81-100) Mean Corpuscular Hemoglobin 30.2pg (27.0-35.0) Mean Corpuscular Hemoglobin Concent 32.6% (32.0-37.0) Red Cell Distribution Width 16.8% (12.3-15.4) Platelet Count 179bil/L (150-400) Neutrophils (%) (Auto) 58.9% (40-74) Lymphocytes (%) (Auto) 21.9% (14-46) Monocytes (%) (Auto) 12.6% (4-12) Eosinophils (%) (Auto) 5.5% (0-5) Basophils (%) (Auto) 0.9% (0-3) Phosphorus Level 5.8mg/dL (2.5-4.9) Magnesium Level 1.9mg/dL (1.6-2.6) Total Bilirubin 0.5mg/dL (0.0-1.2) Aspartate Amino Transf (AST/SGOT) 20U/L (0-50) Alanine Aminotransferase (ALT/SGPT) 20U/L (0-32) Alkaline Phosphatase 217U/L (25-150) Total Protein 6.4g/dL (6.4-8.4) Albumin 3.1g/dL (3.4-5.0) Sodium Level 139mEq/L (134-144) Potassium Level 4.8mEq/L (3.5-5.2) Chloride Level 98mEq/L (97-108) Carbon Dioxide Level 24mmol/L (18-29) Blood Urea Nitrogen 51mg/dL (6-24) Creatinine 5.89mg/dL (0.57-1.00) Estimat Glomerular Filtration Rate 11mL/min (>59) Glucose Level 236mg/dL (60-99) Calcium Level 7.9mg/dL (8.5-10.1) Discharge Medications Discharge Medications Atorvastatin Calcium (Atorvastatin Calcium) 80 Mg Tablet 80 MG PO HS (Reported) Carvedilol (Carvedilol) 6.25 Mg Tablet 6.25 MG PO BID (Reported) Clopidogrel (Clopidogrel) 75 Mg Tablet 75 MG PO DAILY Prescribed by: JESUS CHINO MD Furosemide (Furosemide) 40 Mg Tablet 40 MG PO BID (Reported) Lisinopril (Lisinopril) 5 Mg Tablet 5 MG PO BID Prescribed by: MAICO AMOS MD Spironolactone (Spironolactone) 100 Mg Tablet 200 MG PO QAM (Reported) As needed Glipizide (Glipizide) 5 Mg Tablet 2.5 MG PO DAILY PRN PRN hyperglycemia ( Reported) Followup Plan Disposition: SNF Follow-up plan 1. Followup with hemodialysis clinic and with your company laundry worker as previously planned and scheduled. 2. Followup with primary care provider in 4-10 days Discharge Diet: Heart Healthy, Diabetic, Renal Diet Discharge Activity: Other (as tolerated and per physical therapy) Follow-up Provider: Mayito Gaines MD Time spent 35 min copies to: Mayito Gaines MD, Masoud Mar 18, 2017 08:35
--- NOTE | 2017-03-18 10:00 | NUR ---
ESTELA unit Patient transferred to [facility] for dialysis, report given to Manjula.
--- NOTE | 2017-03-18 10:08 | NUR ---
pt arrived to [facility] for DIALYSIS at 1000 bedside report received from primary nurse HUBERT telegraphic instrument supervisor patient monitor informed of temp room location coordinator of library services at bedside; will cont to monitor
--- NOTE | 2017-03-18 10:22 | NUR ---
Social Work-discharge: data:EMR reviewed. Pt is on day 5 of hospitalization for hyperkalemia per H&P. Pt is medically stable for discharge. KUSHAL updated by bedside RN that manager clinical research would like pt to dialysis here at [facility] prior to discharge. PT has recommended SNF. KUSHAL faxed orders to [facility] and informed them pt will be coming later this afternoon after dialysis. Facility agreeable and confirms they received orders. KUSHAL spoke with pt's sister Becca who confirms she can provide transport and will pick pt up at [facility] around 1430. SW to provide packet to pt and sister. Pt is updated and agreeable to plan. RN,UC,pt/family, and [facility] all updated and agreeable to plan. Assessment:Pt who would benefit from SNF. Plan:Pt to discharge to [facility] today via POV at 1430. Pt to have dialysis here at [facility] then discharge after. RN,UC,pt/family, and [facility] all updated and agreeable to plan. CHRISSIE Holden Addendum: 03/18/17 at 1141 by NATALY CASTRO SS KUSHAL updated [facility] that pt will have dialysis here today and then will be back with them on Saturday. CHRISSIE Holden Addendum: 03/18/17 at 1608 by NATALY JASMINE SW updated by that pt's discharge has been cancelled for today. SW updated [facility]. CHRISSIE Holden
--- NOTE | 2017-03-18 13:37 | NUR ---
Dialysis nurse note: Pt states that she thinks she may have had a stroke early this morning. "My legs were shaking, my left arm hurts, my tongue makes it hard to talk, I feel bad." She did eat all of her lunch within the last 30 min and appeared to have no problem swallowing. Primary RN Bob notified of pt complaints.
--- NOTE | 2017-03-18 15:39 | NUR ---
pt returned to [facility] post dialysis at 1520 JF RN at bedside see stone rougher note, intervention, and/or graphic flow for treatment details
--- NOTE | 2017-03-18 15:55 | PCM.PNNEPH ---
Subjective Date of Service Mar 18, 2017 Subjective Patient is scheduled for discharge from the extended care facility today after dialysis. She offers no new complaints and denies chest pain or shortness of breath. Exam Vital Signs Vital Sign - Last Date Time Temp Pulse Resp B/P Pulse Ox O2 Delivery O2 Flow Rate FiO2 03/18/17 10:27 67 03/18/17 09:25 37.1 20 138/73 96 Room Air Intake and Output 03/17/17 03/17/17 03/18/17 Cumulative From/Thru 15:00 23:00 07:00 03/13/17 14:59 - 03/18/17 06:19 Intake Total 920 ml 673 ml 7381 ml Output Total 925 ml 900 ml 54210 ml Balance -5 ml -227 ml -2864 ml Intake Oral 920 ml 673 ml 4590 ml IV Total 2791 ml Output Urine Total 925 ml 900 ml 4545 ml Ultrafiltrate 5700 ml # Voids 6 # Bowel Movements 4 9 Exam Neck is supple without adenopathy, thyromegaly, or jugular venous distention. Lungs were clear though somewhat diminished. Heart was irregular regular. Abdomen was soft and somewhat distended with free fluid wave noted. Her abdomen was nontender. Extremities show any evidence of any edema. Lab and Diagnostics Result Diagram: 03/15/17 0532 03/17/17 0530 X-Rays, CTs and MRIs X-RAY CHEST ONE VIEW, PORTABLE IMPRESSION: 1. Small right-sided pleural effusion. 2. Bibasilar lung opacities compatible atelectasis versus pneumonia. Dictated by: Brenda Narayan MD, PhD on 03/13/2017 US ABDOMEN, LIMITED IMPRESSION: No ascites identified. Dictated by: Brenda Narayan MD, PhD on 03/13/2017 Plan Impression Impression #1 end-stage renal disease dialysis dependent Recommendations #1 patient is to be dialyzed today for 4 hours prior to discharge on a standard dialyzer, 400 blood flow rate, 600 dialysate were flow rate, 137 sodium, 2 potassium bath and 37 bicarbonate and 30 6.5D degree dialysate temperature. We will also give her 1200 of heparin and 400/h and try to take 3-4 L as tolerated. Following dialysis she can be discharged. Andrew Stevens DO Mar 18, 2017 15:55
--- NOTE | 2017-03-18 16:00 | NUR ---
Back to [facility] Patient back to room, Dr. Calero seen and examined patient and cancelled D/C for today due to patient not comfortable being discharge today. Lab work ordered and other diagnostic test. Patient appear to be regaining her strength back, appetite is good, need one person when transferring at this time. Sister stayed in the room and aware of plan for tomorrow.
--- NOTE | 2017-03-18 16:18 | NUR ---
Dialysis note Total treatment time 4.0 Net removed 3000ml pt stable, vitals stable c/o general weakness bruit/thrill present in L AVG, lidocaine administered to both sites, cannulated with 15g needles, x1 attempt per site, pt tolerated well heparin 1000units/ml administered treatment started without difficulty, pt resting quietly pt ate 95% of lunch without difficulty treatment uneventful and stable during treatment end pt states she believed she had a stroke, which was earlier reported to primary nurse clamps x 10 minutes per site, bleeding stopped, gauze and tape applied primary nurse came to speak with patient and notified md, pt was transferred back to floor for further evaluation pt stable at discharge
--- NOTE | 2017-03-18 16:28 | NUR ---
Social Work-cancelled discharge: Social Work updated by MD that pt's discharge has been cancelled. [facility] Pt's sister Becca states she can provide transport tomorrow if pt is discharged. KUSHAL will continue to follow. CHRISSIE Holden
--- NOTE | 2017-03-18 16:49 | PCM.PNMED ---
Subjective Date of Service Mar 18, 2017 Subjective Complains of significant generalized malaise and weakness post dialysis today and says very anxious about discharge Exam Vital Signs Vital Sign - Last Date Time Temp Pulse Resp B/P Pulse Ox O2 Delivery O2 Flow Rate FiO2 03/18/17 10:27 67 03/18/17 09:25 37.1 20 138/73 96 Room Air Intake and Output 03/17/17 03/17/17 03/18/17 Cumulative From/Thru 15:00 23:00 07:00 03/13/17 14:59 - 03/18/17 06:19 Intake Total 920 ml 673 ml 7381 ml Output Total 925 ml 900 ml 28563 ml Balance -5 ml -227 ml -2864 ml Intake Oral 920 ml 673 ml 4590 ml IV Total 2791 ml Output Urine Total 925 ml 900 ml 4545 ml Ultrafiltrate 5700 ml # Voids 6 # Bowel Movements 4 9 Exam General: Alert, Cooperative, No Acute Distress Head: Normal Eyes: Scleral Anicteric Nose: Mucous Membr Moist/[place] Mouth: Mucous Membr Moist/[place] Neck: Supple Chest & Lungs: Chest Wall Normal, Clear to auscultation bilat Cardiovascular: Regular Rate/Rhythm Abdomen: Non-tender, Non-distended, Normoactive bowel tones, Soft Extremities: No cyanosis/clubbing/edema bilat Neurological: Grossly Neurologically Intact, Normal Speech, CN II-XII grossly intact. Non-focal. Strength is 3/4 in UE and LE bilat IVs and Medications Medications Reviewed: Medications were reviewed in detail Lab and Diagnostics Result Diagram: 03/15/17 0532 03/17/17 0530 X-Rays, CTs and MRIs X-RAY CHEST ONE VIEW, PORTABLE IMPRESSION: 1. Small right-sided pleural effusion. 2. Bibasilar lung opacities compatible atelectasis versus pneumonia. Dictated by: Brenda Narayan MD, PhD on 03/13/2017 US ABDOMEN, LIMITED IMPRESSION: No ascites identified. Dictated by: Brenda Narayan MD, PhD on 03/13/2017 Assessment & Plan 56-year-old woman with PMH significant for ESRD on HD MWF, DM, CAD, systolic congestive heart failure admitted for hyperkalemia and diarrhea. # Complaint of acute worsening of generalized malaise and weakness today. Also complaining of chills. - Cancel discharge - Recheck all labs - Recheck CXR - Check UA - Recheck blood culture - No fever so no Abx as of now # Acute Hyperkalemia, present on admission. Improved - Most likely secondary to missed hemodialysis - Potassium 6.8 on admission - Kayexalate given in ED - Calcium gluconate, albuterol insulin given overnight - Continue with dialysis per nephrology # End-stage renal disease on hemodialysis M/W/F L present on admission. Ongoing - Appreciate Nephrology consult. Will followup with recs. - HD today # Acute Diarrhea, present on admission. Resolved - Check cultures and serologies if reoccur # Acute Metabolic acidosis, present on admission. Improved - Bicarbonate given earlier - Hemodialysis as above # Chronic diabetic neuropathy, present on admission. Ongoing - Continue with supportive care # Chronic heart failure with reduced EF, EF 40%, present on admission. Ongoing - Standing daily weights with strict I&O's - Continued furosemide. - Continued carvedilol, aware of hyperkalemic side effect - HD per nephrology # Coronary artery disease, present on admission. Stable - Continue home atorvastatin - Continue home Plavix # Hypertension, present on admission. Ongoing - Resume home medications lisinopril, spironolactone - Continue carvedilol, furosemide # Hyperlipidemia, present on admission. Stable - Continued home med atorvastatin # Diabetes mellitus, present on admission. Stable. - Hold home glipizide - Correction scale # Possible Ascites, present on admission. - Abdominal ultrasound showed no evidence of ascites - Continue to monitor Dispo: Likely SNF in am if acute symptoms improve and workup negative GI Prophylaxis: H2 alejandra VTE Prophylaxis: Sub-Q Heparin (Unfractionated) Resuscitation Status: CPR: Attempt Resuscitation Maico Calero Mar 18, 2017 16:49
[2017-03-18 17:59] LABS: BASOPHILS % (AUTO) 0.4 % (0-3); EOSINOPHILS % (AUTO) 3.4 % (0-5); MONOCYTES % (AUTO) 7.5 % (4-12); Mean Corpuscular Hemoglobin 30.1 pg (27.0-35.0); Mean Corpuscular Volume 94.3 fL (81-100); NEUTROPHILS % (AUTO) 74.9 % (40-74); Platelet Count 229 bil/L (150-400)
[2017-03-18 18:16] LABS: APPEARANCE,URINE CLOUDY (CLEAR,HAZY); COLOR,URINE YELLOW (YELLOW); OCCULT BLOOD,URINE MODERATE (NEGATIVE); PH,URINE 7.5 (5.0-8.0); UROBILINOGEN,URINE NORMAL (NORMAL)
[2017-03-18 18:18] LABS: Magnesium 1.6 mg/dL (1.6-2.6)
[2017-03-18 18:20] LABS: INR 0.94 ratio
--- NOTE | 2017-03-18 18:28 | DRSVH ---
PROCEDURE: X-RAY CHEST, TWO VIEWS ([id number]) INDICATIONS: chills TECHNIQUE: 2 views of the chest were acquired. COMPARISON: [facility], CR, XR CHEST 1VW (PORTABLE), 03/13/2017, 16:44. FINDINGS: Surgical changes and devices: None. Lungs and pleura: There is a small right pleural effusion similar in size to the study dated 03/13/17. The left lung base is obscured by the enlarged cardiac silhouette. Mediastinum: Mediastinal contours are normal. Heart size is enlarged. Bones and chest wall: No suspicious bony abnormalities. Soft tissues appear unremarkable. IMPRESSION: Right pleural effusion and cardiomegaly unchanged from the prior study. Dictated by: Dorita Cervantes M.D. on 03/18/2017 at 18:25 Approved by: Dorita Cervantes M.D. on 03/18/2017 at 18:27
[2017-03-18] MEDS ORDERED: 0.9% Sodium Chloride 100 ML ONE (19:17)
[2017-03-18] MEDS: cefTRIAXone Inj 2,000 MG in Dextrose 5% Minibag Plus 50 ML IV SCH (19:27)
[2017-03-19] VITALS (8 sets, daily range): BP systolic 127–153; BP diastolic 64–79; PULSE 65–79; RESP 16–18; O2SAT 94–98
[2017-03-19] MEDS: Heparin 5,000 Unit/mL Inj SUBQ SCH ×3 (00:44→17:09)
--- NOTE | 2017-03-19 05:59 | NUR ---
Sleepy Pt rested with eyes closed for most of the night. Arousable to voice and light touch. Pt states, "Im always sleepy after dialysis." Denies pain or discomfort. No complaints of SOB or n/v. Bed locked, low position. SBA and non slip socks on for safety. Call light within reach, using appropriately. Frequent rounding in place. Pleasant and cooperative with care.
[2017-03-19] MEDS: Insulin LISPRO 300 Unit/3 mL Inj SUBQ SCH ×4 (07:48→21:59)
[2017-03-19 07:51] LABS: BASOPHILS % (AUTO) 0.5 % (0-3); EOSINOPHILS % (AUTO) 4.3 % (0-5); MONOCYTES % (AUTO) 10.3 % (4-12); Mean Corpuscular Hemoglobin 30.1 pg (27.0-35.0); Mean Corpuscular Volume 94.4 fL (81-100); NEUTROPHILS % (AUTO) 66.3 % (40-74); Platelet Count 226 bil/L (150-400)
--- NOTE | 2017-03-19 08:45 | PCM.PNMED ---
Subjective Date of Service Mar 19, 2017 Subjective Complains of continued "shakiness" and chills but says feels better than yesterday Exam Vital Signs Vital Sign - Last Date Time Temp Pulse Resp B/P Pulse Ox O2 Delivery O2 Flow Rate FiO2 03/19/17 05:55 36.6 68 16 145/75 94 Room Air Intake and Output 03/18/17 03/18/17 03/19/17 Cumulative From/Thru 15:00 23:00 07:00 03/13/17 14:59 - 03/19/17 06:45 Intake Total 580 ml 100 ml 8061 ml Output Total 3000 ml 700 ml 300 ml 19172 ml Balance -3000 ml -120 ml -200 ml -6184 ml Intake Oral 580 ml 100 ml 5270 ml IV Total 2791 ml Output Urine Total 700 ml 300 ml 5545 ml Ultrafiltrate 3000 ml 8700 ml # Voids 6 # Bowel Movements 9 Exam General: Alert, Cooperative, No Acute Distress Head: Normal Eyes: Scleral Anicteric Nose: Mucous Membr Moist/[place] Mouth: Mucous Membr Moist/[place] Neck: Supple Chest & Lungs: Chest Wall Normal, Clear to auscultation bilat Cardiovascular: Regular Rate/Rhythm Abdomen: Non-tender, Non-distended, Normoactive bowel tones, Soft Extremities: No cyanosis/clubbing/edema bilat Neurological: Grossly Neurologically Intact, Normal Speech, CN II-XII grossly intact. Non-focal. Strength is 3/4 in UE and LE bilat IVs and Medications Medications Reviewed: Medications were reviewed in detail Lab and Diagnostics Result Diagram: 03/19/17 0743 03/18/17 1744 X-Rays, CTs and MRIs X-RAY CHEST ONE VIEW, PORTABLE IMPRESSION: 1. Small right-sided pleural effusion. 2. Bibasilar lung opacities compatible atelectasis versus pneumonia. Dictated by: Brenda Narayan MD, PhD on 03/13/2017 US ABDOMEN, LIMITED IMPRESSION: No ascites identified. Dictated by: Brenda Narayan MD, PhD on 03/13/2017 Date of Service: 03/18/17 8849 PROCEDURE: X-RAY CHEST, TWO VIEWS ([id number]) IMPRESSION: Right pleural effusion and cardiomegaly unchanged from the prior study. Dictated by: Dorita Cervantes M.D. on 03/18/2017 at 18:25 Approved by: Dorita Cervantes M.D. on 03/18/2017 at 18:27 Assessment & Plan 56-year-old woman with PMH significant for ESRD on HD MWF, DM, CAD, systolic congestive heart failure admitted for hyperkalemia and diarrhea. # Complaint of acute worsening of generalized malaise, weakness and chills. She says these symptoms were present on admission but worse on 03/18. Today says feels a little better - Cancelled discharge on 03/18/17 - Repeat labs and workup suggestive of possible acute UTI (>50 wbc but many epithelial cells as well). Given symptoms were present on admission and UA was not checked on admission suspect acute UTI was likely present on admission - Continue with empiric Ceftriaxone started on 03/18/17 and followup pending cultures # Acute Hyperkalemia, present on admission. Resolved. - Most likely secondary to missed hemodialysis - Potassium 6.8 on admission - Kayexalate given in ED - Calcium gluconate, albuterol insulin given overnight on admission. - Continue with dialysis per nephrology # End-stage renal disease on hemodialysis M/W/F L present on admission. Ongoing - Appreciate Nephrology consult. Will followup with recs. # Acute Diarrhea, present on admission. Resolved - Check cultures and serologies if reoccur # Acute Metabolic acidosis, present on admission. Improved - Bicarbonate given earlier - Hemodialysis as above # Chronic diabetic neuropathy, present on admission. Ongoing - Continue with supportive care # Chronic heart failure with reduced EF, EF 40%, present on admission. Ongoing - Standing daily weights with strict I&O's - Continued furosemide. - Continued carvedilol, aware of hyperkalemic side effect - HD per nephrology # Coronary artery disease, present on admission. Stable - Continue home atorvastatin - Continue home Plavix # Hypertension, present on admission. Ongoing - Resume home medications lisinopril, spironolactone - Continue carvedilol, furosemide # Hyperlipidemia, present on admission. Stable - Continued home med atorvastatin # Diabetes mellitus, present on admission. Stable. - Hold home glipizide - Correction scale # Possible Ascites, present on admission. - Abdominal ultrasound showed no evidence of ascites - Continue to monitor Dispo: PT had recommended SNF couple of days ago. PT to reevaluate and pt likely ready for d/c either home or SNF in 1-2 days pending UTI workup noted above. GI Prophylaxis: H2 alejandra VTE Prophylaxis: Sub-Q Heparin (Unfractionated) Resuscitation Status: CPR: Attempt Resuscitation Maico Calero Mar 19, 2017 08:45
--- NOTE | 2017-03-19 10:32 | NUR ---
Social Work-readiness for discharge/ multidisciplinary rounds: Data:EMR reviewed. Pt is on day 6 of hospitalization for hyperkalemia per H&P. Per MD in morning, pt will likely be ready to discharge tomorrow. SW updated [facility] and informed them that pt will likely discharge tomorrow. SW also updated pt's sister and she is agreeable. Sister states that she can provide transport tomorrow.PT recommending SNF. Paperwork in the chart. SW will continue to follow. Assessment:Pt who would benefit from SNF. Plan:Pt to discharge to [facility] when medically stable. Paperwork in the chart. SW will continue to follow. CHRISSIE Holden
--- NOTE | 2017-03-19 10:40 | NUR ---
RAMA signed at [id number]
--- NOTE | 2017-03-19 14:51 | NUR ---
Shift note Pt slept most of shift and was usually rousable by voice but sometimes only by touch. Pt would answer questions appropriately and would often not open her eyes during conversations. Pt stated that she was always tired and that this was normal behavior for her. Pt denied any diarrhea this shift. Pt was cooperative with care. Pt is weak and has an unsteady gait with cane; per physical therapy use FWW only.
[2017-03-19] MEDS: cefTRIAXone Inj 2,000 MG in Dextrose 5% Minibag Plus 50 ML IV SCH (19:38)
[2017-03-20 00:21] VITALS: BP 157/72; PULSE 76; RESP 16; O2SAT 98
[2017-03-20] MEDS: Heparin 5,000 Unit/mL Inj SUBQ SCH ×3 (00:35→16:30)
[2017-03-20 04:52] VITALS: BP 130/68; PULSE 76; RESP 16; O2SAT 97
--- NOTE | 2017-03-20 05:18 | NUR ---
Activity Pt rested with eyes closed for most of shift. Up with assist with fww to bathroom. Complained of left arm pain 12/29. Administered 650mg Tylenol, effective. No further complaints of pain or discomfort. Denies SOB or n/v. Call light within reach, using appropriately. Non slip socks on for safety. Frequent rounding in place. Pleasant and cooperative with care.
[2017-03-20] MEDS: Insulin LISPRO 300 Unit/3 mL Inj SUBQ SCH ×3 (07:51→18:33)
[2017-03-20 08:52] VITALS: BP 124/71; PULSE 68; RESP 18; O2SAT 97
--- NOTE | 2017-03-20 10:25 | PCM.DC.MED ---
Discharge Summary Date of Service Mar 20, 2017 Dates of Hospitalization Date of Hospital Admission Mar 13, 2017 at 17:13 Date of Discharge: Mar 18, 2017 Providers: Admitting Physician: Arina Hartley MD Primary Care Physician: Michael Barrera MD Attending Physician: Lázaro Styles DO Diagnosis at Time of Discharge Diagnosis at Time of Discharge # Acute Hyperkalemia, present on admission. Resolved - Most likely secondary to missed hemodialysis # End-stage renal disease on hemodialysis M/W/F, present on admission. Ongoing # Acute Diarrhea, present on admission. Resolved #Weakness; Unclear cause. NO evidence of infection. Discharge to rehab/senior care facility for continued recovery/strengthening. # Acute Metabolic acidosis, present on admission. Improved # Chronic diabetic neuropathy, present on admission. Ongoing # Chronic heart failure with reduced EF of 40%, present on admission. Ongoing # Coronary artery disease, present on admission. Stable # Hypertension, present on admission. Ongoing # Hyperlipidemia, present on admission. Stable # Diabetes mellitus, present on admission. Stable. Consultations 1. Nephrology (Dr. Stevens) Procedures XRay, CTs & MRIs X-RAY CHEST ONE VIEW, PORTABLE IMPRESSION: 1. Small right-sided pleural effusion. 2. Bibasilar lung opacities compatible atelectasis versus pneumonia. Dictated by: Brenda Narayan MD, PhD on 03/13/2017 US ABDOMEN, LIMITED IMPRESSION: No ascites identified. Dictated by: Brenda Narayan MD, PhD on 03/13/2017 Date of Service: 03/18/17 8049 PROCEDURE: X-RAY CHEST, TWO VIEWS ([id number]) IMPRESSION: Right pleural effusion and cardiomegaly unchanged from the prior study. Dictated by: Dorita Cervantes M.D. on 03/18/2017 at 18:25 Approved by: Dorita Cervantes M.D. on 03/18/2017 at 18:27 Brief History As noted in H&P by Dr. Starks: Ms. Peterson is a 56-year-old female past medical history of ESRD on HD Saturday, CHF, hypertension, diabetes mellitus, CAD, recurrent ascites presents to the ED secondary to diarrhea 1 week, shortness of breath, bilateral lower leg edema with pain in both legs. She has recent admissions for similar symptoms. Patient lives with daughter who is not sick. States the diarrhea has been on and off for one week. Multiple times a day. Denies blood or mucus and diarrhea. Denies any other sick contacts. Denies fever or chills , shortness of breath, chest pain and headache. Does state some blurry vision. Denies abdominal pain though does state abdominal fullness stating that it feels similar to previous episodes of abdominal ascites. In the ED patient was given 30 g oral Kayexalate. Hospital Course # Complaint of acute worsening of generalized malaise, weakness and chills. She says these symptoms were present on admission but worse on 03/18. Today says feels a little better though still weak - Cancelled discharge on 03/18/17, infectious work up initiated - Repeat labs and workup suggestive of possible acute UTI (>50 wbc but many epithelial cells as well). Given symptoms were present on admission and UA was not checked on admission suspect acute UTI was likely present on admission - Continued with empiric Ceftriaxone started on 03/18/17 through hospital stay for presumed infection, however urine culture entirely negative, in the absence of any evident disease process, antibiotics discontinued prior to discharge. # Acute Hyperkalemia, present on admission. Resolved. - Most likely secondary to missed hemodialysis - Potassium 6.8 on admission - Kayexalate given in ED - Calcium gluconate, albuterol insulin given overnight on admission. - Continue with dialysis per nephrology on discharge # End-stage renal disease on hemodialysis M/W/F L present on admission. Ongoing - Appreciate Nephrology consult through hospital stay. # Acute Diarrhea, present on admission. Resolved # Acute Metabolic acidosis, present on admission. Improved - Bicarbonate given earlier - Hemodialysis as above # Chronic diabetic neuropathy, present on admission. Ongoing - Continue with supportive care # Chronic heart failure with reduced EF, EF 40%, present on admission. Ongoing - Standing daily weights with strict I&O's - Continued furosemide. - Continued carvedilol, aware of hyperkalemic side effect - HD per nephrology # Coronary artery disease, present on admission. Stable - Continue home atorvastatin - Continue home Plavix # Hypertension, present on admission. Ongoing - Resume home medications lisinopril, spironolactone - Continue carvedilol, furosemide # Hyperlipidemia, present on admission. Stable - Continued home med atorvastatin # Diabetes mellitus, present on admission. Stable. - Hold home glipizide - Correction scale # Possible Ascites, present on admission. - Abdominal ultrasound showed no evidence of ascites - Continue to monitor Exam Vital Signs (Last) Date Time Temp Pulse Resp B/P Pulse Ox O2 Delivery O2 Flow Rate FiO2 03/20/17 08:52 36.9 68 18 124/71 97 Room Air Exam General: Alert, Cooperative, No Acute Distress Mouth: Mucous Membr Moist/[place] Chest & Lungs: Chest Wall Normal, Clear to auscultation bilat Cardiovascular: Regular Rate/Rhythm Extremities: No cyanosis/clubbing/edema bilat Neurological: Grossly Neurologically Intact. Strength is confirmed at 3/4 in UE and LE bilat, unclear degree of patient effort. Test 03/13/17 15:50 03/14/17 04:05 03/15/17 05:32 03/18/17 17:38 Hold Hartman Top Tube Received (Received) Hemoglobin A1c 7.8% (4.8-5.6) Lactic Acid Level 1.3mmol/L (0.4-2.0) Phosphorus Level 5.8mg/dL (2.5-4.9) Total Bilirubin 0.5mg/dL (0.0-1.2) Aspartate Amino Transf (AST/SGOT) 20U/L (0-50) Alanine Aminotransferase (ALT/SGPT) 20U/L (0-32) Alkaline Phosphatase 217U/L (25-150) Total Protein 6.4g/dL (6.4-8.4) Albumin 3.1g/dL (3.4-5.0) Urine Color Yellow (YELLOW) Urine Appearance Cloudy (CLEAR,HAZY) Urine pH 7.5 (5.0-8.0) Urine Specific [place] 1.015 (1.003-1.035) Urine Protein 300mg/dL (NEG,TRACE) Urine Glucose (UA) 250mg/dL (NEGATIVE) Urine Ketones Negativemg/dL (NEGATIVE) Urine Occult Blood Moderate (NEGATIVE) Urine Nitrite Negative (NEGATIVE) Urine Bilirubin Negative (NEGATIVE) Urine Urobilinogen Normalmg/dL (NORMAL) Urine Leukocyte Esterase Large (NEGATIVE) Urine RBC 3-10/hpf (0-2) Urine WBC >50/hpf (0-5) Urine Epithelial Cells Moderate/hpf (NONE-MOD) Urine Crystals None seen (NONE SEEN) Urine Bacteria Moderate/hpf (NONE-FEW) Urine Hyaline Casts None/lpf (NONE) Urine Granular Casts None seen (NONE SEEN) Urine Waxy Casts None seen (NONE SEEN) Urine Red Blood Cell Casts None seen (NONE SEEN) Urine White Blood Cell Casts None seen (NONE SEEN) Urine Mucus None seen (None Seen) Urine Trichomonas None seen (NONE SEEN) Urine Yeast None (NONE SEEN) Urinalysis Comment None Urine Culture Reflexed Indicated Test 03/18/17 17:43 03/19/17 07:43 Prothrombin Time 10.0sec (8.1-12.5) Prothromb Time International Ratio 0.94ratio Activated Partial Thromboplast Time 37.2sec (22.8-33.0) Sodium Level 136mEq/L (134-144) Potassium Level 4.4mEq/L (3.5-5.2) Chloride Level 92mEq/L (97-108) Carbon Dioxide Level 26mmol/L (18-29) Blood Urea Nitrogen 28mg/dL (6-24) Creatinine 4.24mg/dL (0.57-1.00) Estimat Glomerular Filtration Rate 15mL/min (>59) Glucose Level 206mg/dL (60-99) Calcium Level 8.8mg/dL (8.5-10.1) Magnesium Level 1.6mg/dL (1.6-2.6) Procalcitonin 0.13ng/mL (0.00-0.08) White Blood Count 10.7th/mm3 (3.8-10.1) Red Blood Count 4.08mil/mm3 (3.90-5.20) Hemoglobin 12.3g/dL (12.0-15.6) Hematocrit 38.5% (35.0-46.0) Mean Corpuscular Volume 94.4fL (81-100) Mean Corpuscular Hemoglobin 30.1pg (27.0-35.0) Mean Corpuscular Hemoglobin Concent 31.9% (32.0-37.0) Red Cell Distribution Width 16.4% (12.3-15.4) Platelet Count 226bil/L (150-400) Neutrophils (%) (Auto) 66.3% (40-74) Lymphocytes (%) (Auto) 18.2% (14-46) Monocytes (%) (Auto) 10.3% (4-12) Eosinophils (%) (Auto) 4.3% (0-5) Basophils (%) (Auto) 0.5% (0-3) Discharge Medications Discharge Medications Atorvastatin Calcium (Atorvastatin Calcium) 80 Mg Tablet 80 MG PO HS (Reported) Carvedilol (Carvedilol) 6.25 Mg Tablet 6.25 MG PO BID (Reported) Clopidogrel (Clopidogrel) 75 Mg Tablet 75 MG PO DAILY Prescribed by: JESUS CHINO MD Furosemide (Furosemide) 40 Mg Tablet 40 MG PO BID (Reported) Lisinopril (Lisinopril) 5 Mg Tablet 5 MG PO BID Prescribed by: CHAD AMOS MD Spironolactone (Spironolactone) 100 Mg Tablet 200 MG PO QAM (Reported) As needed Glipizide (Glipizide) 5 Mg Tablet 2.5 MG PO DAILY PRN PRN hyperglycemia ( Reported) Followup Plan Disposition: Discharged to [facility] Follow-up plan 1. Followup with hemodialysis clinic and with your business operations analyst as previously planned and scheduled. 2. Followup with primary care provider in 4-10 days Discharge Diet: Heart Healthy, Diabetic, Renal Diet Discharge Activity: Limited until seen by PCP, Other (as tolerated and per physical therapy) Follow-up Provider: Mayito Gaines MD Follow-up with PCP in: 1 week Time spent >35 minutes copies to: Mayito Gaines MD, Benjamin P DO Mar 20, 2017 10:25
--- NOTE | 2017-03-20 11:24 | NUR ---
Social Work-discharge: data:EMR reviewed. Pt is on day 7 of hospitalization for hyperkalemia per H&P. Pt is medically stable for discharge. Pt to go to dialysis today prior to discharge. PT has recommended SNF. KUSHAL faxed orders to [facility] and informed them pt will discharging at 1630 this afternoon after dialysis. Facility agreeable and confirms they received orders. KUSHAL spoke with pt's sister Becca who confirms she can provide transport and will pick pt up at [facility] around 1630. SW to provide packet to pt and sister. Pt is updated and agreeable to plan. RN,UC,pt/family, and [facility] all updated and agreeable to plan. Assessment:Pt who would benefit from SNF. Plan:Pt to discharge to [facility] today via POV at 1630. Pt to have dialysis here at [facility] then discharge after. RN,UC,pt/family, and [facility] all updated and agreeable to plan. CHRISSIE Holden
--- NOTE | 2017-03-20 11:28 | PCM.PNNEPH ---
Subjective Date of Service Mar 20, 2017 Subjective Feeling weak. She complains of left wrist pain and swelling. She has no chest pain or shortness of breath. Exam Vital Signs Vital Sign - Last Date Time Temp Pulse Resp B/P Pulse Ox O2 Delivery O2 Flow Rate FiO2 03/20/17 08:52 36.9 68 18 124/71 97 Room Air Intake and Output 03/19/17 03/19/17 03/20/17 Cumulative From/Thru 15:00 23:00 07:00 03/13/17 14:59 - 03/20/17 05:36 Intake Total 536 ml 946 ml 9543 ml Output Total 525 ml 200 ml 27201 ml Balance 11 ml 746 ml -5427 ml Intake Oral 536 ml 946 ml 6752 ml IV Total 2791 ml Output Urine Total 525 ml 200 ml 6270 ml Ultrafiltrate 8700 ml # Voids 6 # Bowel Movements 1 10 Exam GENERAL: The patient in no apparent distress, and alert and oriented x3. Chronically ill-looking. HEENT: Head is normocephalic and atraumatic. Extraocular muscles are intact. Pupils are equal, round, and reactive to light and accommodation. NECK: Supple, no elevation of JVD, No carotid bruits. No lymphadenopathy or thyromegaly. LUNGS: Decreased breath sounds on the right. Rales on the right lower lung. HEART: Normal S1/S2, Regular rate and rhythm, no murmurs, rubs or gallops. ABDOMEN: Soft, nontender, and nondistended. Positive bowel sounds. No hepatosplenomegaly was noted. EXTREMITIES: Without any cyanosis, clubbing, rash, lesions or edema. left AVG with good thrill and bruits. Lab and Diagnostics Result Diagram: 03/19/17 0743 03/18/17 1743 X-Rays, CTs and MRIs X-RAY CHEST ONE VIEW, PORTABLE IMPRESSION: 1. Small right-sided pleural effusion. 2. Bibasilar lung opacities compatible atelectasis versus pneumonia. Dictated by: Brenda Narayan MD, PhD on 03/13/2017 US ABDOMEN, LIMITED IMPRESSION: No ascites identified. Dictated by: Brenda Narayan MD, PhD on 03/13/2017 Date of Service: 03/18/17 1649 PROCEDURE: X-RAY CHEST, TWO VIEWS ([id number]) IMPRESSION: Right pleural effusion and cardiomegaly unchanged from the prior study. Dictated by: Dorita Cervantes M.D. on 03/18/2017 at 18:25 Approved by: Dorita Cervantes M.D. on 03/18/2017 at 18:27 Plan Impression 1. ESRD on HD MWF 2. Pyuria, urine culture no growth. 3. Left wrist pain rule out gouty arthritis or septic arthritis 4. Chronic heart failure with reduced ejection fraction 5. Coronary artery disease 6. Hypertension with hypertensive nephrosclerosis 7. Type II diabetes with renal manifestation. Plan: HD today. will order left wrist xray, uric acid, ESR, CBC, renal panel. Frank Julien MD Mar 20, 2017 11:28
--- NOTE | 2017-03-20 12:45 | NUR ---
off unit Pt was brought to [facility] for dialysis. no s/s of distress.
[2017-03-20 13:12] VITALS: BP 132/72; PULSE 72
--- NOTE | 2017-03-20 13:45 | NUR ---
Dialysis Note pt stable, vitals stable resting with eyes closed, no complaints of pain scheduled for discharged post treatment access washed soap/water, cleaned with chloraprep, site benign, no redness/drainage noted cannulated with 15 g needles without difficulty, x1 stick per site, pt tolerated well labs drawn per Dr Joseph orders and sent to lab administered heparin 1000u/ml treatment started, pt resting with eyes closed, no complaints Addendum: 03/20/17 at 1803 by JUAN CARLOS PARIKH RN uneventful treatment total treatment time 4.0 total net removed 2600ml c/o cramping during last 45 minutes of treatment, uf off, cramping relieved treatment ended, blood returned, clamps x10 minutes per site, bleeding stopped, gauze and tape applied pt tolerated treatment well report called to Michael GANNON see DTR for complete treatment record
[2017-03-20 13:54] LABS: BASOPHILS % (AUTO) 0.6 % (0-3); EOSINOPHILS % (AUTO) 4.1 % (0-5); MONOCYTES % (AUTO) 9.9 % (4-12); Mean Corpuscular Hemoglobin 29.8 pg (27.0-35.0); Mean Corpuscular Volume 94.6 fL (81-100); Platelet Count 218 bil/L (150-400)
[2017-03-20 14:10] LABS: Phosphorus 9.9 mg/dL (2.5-4.9)
--- NOTE | 2017-03-20 16:56 | DRSVH ---
PROCEDURE: X-RAY LEFT WRIST COMPLETE, MINIMUM THREE VIEWS ([id number]) INDICATIONS: pain and swelling TECHNIQUE: 4 views of the wrist were acquired. COMPARISON: None. FINDINGS: Bones: No fractures or dislocations. No suspicious bony lesions. Mild positive ulnar variance. Scaphoid view: Intact scaphoid. Soft tissues: No suspicious soft tissue calcifications. Small vessel calcifications. IMPRESSION: 1. No displaced fracture seen. If there is continued pain, followup exam or additional imaging such as MRI or CT could be performed for further assessment. 2. Small vessel atherosclerotic calcification noted likely related to diabetes mellitus. 3. Mild positive ulnar variance. Dictated by: Puma DEGROOT Interpreted: Guillermo Cleary MD on 03/20/2017 at 12:59 Approved by: Guillermo Cleary M.D. on 03/20/2017 at 16:54
--- NOTE | 2017-03-20 19:18 | NUR ---
[facility]charge [facility] Taken by sister. IV removed. No s/s of distress at time of dc. report given to RN
== END 2017-03-20 18:56 | DRG 640 ==
LOC: SED 14:57 → PCC 17:13 → MPC 03-14 17:36
PROVIDERS: ADMIT Specialist; ATTEND Family Medicine
PROC: 5A1D60Z (ICD-10-PCS; principal; 2017-03-14)
DX: E87.5 Hyperkalemia (principal); N18.6 End stage renal disease; I13.2 Hypertensive heart and chronic kidney disease with heart failure and with stage 5 chronic kidney disease, or end stage renal disease; I50.20 Unspecified systolic (congestive) heart failure; I42.9 Cardiomyopathy, unspecified; I50.22 Chronic systolic (congestive) heart failure; E87.2 Acidosis; E11.319 Type 2 diabetes mellitus with unspecified diabetic retinopathy without macular edema; E11.40 Type 2 diabetes mellitus with diabetic neuropathy, unspecified; E11.22 Type 2 diabetes mellitus with diabetic chronic kidney disease; R19.7 Diarrhea, unspecified; E78.5 Hyperlipidemia, unspecified; I25.10 Atherosclerotic heart disease of native coronary artery without angina pectoris; Z95.5 Presence of coronary angioplasty implant and graft; Z91.15 Patient's noncompliance with renal dialysis; Z99.2 Dependence on renal dialysis